=== PATIENT | male | born 1950 | race African-American/Black ===

== ENCOUNTER 2020-04-15 03:45 | Inpatient (IN) | payer MEDICARE ==
[~2020-04-15] VITALS: Ht 200.7 cm; Wt 68.0 kg
--- NOTE | 2020-04-15 03:45 | NUR ---
ED Nurse Note: Pt brought in by ambulance from [facility] d/t low o2 sat and elevated HR per SNF staff. Pt normally on 4 L NC at the SNF. HR 122 upon arrival. Pt COVID positve per staff. Respirations labored. A+Ox0, non verbal @ baseline. Pt hot to touch. All other vitals stable as documented.
[2020-04-15] MEDS ORDERED: Azithromycin 500 MG in NS 275 ML IVPB ONE (04:00)
[2020-04-15] MEDS ORDERED: Acetaminophen 650 MG SUPP RECTAL ONE (04:00)
[2020-04-15] MEDS ORDERED: cefTRIAXone 1 GM in NS 55 ML IV ONE (04:00)
[2020-04-15] MEDS ORDERED: dexAMETHasone 10mg/ml Inj IV ONE (04:00)
[2020-04-15] MEDS ORDERED: ATORVASTATIN CA10 MG ORAL (04:04)
[2020-04-15] MEDS ORDERED: HEPARIN SO5000 UNIT2 SUBQ (04:04)
[2020-04-15] MEDS ORDERED: FAMOTIDINE20 MG GT (04:04)
[2020-04-15] MEDS ORDERED: LABETALOL HCL200 MG GT (04:04)
[2020-04-15] MEDS ORDERED: MULTIVITAMINS1 EAC8 ORAL (04:04)
[2020-04-15] MEDS ORDERED: AMLODIPINE BESY10 MG GT (04:04)
[2020-04-15] MEDS ORDERED: ACETAMINOPHEN325 M1 GT (04:04)
[2020-04-15] MEDS ORDERED: MAGNESIUM OXID400 M1 GT (04:04)
[2020-04-15] MEDS ORDERED: REMERON30 MG GT (04:04)
[2020-04-15] MEDS ORDERED: ASPIRIN81 MG GT (04:04)
--- NOTE | 2020-04-15 04:04 | Emergency Room Report ---
History of Present Illness General Source: Medical Record, EMS Present Illness HPI Paramedics were summoned because the patient had a lower oxygen saturation. Apparently he usually saturates at 98% on 4 L. The patient has a history of COPD. When they arrived the nursing staff said that he was on 2 L and his oxygen saturation had dropped to 94%. When they increased his O2 sats to 4 L his oxygen saturation elzbieta to 98%. They were comfortable leaving the patient at the scene however the nursing facility insisted that the patient be transferred to the emergency department for further evaluation. There is a history of Covid positive status in the past. Uncertain as to when this test was performed. 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 He also has communication difficulty. He suffers from atrophy and muscle wasting. In addition he has major depressive disorder and COPD. The patient is unable to provide any further history. 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 COVID-19 Screening: Positive COVID-19 COVID-19 Testing Source: Manager Machine Patient History Limited by: medical condition Past Medical History: see triage record Social History Narrative residential facility full code Reviewed Nursing Documentation: PMH: Agreed; PSxH: Agreed Nursing Documentation-PMH Hx Cerebrovascular Accident: Yes - hemiplegia, hemiparesis Review of Systems All Other Systems: limited Physical Exam Vital Signs Date Time Temp Pulse Resp B/P (MAP) Pulse Ox O2 Delivery O2 Flow Rate FiO2 04/15/20 03:37 98.1 112 16 128/96 (107) 99 Nasal Cannula 4.0 Sp02 EP Interpretation: reviewed, abnormal - Based on FiO2 and interpreted by me General Appearance: alert, mild distress, thin, Chronically Ill Head: normocephalic, atraumatic Eyes: bilateral eye normal inspection, bilateral eye PERRL ENT: other - Dry mucous membranes Neck: full range of motion, supple Respiratory: no wheezing, respiratory distress - Mild, decreased breath sounds, rales, rhonchi Cardiovascular #1: no edema, tachycardia Cardiovascular #2: 2+ radial (R) Gastrointestinal: non tender, decreased bowel sounds, scaphoid Genitourinary: no CVA tenderness, penis normal Musculoskeletal: back normal, no calf tenderness, other - Atrophy Neurologic: DTRs symmetric, sensory intact, motor weakness - Left hemiparesis with some movement of his right arm with weakness, aphasia, Babinski - Left, right normal Psychiatric: depressed affect Skin: other - Cool extremities but warm abdomen Medical Decision Making Diagnostic Impression: Primary Impression: Right lower lobe pneumonia Qualified Codes: J18.9 - Pneumonia, unspecified organism Additional Impressions: COVID-19 virus detected Hypernatremia Left hemiparesis Aphasia Renal failure Qualified Codes: N19 - Unspecified kidney failure Protein calorie malnutrition Qualified Codes: E44.0 - Moderate protein-calorie malnutrition Elevated d-dimer ER Course Patient presents with hypoxia rhonchi presumed fever and history of Covid recently. Differential includes sepsis, pneumonia, Covid pneumonia, acute myocardial infarction, dehydration amongst others. Patient evaluated with EKG, chest x-ray and labs including COVID-19 testing. Patient treated with a fluid bolus, Tylenol, dexamethasone, azithromycin, Rocephin. Patient placed on a bus monitor. Complex patient with multiple comorbidities. EKG without injury. Chest x-ray right lower lobe infiltrate. Labs with leukocytosis, hypernatremia, renal failure. Urinalysis clear. Initial lactate normal. Patient improved on oxygen with treatment. Clearly patient is volume depleted. Even though covid +, doubt covid pneumonia based on x-ray and timing of prior + test. Patient admitted to telemetry under the care of Dr. Buitrago. Laboratory Tests Test 04/15/20 04:15 White Blood Count 11.8 K/UL (4.8-10.8) H Red Blood Count 4.96 M/UL (4.70-6.10) Hemoglobin 12.6 G/DL (14.2-18.0) L Hematocrit 40.1 % (42.0-52.0) L Mean Corpuscular Volume 81 FL (80-99) Mean Corpuscular Hemoglobin 25.5 PG (27.0-31.0) L Mean Corpuscular Hemoglobin Concent 31.5 G/DL (32.0-36.0) L Red Cell Distribution Width 15.1 % (11.6-14.8) H Platelet Count 277 K/UL (150-450) Mean Platelet Volume 7.7 FL (6.5-10.1) Neutrophils (%) (Auto) 81.4 % (45.0-75.0) H Lymphocytes (%) (Auto) 8.8 % (20.0-45.0) L Monocytes (%) (Auto) 9.2 % (1.0-10.0) Eosinophils (%) (Auto) 0.0 % (0.0-3.0) Basophils (%) (Auto) 0.5 % (0.0-2.0) Prothrombin Time 11.2 SEC (9.30-11.50) Prothrombin Time INR 1.0 (0.9-1.1) Activated Partial Thromboplast Time 30 SEC (23-33) D-Dimer 4.99 mg/L FEU (0.00-0.49) H Urine Color Yellow Urine Appearance Cloudy Urine pH 5 (4.5-8.0) Urine Specific Gerlaw 1.020 (1.005-1.035) Urine Protein 3+ (NEGATIVE) H Urine Glucose (UA) Negative (NEGATIVE) Urine Ketones Negative (NEGATIVE) Urine Blood 1+ (NEGATIVE) H Urine Nitrite Negative (NEGATIVE) Urine Bilirubin 1+ (NEGATIVE) H Urine Ictotest Negative (NEGATIVE) Urine Urobilinogen 1 MG/DL (0.0-1.0) H Urine Leukocyte Esterase Negative (NEGATIVE) Urine RBC 0-2 /HPF (0 - 0) H Urine WBC 0-2 /HPF (0 - 0) Urine Squamous Epithelial Cells None /LPF (NONE/OCC) Urine Amorphous Sediment Many /LPF (NONE) H Urine Bacteria Moderate /HPF (NONE) H Urine Coarse Granular Casts 5-10 /LPF (NONE) H Sodium Level 153 MMOL/L (136-145) H Potassium Level 3.5 MMOL/L (3.5-5.1) Chloride Level 115 MMOL/L (98-107) H Carbon Dioxide Level 23 MMOL/L (21-32) Anion Gap 15 mmol/L (5-15) Blood Urea Nitrogen 88 mg/dL (7-18) H Creatinine 3.6 MG/DL (0.55-1.30) H Estimated Glomerular Filtration Rate 16.9 mL/min (>60) Glucose Level 137 MG/DL (74-106) H Lactic Acid Level 1.30 mmol/L (0.4-2.0) Calcium Level 9.9 MG/DL (8.5-10.1) Magnesium Level 2.1 MG/DL (1.8-2.4) Ferritin 860 NG/ML (8-388) H Total Bilirubin 0.5 MG/DL (0.2-1.0) Aspartate Amino Transferase (AST) 30 U/L (15-37) Alanine Aminotransferase (ALT) 13 U/L (12-78) Alkaline Phosphatase 72 U/L (46-116) Lactate Dehydrogenase 247 U/L (81-234) H Total Creatine Kinase 132 U/L (26-308) Troponin I 0.030 ng/mL (0.000-0.056) C-Reactive Protein, Quantitative 23.9 mg/dL (0.00-0.90) H Pro-B-Type Natriuretic Peptide 579 pg/mL (0-125) H Total Protein 8.4 G/DL (6.4-8.2) H Albumin 3.1 G/DL (3.4-5.0) L Globulin 5.3 g/dL Albumin/Globulin Ratio 0.6 (1.0-2.7) L Lipase 123 U/L (73-393) Microbiology Date/Time Source Procedure Growth Status 04/15/20 03:57 Nasopharynx SARS-CoV-2 RdRp Gene Assay - Final Complete EKG Diagnostic Results Rate: tachycardiac Rhythm: NSR ST Segments: no acute changes - biatrial enlargement Rhythm Strip Diag. Results EP Interpretation: yes Rhythm: no PVC's, no ectopy, other - ST Chest X-Ray Diagnostic Results Chest X-Ray Diagnostic Results : Chest X-Ray Ordered: Yes # of Views/Limited/Complete: 1 View Indication: Shortness of Breath EP Interpretation: Yes Interpretation: no effusion, no pneumothorax, other - Right lower lobe infiltrate and COPD Impression: Other Electronically Signed by: Electronically signed by Johnny Ruvalcaba MD Last Vital Signs Date Time Temp Pulse Resp B/P (MAP) Pulse Ox O2 Delivery O2 Flow Rate FiO2 04/15/20 08:50 100.2 104 17 125/80 99 Nasal Cannula 4.0 Status: improved Disposition: ADMITTED INPATIENT Condition: Serious Johnny Ruvalcaba MD Apr 15, 2020 04:04
[2020-04-15 04:34] LABS: BILIRUBIN, URINE 1+ (NEGATIVE); GLUCOSE, URINE (UA) NEGATIVE (NEGATIVE); KETONES,URINE NEGATIVE (NEGATIVE); LEUKOCYTE ESTERASE ,URINE NEGATIVE (NEGATIVE); NITRITE,URINE NEGATIVE (NEGATIVE); PH,URINE 5 (4.5-8.0); PROTEIN,URINE 3+ (NEGATIVE); UROBILINOGEN,URINE 1 MG/DL (0.0-1.0)
[2020-04-15 04:45] VITALS: BP 114/81
[2020-04-15 04:46] LABS: BASOPHILS % (AUTO) 0.5 % (0.0-2.0); HEMATOCRIT 40.1 % (42.0-52.0); HEMOGLOBIN 12.6 G/DL (14.2-18.0); LYMPHOCYTES % (AUTO) 8.8 % (20.0-45.0); MEAN CORPUSCULAR VOLUME 81 FL (80-99); MONOCYTES % (AUTO) 9.2 % (1.0-10.0); NEUTROPHILS % (AUTO) 81.4 % (45.0-75.0); PLATELET COUNT 277 K/UL (150-450); RED BLOOD COUNT 4.96 M/UL (4.70-6.10); RED CELL DISTRIBUTION WIDTH 15.1 % (11.6-14.8); WHITE BLOOD COUNT 11.8 K/UL (4.8-10.8)
--- NOTE | 2020-04-15 04:46 | NUR ---
ED Nurse Note: rectal temp 102.4
[2020-04-15 05:01] LABS: ANION GAP 15 mmol/L (5-15); BLOOD UREA NITROGEN 88 mg/dL (7-18); CALCIUM 9.9 MG/DL (8.5-10.1); CARBON DIOXIDE 23 MMOL/L (21-32); CHLORIDE 115 MMOL/L (98-107); CREATININE 3.6 MG/DL (0.55-1.30); POTASSIUM 3.5 MMOL/L (3.5-5.1); SODIUM 153 MMOL/L (136-145)
[2020-04-15 05:03] LABS: COLOR,URINE YELLOW
[2020-04-15 05:04] LABS: APPEARANCE,URINE CLOUDY
[2020-04-15 05:21] LABS: ALANINE AMINOTRANSFERASE 13 U/L (12-78); ALBUMIN 3.1 G/DL (3.4-5.0); ALBUMIN/GLOBULIN RATIO 0.6 (1.0-2.7); ALKALINE PHOSPHATASE 72 U/L (46-116); ASPARTATE AMINO TRANSFERASE 30 U/L (15-37); BILIRUBIN,TOTAL 0.5 MG/DL (0.2-1.0); CREATINE KINASE 132 U/L (26-308); FERRITIN 860 NG/ML (8-388); LACTATE DEHYDROGENASE 247 U/L (81-234)
[2020-04-15 06:45] VITALS: BP 123/87
--- NOTE | 2020-04-15 07:30 | NUR ---
ED Nurse Note: Pt lying in bed, no acute distress. Will continue to monitor.
[2020-04-15 08:50] VITALS: BP 125/80
--- NOTE | 2020-04-15 09:24 | NUR ---
ED Nurse Note: Report given to Daniel GRUBBS.
--- NOTE | 2020-04-15 09:40 | NUR ---
ED Nurse Note: Pt transferred to tele floor with all belongings. Received by RN.
--- NOTE | 2020-04-15 09:40 | NUR ---
NURSE NOTES: Admitted patient from ED. Patientis covid-19 positive from SNF. pt is awake, eyes open, and non-verbal. A&O x0. Respirationis even and unlabored on O2 @4l/min via NC. No facial grimacing for pain noted. Patient has no belongingsat this time. skin is intact. pt is a fall risk, bed alarm on, bed locked for fall precaution. made pt comfortable in bed, meal ordered, placed call light within reach.
--- NOTE | 2020-04-15 10:00 | NUR ---
NURSE NOTES: Made Dr. Buitrago aware. received admission orders, noted and carried out.
[2020-04-15 12:00] VITALS: BP 126/93
--- NOTE | 2020-04-15 14:25 | Diagnostic Imaging Report ---
Indication: Shortness of breath Technique: One view of the chest Comparison: none Findings: Dense consolidation is seen in the right medial lung base. The remainder of the lungs and pleural spaces are clear, except for very questionable peripheral streaky opacity in the right mid-upper lung. The heart size is normal. The aorta is tortuous. Calcified granulomata are seen in the left midlung Impression: Right infrahilar dense consolidation, likely pneumonia. As it is fairly dense and focal, follow-up chest radiographs are recommended to make sure this resolves in order to exclude underlying mass lesion Questionable streaky peripheral consolidation in the right upper lobe Evidence of old granulomatous disease Findings discussed by phone with Dr. Buitrago at the time of interpretation
[2020-04-15 16:00] VITALS: BP 121/86
--- NOTE | 2020-04-15 16:01 | Consultation ---
Consult Note Consult Note DATE OF CONSULTATION: 04/15/2020 CONSULTING PHYSICIAN: David Lopez MD. ATTENDING PHYSICIAN: Dr. Buitrago REASON FOR CONSULTATION: Hypoxia, COVID-19 HISTORY OF PRESENT ILLNESS: This is a 69-year-old male with past medical history of CVA with left-sided hemiplegia, muscle wasting, major depressive disorder, and COPD, who was sent in from SNF for evaluation of acute hypoxia. Patient has communication difficulty and most of the information is obtained from the ER note and his EMR. Apparently he usually saturates at 98% on 4 L nasal cannula at the SNF. Paramedics were summoned to the SNF due to acute hypoxia. However it was noted that patient was saturating at 94% on 2 L nasal cannula. The nursing facility insisted that the patient be transferred to the ER for further evaluation. Patient was also reported to test positive for COVID-19 with unknown testing date. His rapid gene assay COVID-19 test came back positive in the ER. His initial chest x-ray is remarkable for lower lobe infiltrate. His initial laboratory studies are remarkable for leukocytosis, hyponatremia, and renal failure. Urinalysis is clear. Patient received fluid bolus, Tylenol, dexamethasone, azithromycin, and Rocephin in the ER and was admitted for further observation. PAST MEDICAL HISTORY: CVA with left-sided hemiplegia, muscle wasting, major depressive disorder, COPD MEDICATIONS: Acetaminophen, amlodipine, aspirin, atorvastatin, famotidine, heparin, labetalol, magnesium, mirtazapine, and multivitamin ALLERGIES: No known allergies FAMILY HISTORY: Unknown PERSONAL/SOCIAL HISTORY: Resident of correction facility REVIEW OF SYSTEMS: Unreliable PHYSICAL EXAMINATION: VITAL SIGNS: Blood pressure 126/93, heart rate 105, respiratory rate 22, weight 68 kg, height 200 cm General: Patient asleep in bed, NAD, on 3 L NC with normal work of breathing HEENT: Head exam reveals that the head is normocephalic, atraumatic without deformity or unusual swelling. Pupils are PERRLA. CHEST AND LUNGS: Mildly decreased breath sounds, rales, rhonchi CARDIOVASCULAR: Reveals normal S1, S2 without murmurs, rubs, or clicks. Tachycardia ABDOMEN: Soft with no tenderness or organomegaly. Scaphoid contour RECTAL: Deferred. MUSCULOSKELETAL: There is no tenderness to palpation NEUROLOGICAL: Left hemiparesis with some movement of his right arm with weakness, aphasia, Babinski normal LABORATORY DATA: Laboratory testing shows WBC 11.8, hemoglobin 12.6, hct 40.1 Chemistries show sodium 153, chloride 115, BUN 88, creatinine 3.6, glucose 137, ferritin 860, LDH 247, CRP 23.9, BNP 579, albumin 3.0 Urinalysis shows 3+ protein, 1+ blood, 1+ bilirubin, negative leuk esterase D-dimer 4.99 Assessment/Plan 1. COVID-19 pneumonia -On dexamethasone -On azithromycin, and ceftriaxone per primary MD 2. COPD, oxygen dependent 3. Malnourished -Per primary MD 4. Leukocytosis, likely secondary to #1 5. Renal failure - Recommend IVF 6. Hyperglycemia, - monitor BG - of note, he is on Decadron 7. Increased inflammatory markers - DVT prophylaxis -Agree with heparin 8. Hypoxia; improved - currently saturating at 95% on 4 L nasal cannula -Continue providing supplemental oxygen The care for this patient was discussed with my supervising physician. Time spent for this case was approximately 31 minutes. Bennie Goodrich Apr 15, 2020 16:01
--- NOTE | 2020-04-15 17:17 | NUR ---
NURSE NOTES:WOUND CARE NOTES:P presented on admission with Non-Blanchable erythema sacrum with scattered areas of hyperpigmentation from previous wounds noted to cleft ,R and L Buttocks. L Heel is boggy but easily blanchable. R Heel is boggy with non-blanchable erythema. No other skin concerns noted. Tx.Plan: Apply Moisture Barrier Paste to sacrum. Cover with Optifoam drsg. Change every 3 days and prn. Apply Cavilon Skin Barrier to both heels. Cover each heel with Optifoam drsg. Change every 7 days and prn. Cover Bony Prominences as needed with Optifoam drsg. Reposition at least every 2hours or as tolerated. Off-load heels with pillow.
--- NOTE | 2020-04-15 18:00 | NUR ---
NURSE NOTES: DR HAN MADE ROUNDS, GAVE VERBAL ORDERS TO START PT ON NS 100CC/HR AND GLUCERNA SHAKE FOR MEAL SUPPLEMENT. ORDER NOTED AND CARRIED OUT.
--- NOTE | 2020-04-15 19:30 | NUR ---
NURSE NOTES: Pt. received from ROMIE Sanchez. Pt nonverbal, no indications of respiratory distress on 2L NC, no indications of pain. IV noted left wrist 20g intact and patent, right forearm 20g intact and patent. Awad intact, draining urine well. Bed low and locked, side rails x3 up, bed alarm active, and call light in reach.
--- NOTE | 2020-04-15 19:34 | NUR ---
HAND-OFF: Report given to marcie.
--- NOTE | 2020-04-15 19:44 | History and Physical Report ---
DATE OF ADMISSION: 04/15/2020 HISTORY OF PRESENT ILLNESS: The patient is a 69-year-old male, came to the emergency room for having altered mental status, dehydration, was found to have COVID-19 and also was found to have acute renal failure, protein malnutrition, history of left hemiparesis, and COVID. The patient also has right lower lobe pneumonia. The patient looked very weak, tired, poor p.o. intake, not eating for the last few days. MEDICATIONS: He is taking Pepcid, Remeron, multivitamin at home, Lipitor, amlodipine, labetalol, Remeron, aspirin. PHYSICAL EXAMINATION: GENERAL: This is elderly cachectic male, who currently opens his eyes, generalized weakness, poor p.o. intake. VITAL SIGNS: Blood pressure 121/86, pulse 96, saturation 98%, and temperature 97.9. HEENT: Eyes are open. NECK: Supple. CHEST: Bilateral decreased breath sounds. CARDIOVASCULAR: Regular rhythm. Tachycardia. ABDOMEN: Soft. Positive bowel sounds. Nontender. EXTREMITIES: No edema. GENITOURINARY: Deferred. LABORATORY AND DIAGNOSTIC DATA: White count is 12,000, hemoglobin 13. Chemistry panel, sodium 153, potassium 3.5, BUN 88, creatinine 3.6, glucose 137. Urine, 1+ blood, urobilinogen, moderate bacteria. Chest x-ray showing right lower lobe pneumonia. ASSESSMENT: 1. COVID-19 pneumonia. 2. Dehydration. 3. Acute renal failure. 4. Severe malnutrition. 5. Metabolic encephalopathy. We will add IV fluids. Continue Pepcid, aspirin, Norvasc. Continue Decadron, Zithromax, ceftriaxone. Check labs and follow. Consider Pulmonary consult. Luis Buitrago M.D. DR: BALAJI JOB#: [id number] CC:
[2020-04-15 20:00] VITALS: BP 120/89
[2020-04-15] MEDS: Heparin 5000 units/ml inj SUBQ SCH (20:55)
--- NOTE | 2020-04-15 21:09 | NUR ---
NURSE NOTES: Pt. high risk for aspiration, unable to tolerate PO intake. Pt. opening and closing mouth without attempt to swallow small portion of applesauce given. 2100 PO meds held, will notify Dr. Buitrago.
--- NOTE | 2020-04-15 21:51 | NUR ---
NURSE NOTES: Dr. Buitrago aware, no new orders.
[2020-04-16] VITALS: BP 134/98
[2020-04-16 04:00] VITALS: BP 135/92
--- NOTE | 2020-04-16 05:59 | NUR ---
NURSE NOTES: Pt. unable to consume 0600 medications. When attempting to assess pt. swallow ability, pt. attempts to bite straw and plastic spoon with no attempts to consume. Pt. high aspiration risk. AM meds held. Dr. Buitrago aware of similar event for 2100 meds.
--- NOTE | 2020-04-16 07:05 | NUR ---
NURSE HAND-OFF REPORT: Important Events on Shift:[pt. with poor PO intake, unable to administer PO meds as pt was uncooperative and high risk for aspiration. Dr. Buitrago notified and no new orders received] Patient Status: asleep, stable Diet: regular Pending Orders: na Pending Results/Labs:na Pending MD notification: MD notified of poor PO intake, endorsed to day shift as well Latest Vital Signs: Temperature 96.8 , Pulse , B/P / , Respiratory Rate 16 , O2 SAT 94 , Room Air, O2 Flow Rate 2.0 . Vital Sign Comment: stable EKG Rhythm: Sinus Rhythm Rhythm change?: N MD Notified?: - MD Response: Latest [place] Fall Score: 70 Fall Risk: High Risk Safety Measures: Call light Within Reach, Bed Alarm Zone 1, Side Rails Side Rails x3, Bed position Low and Locked. Fall Precautions: Yellow Socks Yellow Gown Patient Fall Education Report given to ROMIE Sanchez.
--- NOTE | 2020-04-16 07:32 | NUR ---
NURSE NOTES: pt is asleep in bed. respiration is even and unlabored with o2 @2l/min via NC. hob in semi-linton. no grimacing for pain noted. turned and repositioned in bed at this time. placed call light within reach.
[2020-04-16 08:00] VITALS: BP 132/93
[2020-04-16] MEDS: Aspirin Baby 81mg ORAL SCH (09:00)
[2020-04-16] MEDS: Magnesium Oxide 400mg tab ORAL SCH (09:00)
[2020-04-16] MEDS: Multivitamin w/Minerals tab ORAL SCH (09:00)
[2020-04-16] MEDS: Heparin 5000 units/ml inj SUBQ SCH ×2 (09:28→21:38)
[2020-04-16] MEDS: cefTRIAXone 1 GM in D5W 55 ML IVPB SCH (09:29)
[2020-04-16] MEDS: Azithromycin 500 MG in D5W 275 ML IV SCH (10:23)
--- NOTE | 2020-04-16 10:35 | Pulmonology Progress Note ---
Subjective ROS Limited/Unobtainable: No Interval Events: none major reported per nursing Constitutional: Reports: no symptoms HEENT: Repors: no symptoms Respiratory: Reports: no symptoms Cardiovascular: Reports: no symptoms Gastrointestinal/Abdominal: Reports: no symptoms Allergies: Coded Allergies: No Known Allergies (Unverified , 04/15/20) Objective Last 24 Hour Vital Signs Date Time Temp Pulse Resp B/P (MAP) Pulse Ox O2 Delivery O2 Flow Rate FiO2 04/16/20 09:00 87 132/93 04/16/20 09:00 Nasal Cannula 2.0 04/16/20 08:00 99.7 87 18 132/93 (106) 96 04/16/20 04:00 83 04/16/20 04:00 96.8 83 16 135/92 (106) 94 04/16/20 00:00 96.8 87 16 134/98 (110) 98 04/16/20 00:00 87 04/15/20 21:09 89 120/89 04/15/20 21:00 Nasal Cannula 2.0 04/15/20 20:00 89 04/15/20 20:00 97.0 89 16 120/89 (99) 97 04/15/20 16:00 98 04/15/20 16:00 97.9 96 20 121/86 (98) 98 04/15/20 15:37 105 126/93 04/15/20 12:00 97.5 100 22 126/93 (104) 95 04/15/20 12:00 105 Intake and Output 04/15/20 04/16/20 19:00 07:00 Intake Total 1100 ml Output Total 300 ml 350 ml Balance -300 ml 750 ml Intake IV Total 1100 ml Output Urine Total 300 ml 350 ml HEENT: atraumatic Respiratory: decreased breath sounds, crackles/rales Cardiovascular: normal rate, regular rhythm Abdomen: soft, non tender Microbiology Date/Time Source Procedure Growth Status 04/15/20 04:15 Blood Blood Culture - Preliminary NO GROWTH AFTER 24 HOURS Resulted 04/15/20 04:10 Rectum Received 04/15/20 04:00 Blood Blood Culture - Preliminary NO GROWTH AFTER 24 HOURS Resulted 04/15/20 03:57 Nasopharynx SARS-CoV-2 RdRp Gene Assay - Final Complete Current Medications Medications (Trade) Dose Ordered Sig/Chano Route PRN Reason Start Time Stop Time Status Last Admin Dose Admin Acetaminophen (Tylenol) 650 mg Q4H PRN ORAL Temp >100.5 04/15/20 13:15 05/15/20 13:14 Amlodipine Besylate (Norvasc) 10 mg DAILY ORAL 04/16/20 09:00 05/16/20 08:59 Aspirin (ASA) 81 mg DAILY ORAL 04/16/20 09:00 05/31/20 08:59 Atorvastatin Calcium (Lipitor) 10 mg BEDTIME ORAL 04/15/20 21:00 07/14/20 20:59 Azithromycin 500 mg/Dextrose 275 ml @ 275 mls/hr Q24HRS IV 04/16/20 09:00 04/22/20 09:59 04/16/20 10:23 Ceftriaxone Sodium 1 gm/ Dextrose 55 ml @ 110 mls/hr Q24H IVPB 04/16/20 09:00 04/23/20 08:59 04/16/20 09:29 Dexamethasone (Decadron) 6 mg DAILY ORAL 04/16/20 09:00 04/24/20 12:00 Famotidine (Pepcid) 20 mg DAILY ORAL 04/16/20 09:00 07/15/20 08:59 Heparin Sodium (Porcine) (Heparin 5000 units/ml) 5,000 units EVERY 12 HOURS SUBQ 04/15/20 21:00 05/30/20 20:59 04/16/20 09:28 Labetalol HCl (Normodyne) 200 mg Q8HR ORAL 04/15/20 14:00 05/15/20 13:59 04/15/20 15:37 Magnesium Oxide (Mag-Ox 400mg) 400 mg DAILY ORAL 04/16/20 09:00 05/16/20 08:59 Mirtazapine (Remeron) 30 mg BEDTIME ORAL 04/15/20 21:00 07/14/20 20:59 Multivitamins Therapeutic (Therapeutic Multivitamin) 1 ea DAILY ORAL 04/16/20 09:00 05/16/20 08:59 Sodium Chloride 1,000 ml @ 100 mls/hr Q10H IV 04/15/20 18:30 05/15/20 18:29 04/16/20 03:35 Assessment/Plan Assessment/Plan 1. COVID-19 pneumonia -On dexamethasone -On azithromycin, and ceftriaxone per primary MD 2. COPD, oxygen dependent 3. Malnourished -Per primary MD 4. Leukocytosis, likely secondary to #1 5. Renal failure - Recommend IVF 6. Hyperglycemia, - monitor BG - of note, he is on Decadron 7. Increased inflammatory markers - DVT prophylaxis -Agree with heparin 8. Hypoxia; improved - currently saturating at 96% on 2 L nasal cannula - Continue providing supplemental oxygen The care for this patient was discussed with my supervising physician. Time spent for this case was approximately 31 minutes. Bennie Goodrich Apr 16, 2020 10:35
[2020-04-16 12:00] VITALS: BP 128/90
--- NOTE | 2020-04-16 13:21 | NUR ---
RD ASSESSMENT & RECOMMENDATIONS SEE CARE ACTIVITY FOR COMPLETE ASSESSMENT DAILY ESTIMATED NEEDS: Needs based on Pulmonary, wound, 64kg 25-30 kcals/kg 0792-1407 total kcals 1.25-1.5 g protein/kg 80-96 g total protein 25-30 mL/kg 7194-0831 total fluid mLs NUTRITION DIAGNOSIS: Swallowing difficulty R/T dysphagia, decreased cognitive fxn as evidenced by pt unable to swallow at this time per RN, oral meds and diet held. CURRENT DIET:REGULAR, soft easy chew + Glucerna TID PO DIET RECOMMENDATIONS: IF SAFE FOR ORAL DIET -> liberalized regular/ texture per FORENSIC TECHNICIAN +Glucerna TID ENTERAL NUTRITION RECOMMENDATIONS: REC NONORAL DIET IF NOT SAFE FOR PO-> Glucerna 1.2 @60ml/hr x 24 hrs to provide 1440ml, 1728kcal, 86g prot, 1159ml free water * POLST indicates okay for retirement artificial nutrition including TF * Rec nonoral feeds if not safe for oral diet * W/ GI access, initiate Glucerna 1.2 @ 10ml/hr x 6hrs * Advance 10ml q 4-6 hrs as tolerated to goal * HOB over 30 degrees/ water flush per MD ADDITIONAL RECOMMENDATIONS: * Per SNF: HT=5'11", CE=340 lbs ("March" ) * FORENSIC TECHNICIAN evaluation for safety of oral diet * Nonoral feeds if unable to tolerate PO -> pt is full code * Monitor for hypoglycemia w/ poor PO -> Rec added D5 IVF * Wound Care: f/up w/ WC eval MVI + Vit C 250mg QD when able to tolerate oral med
--- NOTE | 2020-04-16 14:06 | NUR ---
CASE MANAGEMENT:REVIEW 69 YR OLD MALE BIBA FROM [facility] CC: SOB. SATS 89% ON 2L/NC HR 120 PMH: COPD. CVA SI: COVID PNA. HYPERNATREMIA. ACUTE RENAL FAILURE 102.4 112 16 128/96 99% ON 4L/NC WBC+11.8 NA+153 BUN+88 CR+3.6 IS: IV AZITHROMYCIN IV ROCEPHIN IV DECADRON 1L NS BOLUS TYLENOL WI CHEST XRAY BLOOD CX : TO TELEMETRY UNIT DCP: RETURN TO [facility]
[2020-04-16 16:00] VITALS: BP 131/71
[2020-04-16] MEDS ORDERED: LISINOPRIL20 MG GT (17:31)
--- NOTE | 2020-04-16 17:43 | General Progress Note ---
Subjective Date patient seen: Apr 16, 2020 Constitutional: Reports: malaise, weakness HEENT: Reports: no symptoms Cardiovascular: Reports: no symptoms Respiratory: Reports: no symptoms Gastrointestinal/Abdominal: Reports: nausea, poor appetite, poor fluid intake Neurologic/Psychiatric: Reports: weakness Allergies: Coded Allergies: No Known Allergies (Unverified , 04/15/20) Objective Last 24 Hour Vital Signs Date Time Temp Pulse Resp B/P (MAP) Pulse Ox O2 Delivery O2 Flow Rate FiO2 04/16/20 16:00 85 04/16/20 16:00 98.2 87 18 131/71 (91) 100 04/16/20 14:00 79 128/90 04/16/20 12:00 79 04/16/20 12:00 98.9 86 16 128/90 (103) 98 04/16/20 09:00 87 132/93 04/16/20 09:00 Nasal Cannula 2.0 04/16/20 08:00 82 04/16/20 08:00 99.7 87 18 132/93 (106) 96 04/16/20 04:00 83 04/16/20 04:00 96.8 83 16 135/92 (106) 94 04/16/20 00:00 96.8 87 16 134/98 (110) 98 04/16/20 00:00 87 04/15/20 21:09 89 120/89 04/15/20 21:00 Nasal Cannula 2.0 04/15/20 20:00 89 04/15/20 20:00 97.0 89 16 120/89 (99) 97 Intake and Output 04/15/20 04/16/20 19:00 07:00 Intake Total 1100 ml Output Total 300 ml 350 ml Balance -300 ml 750 ml Intake IV Total 1100 ml Output Urine Total 300 ml 350 ml Height (Feet): 6 Height (Inches): 7.00 Weight (Pounds): 150 General Appearance: alert EENT: PERRL/EOMI Neck: supple Cardiovascular: regular rhythm Respiratory/Chest: crackles/rales Abdomen: non tender, soft Extremities: non-tender Assessment/Plan Assessment/Plan: sepsis covid pna uti ac renal failure failure to thrive protein malnutrition cont ivf add vancomycin iv id consult boost Dedrick Wong MD Apr 16, 2020 17:43
--- NOTE | 2020-04-16 17:45 | NUR ---
NURSE NOTES: Dr. Buitrago making rounds, notifies MD about positive gram positive cocci per microbiology report. Dr. Soto says to call Dr. Cassidy (ID) for consult. Order carried out by ROMIE.
--- NOTE | 2020-04-16 18:12 | NUR ---
NURSE NOTES: Paged Dr. Cassidy (ID) for consult . Left message to voicemail.
--- NOTE | 2020-04-16 18:20 | NUR ---
NURSE NOTES: Dr. Cassidy returns call and ordered Vancomycin per pharmacy to dose. Order noted and communicated to pharmacy.
--- NOTE | 2020-04-16 18:27 | NUR ---
NURSE HAND-OFF REPORT: Important Events on Shift:n/a Patient Status: asleep and arousable Diet: regular with poor po intake Pending Orders: n/a Pending Results/Labs:n/a Pending MD notification:n/a Latest Vital Signs: Temperature 98.2 , Pulse 87 , B/P 131 /71 , Respiratory Rate 18 , O2 SAT 100 , Room Air, O2 Flow Rate 2.0 . Vital Sign Comment: stable EKG Rhythm: Sinus Rhythm Rhythm change?: N MD Notified?: - MD Response: Latest Segovia Fall Score: 70 Fall Risk: High Risk Safety Measures: Call light Within Reach, Bed Alarm Zone 1, Side Rails Side Rails x3, Bed position Low and Locked. Fall Precautions: Yellow Socks Yellow Gown Patient Fall Education Report given to . Addendum: 04/16/20 at 1911 by Daniel Mccullough RN HAND-OFF: Report given to
--- NOTE | 2020-04-16 19:08 | NUR ---
NURSE NOTES: Pt. received from ROMIE Sanchez. Pt AAOx0 at baseline, no indications of respiratory distress on 2L NC, no SOB noted, no indications of pain at this time. IV noted left wrist saline locked. Right forearm 20g intact and patent with NS at 100cc running. Awad intact, draining urine well. Bed low and locked, side rails x3 up, bed alarm active, and call light in reach.
[2020-04-16 20:00] VITALS: BP 138/88
[2020-04-16] MEDS ORDERED: Vancomycin 1.25gm Premix q24h IVPB SCH (21:00)
--- NOTE | 2020-04-16 21:45 | NUR ---
NURSE NOTES: Attempted to assess pt.s swallow ability, when inserting spoon with small amount of applesauce pt continuously chews with no attempt to swallow. Pt. high risk for aspiration, 2100 PO medications held, Dr. Buitrago previously aware. Also attempted to offer pt. PO fluids, pt. continues to bite straw without attempt to swallow fluids.
[2020-04-17] VITALS: BP 140/86
[2020-04-17 04:00] VITALS: BP 149/88
--- NOTE | 2020-04-17 06:36 | NUR ---
NURSE HAND-OFF REPORT: Important Events on Shift:[pt. refusing to eat, attempted to assess PO intake but pt. not attempting to chew or swallow, very high fall risk; Dr. Buitrago previously notifie. PO meds held] Patient Status: asleep, stable Diet: regular soft easy chew Pending Orders: na Pending Results/Labs:na Pending MD notification:request change in fluids, alternate route for medications Latest Vital Signs: Temperature 98.9 , Pulse 97 , B/P 149 /88 , Respiratory Rate 20 , O2 SAT 94 , Room Air, O2 Flow Rate 2.0 . Vital Sign Comment: stable EKG Rhythm: Sinus Rhythm Rhythm change?: N MD Notified?: - MD Response: Latest Seg[place]ia Fall Score: 70 Fall Risk: High Risk Safety Measures: Call light Within Reach, Bed Alarm Zone 1, Side Rails Side Rails x3, Bed position Low and Locked. Fall Precautions: Yellow Socks Yellow Gown Patient Fall Education Report given to .
--- NOTE | 2020-04-17 07:15 | NUR ---
HAND-OFF: Report given to ROMIE Kelley.
--- NOTE | 2020-04-17 07:21 | NUR ---
NURSE NOTES: Report received from Madan GRUBBS. Patient seen on rounds, asleep but rousable to tactile stimulation, on O2 at 2lpm via NC with no signs of acute distress. PIV on left wrist G.20 and right forearm G.20 infusing NS @ 100ml/hr. Awad secured and draining. Bed low and locked, siderails up x2, zone alarms on 1, will continue to monitor.
[2020-04-17 08:00] VITALS: BP 155/103
[2020-04-17] MEDS: Magnesium Oxide 400mg tab ORAL SCH (09:40)
[2020-04-17] MEDS: Aspirin Baby 81mg ORAL SCH (09:40)
[2020-04-17] MEDS: Multivitamin w/Minerals tab ORAL SCH (09:40)
[2020-04-17] MEDS: Azithromycin 500 MG in D5W 275 ML IV SCH (09:41)
[2020-04-17] MEDS: Heparin 5000 units/ml inj SUBQ SCH ×2 (09:43→20:34)
--- NOTE | 2020-04-17 10:03 | Pulmonology Progress Note ---
Subjective ROS Limited/Unobtainable: No Interval Events: none major reported per nursing Constitutional: Reports: no symptoms HEENT: Repors: no symptoms Respiratory: Reports: no symptoms Cardiovascular: Reports: no symptoms Gastrointestinal/Abdominal: Reports: no symptoms Allergies: Coded Allergies: No Known Allergies (Unverified , 04/15/20) Objective Last 24 Hour Vital Signs Date Time Temp Pulse Resp B/P (MAP) Pulse Ox O2 Delivery O2 Flow Rate FiO2 04/17/20 09:41 101 155/103 04/17/20 04:00 98.9 94 20 149/88 (108) 94 04/17/20 04:00 97 04/17/20 00:00 90 04/17/20 00:00 98.8 90 20 140/86 (104) 94 04/16/20 21:00 Nasal Cannula 2.0 04/16/20 20:00 89 04/16/20 20:00 98.5 89 20 138/88 (105) 94 04/16/20 16:00 85 04/16/20 16:00 98.2 87 18 131/71 (91) 100 04/16/20 14:00 79 128/90 04/16/20 12:00 79 04/16/20 12:00 98.9 86 16 128/90 (103) 98 Intake and Output 04/16/20 04/17/20 19:00 07:00 Intake Total 1300.000 ml Output Total 450 ml 1000 ml Balance -450 ml 300.000 ml Intake IV Total 1300.000 ml Output Urine Total 450 ml 1000 ml # Voids 1 HEENT: atraumatic Respiratory: decreased breath sounds, crackles/rales Cardiovascular: normal rate, regular rhythm Abdomen: soft, non tender Microbiology Date/Time Source Procedure Growth Status 04/15/20 04:15 Urine,Clean Catch Urine Culture - Final Gram Negative Mario Complete 04/15/20 04:15 Blood Blood Culture - Preliminary Resulted 04/15/20 04:10 Rectum Received 04/15/20 04:10 Nasal Nares MRSA Culture - Final NO METHICILLIN RESISTANT STAPH AUREUS... Complete 04/15/20 04:00 Blood Blood Culture - Preliminary Resulted 04/15/20 03:57 Nasopharynx SARS-CoV-2 RdRp Gene Assay - Final Complete Current Medications Medications (Trade) Dose Ordered Sig/Chano Route PRN Reason Start Time Stop Time Status Last Admin Dose Admin Acetaminophen (Tylenol) 650 mg Q4H PRN ORAL Temp >100.5 04/15/20 13:15 05/15/20 13:14 04/17/20 09:49 Amlodipine Besylate (Norvasc) 10 mg DAILY ORAL 04/16/20 09:00 05/16/20 08:59 04/17/20 09:41 Aspirin (ASA) 81 mg DAILY ORAL 04/16/20 09:00 05/31/20 08:59 04/17/20 09:40 Atorvastatin Calcium (Lipitor) 10 mg BEDTIME ORAL 04/15/20 21:00 07/14/20 20:59 Azithromycin 500 mg/Dextrose 275 ml @ 275 mls/hr Q24HRS IV 04/16/20 09:00 04/22/20 09:59 04/17/20 09:41 Ceftriaxone Sodium 1 gm/ Dextrose 55 ml @ 110 mls/hr Q24H IVPB 04/16/20 09:00 04/23/20 08:59 04/16/20 09:29 Dexamethasone (Decadron) 6 mg DAILY ORAL 04/16/20 09:00 04/24/20 12:00 04/17/20 09:39 Famotidine (Pepcid) 20 mg DAILY ORAL 04/16/20 09:00 07/15/20 08:59 04/17/20 09:40 Heparin Sodium (Porcine) (Heparin 5000 units/ml) 5,000 units EVERY 12 HOURS SUBQ 04/15/20 21:00 05/30/20 20:59 04/17/20 09:43 Labetalol HCl (Normodyne) 200 mg Q8HR ORAL 04/15/20 14:00 05/15/20 13:59 04/15/20 15:37 Magnesium Oxide (Mag-Ox 400mg) 400 mg DAILY ORAL 04/16/20 09:00 05/16/20 08:59 04/17/20 09:40 Mirtazapine (Remeron) 30 mg BEDTIME ORAL 04/15/20 21:00 07/14/20 20:59 Multivitamins Therapeutic (Therapeutic Multivitamin) 1 ea DAILY ORAL 04/16/20 09:00 05/16/20 08:59 04/17/20 09:40 Sodium Chloride 1,000 ml @ 100 mls/hr Q10H IV 04/15/20 18:30 05/15/20 18:29 04/17/20 01:00 Vancomycin HCl (Vanco pharmacy to dose) 1 ea DAILY PRN MISC . 04/17/20 09:00 05/17/20 08:59 Assessment/Plan Assessment/Plan 1. COVID-19 pneumonia -On dexamethasone -On azithromycin, and ceftriaxone per primary MD 2. COPD, oxygen dependent 3. Malnourished -Per primary MD 4. Leukocytosis, likely secondary to #1 5. Renal failure - Recommend IVF 6. Hyperglycemia, - monitor BG - of note, he is on Decadron 7. Increased inflammatory markers - DVT prophylaxis -Agree with heparin 8. Hypoxia; improved - currently saturating at 96% on 2 L nasal cannula - Continue providing supplemental oxygen - Pt is reported to be chronically oxygen dependent due to history of COPD The care for this patient was discussed with my supervising physician. Time spent for this case was approximately 31 minutes. Bennie Goodrich Apr 17, 2020 10:03
--- NOTE | 2020-04-17 10:38 | NUR ---
CASE MANAGEMENT:REVIEW 04/17/20 SI: KAYLEE HANNAH. COPD. RENAL FAILURE 98.9 101 20 155/103 94% ON 2L/NC NO LABS IS:DECADRON PO QD IV AZITHROMYCIN Q24 IV ROCEPHIN Q24 IVF@100/HR MVI PO QD MAG OXIDE PO QD PEPCID PO QD ASA PO QD NORVASC PO QD HEPARIN SQ Q12 LABETALOL PO Q8HRS : TELEMETRY STATUS DCP: FROM [facility] Addendum: 04/17/20 at 1045 by CAMELIA SMITHN DATA ANALYSIS INTERN PLAN: FOLLOW UP ON PENDING BLOOD CX ~ PRELIM GROWING GPC IN [facility]
[2020-04-17] MEDS: cefTRIAXone 1 GM in D5W 55 ML IVPB SCH (11:02)
[2020-04-17 12:00] VITALS: BP 146/96
--- NOTE | 2020-04-17 13:20 | Diagnostic Imaging Report ---
Indication: Post nasogastric tube Technique: Supine view of the upper abdomen Comparison: none Findings: There is a nasogastric tube in place, there is a nasogastric tube in place, tip coiled in the gastric fundus. Unremarkable bowel gas pattern Impression: Satisfactory nasogastric tube placement
--- NOTE | 2020-04-17 13:29 | Consultation ---
DATE OF CONSULTATION: 04/17/2020 INFECTIOUS DISEASE CONSULTATION CONSULTING PHYSICIAN: Raudel Cassidy MD. REFERRING PHYSICIAN: Dedrick Buitrago MD. REASON FOR CONSULTATION: Bacteremia. HISTORY OF PRESENTING ILLNESS: This is a 69-year-old gentleman with history of left-sided hemiparesis, who comes in with altered mental status and is found to have COVID-19 pneumonia and bacteremia, and Infectious Diseases consultation has been obtained for antibiotics. PAST MEDICAL HISTORY: History of left-sided hemiparesis. SOCIAL HISTORY: Unknown. FAMILY HISTORY: Unknown. REVIEW OF SYSTEMS: Unable to obtain currently. MEDICATIONS: As an inpatient, the patient is on IV vancomycin, multivitamin, magnesium oxide, famotidine, aspirin, amlodipine, dexamethasone, azithromycin, ceftriaxone, Remeron, subcutaneous heparin, atorvastatin, labetalol, Tylenol. ALLERGIES: No known drug allergies. PHYSICAL EXAMINATION: VITAL SIGNS: Temperature 98.9, T-max of 99.7, pulse of 101, respiratory rate 20, blood pressure 155/103. O2 saturation of 94% on 2 liters of oxygen. Examination deferred due to COVID-19. LABORATORY AND DIAGNOSTIC DATA: White count 11.8, hemoglobin 12.6, hematocrit 40.1, MCV 81, platelet count of 277,000. Sodium 153, potassium 3.5, chloride 115, bicarb 23, BUN 88, creatinine 3.6. Glucose 137. Calcium 9.9. Ferritin 860. Total bilirubin 0.5, AST 30, ALT 13, alkaline phosphatase 72. LDH 247. CK 132. Troponin 0.03. C-reactive protein 23.9. Beta-natriuretic peptide 579. Total protein 8.4, albumin 3.1. Lipase 123. UA showing 0 to 2 white cells. Urine culture is showing gram-negative rods. Blood cultures showing gram-positive cocci in clusters. COVID-19 test is positive. Rectal swab was negative for VRE. Nasal swab was negative for MRSA. Chest x-ray is showing right infrahilar dense consolidation, likely pneumonia, right upper lobe peripheral consolidation, old granulomatous disease noted. ASSESSMENT: This is a 69-year-old gentleman with history of left-sided hemiparesis and COPD, who comes in with, 1. COVID-19 pneumonia. He is on 2 liters of oxygen with O2 saturation of 94%. 2. Gram-negative urinary tract infection. 3. Gram-positive sepsis. 4. COPD. PLAN: 1. We will start the patient on ivermectin one dose. 2. Continue dexamethasone day #3. 3. Continue IV vancomycin and ceftriaxone. 4. Discontinue azithromycin. 5. Continue isolation. 6. We will follow up cultures. I would like to thank Dr. Buitrago for this consultation. Raudel Cassidy M.D. DR: MAXWELL JOB#: [id number] CC:
--- NOTE | 2020-04-17 14:18 | NUR ---
RADIOLOGY DEPT., ABDOMEN FOR N/GT PLCMT COMPLETED.-P.DYE
--- NOTE | 2020-04-17 14:25 | General Progress Note ---
Subjective Constitutional: Reports: malaise Allergies: Coded Allergies: No Known Allergies (Unverified , 04/15/20) Subjective non verabal Objective Last 24 Hour Vital Signs Date Time Temp Pulse Resp B/P (MAP) Pulse Ox O2 Delivery O2 Flow Rate FiO2 04/17/20 13:41 95 146/96 04/17/20 12:00 100.7 97 22 146/96 (113) 95 04/17/20 12:00 95 04/17/20 10:19 100.9 04/17/20 09:41 101 155/103 04/17/20 09:00 Nasal Cannula 2.0 04/17/20 08:00 101.9 101 22 155/103 (120) 95 04/17/20 08:00 101 04/17/20 04:00 98.9 94 20 149/88 (108) 94 04/17/20 04:00 97 04/17/20 00:00 90 04/17/20 00:00 98.8 90 20 140/86 (104) 94 04/16/20 21:00 Nasal Cannula 2.0 04/16/20 20:00 89 04/16/20 20:00 98.5 89 20 138/88 (105) 94 04/16/20 16:00 85 04/16/20 16:00 98.2 87 18 131/71 (91) 100 Intake and Output 04/16/20 04/17/20 19:00 07:00 Intake Total 1300.000 ml Output Total 450 ml 1000 ml Balance -450 ml 300.000 ml Intake IV Total 1300.000 ml Output Urine Total 450 ml 1000 ml # Voids 1 Laboratory Tests 04/17/20 12:14: Random Vancomycin Level 13.6 Height (Feet): 6 Height (Inches): 7.00 Weight (Pounds): 150 General Appearance: cachetic Neck: supple Cardiovascular: regular rhythm Respiratory/Chest: crackles/rales Abdomen: non tender, soft Extremities: non-tender Assessment/Plan Assessment/Plan: sepsis covid pna uti ac renal failure failure to thrive protein malnutrition ngt placement and feeding cont ivf add vancomycin iv id consult transfer to Dedrick Rashid MD Apr 17, 2020 14:25
[2020-04-17] MEDS ORDERED: Vancomycin 1gm/D5W 275ml IVPB ONE ×2 (15:00)
[2020-04-17 16:00] VITALS: BP 137/84
--- NOTE | 2020-04-17 16:37 | NUR ---
TRANSFER TO FLOOR: Patient transferred to [facility], per Dr. Begum. Report given to David GRUBBS. Family and or S/O informed of transfer.
--- NOTE | 2020-04-17 16:40 | NUR ---
NURSE NOTES: Patient was transferred from tele placed room 402-[address]asad khan Dx of [facility]. Covid positive. no respiratory distress noted on 2L via NC, No facial grimacing. awake. non verbal. NG tube on left nare 68cm. intact. no residual. flushed with water. running Jevity 1.2 @ 10/hr. increased @20/hr. goal is @30/hr. elevated HOB at all times. skin assessment done. no pressure ulcers noted. sacral pigmentation. burton and fragile. applied optifoam on sacral and both heels for protection. turn and reposition. f/c for I&O in place. draining well. yellow. no hematuria noted. IV on left wrist intact. flushed. right IV infiltrated. removed IV on right fore arm. no belongings. bed in the lowest position and locked. call light within reach. alarm on. contact and droplet isolation for positive Covid. PPE at all times. Addendum: 04/17/20 at 1728 by MEIR LEMONS RN VS 102/56/67, 98% on 2L via NC, T 98.2
--- NOTE | 2020-04-17 16:45 | NUR ---
NURSE NOTES: patient has restraints on both wrist to prevent pulling ng tube out. skin intact. no swelling noted. pulse present.
--- NOTE | 2020-04-17 19:10 | NUR ---
NURSE NOTES: Received report from ROMIE Hernandez. Pt is in bed with a L nare NG tube running jevity 1.2 at 20ml/hr with a goal of 30ml/hr. Call light within reach, bed locked and in lowest position, DOE soft wrist restraints with proper circulation and no swelling. 1/2 NS running at 100 ml/hr. Will continue to monitor.
--- NOTE | 2020-04-17 19:10 | NUR ---
NURSE HAND-OFF: Important Events on Shift:transferred from [facility]. NG tube feeding. IV ATB. F/c care Patient Status: stable. non verbal. Diet: Jevity1.2@20/hr with no residual. goal is @30/hr. Pending Orders: n/a Pending Results/Labs:n/a Pending MD notification:n/a Latest Vital Signs: Temperature 99.7 , Pulse 100 , B/P 137 /84 , Respiratory Rate 20 , O2 SAT 95 , Room Air, O2 Flow Rate 2.0 . Vital Sign Comment: stable Latest Seg[place] Fall Score: 70 Fall Risk: High Risk Safety Measures: Call light Within Reach, Bed Alarm Zone 1, Side Rails Side Rails x3, Bed position Low and Locked. Fall Precautions: Yellow Socks Yellow Gown Patient Fall Education Report given to ROMIE Turner.
[2020-04-17 20:00] VITALS: BP 123/78
[2020-04-18] VITALS: BP 109/75
[2020-04-18 04:00] VITALS: BP 126/70
[2020-04-18 06:17] LABS: HEMOGLOBIN 9.4 G/DL (14.2-18.0); MEAN CORPUSCULAR VOLUME 83 FL (80-99); PLATELET COUNT 251 K/UL (150-450); RED BLOOD COUNT 3.63 M/UL (4.70-6.10); RED CELL DISTRIBUTION WIDTH 15.5 % (11.6-14.8); WHITE BLOOD COUNT 9.3 K/UL (4.8-10.8)
[2020-04-18 06:34] LABS: CALCIUM 8.9 MG/DL (8.5-10.1); CREATININE 1.5 MG/DL (0.55-1.30); POTASSIUM 3.2 MMOL/L (3.5-5.1)
--- NOTE | 2020-04-18 07:20 | NUR ---
NURSE HAND-OFF: Important Events on Shift: tube feeding increase from 20 to 25ml/hr Patient Status: sleeping Diet: Jevity 1.2 Pending Orders: Pending Results/Labs: Pending MD notification: Latest Vital Signs: Temperature 99.0 , Pulse 78 , B/P 126 /70 , Respiratory Rate 20 , O2 SAT 94 , Room Air, O2 Flow Rate 2.0 . Vital Sign Comment: VSS Latest Seg[place] Fall Score: 70 Fall Risk: High Risk Safety Measures: Call light Within Reach, Bed Alarm Zone 1, Side Rails Side Rails x3, Bed position Low and Locked. Fall Precautions: Yellow Socks Yellow Gown Patient Fall Education Report given to ROMIE Armendariz.
[2020-04-18 08:00] VITALS: BP 134/87
[2020-04-18] MEDS: cefTRIAXone 1 GM in D5W 55 ML IVPB SCH (09:07)
[2020-04-18] MEDS: Magnesium Oxide 400mg tab ORAL SCH (09:08)
[2020-04-18] MEDS: Multivitamin w/Minerals tab ORAL SCH (09:08)
[2020-04-18] MEDS: Aspirin Baby 81mg ORAL SCH (09:08)
[2020-04-18] MEDS: Heparin 5000 units/ml inj SUBQ SCH ×2 (09:09→21:08)
[2020-04-18 12:00] VITALS: BP 134/89
--- NOTE | 2020-04-18 12:10 | Nephrology Progress Note ---
Assessment/Plan Plan [id number] full note dictated Objective Objective Last 24 Hour Vital Signs Date Time Temp Pulse Resp B/P (MAP) Pulse Ox O2 Delivery O2 Flow Rate FiO2 04/18/20 09:08 81 134/87 04/18/20 09:00 Nasal Cannula 2.0 04/18/20 08:00 98.2 81 20 134/87 (103) 97 04/18/20 05:36 78 126/70 04/18/20 04:00 99.0 78 20 126/70 (88) 94 04/18/20 00:00 99.0 76 20 109/75 (86) 94 04/17/20 21:20 78 123/78 04/17/20 21:00 Nasal Cannula 2.0 04/17/20 20:00 98.9 78 18 123/78 (93) 95 04/17/20 16:00 99.7 100 20 137/84 (101) 95 04/17/20 13:41 95 146/96 Intake and Output 04/17/20 04/18/20 19:00 07:00 Intake Total 230 ml Output Total 550 ml 600 ml Balance -320 ml -600 ml Intake Free Water 200 ml Tube Feeding 30 ml Output Urine Total 550 ml 600 ml # Voids 1 # Bowel Movements 1 Laboratory Tests 04/17/20 12:14: Random Vancomycin Level 13.6 04/18/20 05:40: White Blood Count 9.3, Red Blood Count 3.63L, Hemoglobin 9.4L, Hematocrit 30.0L, Mean Corpuscular Volume 83, Mean Corpuscular Hemoglobin 25.8L, Mean Corpuscular Hemoglobin Concent 31.2L, Red Cell Distribution Width 15.5H, Platelet Count 251, Mean Platelet Volume 7.6, Neutrophils (%) (Auto) , Lymphocytes (%) (Auto) , Monocytes (%) (Auto) , Eosinophils (%) (Auto) , Basophils (%) (Auto) , Differential Total Cells Counted 100, Neutrophils % (Manual) 82H, Lymphocytes % (Manual) 10L, Monocytes % (Manual) 8, Eosinophils % (Manual) 0, Basophils % (Manual) 0, Band Neutrophils 0, Platelet Estimate Adequate, Platelet Morphology Normal, Hypochromasia 1+, Anisocytosis 1+, Sodium Level 159H, Potassium Level 3.2L, Chloride Level 125H, Carbon Dioxide Level 24, Anion Gap 10, Blood Urea Nitrogen 56H, Creatinine 1.5H, Estimat Glomerular Filtration Rate 46.4, Glucose Level 179H, Calcium Level 8.9 Height (Feet): 6 Height (Inches): 7.00 Weight (Pounds): 150 Marissa Hurley MD Apr 18, 2020 12:10
--- NOTE | 2020-04-18 12:41 | Pulmonology Progress Note ---
Subjective ROS Limited/Unobtainable: No Interval Events: none major reported per nursing Constitutional: Reports: no symptoms HEENT: Repors: no symptoms Respiratory: Reports: no symptoms Cardiovascular: Reports: no symptoms Gastrointestinal/Abdominal: Reports: no symptoms Allergies: Coded Allergies: No Known Allergies (Unverified , 04/15/20) Objective Last 24 Hour Vital Signs Date Time Temp Pulse Resp B/P (MAP) Pulse Ox O2 Delivery O2 Flow Rate FiO2 04/18/20 12:00 98.0 91 20 134/89 (104) 95 04/18/20 09:08 81 134/87 04/18/20 09:00 Nasal Cannula 2.0 04/18/20 08:00 98.2 81 20 134/87 (103) 97 04/18/20 05:36 78 126/70 04/18/20 04:00 99.0 78 20 126/70 (88) 94 04/18/20 00:00 99.0 76 20 109/75 (86) 94 04/17/20 21:20 78 123/78 04/17/20 21:00 Nasal Cannula 2.0 04/17/20 20:00 98.9 78 18 123/78 (93) 95 04/17/20 16:00 99.7 100 20 137/84 (101) 95 04/17/20 13:41 95 146/96 Intake and Output 04/17/20 04/18/20 19:00 07:00 Intake Total 230 ml Output Total 550 ml 600 ml Balance -320 ml -600 ml Intake Free Water 200 ml Tube Feeding 30 ml Output Urine Total 550 ml 600 ml # Voids 1 # Bowel Movements 1 HEENT: atraumatic Respiratory: decreased breath sounds, crackles/rales Cardiovascular: normal rate, regular rhythm Abdomen: soft, non tender Laboratory Tests 04/18/20 05:40: White Blood Count 9.3, Red Blood Count 3.63L, Hemoglobin 9.4L, Hematocrit 30.0L, Mean Corpuscular Volume 83, Mean Corpuscular Hemoglobin 25.8L, Mean Corpuscular Hemoglobin Concent 31.2L, Red Cell Distribution Width 15.5H, Platelet Count 251, Mean Platelet Volume 7.6, Neutrophils (%) (Auto) , Lymphocytes (%) (Auto) , Monocytes (%) (Auto) , Eosinophils (%) (Auto) , Basophils (%) (Auto) , Differential Total Cells Counted 100, Neutrophils % (Manual) 82H, Lymphocytes % (Manual) 10L, Monocytes % (Manual) 8, Eosinophils % (Manual) 0, Basophils % (Manual) 0, Band Neutrophils 0, Platelet Estimate Adequate, Platelet Morphology Normal, Hypochromasia 1+, Anisocytosis 1+, Sodium Level 159H, Potassium Level 3.2L, Chloride Level 125H, Carbon Dioxide Level 24, Anion Gap 10, Blood Urea Nitrogen 56H, Creatinine 1.5H, Estimat Glomerular Filtration Rate 46.4, Glucose Level 179H, Calcium Level 8.9 Current Medications Medications (Trade) Dose Ordered Sig/Chano Route PRN Reason Start Time Stop Time Status Last Admin Dose Admin Acetaminophen (Tylenol) 650 mg Q4H PRN ORAL Temp >100.5 04/15/20 13:15 05/15/20 13:14 04/17/20 09:49 Amlodipine Besylate (Norvasc) 10 mg DAILY ORAL 04/16/20 09:00 05/16/20 08:59 04/18/20 09:08 Aspirin (ASA) 81 mg DAILY ORAL 04/16/20 09:00 05/31/20 08:59 04/18/20 09:08 Atorvastatin Calcium (Lipitor) 10 mg BEDTIME ORAL 04/15/20 21:00 07/14/20 20:59 04/17/20 20:35 Ceftriaxone Sodium 1 gm/ Dextrose 55 ml @ 110 mls/hr Q24H IVPB 04/16/20 09:00 04/23/20 08:59 04/18/20 09:07 Dexamethasone (Decadron) 6 mg DAILY ORAL 04/16/20 09:00 04/24/20 12:00 04/18/20 09:09 Dextrose 1,000 ml @ 75 mls/hr [id number] IV 04/18/20 12:15 05/18/20 12:14 Famotidine (Pepcid) 20 mg DAILY ORAL 04/16/20 09:00 07/15/20 08:59 04/18/20 09:08 Heparin Sodium (Porcine) (Heparin 5000 units/ml) 5,000 units EVERY 12 HOURS SUBQ 04/15/20 21:00 05/30/20 20:59 04/18/20 09:09 Labetalol HCl (Normodyne) 200 mg Q8HR ORAL 04/15/20 14:00 05/15/20 13:59 04/18/20 05:36 Magnesium Oxide (Mag-Ox 400mg) 400 mg DAILY ORAL 04/16/20 09:00 05/16/20 08:59 04/18/20 09:08 Mirtazapine (Remeron) 30 mg BEDTIME ORAL 04/15/20 21:00 07/14/20 20:59 04/17/20 20:35 Multivitamins Therapeutic (Therapeutic Multivitamin) 1 ea DAILY ORAL 04/16/20 09:00 05/16/20 08:59 04/18/20 09:08 Vancomycin HCl (Vanco pharmacy to dose) 1 ea DAILY PRN MISC . 04/17/20 09:00 05/17/20 08:59 Assessment/Plan Assessment/Plan 1. COVID-19 pneumonia -On dexamethasone - now off azithromycin, - on IV vanco and ceftriaxone per ID 2. COPD, oxygen dependent 3. Malnourished -Per primary MD 4. Leukocytosis, likely secondary to #1 5. Renal failure - Recommend IVF 6. Hyperglycemia, - monitor BG - of note, he is on Decadron 7. Increased inflammatory markers - DVT prophylaxis -Agree with heparin 8. Hypoxia; improved - currently saturating at 97% on 2 L nasal cannula - Continue providing supplemental oxygen - Pt is reported to be chronically oxygen dependent due to history of COPD 9. Gram neg dot UTI - on IV vanco and ceftriaxone The care for this patient was discussed with my supervising physician. Time spent for this case was approximately 31 minutes. Bennie Goodrich Apr 18, 2020 12:41
--- NOTE | 2020-04-18 13:45 | Consultation ---
DATE OF CONSULTATION: 04/18/2020 NEPHROLOGY CONSULTATION CONSULTING PHYSICIAN: Marissa Hurley MD. REFERRING PHYSICIAN: Luis Buitrago MD. REASON FOR CONSULTATION: Acute renal failure and hypernatremia. HISTORY OF PRESENT ILLNESS: The patient is a 69-year-old male with past medical history significant for history of CVA with left-sided hemiplegia, history of muscle wasting, depression, was transferred from [facility] to [facility] for evaluation of the hypoxemia and decreased O2 saturation and shortness of breath. Apparently, the patient found to have an O2 saturation of 98% on nasal cannula . He was brought into the ER, found to have COVID positive and being hypoxic upon admission, the chemistry and the laboratory results reviewed sodium of 153, BUN was 88 and creatinine was 3.6. The patient was started on half normal saline. Sodium continued to rise. BUN and creatinine improved. I was called for management of renal disease and electrolyte imbalance. PAST MEDICAL HISTORY: Including history of muscle wasting, history of CVA with left-sided weakness, history of major depression, history of COPD. MEDICATIONS: Including, 1. Tylenol. 2. Amlodipine. 3. Aspirin. 4. Atorvastatin. 5. Famotidine. 6. Heparin. 7. Magnesium. 8. Mirtazapine. 9. MVI. ALLERGIES: No known drug allergies. FAMILY HISTORY: Noncontributory. SOCIAL HISTORY: [facility] lives at [facility]. There is no current history of tobacco, alcohol or drug use. REVIEW OF SYSTEMS: Unable to obtain due to the patient's condition and mental status. PHYSICAL EXAMINATION: VITAL SIGNS: The patient has temperature of 98, blood pressure 134/87, pulse rate of 81. HEAD AND NECK: No JVP. No LAD. No thyromegaly. Extraocular movement intact. Pupils are reactive to light and accommodation. LUNGS: Clear to auscultation. CARDIAC: Regular rate and rhythm. S1-S2. No murmur. No rub. ABDOMEN: Soft, nontender, and nondistended. EXTREMITIES: No edema. No clubbing. No cyanosis. LABORATORY VALUES: The patient had sodium of 153, potassium of 3.5, chloride 115, bicarb 23, BUN of 88, creatinine of 3.6. Lactate of 247. C-reactive is 23. BNP of 597. Total protein of 8.1. Albumin of 3.1. CBC revealed WBC count of 11.8, hemoglobin of 12.6, hematocrit of 40, platelet count of 277. UA revealed specific gravity of 1.020, protein 2+, blood 1+, bilirubin 1+, bacteria many. Urine wbc 0 to 2, rbc 0 to 2. ASSESSMENT: For this patient, 1. Hypernatremia. 2. Hypokalemia. 3. Acute renal failure. 4. COVID-19 infection. 5. History of CVA. 6. History of hypertension. PLAN: Plan for the patient to change IV fluid to D5W at 70 mL/hour. Check the prealbumin level for evaluation of nutritional status. Replace the potassium. Check the magnesium level. Check the postvoiding residual volume. Again, I would like to thank, Dr. Buitrago for allowing me to participate in the care of this patient. Marissa Hurley M.D. DR: MEGAN JOB#: [id number] CC:
--- NOTE | 2020-04-18 14:00 | NUR ---
NURSE NOTES: only 10cc residual noted on NG feeding.increased to 30cc/hr. also pt is on RA
--- NOTE | 2020-04-18 15:09 | Infectious Diseases Prog Note ---
Assessment/Plan Assessment/Plan A: 1. COVID-19 pneumonia 2. Acute renal failure 3. Bacteremia with CoAGNS likely contamination 4. COPD. PLAN: 1. Go ivermectin one dose. 2. Continue dexamethasone day #4 3. Discontinue IV vancomycin 4. Continue ceftriaxone. Subjective ROS Limited/Unobtainable: Yes Neurologic: Reports: confusion, other - on restraint Allergies: Coded Allergies: No Known Allergies (Unverified , 04/15/20) Objective Last 24 Hour Vital Signs Date Time Temp Pulse Resp B/P (MAP) Pulse Ox O2 Delivery O2 Flow Rate FiO2 04/18/20 13:29 81 134/87 04/18/20 12:00 98.0 91 20 134/89 (104) 95 04/18/20 09:08 81 134/87 04/18/20 09:00 Nasal Cannula 2.0 04/18/20 08:00 98.2 81 20 134/87 (103) 97 04/18/20 05:36 78 126/70 04/18/20 04:00 99.0 78 20 126/70 (88) 94 04/18/20 00:00 99.0 76 20 109/75 (86) 94 04/17/20 21:20 78 123/78 04/17/20 21:00 Nasal Cannula 2.0 04/17/20 20:00 98.9 78 18 123/78 (93) 95 04/17/20 16:00 99.7 100 20 137/84 (101) 95 Height (Feet): 6 Height (Inches): 7.00 Weight (Pounds): 150 General Appearance: cachetic HEENT: atraumatic Respiratory/Chest: other - O2 by nasal cannula 2 L/min Abdomen: soft, non tender, other - NG tube Extremities: no edema Neurologic/Psychiatric: unresponsiveness Laboratory Tests Test 04/18/20 05:40 White Blood Count 9.3 K/UL (4.8-10.8) Red Blood Count 3.63 M/UL (4.70-6.10) L Hemoglobin 9.4 G/DL (14.2-18.0) L Hematocrit 30.0 % (42.0-52.0) L Mean Corpuscular Volume 83 FL (80-99) Mean Corpuscular Hemoglobin 25.8 PG (27.0-31.0) L Mean Corpuscular Hemoglobin Concent 31.2 G/DL (32.0-36.0) L Red Cell Distribution Width 15.5 % (11.6-14.8) H Platelet Count 251 K/UL (150-450) Mean Platelet Volume 7.6 FL (6.5-10.1) Neutrophils (%) (Auto) % (45.0-75.0) Lymphocytes (%) (Auto) % (20.0-45.0) Monocytes (%) (Auto) % (1.0-10.0) Eosinophils (%) (Auto) % (0.0-3.0) Basophils (%) (Auto) % (0.0-2.0) Differential Total Cells Counted 100 Neutrophils % (Manual) 82 % (45-75) H Lymphocytes % (Manual) 10 % (20-45) L Monocytes % (Manual) 8 % (1-10) Eosinophils % (Manual) 0 % (0-3) Basophils % (Manual) 0 % (0-2) Band Neutrophils 0 % (0-8) Platelet Estimate Adequate Platelet Morphology Normal Hypochromasia 1+ Anisocytosis 1+ Sodium Level 159 MMOL/L (136-145) H Potassium Level 3.2 MMOL/L (3.5-5.1) L Chloride Level 125 MMOL/L (98-107) H Carbon Dioxide Level 24 MMOL/L (21-32) Anion Gap 10 mmol/L (5-15) Blood Urea Nitrogen 56 mg/dL (7-18) H Creatinine 1.5 MG/DL (0.55-1.30) H Estimat Glomerular Filtration Rate 46.4 mL/min (>60) Glucose Level 179 MG/DL (74-106) H Calcium Level 8.9 MG/DL (8.5-10.1) Current Medications Medications (Trade) Dose Ordered Sig/Chano Route PRN Reason Start Time Stop Time Status Last Admin Dose Admin Acetaminophen (Tylenol) 650 mg Q4H PRN ORAL Temp >100.5 04/15/20 13:15 05/15/20 13:14 04/17/20 09:49 Amlodipine Besylate (Norvasc) 10 mg DAILY ORAL 04/16/20 09:00 05/16/20 08:59 04/18/20 09:08 Aspirin (ASA) 81 mg DAILY ORAL 04/16/20 09:00 05/31/20 08:59 04/18/20 09:08 Atorvastatin Calcium (Lipitor) 10 mg BEDTIME ORAL 04/15/20 21:00 07/14/20 20:59 04/17/20 20:35 Ceftriaxone Sodium 1 gm/ Dextrose 55 ml @ 110 mls/hr Q24H IVPB 04/16/20 09:00 04/23/20 08:59 04/18/20 09:07 Dexamethasone (Decadron) 6 mg DAILY ORAL 04/16/20 09:00 04/24/20 12:00 04/18/20 09:09 Dextrose 1,000 ml @ 75 mls/hr [id number] IV 04/18/20 12:15 05/18/20 12:14 04/18/20 13:28 Famotidine (Pepcid) 20 mg DAILY ORAL 04/16/20 09:00 07/15/20 08:59 04/18/20 09:08 Heparin Sodium (Porcine) (Heparin 5000 units/ml) 5,000 units EVERY 12 HOURS SUBQ 04/15/20 21:00 05/30/20 20:59 04/18/20 09:09 Labetalol HCl (Normodyne) 200 mg Q8HR ORAL 04/15/20 14:00 05/15/20 13:59 04/18/20 13:29 Magnesium Oxide (Mag-Ox 400mg) 400 mg DAILY ORAL 04/16/20 09:00 05/16/20 08:59 04/18/20 09:08 Mirtazapine (Remeron) 30 mg BEDTIME ORAL 04/15/20 21:00 07/14/20 20:59 04/17/20 20:35 Multivitamins Therapeutic (Therapeutic Multivitamin) 1 ea DAILY ORAL 04/16/20 09:00 05/16/20 08:59 04/18/20 09:08 Vancomycin HCl (Vanco pharmacy to dose) 1 ea DAILY PRN MISC . 04/17/20 09:00 05/17/20 08:59 Hiro Love MD Apr 18, 2020 15:09
--- NOTE | 2020-04-18 15:17 | NUR ---
NURSE NOTES: Received pt from ROMIE Turner, pt was resting no acute distress. check Residual 10cc noted .
--- NOTE | 2020-04-18 15:40 | General Progress Note ---
Subjective Allergies: Coded Allergies: No Known Allergies (Unverified , 04/15/20) Subjective non verabal tolerating ngt feeding opens his eyes on touch stimuli Objective Last 24 Hour Vital Signs Date Time Temp Pulse Resp B/P (MAP) Pulse Ox O2 Delivery O2 Flow Rate FiO2 04/18/20 13:29 81 134/87 04/18/20 12:00 98.0 91 20 134/89 (104) 95 04/18/20 09:08 81 134/87 04/18/20 09:00 Nasal Cannula 2.0 04/18/20 08:00 98.2 81 20 134/87 (103) 97 04/18/20 05:36 78 126/70 04/18/20 04:00 99.0 78 20 126/70 (88) 94 04/18/20 00:00 99.0 76 20 109/75 (86) 94 04/17/20 21:20 78 123/78 04/17/20 21:00 Nasal Cannula 2.0 04/17/20 20:00 98.9 78 18 123/78 (93) 95 04/17/20 16:00 99.7 100 20 137/84 (101) 95 Intake and Output 04/17/20 04/18/20 19:00 07:00 Intake Total 230 ml Output Total 550 ml 600 ml Balance -320 ml -600 ml Intake Free Water 200 ml Tube Feeding 30 ml Output Urine Total 550 ml 600 ml # Voids 1 # Bowel Movements 1 Laboratory Tests 04/18/20 05:40: White Blood Count 9.3, Red Blood Count 3.63L, Hemoglobin 9.4L, Hematocrit 30.0L, Mean Corpuscular Volume 83, Mean Corpuscular Hemoglobin 25.8L, Mean Corpuscular Hemoglobin Concent 31.2L, Red Cell Distribution Width 15.5H, Platelet Count 251, Mean Platelet Volume 7.6, Neutrophils (%) (Auto) , Lymphocytes (%) (Auto) , Monocytes (%) (Auto) , Eosinophils (%) (Auto) , Basophils (%) (Auto) , Differential Total Cells Counted 100, Neutrophils % (Manual) 82H, Lymphocytes % (Manual) 10L, Monocytes % (Manual) 8, Eosinophils % (Manual) 0, Basophils % (Manual) 0, Band Neutrophils 0, Platelet Estimate Adequate, Platelet Morphology Normal, Hypochromasia 1+, Anisocytosis 1+, Sodium Level 159H, Potassium Level 3.2L, Chloride Level 125H, Carbon Dioxide Level 24, Anion Gap 10, Blood Urea Nitrogen 56H, Creatinine 1.5H, Estimat Glomerular Filtration Rate 46.4, Glucose Level 179H, Calcium Level 8.9 Height (Feet): 6 Height (Inches): 7.00 Weight (Pounds): 150 General Appearance: combative Neck: supple Cardiovascular: regular rhythm Respiratory/Chest: crackles/rales Abdomen: non tender, soft Extremities: non-tender Assessment/Plan Assessment/Plan: sepsis covid pna uti ac renal failure failure to thrive protein malnutrition arf hypernatremia increased ng feeding and water flush rpt labs nephro consult cont ivf add vancomycin iv id consult med surg st eval on monday Dedrick Buitrago MD Apr 18, 2020 15:40
[2020-04-18 16:00] VITALS: BP 106/73
[2020-04-18] MEDS ORDERED: Varibar Honey 250ml MC PRN (16:30)
[2020-04-18] MEDS ORDERED: Varibar Thin Liquid powder 148gm MC PRN (16:30)
[2020-04-18] MEDS ORDERED: Varibar Pudding 230ml MC PRN (16:30)
[2020-04-18] MEDS ORDERED: Varibar Nectar 240ml MC PRN (16:30)
--- NOTE | 2020-04-18 19:30 | NUR ---
NURSE NOTES: Received patient on bed, asleep. on room air, sating 95%. noted with tube feeding as ordered via NGT. 10 cc residual noted. with bilateral soft wrist restraints. no injury noted. iv access on left wrist running ivf as ordered. kept head of bed, elevated. bed locked and in lowest position. bed alarm [employer] ax consultant light and light button within easy reach. will continue plan of care.
--- NOTE | 2020-04-18 19:34 | NUR ---
HAND-OFF: Report given to ROMIE Diez. pt is stable condition. Addendum: 04/18/20 at 1935 by JERICHO FERNANDEZ RN RN HAND-OFF: Report given to ROMIE Billy. pt is stable condition 95% o2 on RA.
[2020-04-18 20:00] VITALS: BP 116/86
[2020-04-19] VITALS: BP 140/90
[2020-04-19 04:00] VITALS: BP 143/92
--- NOTE | 2020-04-19 06:26 | NUR ---
NURSE NOTES: oral care provided, kept clean and dry
--- NOTE | 2020-04-19 06:26 | NUR ---
NURSE HAND-OFF: Important Events on Shift: oral care provided, hubbard care, Patient Status: stable Diet: tube feeding Pending Orders: st ev on monday Pending Results/Labs: Pending MD notification: Latest Vital Signs: Temperature 98.4 , Pulse 80 , B/P 131 /86 , Respiratory Rate 20 , O2 SAT 96 , Room Air, O2 Flow Rate 2.0 . Vital Sign Comment: Latest Seg[place]ia Fall Score: 70 Fall Risk: High Risk Safety Measures: Call light Within Reach, Bed Alarm Zone 1, Side Rails Side Rails x3, Bed position Low and Locked. Fall Precautions: Yellow Socks Yellow Gown Patient Fall Education Addendum: 04/19/20 at 0725 by Sadie Baer RN HAND-OFF: Report given to marlena yoo.
--- NOTE | 2020-04-19 07:30 | NUR ---
NURSE NOTES: Patient is in bed stable. Breathing is even and unlabored, on 2L oxygen via nc. Periods of coughing noted, patient does not tolerate suctioning of mouth. Patient is high fowlers, ngt feeding running as ordered. Restraints noted on mahad wrists. Patient is in bed in locked and lowest position with call light within reach. All safety measures provided. Will continue plan of care.
[2020-04-19 08:00] VITALS: BP 144/93
[2020-04-19] MEDS: Heparin 5000 units/ml inj SUBQ SCH ×2 (08:01→21:16)
[2020-04-19] MEDS: cefTRIAXone 1 GM in D5W 55 ML IVPB SCH (08:08)
[2020-04-19] MEDS: Multivitamin w/Minerals tab ORAL SCH (08:09)
[2020-04-19] MEDS: Magnesium Oxide 400mg tab ORAL SCH (08:09)
[2020-04-19] MEDS: Aspirin Baby 81mg ORAL SCH (08:09)
--- NOTE | 2020-04-19 09:34 | Pulmonology Progress Note ---
Subjective ROS Limited/Unobtainable: Yes Interval Events: none major reported per nursing Constitutional: Reports: no symptoms HEENT: Repors: no symptoms Respiratory: Reports: no symptoms Cardiovascular: Reports: no symptoms Gastrointestinal/Abdominal: Reports: no symptoms Allergies: Coded Allergies: No Known Allergies (Unverified , 04/15/20) Objective Last 24 Hour Vital Signs Date Time Temp Pulse Resp B/P (MAP) Pulse Ox O2 Delivery O2 Flow Rate FiO2 04/19/20 08:45 70 144/93 04/19/20 05:23 80 131/86 04/19/20 04:00 98.4 81 20 143/92 (109) 96 04/19/20 00:00 98.2 85 20 140/90 (107) 95 04/18/20 21:07 83 136/86 04/18/20 21:00 Nasal Cannula 2.0 04/18/20 20:00 98.4 83 20 116/86 (96) 97 04/18/20 16:00 97.0 84 20 106/73 (84) 96 04/18/20 13:29 81 134/87 04/18/20 12:00 98.0 91 20 134/89 (104) 95 Intake and Output 04/18/20 04/19/20 19:00 07:00 Intake Total 525 ml Output Total 600 ml 600 ml Balance -75 ml -600 ml Intake Free Water 500 ml Tube Feeding 25 ml Output Urine Total 600 ml 600 ml # Voids 1 1 HEENT: atraumatic Respiratory: decreased breath sounds, crackles/rales Cardiovascular: normal rate, regular rhythm Abdomen: soft, non tender Laboratory Tests 04/18/20 19:00: Urine Eosinophils None seen, Urine Random Creatinine [Pending], Urine Random Microalbumin [Pending], Urine Random Total Protein 90H, Urine Random Sodium 30, Urine Creatinine < 5.0L, Urine Microalbumin/Creatinine Ratio [Pending] 04/19/20 05:40: Random Vancomycin Level 9.7 Current Medications Medications (Trade) Dose Ordered Sig/Chano Route PRN Reason Start Time Stop Time Status Last Admin Dose Admin Acetaminophen (Tylenol) 650 mg Q4H PRN ORAL Temp >100.5 04/15/20 13:15 05/15/20 13:14 04/17/20 09:49 Amlodipine Besylate (Norvasc) 10 mg DAILY ORAL 04/16/20 09:00 05/16/20 08:59 04/19/20 08:45 Aspirin (ASA) 81 mg DAILY ORAL 04/16/20 09:00 05/31/20 08:59 04/19/20 08:09 Atorvastatin Calcium (Lipitor) 10 mg BEDTIME ORAL 04/15/20 21:00 07/14/20 20:59 04/18/20 21:07 Barium Sulfate (Varibar Honey) 250 ml NOW PRN MC RAD 04/18/20 16:30 04/21/20 16:18 Barium Sulfate (Varibar Zwolle) 240 ml NOW PRN MC RAD 04/18/20 16:30 04/21/20 16:18 Barium Sulfate (Varibar Pudding) 230 ml NOW PRN MC RAD 04/18/20 16:30 04/21/20 16:18 Barium Sulfate (Varibar Thin Liquid powder) 148 gm NOW PRN MC RAD 04/18/20 16:30 04/21/20 16:18 Ceftriaxone Sodium 1 gm/ Dextrose 55 ml @ 110 mls/hr Q24H IVPB 04/16/20 09:00 04/23/20 08:59 04/19/20 08:08 Dexamethasone (Decadron) 6 mg DAILY ORAL 04/16/20 09:00 04/24/20 12:00 04/19/20 08:09 Dextrose 1,000 ml @ 75 mls/hr [id number] IV 04/18/20 12:15 05/18/20 12:14 04/19/20 01:09 Famotidine (Pepcid) 20 mg DAILY ORAL 04/16/20 09:00 07/15/20 08:59 04/19/20 08:09 Heparin Sodium (Porcine) (Heparin 5000 units/ml) 5,000 units EVERY 12 HOURS SUBQ 04/15/20 21:00 05/30/20 20:59 04/19/20 08:01 Labetalol HCl (Normodyne) 200 mg Q8HR ORAL 04/15/20 14:00 05/15/20 13:59 04/19/20 05:23 Magnesium Oxide (Mag-Ox 400mg) 400 mg DAILY ORAL 04/16/20 09:00 05/16/20 08:59 04/19/20 08:09 Mirtazapine (Remeron) 30 mg BEDTIME ORAL 04/15/20 21:00 07/14/20 20:59 04/18/20 21:07 Multivitamins Therapeutic (Therapeutic Multivitamin) 1 ea DAILY ORAL 04/16/20 09:00 05/16/20 08:59 04/19/20 08:09 Assessment/Plan Assessment/Plan 1. COVID-19 pneumonia -On dexamethasone - now off azithromycin, and IV Vanco - still on ceftriaxone per ID 2. COPD, oxygen dependent 3. Malnourished -Per primary MD 4. Leukocytosis, likely secondary to #1 5. Renal failure - Recommend IVF 6. Hyperglycemia, - monitor BG - of note, he is on Decadron 7. Increased inflammatory markers - DVT prophylaxis -Agree with heparin 8. Hypoxia; improved - currently saturating at 97% on 2 L nasal cannula - Continue providing supplemental oxygen - Pt is reported to be chronically oxygen dependent due to history of COPD 9. Gram neg dot UTI - s/p IV Vanco - on ceftriaxone ST eval scheduled for Monday dc pending placement The care for this patient was discussed with my supervising physician. Time spent for this case was approximately 31 minutes. Bennie Goodrich Apr 19, 2020 09:34
--- NOTE | 2020-04-19 10:11 | General Progress Note ---
Subjective Allergies: Coded Allergies: No Known Allergies (Unverified , 04/15/20) All Systems: reviewed and negative except above Subjective 04/19 nc, restraints, non verabal, tolerating ngt feeding, opens his eyes on touch stimuli Objective Last 24 Hour Vital Signs Date Time Temp Pulse Resp B/P (MAP) Pulse Ox O2 Delivery O2 Flow Rate FiO2 04/19/20 09:00 Nasal Cannula 2.0 04/19/20 08:45 70 144/93 04/19/20 08:00 97.8 70 20 144/93 (110) 97 04/19/20 05:23 80 131/86 04/19/20 04:00 98.4 81 20 143/92 (109) 96 04/19/20 00:00 98.2 85 20 140/90 (107) 95 04/18/20 21:07 83 136/86 04/18/20 21:00 Nasal Cannula 2.0 04/18/20 20:00 98.4 83 20 116/86 (96) 97 04/18/20 16:00 97.0 84 20 106/73 (84) 96 04/18/20 13:29 81 134/87 04/18/20 12:00 98.0 91 20 134/89 (104) 95 Intake and Output 04/18/20 04/19/20 19:00 07:00 Intake Total 525 ml Output Total 600 ml 600 ml Balance -75 ml -600 ml Intake Free Water 500 ml Tube Feeding 25 ml Output Urine Total 600 ml 600 ml # Voids 1 1 Laboratory Tests 04/18/20 19:00: Urine Eosinophils None seen, Urine Random Creatinine [Pending], Urine Random Microalbumin [Pending], Urine Random Total Protein 90H, Urine Random Sodium 30, Urine Creatinine < 5.0L, Urine Microalbumin/Creatinine Ratio [Pending] 04/19/20 05:40: Random Vancomycin Level 9.7 Height (Feet): 6 Height (Inches): 7.00 Weight (Pounds): 150 Objective General Appearance: combative Neck: supple Cardiovascular: regular rhythm Respiratory/Chest: crackles/rales Abdomen: non tender, soft Extremities: non-tender Assessment/Plan Assessment/Plan: Im note Covering Dr. Buitrago Assessment/Plan: leukocytosis with sepsis covid pna uti ac renal failure failure to thrive protein malnutrition arf hypernatremia increased ng feeding and water flush rpt labs nephro consult cont ivf add vancomycin iv id consult med surg st eval on monday Josiah Salgado MD Apr 19, 2020 10:11
[2020-04-19 12:00] VITALS: BP 126/86
[2020-04-19 15:57] VITALS: BP 127/84
--- NOTE | 2020-04-19 19:13 | NUR ---
NURSE HAND-OFF: Important Events on Shift: iv hydration, ngt feeding Patient Status: stable Diet: jevity 1.2@30cc/hr Pending Orders: n/a Pending Results/Labs:n/a Pending MD notification:n/a Latest Vital Signs: Temperature 98.3 , Pulse 86 , B/P 127 /84 , Respiratory Rate 18 , O2 SAT 97 , Room Air, O2 Flow Rate 2.0 . Vital Sign Comment: n/a Latest Seg[place]ia Fall Score: 70 Fall Risk: High Risk Safety Measures: Call light Within Reach, Bed Alarm Zone 1, Side Rails Side Rails x3, Bed position Low and Locked. Fall Precautions: Yellow Socks Yellow Gown Patient Fall Education Report given to Mariajose GRUBBS..
--- NOTE | 2020-04-19 19:40 | NUR ---
NURSE NOTES: Received patient on bed, asleep.on jigh fowlers position on nasal cannula, sating 97-99%. noted with tube feeding as ordered via NGT. 5 cc residual noted. with bilateral soft wrist restraints. no injury noted. iv access on left wrist running ivf as ordered. with hubbard catheter draining well. kept head of bed, elevated. bed locked and in lowest position. bed alarm sales representative consultant light and light button within easy reach. will continue plan of care.
[2020-04-19 20:00] VITALS: BP 158/99
[2020-04-20] VITALS: BP 141/93
[2020-04-20 04:00] VITALS: BP 150/94
--- NOTE | 2020-04-20 06:12 | NUR ---
NURSE HAND-OFF: Important Events on Shift: monitored for aspiration precautions.[facility] Patient Status: stable Diet: tube feeding Pending Orders: Pending Results/Labs: Pending MD notification: Latest Vital Signs: Temperature 98.2 , Pulse 78 , B/P 150 /94 , Respiratory Rate 20 , O2 SAT 98 , Room Air, O2 Flow Rate 2.0 . Vital Sign Comment: Latest [place] Fall Score: 70 Fall Risk: High Risk Safety Measures: Call light Within Reach, Bed Alarm Zone 1, Side Rails Side Rails x3, Bed position Low and Locked. Fall Precautions: Yellow Socks Yellow Gown Patient Fall Education Addendum: 04/20/20 at 0728 by Sadie Baer RN HAND-OFF: Report given to marlena inman.
[2020-04-20 06:17] LABS: BASOPHILS % (AUTO) 1.2 % (0.0-2.0); HEMATOCRIT 34.3 % (42.0-52.0); HEMOGLOBIN 10.7 G/DL (14.2-18.0); LYMPHOCYTES % (AUTO) 15.5 % (20.0-45.0); MEAN CORPUSCULAR VOLUME 83 FL (80-99); MONOCYTES % (AUTO) 12.3 % (1.0-10.0); PLATELET COUNT 316 K/UL (150-450); RED BLOOD COUNT 4.13 M/UL (4.70-6.10); RED CELL DISTRIBUTION WIDTH 15.5 % (11.6-14.8); WHITE BLOOD COUNT 10.5 K/UL (4.8-10.8)
--- NOTE | 2020-04-20 07:03 | Hematology/Onc Progress Note ---
Assessment/Plan Assessment/Plan Assessment/Plan: elevated ddimer leukocytosis with sepsis covid pna uti ac renal failure failure to thrive protein malnutrition arf hypernatremia increased ng feeding and water flush rpt labs nephro consult cont ivf abx vancomycin iv id consult med surg st eval on monday duplex legs Subjective Constitutional: Denies: no symptoms, chills, fever, malaise, weakness, other HEENT: Denies: no symptoms, eye pain, blurred vision, tearing, double vision, ear pain, ear discharge, nose pain, nose congestion, throat pain, throat swelling, mouth pain, mouth swelling, other Cardiovascular: Denies: no symptoms, chest pain, edema, irregular heart rate, lightheadedness, palpitations, syncope, other Gastrointestinal/Abdominal: Denies: no symptoms, abdomen distended, abdominal pain, black stools, tarry stools, blood in stool, constipated, diarrhea, difficulty swallowing, nausea, poor appetite, poor fluid intake, rectal bleeding, vomiting, other Genitourinary: Denies: no symptoms, burning, discharge, frequency, flank pain, hematuria, incontinence, pain, urgency, other Neurologic/Psychiatric: Denies: no symptoms, anxiety, depressed, emotional problems, headache, numbness, paresthesia, pre-existing deficit, seizure, tingling, tremors, weakness, other Endocrine: Denies: no symptoms, excessive sweating, flushing, intolerance to cold, intolerance to heat, increased hunger, increased thirst, increased urine, unexplained weight gain, unexplained weight loss, other Hematologic/Lymphatic: Denies: no symptoms, anemia, easy bleeding, easy b ruising, adenopathy, other Allergies: Coded Allergies: No Known Allergies (Unverified , 04/15/20) Subjective 04/19 nc, restraints, non verabal, tolerating ngt feeding, opens his eyes on touch stimuli 04/20 meds noted, with ngt, gt rn, labs noted, elev ddimer Objective Objective Current Medications Medications (Trade) Dose Ordered Sig/Chano Route PRN Reason Start Time Stop Time Status Last Admin Dose Admin Acetaminophen (Tylenol) 650 mg Q4H PRN ORAL Temp >100.5 04/15/20 13:15 05/15/20 13:14 04/17/20 09:49 Amlodipine Besylate (Norvasc) 10 mg DAILY ORAL 04/16/20 09:00 2/13/21 08:59 04/19/20 08:45 Aspirin (ASA) 81 mg DAILY ORAL 04/16/20 09:00 05/31/20 08:59 04/19/20 08:09 Atorvastatin Calcium (Lipitor) 10 mg BEDTIME ORAL 04/15/20 21:00 07/14/20 20:59 04/19/20 21:15 Barium Sulfate (Varibar Honey) 250 ml NOW PRN MC RAD 04/18/20 16:30 04/21/20 16:18 Barium Sulfate (Varibar [place]) 240 ml NOW PRN MC RAD 04/18/20 16:30 04/21/20 16:18 Barium Sulfate (Varibar Pudding) 230 ml NOW PRN MC RAD 04/18/20 16:30 04/21/20 16:18 Barium Sulfate (Varibar Thin Liquid powder) 148 gm NOW PRN MC RAD 04/18/20 16:30 04/21/20 16:18 Ceftriaxone Sodium 1 gm/ Dextrose 55 ml @ 110 mls/hr Q24H IVPB 04/16/20 09:00 04/23/20 08:59 04/19/20 08:08 Dexamethasone (Decadron) 6 mg DAILY ORAL 04/16/20 09:00 04/24/20 12:00 04/19/20 08:09 Dextrose 1,000 ml @ 75 mls/hr [id number] IV 04/18/20 12:15 05/18/20 12:14 04/20/20 05:17 Famotidine (Pepcid) 20 mg DAILY ORAL 04/16/20 09:00 07/15/20 08:59 04/19/20 08:09 Heparin Sodium (Porcine) (Heparin 5000 units/ml) 5,000 units EVERY 12 HOURS SUBQ 04/15/20 21:00 05/30/20 20:59 04/19/20 21:16 Labetalol HCl (Normodyne) 200 mg Q8HR ORAL 04/15/20 14:00 05/15/20 13:59 04/20/20 05:17 Magnesium Oxide (Mag-Ox 400mg) 400 mg DAILY ORAL 04/16/20 09:00 05/16/20 08:59 04/19/20 08:09 Mirtazapine (Remeron) 30 mg BEDTIME ORAL 04/15/20 21:00 07/14/20 20:59 04/19/20 21:16 Multivitamins Therapeutic (Therapeutic Multivitamin) 1 ea DAILY ORAL 04/16/20 09:00 05/16/20 08:59 04/19/20 08:09 Last 24 Hour Vital Signs Date Time Temp Pulse Resp B/P (MAP) Pulse Ox O2 Delivery O2 Flow Rate FiO2 04/20/20 05:17 78 150/94 04/20/20 04:00 98.2 78 20 150/94 (112) 98 04/20/20 00:00 98.4 82 20 141/93 (109) 98 04/19/20 21:15 84 158/99 04/19/20 21:00 Nasal Cannula 2.0 04/19/20 20:00 97.7 84 20 158/99 (118) 99 04/19/20 15:57 98.3 86 18 127/84 (98) 97 04/19/20 14:19 89 124/84 04/19/20 12:00 98.0 81 19 126/86 (99) 96 04/19/20 09:00 Nasal Cannula 2.0 04/19/20 08:45 70 144/93 04/19/20 08:00 97.8 70 20 144/93 (110) 97 04/19/20 05:23 80 131/86 04/19/20 04:00 98.4 81 20 143/92 (109) 96 04/19/20 00:00 98.2 85 20 140/90 (107) 95 04/18/20 21:07 83 136/86 04/18/20 21:00 Nasal Cannula 2.0 04/18/20 20:00 98.4 83 20 116/86 (96) 97 04/18/20 16:00 97.0 84 20 106/73 (84) 96 04/18/20 13:29 81 134/87 04/18/20 12:00 98.0 91 20 134/89 (104) 95 04/18/20 09:08 81 134/87 04/18/20 09:00 Nasal Cannula 2.0 04/18/20 08:00 98.2 81 20 134/87 (103) 97 Intake and Output 04/19/20 04/20/20 19:00 07:00 Intake Total 530 ml Output Total 1200 ml 500 ml Balance -670 ml -500 ml Intake Free Water 500 ml Tube Feeding 30 ml Output Urine Total 1200 ml 500 ml # Voids 1 Labs Test 04/17/20 12:14 04/18/20 05:40 04/18/20 19:00 04/19/20 05:40 Random Vancomycin Level 13.6 ug/mL 9.7 ug/mL White Blood Count 9.3 K/UL (4.8-10.8) Red Blood Count 3.63 M/UL (4.70-6.10) Hemoglobin 9.4 G/DL (14.2-18.0) Hematocrit 30.0 % (42.0-52.0) Mean Corpuscular Volume 83 FL (80-99) Mean Corpuscular Hemoglobin 25.8 PG (27.0-31.0) Mean Corpuscular Hemoglobin Concent 31.2 G/DL (32.0-36.0) Red Cell Distribution Width 15.5 % (11.6-14.8) Platelet Count 251 K/UL (150-450) Mean Platelet Volume 7.6 FL (6.5-10.1) Neutrophils (%) (Auto) % (45.0-75.0) Lymphocytes (%) (Auto) % (20.0-45.0) Monocytes (%) (Auto) % (1.0-10.0) Eosinophils (%) (Auto) % (0.0-3.0) Basophils (%) (Auto) % (0.0-2.0) Differential Total Cells Counted 100 Neutrophils % (Manual) 82 % (45-75) Lymphocytes % (Manual) 10 % (20-45) Monocytes % (Manual) 8 % (1-10) Eosinophils % (Manual) 0 % (0-3) Basophils % (Manual) 0 % (0-2) Band Neutrophils 0 % (0-8) Platelet Estimate Adequate Platelet Morphology Normal Hypochromasia 1+ Anisocytosis 1+ Sodium Level 159 MMOL/L (136-145) Potassium Level 3.2 MMOL/L (3.5-5.1) Chloride Level 125 MMOL/L (98-107) Carbon Dioxide Level 24 MMOL/L (21-32) Anion Gap 10 mmol/L (5-15) Blood Urea Nitrogen 56 mg/dL (7-18) Creatinine 1.5 MG/DL (0.55-1.30) Estimat Glomerular Filtration Rate 46.4 mL/min (>60) Glucose Level 179 MG/DL (74-106) Calcium Level 8.9 MG/DL (8.5-10.1) Urine Eosinophils None seen (NONE SEEN) Urine Random Total Protein 90 MG/DL (< 11.9) Urine Random Sodium 30 mmol/L (20-110) Urine Creatinine < 5.0 MG/DL (30.0-125.0) Test 04/20/20 05:20 White Blood Count 10.5 K/UL (4.8-10.8) Red Blood Count 4.13 M/UL (4.70-6.10) Hemoglobin 10.7 G/DL (14.2-18.0) Hematocrit 34.3 % (42.0-52.0) Mean Corpuscular Volume 83 FL (80-99) Mean Corpuscular Hemoglobin 25.8 PG (27.0-31.0) Mean Corpuscular Hemoglobin Concent 31.1 G/DL (32.0-36.0) Red Cell Distribution Width 15.5 % (11.6-14.8) Platelet Count 316 K/UL (150-450) Mean Platelet Volume 7.1 FL (6.5-10.1) Neutrophils (%) (Auto) 71.0 % (45.0-75.0) Lymphocytes (%) (Auto) 15.5 % (20.0-45.0) Monocytes (%) (Auto) 12.3 % (1.0-10.0) Eosinophils (%) (Auto) 0.0 % (0.0-3.0) Basophils (%) (Auto) 1.2 % (0.0-2.0) Height (Feet): 6 Height (Inches): 7.00 Weight (Pounds): 150 Objective General Appearance: combative Neck: supple, ++ngt Cardiovascular: regular rhythm Respiratory/Chest: crackles/rales Abdomen: non tender, soft Extremities: non-tender Josiah Salgado MD Apr 20, 2020 07:03
--- NOTE | 2020-04-20 07:30 | NUR ---
NURSE NOTES: Received report from Mariajose GRUBBS, patient a/a/o none verbal not able to fallow commands. patient is laying in bed with no signs of distress or other issues at this time. NGT in place running Jevity @30ml (at goal). IV on the left wrist gauge#20 running D5W@75ml/hr. Awad cath in place on 04/19 FR#16 for retention purposes. yellow urine coming out, total evening or night nurse supervisor out put: 600ml. Optifoam in place in the sacral area for prophylactic measures. call light within reach, bed in lowest position, side rales up x2. I will f/u as needed. plan: 1. Venous Duplex in BLE lower extremities. 2. ST eval
[2020-04-20 08:00] VITALS: BP 107/76
--- NOTE | 2020-04-20 08:30 | Pulmonology Progress Note ---
Subjective ROS Limited/Unobtainable: Yes Interval Events: none major reported per nursing Constitutional: Reports: no symptoms HEENT: Repors: no symptoms Respiratory: Reports: no symptoms Cardiovascular: Reports: no symptoms Gastrointestinal/Abdominal: Reports: no symptoms Allergies: Coded Allergies: No Known Allergies (Unverified , 04/15/20) All Systems: reviewed and negative except above Objective Last 24 Hour Vital Signs Date Time Temp Pulse Resp B/P (MAP) Pulse Ox O2 Delivery O2 Flow Rate FiO2 04/20/20 05:17 78 150/94 04/20/20 04:00 98.2 78 20 150/94 (112) 98 04/20/20 00:00 98.4 82 20 141/93 (109) 98 04/19/20 21:15 84 158/99 04/19/20 21:00 Nasal Cannula 2.0 04/19/20 20:00 97.7 84 20 158/99 (118) 99 04/19/20 15:57 98.3 86 18 127/84 (98) 97 04/19/20 14:19 89 124/84 04/19/20 12:00 98.0 81 19 126/86 (99) 96 04/19/20 09:00 Nasal Cannula 2.0 04/19/20 08:45 70 144/93 Intake and Output 04/19/20 04/20/20 19:00 07:00 Intake Total 530 ml 180 ml Output Total 1200 ml 500 ml Balance -670 ml -320 ml Intake Free Water 500 ml 150 ml Tube Feeding 30 ml 30 ml Output Urine Total 1200 ml 500 ml # Voids 1 HEENT: atraumatic Respiratory: decreased breath sounds, crackles/rales Cardiovascular: normal rate, regular rhythm Abdomen: soft, non tender Laboratory Tests 04/20/20 05:20: White Blood Count 10.5, Red Blood Count 4.13L, Hemoglobin 10.7L, Hematocrit 34.3L, Mean Corpuscular Volume 83, Mean Corpuscular Hemoglobin 25.8L, Mean Corpuscular Hemoglobin Concent 31.1L, Red Cell Distribution Width 15.5H, Platelet Count 316, Mean Platelet Volume 7.1, Neutrophils (%) (Auto) 71.0, Lymphocytes (%) (Auto) 15.5L, Monocytes (%) (Auto) 12.3H, Eosinophils (%) (Auto) 0.0, Basophils (%) (Auto) 1.2 Current Medications Medications (Trade) Dose Ordered Sig/Chano Route PRN Reason Start Time Stop Time Status Last Admin Dose Admin Acetaminophen (Tylenol) 650 mg Q4H PRN ORAL Temp >100.5 04/15/20 13:15 05/15/20 13:14 04/17/20 09:49 Amlodipine Besylate (Norvasc) 10 mg DAILY ORAL 04/16/20 09:00 05/16/20 08:59 04/19/20 08:45 Aspirin (ASA) 81 mg DAILY ORAL 04/16/20 09:00 05/31/20 08:59 04/19/20 08:09 Atorvastatin Calcium (Lipitor) 10 mg BEDTIME ORAL 04/15/20 21:00 07/14/20 20:59 04/19/20 21:15 Barium Sulfate (Varibar [place]) 250 ml NOW PRN MC RAD 04/18/20 16:30 04/21/20 16:18 Barium Sulfate (Varibar [place]) 240 ml NOW PRN MC RAD 04/18/20 16:30 04/21/20 16:18 Barium Sulfate (Varibar Pud[place]) 230 ml NOW PRN MC RAD 04/18/20 16:30 04/21/20 16:18 Barium Sulfate (Varibar Thin Liquid powder) 148 gm NOW PRN MC RAD 04/18/20 16:30 04/21/20 16:18 Ceftriaxone Sodium 1 gm/ Dextrose 55 ml @ 110 mls/hr Q24H IVPB 04/16/20 09:00 04/23/20 08:59 04/19/20 08:08 Dexamethasone (Decadron) 6 mg DAILY ORAL 04/16/20 09:00 04/24/20 12:00 04/19/20 08:09 Dextrose 1,000 ml @ 75 mls/hr [id number] IV 04/18/20 12:15 05/18/20 12:14 04/20/20 05:17 Famotidine (Pepcid) 20 mg DAILY ORAL 04/16/20 09:00 07/15/20 08:59 04/19/20 08:09 Heparin Sodium (Porcine) (Heparin 5000 units/ml) 5,000 units EVERY 12 HOURS SUBQ 04/15/20 21:00 05/30/20 20:59 04/19/20 21:16 Labetalol HCl (Normodyne) 200 mg Q8HR ORAL 04/15/20 14:00 05/15/20 13:59 04/20/20 05:17 Magnesium Oxide (Mag-Ox 400mg) 400 mg DAILY ORAL 04/16/20 09:00 05/16/20 08:59 04/19/20 08:09 Mirtazapine (Remeron) 30 mg BEDTIME ORAL 04/15/20 21:00 07/14/20 20:59 04/19/20 21:16 Multivitamins Therapeutic (Therapeutic Multivitamin) 1 ea DAILY ORAL 04/16/20 09:00 05/16/20 08:59 04/19/20 08:09 Assessment/Plan Assessment/Plan 1. COVID-19 pneumonia -On dexamethasone - now off azithromycin, and IV Vanco - still on ceftriaxone per ID 2. COPD, oxygen dependent 3. Malnourished -Per primary MD 4. Leukocytosis, likely secondary to #1 5. Renal failure - Recommend IVF 6. Hyperglycemia, - monitor BG - of note, he is on Decadron 7. Increased inflammatory markers - DVT prophylaxis -Agree with heparin 8. Hypoxia; improved - currently saturating at 97% on 2 L nasal cannula - Continue providing supplemental oxygen - Pt is reported to be chronically oxygen dependent due to history of COPD 9. Gram neg dot UTI - s/p IV Vanco - on ceftriaxone ST eval and venous duplex US of LE scheduled for today dc pending placement The care for this patient was discussed with my supervising physician. Time spent for this case was approximately 31 minutes. Bennie Goodrich Apr 20, 2020 08:30
[2020-04-20] MEDS: Magnesium Oxide 400mg tab ORAL SCH (09:01)
[2020-04-20] MEDS: Aspirin Baby 81mg ORAL SCH (09:01)
[2020-04-20] MEDS: Multivitamin w/Minerals tab ORAL SCH (09:02)
[2020-04-20] MEDS: Heparin 5000 units/ml inj SUBQ SCH (09:03)
[2020-04-20] MEDS: cefTRIAXone 1 GM in D5W 55 ML IVPB SCH (09:03)
--- NOTE | 2020-04-20 11:20 | Infectious Diseases Prog Note ---
Assessment/Plan Assessment/Plan antibiotics : ceftriaxone A 1. covid 19 pneumonia on 2 liters O2 with 100 % saturation s/p ivermectin 2. gram negative UTI s/p rx 3. + blood cultures with coag neg staph likely contaminated 4. COPD 5. renal failure improving P 1. continue dexamethasone day 6 2. d/c ceftriaxone 3. continue isolation Subjective ROS Limited/Unobtainable: Yes Allergies: Coded Allergies: No Known Allergies (Unverified , 04/15/20) Objective Last 24 Hour Vital Signs Date Time Temp Pulse Resp B/P (MAP) Pulse Ox O2 Delivery O2 Flow Rate FiO2 04/20/20 09:02 73 107/76 04/20/20 09:00 Nasal Cannula 2.0 04/20/20 08:00 97.7 73 20 107/76 (86) 100 04/20/20 05:17 78 150/94 04/20/20 04:00 98.2 78 20 150/94 (112) 98 04/20/20 00:00 98.4 82 20 141/93 (109) 98 04/19/20 21:15 84 158/99 04/19/20 21:00 Nasal Cannula 2.0 04/19/20 20:00 97.7 84 20 158/99 (118) 99 04/19/20 15:57 98.3 86 18 127/84 (98) 97 04/19/20 14:19 89 124/84 04/19/20 12:00 98.0 81 19 126/86 (99) 96 Height (Feet): 6 Height (Inches): 7.00 Weight (Pounds): 150 Laboratory Tests Test 04/20/20 05:20 White Blood Count 10.5 K/UL (4.8-10.8) Red Blood Count 4.13 M/UL (4.70-6.10) L Hemoglobin 10.7 G/DL (14.2-18.0) L Hematocrit 34.3 % (42.0-52.0) L Mean Corpuscular Volume 83 FL (80-99) Mean Corpuscular Hemoglobin 25.8 PG (27.0-31.0) L Mean Corpuscular Hemoglobin Concent 31.1 G/DL (32.0-36.0) L Red Cell Distribution Width 15.5 % (11.6-14.8) H Platelet Count 316 K/UL (150-450) Mean Platelet Volume 7.1 FL (6.5-10.1) Neutrophils (%) (Auto) 71.0 % (45.0-75.0) Lymphocytes (%) (Auto) 15.5 % (20.0-45.0) L Monocytes (%) (Auto) 12.3 % (1.0-10.0) H Eosinophils (%) (Auto) 0.0 % (0.0-3.0) Basophils (%) (Auto) 1.2 % (0.0-2.0) Current Medications Medications (Trade) Dose Ordered Sig/Chano Route PRN Reason Start Time Stop Time Status Last Admin Dose Admin Acetaminophen (Tylenol) 650 mg Q4H PRN ORAL Temp >100.5 04/15/20 13:15 05/15/20 13:14 04/17/20 09:49 Amlodipine Besylate (Norvasc) 10 mg DAILY ORAL 04/16/20 09:00 05/16/20 08:59 04/20/20 09:02 Apixaban (Eliquis) 10 mg BID ORAL 04/20/20 18:00 07/19/20 17:59 UNV Aspirin (ASA) 81 mg DAILY ORAL 04/16/20 09:00 05/31/20 08:59 04/20/20 09:01 Atorvastatin Calcium (Lipitor) 10 mg BEDTIME ORAL 04/15/20 21:00 07/14/20 20:59 04/19/20 21:15 Barium Sulfate (Varibar Honey) 250 ml NOW PRN MC RAD 04/18/20 16:30 04/21/20 16:18 Barium Sulfate (Varibar [place]) 240 ml NOW PRN MC RAD 04/18/20 16:30 04/21/20 16:18 Barium Sulfate (Varibar [place]ud[place]) 230 ml NOW PRN MC RAD 04/18/20 16:30 04/21/20 16:18 Barium Sulfate (Varibar Thin Liquid powder) 148 gm NOW PRN MC RAD 04/18/20 16:30 04/21/20 16:18 Ceftriaxone Sodium 1 gm/ Dextrose 55 ml @ 110 mls/hr Q24H IVPB 04/16/20 09:00 04/23/20 08:59 04/20/20 09:03 Dexamethasone (Decadron) 6 mg DAILY ORAL 04/16/20 09:00 04/24/20 12:00 04/20/20 09:02 Dextrose 1,000 ml @ 75 mls/hr [id number] IV 04/18/20 12:15 05/18/20 12:14 04/20/20 05:17 Famotidine (Pepcid) 20 mg DAILY ORAL 04/16/20 09:00 07/15/20 08:59 04/20/20 09:01 Heparin Sodium (Porcine) (Heparin 5000 units/ml) 5,000 units EVERY 12 HOURS SUBQ 04/15/20 21:00 05/30/20 20:59 04/20/20 09:03 Labetalol HCl (Normodyne) 200 mg Q8HR ORAL 04/15/20 14:00 05/15/20 13:59 04/20/20 05:17 Magnesium Oxide (Mag-Ox 400mg) 400 mg DAILY ORAL 04/16/20 09:00 05/16/20 08:59 04/20/20 09:01 Mirtazapine (Remeron) 30 mg BEDTIME ORAL 04/15/20 21:00 07/14/20 20:59 04/19/20 21:16 Multivitamins Therapeutic (Therapeutic Multivitamin) 1 ea DAILY ORAL 04/16/20 09:00 05/16/20 08:59 04/20/20 09:02 Raudel Cassidy MD Apr 20, 2020 11:20
[2020-04-20] MEDS: Eliquis 5mg tablet ORAL SCH ×2 (11:50→19:58)
[2020-04-20 12:00] VITALS: BP 117/81
--- NOTE | 2020-04-20 13:06 | NUR ---
CASE MANAGEMENT:REVIEW SI;COVID PNA. COPD. RENAL FAILURE. 98.4 82 20 150/94 98% 2L NC H/H- 10.7/34.3 NA+ 159 K- 3.2 CL+ 125 BUN+ 56 CR+ 1.5 GLU+ 179 IS;ELIQUIS PO BID D5 IV @ 75 ML/HR MAG-OX NG QD PEPCID NG QD DECADRON NG QD ROCEPHIN IV Q24 HEPARIN SQ Q12 NG TUBE FEEDINGS MED SURG STATUS DCP;FROM [facility]
--- NOTE | 2020-04-20 13:56 | Diagnostic Imaging Report ---
Indication: Reason For Exam: ABD PAIN Technique: Grayscale and duplex images of the bilateral lower extremity veins Comparison: Findings: On the right, thrombus is seen within the common femoral, femoral, and popliteal veins. This is incompletely occlusive. On the left, grayscale and duplex images demonstrate no evidence of intraluminal thrombus. Normal phasic Doppler waveforms, demonstrating normal augmentation response and no evidence of valvular insufficiency. Greater saphenous vein(s) and tibial veins are patent. Normal compressibility. Impression: Positive for right lower extremity deep venous thrombosis. Patient's nurse aware bilaterally
--- NOTE | 2020-04-20 15:44 | General Progress Note ---
Subjective Allergies: Coded Allergies: No Known Allergies (Unverified , 04/15/20) Subjective non verabal tolerating ngt feeding opens his eyes on touch stimuli dvt in arm Objective Last 24 Hour Vital Signs Date Time Temp Pulse Resp B/P (MAP) Pulse Ox O2 Delivery O2 Flow Rate FiO2 04/20/20 13:00 80 117/81 04/20/20 12:00 97.1 80 18 117/81 (93) 100 04/20/20 09:02 73 107/76 04/20/20 09:00 Nasal Cannula 2.0 04/20/20 08:00 97.7 73 20 107/76 (86) 100 04/20/20 05:17 78 150/94 04/20/20 04:00 98.2 78 20 150/94 (112) 98 04/20/20 00:00 98.4 82 20 141/93 (109) 98 04/19/20 21:15 84 158/99 04/19/20 21:00 Nasal Cannula 2.0 04/19/20 20:00 97.7 84 20 158/99 (118) 99 04/19/20 15:57 98.3 86 18 127/84 (98) 97 Intake and Output 04/19/20 04/20/20 19:00 07:00 Intake Total 530 ml 180 ml Output Total 1200 ml 500 ml Balance -670 ml -320 ml Intake Free Water 500 ml 150 ml Tube Feeding 30 ml 30 ml Output Urine Total 1200 ml 500 ml # Voids 1 Laboratory Tests 04/20/20 05:20: White Blood Count 10.5, Red Blood Count 4.13L, Hemoglobin 10.7L, Hematocrit 34.3L, Mean Corpuscular Volume 83, Mean Corpuscular Hemoglobin 25.8L, Mean Corpuscular Hemoglobin Concent 31.1L, Red Cell Distribution Width 15.5H, Platelet Count 316, Mean Platelet Volume 7.1, Neutrophils (%) (Auto) 71.0, Lymphocytes (%) (Auto) 15.5L, Monocytes (%) (Auto) 12.3H, Eosinophils (%) (Auto) 0.0, Basophils (%) (Auto) 1.2 Height (Feet): 6 Height (Inches): 7.00 Weight (Pounds): 150 General Appearance: lethargic Neck: supple Cardiovascular: regular rhythm Respiratory/Chest: crackles/rales Abdomen: non tender, soft Extremities: non-tender Assessment/Plan Assessment/Plan: sepsis covid pna uti ac renal failure failure to thrive protein malnutrition arf hypernatremia increased ng feeding and water flush rpt labs nephro consult cont ivf add vancomycin iv id consult med surg st eval on monday abg dw charge nurse and nephrology Dedrick Buitrago MD Apr 20, 2020 15:44
[2020-04-20 16:00] VITALS: BP 110/79
--- NOTE | 2020-04-20 18:30 | NUR ---
Speech Pathology Note (Bedside Dysphagia Evaluation) Brief note: Mr. De La Rosa is a 69 year old male who was hospitalized at [facility] [place] in [place] in 2019 for Code stroke. 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 He was subsequently transferred to LTAC for rehab then [facility] admitted on12/03/2019. Due to this cerebral accident, pt developed, dysarthria, oropharyngeal dysphagia, nursing care dependent and never went back to home. His correction diet was mechanical soft and thin liquid started 02/22/2020 at [facility]. On 04/15/2020, He was BIBA for hypoxemia and deconditioned with poor po intake concerning for dehydration, and malnourishment on top of COVID 19 positive state. He was found to have right lower infiltrate on CXR, leukocytosis 11.8k, YFN c.w 88/3.6 of BUN and creatine, hypernatreamia 153, hypokalemia 3.5 concerning for oropharyngeal dysphagia exacerbation from previous CVA. Dysphagia evaluation was ordered for impression and recommendation. Findings: Mr. De La Rosa is awake. He does not consistently follow commands. He squeezed my hands bilaterally, but unsure this was spontaneous or followed my direction. He was able to wiggle his feet bilaterally. He was non-verbal. His oral cavity is filled with secretion and dried concretion from aspiration pneumonitis based on color and thickness of secretion. The dental is intact. Mucosa is dried. He was moving his tongue to fighting against oral care and oral suction. His biting reflex is very strong. I was not able to give PO trial due to non-compliance with high aspiration risk. Interpretation: 1. Oropharyngeal Dysphagia resulted in dehydration, malnourish, aspiration pneumonia from CVA insetting of COVID 19 positive 2. Remains aspiration risk Plan: 1. Possible GI consultation for PEG placement for now 2. Speech follow up Val Khan
--- NOTE | 2020-04-20 19:17 | Nephrology Progress Note ---
Assessment/Plan Assessment 1. Hypernatremia. 2. Hypokalemia. 3. Acute renal failure. 4. COVID-19 infection. 5. History of CVA. 6. History of hypertension. Plan plan change ivf to D5W replace k monitoring renal function avoid NSAID Subjective ROS Limited/Unobtainable: Yes Objective Objective Last 24 Hour Vital Signs Date Time Temp Pulse Resp B/P (MAP) Pulse Ox O2 Delivery O2 Flow Rate FiO2 04/20/20 16:00 97.2 76 19 110/79 (89) 98 04/20/20 13:00 80 117/81 04/20/20 12:00 97.1 80 18 117/81 (93) 100 04/20/20 09:02 73 107/76 04/20/20 09:00 Nasal Cannula 2.0 04/20/20 08:00 97.7 73 20 107/76 (86) 100 04/20/20 05:17 78 150/94 04/20/20 04:00 98.2 78 20 150/94 (112) 98 04/20/20 00:00 98.4 82 20 141/93 (109) 98 04/19/20 21:15 84 158/99 04/19/20 21:00 Nasal Cannula 2.0 04/19/20 20:00 97.7 84 20 158/99 (118) 99 Intake and Output 04/19/20 04/20/20 18:59 06:59 Intake Total 530 ml 180 ml Output Total 1200 ml 500 ml Balance -670 ml -320 ml Intake Free Water 500 ml 150 ml Tube Feeding 30 ml 30 ml Output Urine Total 1200 ml 500 ml # Voids 1 Laboratory Tests 04/20/20 05:20: White Blood Count 10.5, Red Blood Count 4.13L, Hemoglobin 10.7L, Hematocrit 34.3L, Mean Corpuscular Volume 83, Mean Corpuscular Hemoglobin 25.8L, Mean Corpuscular Hemoglobin Concent 31.1L, Red Cell Distribution Width 15.5H, Platelet Count 316, Mean Platelet Volume 7.1, Neutrophils (%) (Auto) 71.0, Lymphocytes (%) (Auto) 15.5L, Monocytes (%) (Auto) 12.3H, Eosinophils (%) (Auto) 0.0, Basophils (%) (Auto) 1.2 04/20/20 07:44: Arterial Blood pH 7.483H, Arterial Blood Partial Pressure CO2 36.7, Arterial Blood Partial Pressure O2 101.5H, Arterial Blood HCO3 26.9H, Arterial Blood Oxygen Saturation 97.7, Arterial Blood Base Excess 3.4H, Vikash Test Positive Height (Feet): 6 Height (Inches): 7.00 Weight (Pounds): 150 Objective HEAD AND NECK: No JVP. No LAD. No thyromegaly. Extraocular movement intact. Pupils are reactive to light and accommodation. LUNGS: Clear to auscultation. CARDIAC: Regular rate and rhythm. S1-S2. No murmur. No rub. ABDOMEN: Soft, nontender, and nondistended. EXTREMITIES: No edema. No clubbing. No cyanosis. Marissa Hurley MD Apr 20, 2020 19:17
--- NOTE | 2020-04-20 19:30 | NUR ---
NURSE HAND-OFF: Important Events on Shift: DVT in the right leg Patient Status: code/ stable Diet: NPO - NGT with Jevity at 30ml/hr Pending Orders: Pending Results/Labs:am labs Pending MD notification:[] Latest Vital Signs: Temperature 97.2 , Pulse 76 , B/P 110 /79 , Respiratory Rate 19 , O2 SAT 98 , Room Air, O2 Flow Rate 2.0 . Vital Sign Comment: stable Latest [place] Fall Score: 70 Fall Risk: High Risk Safety Measures: Call light Within Reach, Bed Alarm Zone 1, Side Rails Side Rails x3, Bed position Low and Locked. Fall Precautions: bed bound Yellow Socks Yellow Gown Patient Fall Education Report given to Harleen GRUBBS, patient in stable condition. - Venous duplex done today: positive DVT in the right leg, left leg negative for DVT (MD is aware)
--- NOTE | 2020-04-20 19:36 | NUR ---
NURSE NOTES: Received report from Efren. AAO x 0, non verbal, on NC2l. NGT on L nares in place and HOB elevated. Awad intact and draining urine well. IVF running. Sanjay. soft wrists restraints in place and skin intact. Bed locked, lowest position, alarm on, side rails up, call light within reach. Will continue to monitor.
[2020-04-20 20:00] VITALS: BP_SYST 113; BP_SYST 133; BP_DIAS 73; BP_DIAS 78
[2020-04-21] VITALS: BP 116/76
[2020-04-21 04:00] VITALS: BP 130/83
--- NOTE | 2020-04-21 06:57 | NUR ---
NURSE HAND-OFF: Important Events on Shift:restraints, tube feeding Patient Status: stable Diet: jevity 1.2 Pending Orders: Pending Results/Labs:am labs Pending MD notification: Latest Vital Signs: Temperature 97.7 , Pulse 76 , B/P 130 /83 , Respiratory Rate 20 , O2 SAT 93 , Room Air, O2 Flow Rate 2.0 . Vital Sign Comment: [] Latest [place] Fall Score: 70 Fall Risk: High Risk Safety Measures: Call light Within Reach, Bed Alarm Zone 1, Side Rails Side Rails x3, Bed position Low and Locked. Fall Precautions: Yellow Socks Yellow Gown Patient Fall Education Addendum: 04/21/20 at 0722 by YASSINE DELEON RN RN HAND-OFF: Report given to Radhika.
[2020-04-21 07:13] LABS: BASOPHILS % (AUTO) 0.8 % (0.0-2.0); EOSINOPHILS % (AUTO) 0.5 % (0.0-3.0); HEMATOCRIT 31.9 % (42.0-52.0); LYMPHOCYTES % (AUTO) 13.7 % (20.0-45.0); MEAN CORPUSCULAR VOLUME 84 FL (80-99); MONOCYTES % (AUTO) 7.8 % (1.0-10.0); NEUTROPHILS % (AUTO) 77.3 % (45.0-75.0); PLATELET COUNT 255 K/UL (150-450); RED BLOOD COUNT 3.82 M/UL (4.70-6.10); RED CELL DISTRIBUTION WIDTH 15.4 % (11.6-14.8); WHITE BLOOD COUNT 8.6 K/UL (4.8-10.8)
--- NOTE | 2020-04-21 07:13 | NUR ---
NURSE NOTES: Report received from ROMIE Marquez. Pt received in bed, awake and responsive to verbal and tactile stimuli, alert and oriented x 0, no SOB, bed in low position with breaks engaged and alarm on, no s/sx of any discomfort at this time, NGT in place at 68 cm tolerating well, on NC at 1 lpm, FC catheter in place, will continue to monitor for changes and proceed with plan of care, call light within reach.
[2020-04-21 08:00] VITALS: BP 120/81
[2020-04-21] MEDS: Magnesium Oxide 400mg tab ORAL SCH (08:32)
[2020-04-21] MEDS: Aspirin Baby 81mg ORAL SCH (08:32)
[2020-04-21] MEDS: Multivitamin w/Minerals tab ORAL SCH (08:32)
[2020-04-21] MEDS: Eliquis 5mg tablet ORAL SCH ×2 (08:34→17:11)
--- NOTE | 2020-04-21 09:58 | Hematology/Onc Progress Note ---
Assessment/Plan Assessment/Plan Assessment/Plan: Dvt of the lower extremity--> Positive for right lower extremity deep venous thrombosis. Patient's nurse aware bilaterally leukocytosis with sepsis covid pna uti ac renal failure failure to thrive protein malnutrition arf hypernatremia increased ng feeding and water flush rpt labs nephro consult cont ivf abx vancomycin iv id consult med surg st eval on monday duplex legs shows dvt APIXABAN started Subjective Constitutional: Denies: no symptoms, chills, fever, malaise, weakness, other HEENT: Denies: no symptoms, eye pain, blurred vision, tearing, double vision, ear pain, ear discharge, nose pain, nose congestion, throat pain, throat swelling, mouth pain, mouth swelling, other Cardiovascular: Denies: no symptoms, chest pain, edema, irregular heart rate, lightheadedness, palpitations, syncope, other Gastrointestinal/Abdominal: Denies: no symptoms, abdomen distended, abdominal pain, black stools, tarry stools, blood in stool, constipated, diarrhea, difficulty swallowing, nausea, poor appetite, poor fluid intake, rectal bleeding, vomiting, other Genitourinary: Denies: no symptoms, burning, discharge, frequency, flank pain, hematuria, incontinence, pain, urgency, other Neurologic/Psychiatric: Denies: no symptoms, anxiety, depressed, emotional problems, headache, numbness, paresthesia, pre-existing deficit, seizure, tingling, tremors, weakness, other Endocrine: Denies: no symptoms, excessive sweating, flushing, intolerance to cold, intolerance to heat, increased hunger, increased thirst, increased urine, unexplained weight gain, unexplained weight loss, other Allergies: Coded Allergies: No Known Allergies (Unverified , 04/15/20) Subjective 04/19 nc, restraints, non verabal, tolerating ngt feeding, opens his eyes on touch stimuli 04/20 meds noted, with ngt, gt rn, labs noted, elev ddimer 04/21 awake, alert, ngt in place, labs noted, with restraints this am, on blood thinner for dvt Objective Objective Current Medications Medications (Trade) Dose Ordered Sig/Chano Route PRN Reason Start Time Stop Time Status Last Admin Dose Admin Acetaminophen (Tylenol) 650 mg Q4H PRN ORAL Temp >100.5 04/15/20 13:15 05/15/20 13:14 04/17/20 09:49 Amlodipine Besylate (Norvasc) 10 mg DAILY ORAL 04/16/20 09:00 05/16/20 08:59 04/21/20 08:33 Apixaban (Eliquis) 5 mg BID ORAL 04/28/20 09:00 07/27/20 08:59 Apixaban (Eliquis) 10 mg BID ORAL 04/20/20 12:00 04/26/20 18:01 04/21/20 08:34 Aspirin (ASA) 81 mg DAILY ORAL 04/16/20 09:00 05/31/20 08:59 04/21/20 08:32 Atorvastatin Calcium (Lipitor) 10 mg BEDTIME ORAL 04/15/20 21:00 07/14/20 20:59 04/20/20 21:24 Barium Sulfate (Varibar Honey) 250 ml NOW PRN MC RAD 04/18/20 16:30 04/21/20 16:18 Barium Sulfate (Varibar [place]) 240 ml NOW PRN MC RAD 04/18/20 16:30 04/21/20 16:18 Barium Sulfate (Varibar Pudding) 230 ml NOW PRN MC RAD 04/18/20 16:30 04/21/20 16:18 Barium Sulfate (Varibar Thin Liquid powder) 148 gm NOW PRN MC RAD 04/18/20 16:30 04/21/20 16:18 Dexamethasone (Decadron) 6 mg DAILY ORAL 04/16/20 09:00 04/24/20 12:00 04/21/20 08:32 Dextrose 1,000 ml @ 100 mls/hr Q10H IV 04/18/20 12:15 05/18/20 12:14 04/21/20 03:39 Famotidine (Pepcid) 20 mg DAILY ORAL 04/16/20 09:00 07/15/20 08:59 04/21/20 08:32 Labetalol HCl (Normodyne) 200 mg Q8HR ORAL 04/15/20 14:00 05/15/20 13:59 04/21/20 05:33 Magnesium Oxide (Mag-Ox 400mg) 400 mg DAILY ORAL 04/16/20 09:00 05/16/20 08:59 04/21/20 08:32 Mirtazapine (Remeron) 30 mg BEDTIME ORAL 04/15/20 21:00 07/14/20 20:59 04/20/20 21:23 Multivitamins Therapeutic (Therapeutic Multivitamin) 1 ea DAILY ORAL 04/16/20 09:00 05/16/20 08:59 04/21/20 08:32 Last 24 Hour Vital Signs Date Time Temp Pulse Resp B/P (MAP) Pulse Ox O2 Delivery O2 Flow Rate FiO2 04/21/20 09:00 Nasal Cannula 2.0 04/21/20 08:33 76 133/83 04/21/20 08:00 97.7 77 20 120/81 (94) 93 04/21/20 05:33 76 130/83 04/21/20 04:00 97.7 76 20 130/83 (99) 93 04/21/20 00:00 97.5 77 20 116/76 (89) 98 04/20/20 21:21 76 113/78 04/20/20 21:00 Nasal Cannula 2.0 04/20/20 20:00 97.0 76 19 113/78 (90) 94 04/20/20 16:00 97.2 76 19 110/79 (89) 98 04/20/20 13:00 80 117/81 04/20/20 12:00 97.1 80 18 117/81 (93) 100 04/20/20 09:02 73 107/76 04/20/20 09:00 Nasal Cannula 2.0 04/20/20 08:00 97.7 73 20 107/76 (86) 100 04/20/20 05:17 78 150/94 04/20/20 04:00 98.2 78 20 150/94 (112) 98 04/20/20 00:00 98.4 82 20 141/93 (109) 98 04/19/20 21:15 84 158/99 04/19/20 21:00 Nasal Cannula 2.0 04/19/20 20:00 97.7 84 20 158/99 (118) 99 04/19/20 15:57 98.3 86 18 127/84 (98) 97 04/19/20 14:19 89 124/84 04/19/20 12:00 98.0 81 19 126/86 (99) 96 Intake and Output 04/20/20 04/21/20 19:00 07:00 Intake Total 30 ml 830 ml Output Total 400 ml 350 ml Balance -370 ml 480 ml Intake Free Water 500 ml Tube Feeding 30 ml 330 ml Output Urine Total 400 ml 350 ml # Bowel Movements 1 Labs Test 04/18/20 19:00 04/19/20 05:40 04/20/20 05:20 04/20/20 07:44 Urine Eosinophils None seen (NONE SEEN) Urine Random Total Protein 90 MG/DL (< 11.9) Urine Random Sodium 30 mmol/L (20-110) Urine Creatinine < 5.0 MG/DL (30.0-125.0) Random Vancomycin Level 9.7 ug/mL White Blood Count 10.5 K/UL (4.8-10.8) Red Blood Count 4.13 M/UL (4.70-6.10) Hemoglobin 10.7 G/DL (14.2-18.0) Hematocrit 34.3 % (42.0-52.0) Mean Corpuscular Volume 83 FL (80-99) Mean Corpuscular Hemoglobin 25.8 PG (27.0-31.0) Mean Corpuscular Hemoglobin Concent 31.1 G/DL (32.0-36.0) Red Cell Distribution Width 15.5 % (11.6-14.8) Platelet Count 316 K/UL (150-450) Mean Platelet Volume 7.1 FL (6.5-10.1) Neutrophils (%) (Auto) 71.0 % (45.0-75.0) Lymphocytes (%) (Auto) 15.5 % (20.0-45.0) Monocytes (%) (Auto) 12.3 % (1.0-10.0) Eosinophils (%) (Auto) 0.0 % (0.0-3.0) Basophils (%) (Auto) 1.2 % (0.0-2.0) Arterial Blood pH 7.483 (7.350-7.450) Arterial Blood Partial Pressure CO2 36.7 mmHg (35.0-45.0) Arterial Blood Partial Pressure O2 101.5 mmHg (75.0-100.0) Arterial Blood HCO3 26.9 mmol/L (22.0-26.0) Arterial Blood Oxygen Saturation 97.7 % (95-100) Arterial Blood Base Excess 3.4 (-2-2) Vikash Test Positive Test 04/21/20 06:05 White Blood Count 8.6 K/UL (4.8-10.8) Red Blood Count 3.82 M/UL (4.70-6.10) Hemoglobin 10.0 G/DL (14.2-18.0) Hematocrit 31.9 % (42.0-52.0) Mean Corpuscular Volume 84 FL (80-99) Mean Corpuscular Hemoglobin 26.2 PG (27.0-31.0) Mean Corpuscular Hemoglobin Concent 31.3 G/DL (32.0-36.0) Red Cell Distribution Width 15.4 % (11.6-14.8) Platelet Count 255 K/UL (150-450) Mean Platelet Volume 7.8 FL (6.5-10.1) Neutrophils (%) (Auto) 77.3 % (45.0-75.0) Lymphocytes (%) (Auto) 13.7 % (20.0-45.0) Monocytes (%) (Auto) 7.8 % (1.0-10.0) Eosinophils (%) (Auto) 0.5 % (0.0-3.0) Basophils (%) (Auto) 0.8 % (0.0-2.0) Height (Feet): 6 Height (Inches): 7.00 Weight (Pounds): 150 Objective General Appearance: combative Neck: supple, ++ngt Cardiovascular: regular rhythm Respiratory/Chest: crackles/rales Abdomen: non tender, soft Extremities: non-tender Josiah Salgado MD Apr 21, 2020 09:58
[2020-04-21 12:00] VITALS: BP 142/72
--- NOTE | 2020-04-21 12:43 | Pulmonology Progress Note ---
Subjective ROS Limited/Unobtainable: Yes Interval Events: none major reported per nursing Constitutional: Reports: no symptoms HEENT: Repors: no symptoms Respiratory: Reports: no symptoms Cardiovascular: Reports: no symptoms Gastrointestinal/Abdominal: Reports: no symptoms Allergies: Coded Allergies: No Known Allergies (Unverified , 04/15/20) All Systems: reviewed and negative except above Objective Last 24 Hour Vital Signs Date Time Temp Pulse Resp B/P (MAP) Pulse Ox O2 Delivery O2 Flow Rate FiO2 04/21/20 12:00 97.7 86 20 142/72 (95) 97 04/21/20 09:00 Nasal Cannula 2.0 04/21/20 08:33 76 133/83 04/21/20 08:00 97.7 77 20 120/81 (94) 93 04/21/20 05:33 76 130/83 04/21/20 04:00 97.7 76 20 130/83 (99) 93 04/21/20 00:00 97.5 77 20 116/76 (89) 98 04/20/20 21:21 76 113/78 04/20/20 21:00 Nasal Cannula 2.0 04/20/20 20:00 97.0 76 19 113/78 (90) 94 04/20/20 16:00 97.2 76 19 110/79 (89) 98 04/20/20 13:00 80 117/81 Intake and Output 04/20/20 04/21/20 19:00 07:00 Intake Total 30 ml 830 ml Output Total 400 ml 350 ml Balance -370 ml 480 ml Intake Free Water 500 ml Tube Feeding 30 ml 330 ml Output Urine Total 400 ml 350 ml # Bowel Movements 1 HEENT: atraumatic Respiratory: decreased breath sounds, crackles/rales Cardiovascular: normal rate, regular rhythm Abdomen: soft, non tender Laboratory Tests 04/21/20 06:05: White Blood Count 8.6, Red Blood Count 3.82L, Hemoglobin 10.0L, Hematocrit 31.9L , Mean Corpuscular Volume 84, Mean Corpuscular Hemoglobin 26.2L, Mean Corpuscular Hemoglobin Concent 31.3L, Red Cell Distribution Width 15.4H, Platelet Count 255, Mean Platelet Volume 7.8, Neutrophils (%) (Auto) 77.3H, Lymphocytes (%) (Auto) 13.7L, Monocytes (%) (Auto) 7.8, Eosinophils (%) (Auto) 0.5, Basophils (%) (Auto) 0.8 Current Medications Medications (Trade) Dose Ordered Sig/Chano Route PRN Reason Start Time Stop Time Status Last Admin Dose Admin Acetaminophen (Tylenol) 650 mg Q4H PRN ORAL Temp >100.5 04/15/20 13:15 05/15/20 13:14 04/17/20 09:49 Amlodipine Besylate (Norvasc) 10 mg DAILY ORAL 04/16/20 09:00 05/16/20 08:59 04/21/20 08:33 Apixaban (Eliquis) 5 mg BID ORAL 04/27/20 09:00 07/26/20 08:59 Apixaban (Eliquis) 10 mg BID ORAL 04/20/20 12:00 04/26/20 18:01 04/21/20 08:34 Aspirin (ASA) 81 mg DAILY ORAL 04/16/20 09:00 05/31/20 08:59 04/21/20 08:32 Atorvastatin Calcium (Lipitor) 10 mg BEDTIME ORAL 04/15/20 21:00 07/14/20 20:59 04/20/20 21:24 Barium Sulfate (Varibar [place]) 250 ml NOW PRN MC RAD 04/18/20 16:30 04/21/20 16:18 Barium Sulfate (Varibar [place]) 240 ml NOW PRN MC RAD 04/18/20 16:30 04/21/20 16:18 Barium Sulfate (Varibar Pudding) 230 ml NOW PRN MC RAD 04/18/20 16:30 04/21/20 16:18 Barium Sulfate (Varibar Thin Liquid powder) 148 gm NOW PRN MC RAD 04/18/20 16:30 04/21/20 16:18 Dexamethasone (Decadron) 6 mg DAILY ORAL 04/16/20 09:00 04/24/20 12:00 04/21/20 08:32 Dextrose 1,000 ml @ 100 mls/hr Q10H IV 04/18/20 12:15 05/18/20 12:14 04/21/20 11:41 Famotidine (Pepcid) 20 mg DAILY ORAL 04/16/20 09:00 07/15/20 08:59 04/21/20 08:32 Labetalol HCl (Normodyne) 200 mg Q8HR ORAL 04/15/20 14:00 05/15/20 13:59 04/21/20 05:33 Magnesium Oxide (Mag-Ox 400mg) 400 mg DAILY ORAL 04/16/20 09:00 05/16/20 08:59 04/21/20 08:32 Mirtazapine (Remeron) 30 mg BEDTIME ORAL 04/15/20 21:00 07/14/20 20:59 04/20/20 21:23 Multivitamins Therapeutic (Therapeutic Multivitamin) 1 ea DAILY ORAL 04/16/20 09:00 05/16/20 08:59 04/21/20 08:32 Assessment/Plan Assessment/Plan 1. COVID-19 pneumonia -On dexamethasone - now off azithromycin, ceftriaxone and IV Vanco 2. COPD, oxygen dependent 3. Malnourished -Per primary MD 4. Leukocytosis, likely secondary to #1 5. Renal failure - Recommend IVF 6. Hyperglycemia, - monitor BG - of note, he is on Decadron 7. Increased inflammatory markers - DVT prophylaxis -Agree with heparin 8. Hypoxia; improved - currently saturating at 97% on 2 L nasal cannula - Continue providing supplemental oxygen - Pt is reported to be chronically oxygen dependent due to history of COPD 9. Gram neg dot UTI - s/p IV Vanco - on ceftriaxone failed ST eval; PEG being considered R LE DVT - Now on Eliquis dc pending placement The care for this patient was discussed with my supervising physician. Time spent for this case was approximately 31 minutes. Bennie Goodrich Apr 21, 2020 12:43
--- NOTE | 2020-04-21 13:43 | NUR ---
RD ASSESSMENT & RECOMMENDATIONS SEE CARE ACTIVITY FOR COMPLETE ASSESSMENT DAILY ESTIMATED NEEDS: Needs based on Pulmonary, wound, 64kg 25-30 kcals/kg 4233-2967 total kcals 1.25-1.5 g protein/kg 80-96 g total protein 25-30 mL/kg 5767-3294 total fluid mLs NUTRITION DIAGNOSIS: Swallowing difficulty R/T dysphagia, decreased cognitive fxn as evidenced by s/p NGT insertion, on NGT feeds. CURRENT TF:Glucerna 1.2 @ 30ml/hr x 24 hrs PO DIET RECOMMENDATIONS: IF SAFE FOR ORAL DIET -> liberalized regular/ texture per [employer] +Glucerna TID ENTERAL NUTRITION RECOMMENDATIONS: Glucerna 1.2 @60ml/hr x 24 hrs to provide 1440ml, 1728kcal, 86g prot, 1159ml free water * Rec TF change to carb controlled TF: elev BGs, h/o DM * W/ GI access, initiate Glucerna 1.2 @ 20ml/hr x 6hrs * Advance 10ml q 4-6 hrs as tolerated to goal * HOB over 30 degrees/ water flush per MD ADDITIONAL RECOMMENDATIONS: * Per SNF: HT=5'11", CF=201 lbs ("March wt" ) * NISS w/ TF: h/o DM, elev BGs, on Decadron -> Rec DC D5 IVF and increase H2O flushes instead for BG control * Wound Care: MVI + Vit C 250mg QD * Monitor lytes, replete as needed . .
--- NOTE | 2020-04-21 13:58 | Infectious Diseases Prog Note ---
Assessment/Plan Assessment/Plan A: 1. COVID-19 pneumonia 2. Acute renal failure 3. Bacteremia with CoAGNS likely contamination 4. COPD. 5, R leg DVT PLAN: 1. Go ivermectin one dose. 2. Continue dexamethasone Subjective ROS Limited/Unobtainable: Yes Neurologic: Reports: confusion, other - on restraint Allergies: Coded Allergies: No Known Allergies (Unverified , 04/15/20) Objective Last 24 Hour Vital Signs Date Time Temp Pulse Resp B/P (MAP) Pulse Ox O2 Delivery O2 Flow Rate FiO2 04/21/20 13:17 86 142/72 04/21/20 12:00 97.7 86 20 142/72 (95) 97 04/21/20 09:00 Nasal Cannula 2.0 04/21/20 08:33 76 133/83 04/21/20 08:00 97.7 77 20 120/81 (94) 93 04/21/20 05:33 76 130/83 04/21/20 04:00 97.7 76 20 130/83 (99) 93 04/21/20 00:00 97.5 77 20 116/76 (89) 98 04/20/20 21:21 76 113/78 04/20/20 21:00 Nasal Cannula 2.0 04/20/20 20:00 97.0 76 19 113/78 (90) 94 04/20/20 16:00 97.2 76 19 110/79 (89) 98 Height (Feet): 6 Height (Inches): 7.00 Weight (Pounds): 150 HEENT: mucous membranes moist Respiratory/Chest: no respiratory distress, other - oxygen by nasal cannula Cardiovascular: normal rate Abdomen: soft, non tender, other - NG tube feeding Neurologic/Psychiatric: disoriented Laboratory Tests Test 04/21/20 06:05 White Blood Count 8.6 K/UL (4.8-10.8) Red Blood Count 3.82 M/UL (4.70-6.10) L Hemoglobin 10.0 G/DL (14.2-18.0) L Hematocrit 31.9 % (42.0-52.0) L Mean Corpuscular Volume 84 FL (80-99) Mean Corpuscular Hemoglobin 26.2 PG (27.0-31.0) L Mean Corpuscular Hemoglobin Concent 31.3 G/DL (32.0-36.0) L Red Cell Distribution Width 15.4 % (11.6-14.8) H Platelet Count 255 K/UL (150-450) Mean Platelet Volume 7.8 FL (6.5-10.1) Neutrophils (%) (Auto) 77.3 % (45.0-75.0) H Lymphocytes (%) (Auto) 13.7 % (20.0-45.0) L Monocytes (%) (Auto) 7.8 % (1.0-10.0) Eosinophils (%) (Auto) 0.5 % (0.0-3.0) Basophils (%) (Auto) 0.8 % (0.0-2.0) Current Medications Medications (Trade) Dose Ordered Sig/[place] Route PRN Reason Start Time Stop Time Status Last Admin Dose Admin Acetaminophen (Tylenol) 650 mg Q4H PRN ORAL Temp >100.5 04/15/20 13:15 05/15/20 13:14 04/17/20 09:49 Amlodipine Besylate (Norvasc) 10 mg DAILY ORAL 04/16/20 09:00 05/16/20 08:59 04/21/20 08:33 Apixaban (Eliquis) 5 mg BID ORAL 04/27/20 09:00 07/26/20 08:59 Apixaban (Eliquis) 10 mg BID ORAL 04/20/20 12:00 04/26/20 18:01 04/21/20 08:34 Aspirin (ASA) 81 mg DAILY ORAL 04/16/20 09:00 05/31/20 08:59 04/21/20 08:32 Atorvastatin Calcium (Lipitor) 10 mg BEDTIME ORAL 04/15/20 21:00 07/14/20 20:59 04/20/20 21:24 Barium Sulfate (Varibar [place]) 250 ml NOW PRN MC RAD 04/18/20 16:30 04/21/20 16:18 Barium Sulfate (Varibar [place]) 240 ml NOW PRN MC RAD 04/18/20 16:30 04/21/20 16:18 Barium Sulfate (Varibar Pudding) 230 ml NOW PRN MC RAD 04/18/20 16:30 04/21/20 16:18 Barium Sulfate (Varibar Thin Liquid powder) 148 gm NOW PRN MC RAD 04/18/20 16:30 04/21/20 16:18 Dexamethasone (Decadron) 6 mg DAILY ORAL 04/16/20 09:00 04/24/20 12:00 04/21/20 08:32 Dextrose 1,000 ml @ 100 mls/hr Q10H IV 04/18/20 12:15 05/18/20 12:14 04/21/20 11:41 Famotidine (Pepcid) 20 mg DAILY ORAL 04/16/20 09:00 07/15/20 08:59 04/21/20 08:32 Labetalol HCl (Normodyne) 200 mg Q8HR ORAL 04/15/20 14:00 05/15/20 13:59 04/21/20 13:17 Magnesium Oxide (Mag-Ox 400mg) 400 mg DAILY ORAL 04/16/20 09:00 05/16/20 08:59 04/21/20 08:32 Mirtazapine (Remeron) 30 mg BEDTIME ORAL 04/15/20 21:00 07/14/20 20:59 04/20/20 21:23 Multivitamins Therapeutic (Therapeutic Multivitamin) 1 ea DAILY ORAL 04/16/20 09:00 05/16/20 08:59 04/21/20 08:32 Hiro Love MD Apr 21, 2020 13:58
[2020-04-21 16:00] VITALS: BP 117/77
--- NOTE | 2020-04-21 16:21 | General Progress Note ---
Subjective Allergies: Coded Allergies: No Known Allergies (Unverified , 04/15/20) Subjective non verabal tolerating ngt feeding opens his eyes on touch stimuli, agitated frequentely dvt in arm Objective Last 24 Hour Vital Signs Date Time Temp Pulse Resp B/P (MAP) Pulse Ox O2 Delivery O2 Flow Rate FiO2 04/21/20 13:17 86 142/72 04/21/20 12:00 97.7 86 20 142/72 (95) 97 04/21/20 09:00 Nasal Cannula 2.0 04/21/20 08:33 76 133/83 04/21/20 08:00 97.7 77 20 120/81 (94) 93 04/21/20 05:33 76 130/83 04/21/20 04:00 97.7 76 20 130/83 (99) 93 04/21/20 00:00 97.5 77 20 116/76 (89) 98 04/20/20 21:21 76 113/78 04/20/20 21:00 Nasal Cannula 2.0 04/20/20 20:00 97.0 76 19 113/78 (90) 94 Intake and Output 04/20/20 04/21/20 19:00 07:00 Intake Total 30 ml 830 ml Output Total 400 ml 350 ml Balance -370 ml 480 ml Intake Free Water 500 ml Tube Feeding 30 ml 330 ml Output Urine Total 400 ml 350 ml # Bowel Movements 1 Laboratory Tests 04/21/20 06:05: White Blood Count 8.6, Red Blood Count 3.82L, Hemoglobin 10.0L, Hematocrit 31.9L , Mean Corpuscular Volume 84, Mean Corpuscular Hemoglobin 26.2L, Mean Corpuscular Hemoglobin Concent 31.3L, Red Cell Distribution Width 15.4H, Platelet Count 255, Mean Platelet Volume 7.8, Neutrophils (%) (Auto) 77.3H, L ymphocytes (%) (Auto) 13.7L, Monocytes (%) (Auto) 7.8, Eosinophils (%) (Auto) 0.5, Basophils (%) (Auto) 0.8 Height (Feet): 6 Height (Inches): 7.00 Weight (Pounds): 150 General Appearance: confused Neck: supple Cardiovascular: regular rhythm Respiratory/Chest: normal breath sounds Abdomen: non tender, soft Extremities: non-tender Assessment/Plan Assessment/Plan: sepsis covid pna uti ac renal failure failure to thrive protein malnutrition arf hypernatremia increased ng feeding and water flush rpt labs nephro consult cont ivf add vancomycin iv id consult med surg st eval on monday poppy del real charge nurse and nephrology Dedrick Buitrago MD Apr 21, 2020 16:21
--- NOTE | 2020-04-21 19:00 | NUR ---
HAND-OFF: Report given to ROMIE Marquez.
--- NOTE | 2020-04-21 19:10 | NUR ---
NURSE NOTES: Received report from Radhika. AAO x 0, on NC2l. NGT on L nares in place 68cm and HOB elevated. Tolerating tube feeding without residual. Awad intact and draining urine well. IVF running. Sanjay. soft wrists restraints in place and skin intact. Bed locked, lowest position, alarm on, side rails up, call light within reach. Will continue to monitor.
[2020-04-21 20:00] VITALS: BP 128/89
--- NOTE | 2020-04-21 22:33 | Nephrology Progress Note ---
Assessment/Plan Assessment 1. Hypernatremia. 2. Hypokalemia. 3. Acute renal failure. 4. COVID-19 infection. 5. History of CVA. 6. History of hypertension. Plan plan check bmp replace k monitoring renal function avoid NSAID Subjective ROS Limited/Unobtainable: Yes Objective Objective Last 24 Hour Vital Signs Date Time Temp Pulse Resp B/P (MAP) Pulse Ox O2 Delivery O2 Flow Rate FiO2 04/21/20 21:05 75 128/89 04/21/20 21:00 Nasal Cannula 2.0 04/21/20 20:00 98.9 75 20 128/89 (102) 94 04/21/20 16:00 98.1 81 20 117/77 (90) 97 04/21/20 13:17 86 142/72 04/21/20 12:00 97.7 86 20 142/72 (95) 97 04/21/20 09:00 Nasal Cannula 2.0 04/21/20 08:33 76 133/83 04/21/20 08:00 97.7 77 20 120/81 (94) 93 04/21/20 05:33 76 130/83 04/21/20 04:00 97.7 76 20 130/83 (99) 93 04/21/20 00:00 97.5 77 20 116/76 (89) 98 Intake and Output 04/20/20 04/21/20 19:00 07:00 Intake Total 30 ml 860 ml Output Total 400 ml 350 ml Balance -370 ml 510 ml Intake Free Water 500 ml Tube Feeding 30 ml 360 ml Output Urine Total 400 ml 350 ml # Bowel Movements 1 Laboratory Tests 04/21/20 06:05: White Blood Count 8.6, Red Blood Count 3.82L, Hemoglobin 10.0L, Hematocrit 31.9L , Mean Corpuscular Volume 84, Mean Corpuscular Hemoglobin 26.2L, Mean Corpuscular Hemoglobin Concent 31.3L, Red Cell Distribution Width 15.4H, Platelet Count 255, Mean Platelet Volume 7.8, Neutrophils (%) (Auto) 77.3H, Lymphocytes (%) (Auto) 13.7L, Monocytes (%) (Auto) 7.8, Eosinophils (%) (Auto) 0.5, Basophils (%) (Auto) 0.8 Height (Feet): 6 Height (Inches): 7.00 Weight (Pounds): 150 Objective HEAD AND NECK: No JVP. No LAD. No thyromegaly. Extraocular movement intact. Pupils are reactive to light and accommodation. LUNGS: Clear to auscultation. CARDIAC: Regular rate and rhythm. S1-S2. No murmur. No rub. ABDOMEN: Soft, nontender, and nondistended. EXTREMITIES: No edema. No clubbing. No cyanosis. Marissa Hurley MD Apr 21, 2020 22:33
[2020-04-22] VITALS: BP 150/93
[2020-04-22 04:00] VITALS: BP 143/82
--- NOTE | 2020-04-22 05:05 | NUR ---
NURSE NOTES: Labetalol can't be administer due to not loaded on P Addendum: 04/22/20 at 0506 by YASSINE DELEON RN RN NURSE NOTES: Labetalol can't be administer due to not loaded on Pyxis.
--- NOTE | 2020-04-22 07:25 | NUR ---
HAND-OFF: Report given to
--- NOTE | 2020-04-22 07:30 | NUR ---
NURSE NOTES: Received report from ROMIE Marquez. Rounding done. Pt is asleep. No SOB noted. Pt has NGT on left nares, Jevity 1/2 is running @50ml/hr. Bilateral restraints on. Bed in lowest position, call light within reach. Will continue to monitor.
[2020-04-22 07:31] LABS: BASOPHILS % (AUTO) 0.4 % (0.0-2.0); EOSINOPHILS % (AUTO) 0.3 % (0.0-3.0); HEMATOCRIT 30.2 % (42.0-52.0); HEMOGLOBIN 9.6 G/DL (14.2-18.0); LYMPHOCYTES % (AUTO) 13.5 % (20.0-45.0); MEAN CORPUSCULAR VOLUME 82 FL (80-99); MONOCYTES % (AUTO) 6.6 % (1.0-10.0); NEUTROPHILS % (AUTO) 79.2 % (45.0-75.0); PLATELET COUNT 312 K/UL (150-450); RED BLOOD COUNT 3.69 M/UL (4.70-6.10); RED CELL DISTRIBUTION WIDTH 15.1 % (11.6-14.8); WHITE BLOOD COUNT 10.5 K/UL (4.8-10.8)
--- NOTE | 2020-04-22 07:37 | Hematology/Onc Progress Note ---
Assessment/Plan Assessment/Plan Assessment/Plan: Dvt of the lower extremity--> Positive for right lower extremity deep venous thrombosis. Patient's nurse aware bilaterally leukocytosis with sepsis covid pna uti ac renal failure failure to thrive protein malnutrition arf hypernatremia increased ng feeding and water flush rpt labs nephro consult cont ivf abx vancomycin iv id consult med surg st eval on monday duplex legs shows dvt APIXABAN started Subjective HEENT: Denies: no symptoms, eye pain, blurred vision, tearing, double vision, ear pain, ear discharge, nose pain, nose congestion, throat pain, throat swelling, mouth pain, mouth swelling, other Cardiovascular: Denies: no symptoms, chest pain, edema, irregular heart rate, lightheadedness, palpitations, syncope, other Respiratory: Denies: no symptoms, cough, shortness of breath, SOB with excertion, SOB at rest, sputum, wheezing, other Genitourinary: Denies: no symptoms, burning, discharge, frequency, flank pain, hematuria, incontinence, pain, urgency, other Hematologic/Lymphatic: Denies: no symptoms, anemia, easy bleeding, easy bru ising, adenopathy, other Allergies: Coded Allergies: No Known Allergies (Unverified , 04/15/20) Subjective 04/19 nc, restraints, non verabal, tolerating ngt feeding, opens his eyes on touch stimuli 04/20 meds noted, with ngt, dw rn, labs noted, elev ddimer 04/21 awake, alert, ngt in place, labs noted, with restraints this am, on blood thinner for dvt 04/22 labs noted, nv, ngt, on eliquis Objective Objective Current Medications Medications (Trade) Dose Ordered Sig/Chano Route PRN Reason Start Time Stop Time Status Last Admin Dose Admin Acetaminophen (Tylenol) 650 mg Q4H PRN ORAL Temp >100.5 04/15/20 13:15 05/15/20 13:14 04/17/20 09:49 Amlodipine Besylate (Norvasc) 10 mg DAILY ORAL 04/16/20 09:00 05/16/20 08:59 04/21/20 08:33 Apixaban (Eliquis) 5 mg BID ORAL 04/27/20 09:00 07/26/20 08:59 Apixaban (Eliquis) 10 mg BID ORAL 04/20/20 12:00 04/26/20 18:01 04/21/20 17:11 Aspirin (ASA) 81 mg DAILY ORAL 04/16/20 09:00 05/31/20 08:59 04/21/20 08:32 Atorvastatin Calcium (Lipitor) 10 mg BEDTIME ORAL 04/15/20 21:00 07/14/20 20:59 04/21/20 21:05 Dexamethasone (Decadron) 6 mg DAILY ORAL 04/16/20 09:00 04/24/20 12:00 04/21/20 08:32 Dextrose 1,000 ml @ 50 mls/hr Q20H IV 04/18/20 12:15 05/18/20 12:14 04/22/20 04:59 Famotidine (Pepcid) 20 mg DAILY ORAL 04/16/20 09:00 07/15/20 08:59 04/21/20 08:32 Labetalol HCl (Normodyne) 200 mg Q8HR ORAL 04/15/20 14:00 05/15/20 13:59 04/21/20 21:05 Magnesium Oxide (Mag-Ox 400mg) 400 mg DAILY ORAL 04/16/20 09:00 05/16/20 08:59 04/21/20 08:32 Mirtazapine (Remeron) 30 mg BEDTIME ORAL 04/15/20 21:00 07/14/20 20:59 04/21/20 21:05 Multivitamins Therapeutic (Therapeutic Multivitamin) 1 ea DAILY ORAL 04/16/20 09:00 05/16/20 08:59 04/21/20 08:32 Last 24 Hour Vital Signs Date Time Temp Pulse Resp B/P (MAP) Pulse Ox O2 Delivery O2 Flow Rate FiO2 04/22/20 05:02 69 143/82 04/22/20 04:00 98.5 69 20 143/82 (102) 94 04/22/20 00:00 99.0 82 20 150/93 (112) 94 04/21/20 21:05 75 128/89 04/21/20 21:00 Nasal Cannula 2.0 04/21/20 20:00 98.9 75 20 128/89 (102) 94 04/21/20 16:00 98.1 81 20 117/77 (90) 97 04/21/20 13:17 86 142/72 04/21/20 12:00 97.7 86 20 142/72 (95) 97 04/21/20 09:00 Nasal Cannula 2.0 04/21/20 08:33 76 133/83 04/21/20 08:00 97.7 77 20 120/81 (94) 93 04/21/20 05:33 76 130/83 04/21/20 04:00 97.7 76 20 130/83 (99) 93 04/21/20 00:00 97.5 77 20 116/76 (89) 98 04/20/20 21:21 76 113/78 04/20/20 21:00 Nasal Cannula 2.0 04/20/20 20:00 97.0 76 19 113/78 (90) 94 04/20/20 16:00 97.2 76 19 110/79 (89) 98 04/20/20 13:00 80 117/81 04/20/20 12:00 97.1 80 18 117/81 (93) 100 04/20/20 09:02 73 107/76 04/20/20 09:00 Nasal Cannula 2.0 04/20/20 08:00 97.7 73 20 107/76 (86) 100 Intake and Output 04/21/20 04/22/20 19:00 07:00 Intake Total 880 ml 950 ml Output Total 650 ml 800 ml Balance 230 ml 150 ml Intake Free Water 500 ml 400 ml Tube Feeding 380 ml 550 ml Output Urine Total 650 ml 800 ml # Voids 1 # Bowel Movements 1 1 Labs Test 04/20/20 05:20 04/20/20 07:44 04/21/20 06:05 04/22/20 06:38 White Blood Count 10.5 K/UL (4.8-10.8) 8.6 K/UL (4.8-10.8) Red Blood Count 4.13 M/UL (4.70-6.10) 3.82 M/UL (4.70-6.10) Hemoglobin 10.7 G/DL (14.2-18.0) 10.0 G/DL (14.2-18.0) Hematocrit 34.3 % (42.0-52.0) 31.9 % (42.0-52.0) Mean Corpuscular Volume 83 FL (80-99) 84 FL (80-99) Mean Corpuscular Hemoglobin 25.8 PG (27.0-31.0) 26.2 PG (27.0-31.0) Mean Corpuscular Hemoglobin Concent 31.1 G/DL (32.0-36.0) 31.3 G/DL (32.0-36.0) Red Cell Distribution Width 15.5 % (11.6-14.8) 15.4 % (11.6-14.8) Platelet Count 316 K/UL (150-450) 255 K/UL (150-450) Mean Platelet Volume 7.1 FL (6.5-10.1) 7.8 FL (6.5-10.1) Neutrophils (%) (Auto) 71.0 % (45.0-75.0) 77.3 % (45.0-75.0) Lymphocytes (%) (Auto) 15.5 % (20.0-45.0) 13.7 % (20.0-45.0) Monocytes (%) (Auto) 12.3 % (1.0-10.0) 7.8 % (1.0-10.0) Eosinophils (%) (Auto) 0.0 % (0.0-3.0) 0.5 % (0.0-3.0) Basophils (%) (Auto) 1.2 % (0.0-2.0) 0.8 % (0.0-2.0) Arterial Blood pH 7.483 (7.350-7.450) Arterial Blood Partial Pressure CO2 36.7 mmHg (35.0-45.0) Arterial Blood Partial Pressure O2 101.5 mmHg (75.0-100.0) Arterial Blood HCO3 26.9 mmol/L (22.0-26.0) Arterial Blood Oxygen Saturation 97.7 % (95-100) Arterial Blood Base Excess 3.4 (-2-2) Vikash Test Positive Height (Feet): 6 Height (Inches): 7.00 Weight (Pounds): 150 Objective General Appearance: combative Neck: supple, ++ngt Cardiovascular: regular rhythm Respiratory/Chest: crackles/rales Abdomen: non tender, soft Extremities: non-tender Josiah Salgado MD Apr 22, 2020 07:37
[2020-04-22 07:53] LABS: ANION GAP 6 mmol/L (5-15); BLOOD UREA NITROGEN 30 mg/dL (7-18); CALCIUM 9.1 MG/DL (8.5-10.1); CARBON DIOXIDE 27 MMOL/L (21-32); CHLORIDE 110 MMOL/L (98-107); CREATININE 0.9 MG/DL (0.55-1.30); POTASSIUM 4.4 MMOL/L (3.5-5.1); SODIUM 143 MMOL/L (136-145)
[2020-04-22 08:00] VITALS: BP 143/93
--- NOTE | 2020-04-22 08:26 | NUR ---
Speech Note (Follow up from 04/20/2020) S: Pt is awake, opening his eyes, oriented x 0, non-verbal, or not following commands. Moving bilateral upper and lower extremity moves spontaneously. O: 1. Swallow safety: pt presents with rattling sounds at the level of his neck without cervical auscultation suggestive for thick secretion in aerodigestive tract. The reduced spontaneous pharyngeal swallow triggering to manage his own secretion. 2. Cognitive: Pt is disoriented, agitated with poor safety awareness. 3. Oral cavity: Comparison to , oral cavity is more healthy appearance characterized by absence of secretion, or concretion. PO trial was not give today due to high probability of aspiration. A: 1. Oropharyngeal dysphagia resulted in aspiration pneumonia -Currently recovering from aspiration pneumonia P: 1. Continue with plans of care form 04/20/2020 Val Khan
[2020-04-22] MEDS: Eliquis 5mg tablet ORAL SCH ×2 (08:56→17:32)
[2020-04-22] MEDS: Magnesium Oxide 400mg tab ORAL SCH (08:56)
[2020-04-22] MEDS: Multivitamin w/Minerals tab ORAL SCH (08:56)
[2020-04-22] MEDS: Aspirin Baby 81mg ORAL SCH (08:56)
--- NOTE | 2020-04-22 10:18 | NUR ---
MARKET REPORTER NOTE LAUREL received a call from pt's sister Maggie [phone] that she is the POA. LAUREL requested Maggie to fax the POA document to [phone]. LAUREL will request the update on facesheet once the document is received and reviewed.
--- NOTE | 2020-04-22 11:22 | Infectious Diseases Prog Note ---
Assessment/Plan Assessment/Plan antibiotics : none A 1. covid 19 pneumonia on 2 liters O2 with 94 % saturation s/p ivermectin 2. gram negative UTI s/p rx 3. + blood cultures with coag neg staph likely contaminated 4. COPD 5. renal failure improving P 1. continue dexamethasone day 8 2. continue isolation Subjective ROS Limited/Unobtainable: Yes Allergies: Coded Allergies: No Known Allergies (Unverified , 04/15/20) Objective Last 24 Hour Vital Signs Date Time Temp Pulse Resp B/P (MAP) Pulse Ox O2 Delivery O2 Flow Rate FiO2 04/22/20 08:56 74 143/93 04/22/20 08:00 98.2 74 19 143/93 (110) 94 04/22/20 05:02 69 143/82 04/22/20 04:00 98.5 69 20 143/82 (102) 94 04/22/20 00:00 99.0 82 20 150/93 (112) 94 04/21/20 21:05 75 128/89 04/21/20 21:00 Nasal Cannula 2.0 04/21/20 20:00 98.9 75 20 128/89 (102) 94 04/21/20 16:00 98.1 81 20 117/77 (90) 97 04/21/20 13:17 86 142/72 04/21/20 12:00 97.7 86 20 142/72 (95) 97 Height (Feet): 6 Height (Inches): 7.00 Weight (Pounds): 150 Laboratory Tests Test 04/22/20 06:38 White Blood Count 10.5 K/UL (4.8-10.8) Red Blood Count 3.69 M/UL (4.70-6.10) L Hemoglobin 9.6 G/DL (14.2-18.0) L Hematocrit 30.2 % (42.0-52.0) L Mean Corpuscular Volume 82 FL (80-99) Mean Corpuscular Hemoglobin 26.1 PG (27.0-31.0) L Mean Corpuscular Hemoglobin Concent 31.9 G/DL (32.0-36.0) L Red Cell Distribution Width 15.1 % (11.6-14.8) H Platelet Count 312 K/UL (150-450) Mean Platelet Volume 8.2 FL (6.5-10.1) Neutrophils (%) (Auto) 79.2 % (45.0-75.0) H Lymphocytes (%) (Auto) 13.5 % (20.0-45.0) L Monocytes (%) (Auto) 6.6 % (1.0-10.0) Eosinophils (%) (Auto) 0.3 % (0.0-3.0) Basophils (%) (Auto) 0.4 % (0.0-2.0) Sodium Level 143 MMOL/L (136-145) Potassium Level 4.4 MMOL/L (3.5-5.1) Chloride Level 110 MMOL/L (98-107) H Carbon Dioxide Level 27 MMOL/L (21-32) Anion Gap 6 mmol/L (5-15) Blood Urea Nitrogen 30 mg/dL (7-18) H Creatinine 0.9 MG/DL (0.55-1.30) Estimat Glomerular Filtration Rate > 60 mL/min (>60) Glucose Level 113 MG/DL (74-106) H Calcium Level 9.1 MG/DL (8.5-10.1) Current Medications Medications (Trade) Dose Ordered Sig/Chano Route PRN Reason Start Time Stop Time Status Last Admin Dose Admin Acetaminophen (Tylenol) 650 mg Q4H PRN ORAL Temp >100.5 04/15/20 13:15 05/15/20 13:14 04/17/20 09:49 Amlodipine Besylate (Norvasc) 10 mg DAILY ORAL 04/16/20 09:00 05/16/20 08:59 04/22/20 08:56 Apixaban (Eliquis) 5 mg BID ORAL 04/27/20 09:00 07/26/20 08:59 Apixaban (Eliquis) 10 mg BID ORAL 04/20/20 12:00 04/26/20 18:01 04/22/20 08:56 Aspirin (ASA) 81 mg DAILY ORAL 04/16/20 09:00 05/31/20 08:59 04/22/20 08:56 Atorvastatin Calcium (Lipitor) 10 mg BEDTIME ORAL 04/15/20 21:00 07/14/20 20:59 04/21/20 21:05 Dexamethasone (Decadron) 6 mg DAILY ORAL 04/16/20 09:00 04/24/20 12:00 04/22/20 08:56 Dextrose 1,000 ml @ 50 mls/hr Q20H IV 04/18/20 12:15 05/18/20 12:14 04/22/20 04:59 Famotidine (Pepcid) 20 mg DAILY ORAL 04/16/20 09:00 07/15/20 08:59 04/22/20 08:56 Labetalol HCl (Normodyne) 200 mg Q8HR ORAL 04/15/20 14:00 05/15/20 13:59 04/21/20 21:05 Magnesium Oxide (Mag-Ox 400mg) 400 mg DAILY ORAL 04/16/20 09:00 05/16/20 08:59 04/22/20 08:56 Mirtazapine (Remeron) 30 mg BEDTIME ORAL 04/15/20 21:00 07/14/20 20:59 04/21/20 21:05 Multivitamins Therapeutic (Therapeutic Multivitamin) 1 ea DAILY ORAL 04/16/20 09:00 05/16/20 08:59 04/22/20 08:56 Raudel Cassidy MD Apr 22, 2020 11:22
--- NOTE | 2020-04-22 11:35 | NUR ---
CASE MANAGEMENT:REVIEW SI;COVID PNEUMONIA. COPD. 99.0 82 20 150/93 94% 2L NC H/H- 9.6/30.2 BUN+ 30 GLU+ 113 IS;D5 IV @ 50 ML/HR MAG-OX NG QD PEPCID NG QD ASA NG QD DECADRON NG QD MED SURG STATUS DCP;FROM [facility]; ASPIRATION PRECAUTIONS NG TUBE FEEDINGS
[2020-04-22 12:00] VITALS: BP 128/79
--- NOTE | 2020-04-22 13:33 | Pulmonology Progress Note ---
Subjective ROS Limited/Unobtainable: Yes Interval Events: none major reported per nursing Constitutional: Reports: no symptoms HEENT: Repors: no symptoms Respiratory: Reports: no symptoms Cardiovascular: Reports: no symptoms Gastrointestinal/Abdominal: Reports: no symptoms Allergies: Coded Allergies: No Known Allergies (Unverified , 04/15/20) All Systems: reviewed and negative except above Objective Last 24 Hour Vital Signs Date Time Temp Pulse Resp B/P (MAP) Pulse Ox O2 Delivery O2 Flow Rate FiO2 04/22/20 12:00 98.1 82 20 128/79 (95) 99 04/22/20 09:00 Nasal Cannula 2.0 04/22/20 08:56 74 143/93 04/22/20 08:00 98.2 74 19 143/93 (110) 94 04/22/20 05:02 69 143/82 04/22/20 04:00 98.5 69 20 143/82 (102) 94 04/22/20 00:00 99.0 82 20 150/93 (112) 94 04/21/20 21:05 75 128/89 04/21/20 21:00 Nasal Cannula 2.0 04/21/20 20:00 98.9 75 20 128/89 (102) 94 04/21/20 16:00 98.1 81 20 117/77 (90) 97 Intake and Output 04/21/20 04/22/20 19:00 07:00 Intake Total 880 ml 950 ml Output Total 650 ml 800 ml Balance 230 ml 150 ml Intake Free Water 500 ml 400 ml Tube Feeding 380 ml 550 ml Output Urine Total 650 ml 800 ml # Voids 1 # Bowel Movements 1 1 HEENT: atraumatic Respiratory: decreased breath sounds, crackles/rales Cardiovascular: normal rate, regular rhythm Abdomen: soft, non tender Laboratory Tests 04/22/20 06:38: White Blood Count 10.5, Red Blood Count 3.69L, Hemoglobin 9.6L, Hematocrit 30.2L , Mean Corpuscular Volume 82, Mean Corpuscular Hemoglobin 26.1L, Mean Corpuscular Hemoglobin Concent 31.9L, Red Cell Distribution Width 15.1H, Platelet Count 312, Mean Platelet Volume 8.2, Neutrophils (%) (Auto) 79.2H, Lymphocytes (%) (Auto) 13.5L, Monocytes (%) (Auto) 6.6, Eosinophils (%) (Auto) 0.3, Basophils (%) (Auto) 0.4, Sodium Level 143, Potassium Level 4.4, Chloride Level 110H, Carbon Dioxide Level 27, Anion Gap 6, Blood Urea Nitrogen 30H, Creatinine 0.9, Estimat Glomerular Filtration Rate > 60, Glucose Level 113H, Calcium Level 9.1 Current Medications Medications (Trade) Dose Ordered Sig/Chano Route PRN Reason Start Time Stop Time Status Last Admin Dose Admin Acetaminophen (Tylenol) 650 mg Q4H PRN ORAL Temp >100.5 04/15/20 13:15 05/15/20 13:14 04/17/20 09:49 Amlodipine Besylate (Norvasc) 10 mg DAILY ORAL 04/16/20 09:00 05/16/20 08:59 04/22/20 08:56 Apixaban (Eliquis) 5 mg BID ORAL 04/27/20 09:00 07/26/20 08:59 Apixaban (Eliquis) 10 mg BID ORAL 04/20/20 12:00 04/26/20 18:01 04/22/20 08:56 Aspirin (ASA) 81 mg DAILY ORAL 04/16/20 09:00 05/31/20 08:59 04/22/20 08:56 Atorvastatin Calcium (Lipitor) 10 mg BEDTIME ORAL 04/15/20 21:00 07/14/20 20:59 04/21/20 21:05 Dexamethasone (Decadron) 6 mg DAILY ORAL 04/16/20 09:00 04/24/20 12:00 04/22/20 08:56 Dextrose 1,000 ml @ 50 mls/hr Q20H IV 04/18/20 12:15 05/18/20 12:14 04/22/20 04:59 Famotidine (Pepcid) 20 mg DAILY ORAL 04/16/20 09:00 07/15/20 08:59 04/22/20 08:56 Labetalol HCl (Normodyne) 200 mg Q8HR ORAL 04/15/20 14:00 05/15/20 13:59 04/21/20 21:05 Magnesium Oxide (Mag-Ox 400mg) 400 mg DAILY ORAL 04/16/20 09:00 05/16/20 08:59 04/22/20 08:56 Mirtazapine (Remeron) 30 mg BEDTIME ORAL 04/15/20 21:00 07/14/20 20:59 04/21/20 21:05 Multivitamins Therapeutic (Therapeutic Multivitamin) 1 ea DAILY ORAL 04/16/20 09:00 05/16/20 08:59 04/22/20 08:56 Assessment/Plan Assessment/Plan 1. COVID-19 pneumonia -On dexamethasone - now off azithromycin, ceftriaxone and IV Vanco 2. COPD, oxygen dependent 3. Malnourished -Per primary MD 4. Leukocytosis, likely secondary to #1 5. Renal failure - Recommend IVF 6. Hyperglycemia, - monitor BG - of note, he is on Decadron 7. Increased inflammatory markers - DVT prophylaxis -Agree with heparin 8. Hypoxia; improved - currently saturating at 97% on 2 L nasal cannula - Continue providing supplemental oxygen - Pt is reported to be chronically oxygen dependent due to history of COPD 9. Gram neg dot UTI - s/p IV Vanco - on ceftriaxone failed ST eval; PEG being considered R LE DVT - Now on Eliquis dc pending placement The care for this patient was discussed with my supervising physician. Time spent for this case was approximately 31 minutes. Bennie Goodrich Apr 22, 2020 13:33
[2020-04-22 16:00] VITALS: BP 100/61
--- NOTE | 2020-04-22 16:05 | General Progress Note ---
Subjective Allergies: Coded Allergies: No Known Allergies (Unverified , 04/15/20) Subjective non verabal, combative tolerating ngt feeding opens his eyes on touch stimuli, agitated frequentely dvt in arm Objective Last 24 Hour Vital Signs Date Time Temp Pulse Resp B/P (MAP) Pulse Ox O2 Delivery O2 Flow Rate FiO2 04/22/20 14:18 82 128/79 04/22/20 12:00 98.1 82 20 128/79 (95) 99 04/22/20 09:00 Nasal Cannula 2.0 04/22/20 08:56 74 143/93 04/22/20 08:00 98.2 74 19 143/93 (110) 94 04/22/20 05:02 69 143/82 04/22/20 04:00 98.5 69 20 143/82 (102) 94 04/22/20 00:00 99.0 82 20 150/93 (112) 94 04/21/20 21:05 75 128/89 04/21/20 21:00 Nasal Cannula 2.0 04/21/20 20:00 98.9 75 20 128/89 (102) 94 Intake and Output 04/21/20 04/22/20 19:00 07:00 Intake Total 880 ml 950 ml Output Total 650 ml 800 ml Balance 230 ml 150 ml Intake Free Water 500 ml 400 ml Tube Feeding 380 ml 550 ml Output Urine Total 650 ml 800 ml # Voids 1 # Bowel Movements 1 1 Laboratory Tests 04/22/20 06:38: White Blood Count 10.5, Red Blood Count 3.69L, Hemoglobin 9.6L, Hematocrit 30.2L , Mean Corpuscular Volume 82, Mean Corpuscular Hemoglobin 26.1L, Mean Corpuscular Hemoglobin Concent 31.9L, Red Cell Distribution Width 15.1H, Platelet Count 312, Mean Platelet Volume 8.2, Neutrophils (%) (Auto) 79.2H, Lymphocytes (%) (Auto) 13.5L, Monocytes (%) (Auto) 6.6, Eosinophils (%) (Auto) 0.3, Basophils (%) (Auto) 0.4, Sodium Level 143, Potassium Level 4.4, Chloride Level 110H, Carbon Dioxide Level 27, Anion Gap 6, Blood Urea Nitrogen 30H, Creatinine 0.9, Estimat Glomerular Filtration Rate > 60, Glucose Level 113H, Calcium Level 9.1 Height (Feet): 6 Height (Inches): 7.00 Weight (Pounds): 150 Neck: non-tender, supple Cardiovascular: regular rhythm Respiratory/Chest: lungs clear Abdomen: non tender, soft Extremities: non-tender Assessment/Plan Assessment/Plan: sepsis covid pna rpt cxr fpr evaluation of pna uti ac renal failure failure to thrive protein malnutrition arf hypernatremia increased ng feeding and water flush peg placement ,dr gómez for gi rpt labs nephro consult cont ivf add vancomycin iv id consult med surg st eval on monday abg dw charge nurse and nephrology Dedrick Buitrago MD Apr 22, 2020 16:05
--- NOTE | 2020-04-22 16:06 | NUR ---
NURSE NOTES: Dr. Buitrago ordered 1. ST Eval tomorrow 2. Chest x-ray tomorrow morning 3. d/c IV fluid. Noted and carried out.
[2020-04-22] MEDS ORDERED: Varibar Nectar 240ml MC PRN (17:15)
[2020-04-22] MEDS ORDERED: Varibar Pudding 230ml MC PRN (17:15)
[2020-04-22] MEDS ORDERED: Varibar Honey 250ml MC PRN (17:15)
[2020-04-22] MEDS ORDERED: Varibar Thin Liquid powder 148gm MC PRN (17:15)
--- NOTE | 2020-04-22 19:25 | NUR ---
NURSE HAND-OFF: Important Events on Shift: No new event Patient Status: stable Diet: Jevity 1.2 @ 50ml/hr Pending Orders: [facility] Pending Results/Labs:n/a Pending MD notification:n/a Latest Vital Signs: Temperature 97.5 , Pulse 78 , B/P 100 /61 , Respiratory Rate 20 , O2 SAT 98 , Room Air, O2 Flow Rate 2.0 . Vital Sign Comment: stable Latest [place] Fall Score: 70 Fall Risk: High Risk Safety Measures: Call light Within Reach, Bed Alarm Zone 1, Side Rails Side Rails x3, Bed position Low and Locked. Fall Precautions: Yellow Socks Yellow Gown Patient Fall Education Report given to ROMIE eDan.
[2020-04-22 20:00] VITALS: BP 137/51
[2020-04-23] VITALS: BP 122/75
[2020-04-23 04:00] VITALS: BP 107/72
--- NOTE | 2020-04-23 07:59 | NUR ---
NURSE NOTES: Receivd report from Dianne Roe RN. Patient sleeping in semi-Leon's position, snoring, on room air, nasogastric tube in place, siderails up x3, bed in lowest position, wheels locked, call light within reach, in no apparent distress.
[2020-04-23 08:00] VITALS: BP 130/80
--- NOTE | 2020-04-23 08:15 | NUR ---
NURSE NOTES: Patient sleeping, respirations at 15 breaths per minute, bed in lowest position, wheels locked, side rails up x 2, in no apparent distress.
--- NOTE | 2020-04-23 08:33 | NUR ---
PCXR COMPLETED AT 0830HRS. NF
[2020-04-23] MEDS: Eliquis 5mg tablet ORAL SCH (09:30)
[2020-04-23] MEDS: Aspirin Baby 81mg ORAL SCH (09:30)
[2020-04-23] MEDS: Multivitamin w/Minerals tab ORAL SCH (09:31)
[2020-04-23] MEDS: Magnesium Oxide 400mg tab ORAL SCH (09:32)
--- NOTE | 2020-04-23 09:55 | Pulmonology Progress Note ---
Subjective ROS Limited/Unobtainable: Yes Interval Events: none major reported per nursing Constitutional: Reports: no symptoms HEENT: Repors: no symptoms Respiratory: Reports: no symptoms Cardiovascular: Reports: no symptoms Gastrointestinal/Abdominal: Reports: no symptoms Allergies: Coded Allergies: No Known Allergies (Unverified , 04/15/20) All Systems: reviewed and negative except above Objective Last 24 Hour Vital Signs Date Time Temp Pulse Resp B/P (MAP) Pulse Ox O2 Delivery O2 Flow Rate FiO2 04/23/20 09:28 72 130/80 04/23/20 08:00 97.3 72 20 130/80 (97) 100 04/23/20 06:00 72 107/72 04/23/20 04:00 97.2 72 20 107/72 (84) 100 04/23/20 00:00 96.8 71 20 122/75 (91) 100 04/22/20 21:14 79 137/51 04/22/20 21:00 Nasal Cannula 2.0 04/22/20 20:00 97.2 79 20 137/51 (79) 100 04/22/20 16:00 97.5 78 20 100/61 (74) 98 04/22/20 14:18 82 128/79 04/22/20 12:00 98.1 82 20 128/79 (95) 99 Intake and Output 04/22/20 04/23/20 19:00 07:00 Intake Total 950 ml Output Total 950 ml 500 ml Balance 0 ml -500 ml Intake Free Water 400 ml Tube Feeding 550 ml Output Urine Total 950 ml 500 ml # Bowel Movements 1 HEENT: atraumatic Respiratory: decreased breath sounds, crackles/rales Cardiovascular: normal rate, regular rhythm Abdomen: soft, non tender Current Medications Medications (Trade) Dose Ordered Sig/Chano Route PRN Reason Start Time Stop Time Status Last Admin Dose Admin Acetaminophen (Tylenol) 650 mg Q4H PRN ORAL Temp >100.5 04/15/20 13:15 05/15/20 13:14 04/17/20 09:49 Amlodipine Besylate (Norvasc) 10 mg DAILY ORAL 04/16/20 09:00 05/16/20 08:59 04/23/20 09:28 Apixaban (Eliquis) 5 mg BID ORAL 04/27/20 09:00 07/26/20 08:59 Apixaban (Eliquis) 10 mg BID ORAL 04/20/20 12:00 04/26/20 18:01 04/23/20 09:30 Aspirin (ASA) 81 mg DAILY ORAL 04/16/20 09:00 05/31/20 08:59 04/23/20 09:30 Atorvastatin Calcium (Lipitor) 10 mg BEDTIME ORAL 04/15/20 21:00 07/14/20 20:59 04/22/20 21:14 Barium Sulfate (Varibar Honey) 250 ml NOW PRN MC RAD 04/22/20 17:15 04/25/20 17:06 Barium Sulfate (Varibar [place]) 240 ml NOW PRN MC RAD 04/22/20 17:15 04/25/20 17:06 Barium Sulfate (Varibar Pudding) 230 ml NOW PRN MC RAD 04/22/20 17:15 04/25/20 17:06 Barium Sulfate (Varibar Thin Liquid powder) 148 gm NOW PRN MC RAD 04/22/20 17:15 04/25/20 17:06 Dexamethasone (Decadron) 6 mg DAILY ORAL 04/16/20 09:00 04/24/20 12:00 04/23/20 09:31 Famotidine (Pepcid) 20 mg DAILY ORAL 04/16/20 09:00 07/15/20 08:59 04/23/20 09:30 Labetalol HCl (Normodyne) 200 mg Q8HR ORAL 04/15/20 14:00 05/15/20 13:59 04/22/20 21:14 Magnesium Oxide (Mag-Ox 400mg) 400 mg DAILY ORAL 04/16/20 09:00 05/16/20 08:59 04/23/20 09:32 Mirtazapine (Remeron) 30 mg BEDTIME ORAL 04/15/20 21:00 07/14/20 20:59 04/22/20 21:14 Multivitamins Therapeutic (Therapeutic Multivitamin) 1 ea DAILY ORAL 04/16/20 09:00 05/16/20 08:59 04/23/20 09:31 Assessment/Plan Assessment/Plan 1. COVID-19 pneumonia -On dexamethasone - now off azithromycin, ceftriaxone and IV Vanco 2. COPD, oxygen dependent 3. Malnourished -Per primary MD 4. Leukocytosis, likely secondary to #1 5. Renal failure - Recommend IVF 6. Hyperglycemia, - monitor BG - of note, he is on Decadron 7. Increased inflammatory markers - DVT prophylaxis -Agree with heparin 8. Hypoxia; improved - currently saturating at 97% on 2 L nasal cannula - Continue providing supplemental oxygen - Pt is reported to be chronically oxygen dependent due to history of COPD 9. Gram neg dot UTI - s/p IV Vanco - on ceftriaxone failed ST eval; PEG being considered R LE DVT - Now on Eliquis dc pending placement The care for this patient was discussed with my supervising physician. Time spent for this case was approximately 31 minutes. Bennie Goodrich Apr 23, 2020 09:55
--- NOTE | 2020-04-23 10:54 | Hematology/Onc Progress Note ---
Assessment/Plan Assessment/Plan Assessment/Plan: Dvt of the lower extremity--> Positive for right lower extremity deep venous thrombosis. Patient's nurse aware bilaterally leukocytosis with sepsis covid pna uti ac renal failure failure to thrive protein malnutrition arf hypernatremia increased ng feeding and water flush rpt labs nephro consult cont ivf abx vancomycin iv id consult med surg st eval on monday duplex legs shows dvt APIXABAN started Subjective HEENT: Denies: no symptoms, eye pain, blurred vision, tearing, double vision, ear pain, ear discharge, nose pain, nose congestion, throat pain, throat swelling, mouth pain, mouth swelling, other Allergies: Coded Allergies: No Known Allergies (Unverified , 04/15/20) Subjective 04/19 nc, restraints, non verabal, tolerating ngt feeding, opens his eyes on touch stimuli 04/20 meds noted, with ngt, dw rn, labs noted, elev ddimer 04/21 awake, alert, ngt in place, labs noted, with restraints this am, on blood thinner for dvt 04/22 labs noted, nv, ngt, on eliquis 04/23 nv, sleeping, is comfortable, on eliquis, no bleeding Objective Objective Current Medications Medications (Trade) Dose Ordered Sig/Chano Route PRN Reason Start Time Stop Time Status Last Admin Dose Admin Acetaminophen (Tylenol) 650 mg Q4H PRN ORAL Temp >100.5 04/15/20 13:15 05/15/20 13:14 04/17/20 09:49 Amlodipine Besylate (Norvasc) 10 mg DAILY ORAL 04/16/20 09:00 05/16/20 08:59 04/23/20 09:28 Apixaban (Eliquis) 5 mg BID ORAL 04/27/20 09:00 07/26/20 08:59 Apixaban (Eliquis) 10 mg BID ORAL 04/20/20 12:00 04/26/20 18:01 04/23/20 09:30 Aspirin (ASA) 81 mg DAILY ORAL 04/16/20 09:00 05/31/20 08:59 04/23/20 09:30 Atorvastatin Calcium (Lipitor) 10 mg BEDTIME ORAL 04/15/20 21:00 07/14/20 20:59 04/22/20 21:14 Barium Sulfate (Varibar Honey) 250 ml NOW PRN MC RAD 04/22/20 17:15 04/25/20 17:06 Barium Sulfate (Varibar [place]) 240 ml NOW PRN MC RAD 04/22/20 17:15 04/25/20 17:06 Barium Sulfate (Varibar Pudding) 230 ml NOW PRN MC RAD 04/22/20 17:15 04/25/20 17:06 Barium Sulfate (Varibar Thin Liquid powder) 148 gm NOW PRN MC RAD 04/22/20 17:15 04/25/20 17:06 Dexamethasone (Decadron) 6 mg DAILY ORAL 04/16/20 09:00 04/24/20 12:00 04/23/20 09:31 Famotidine (Pepcid) 20 mg DAILY ORAL 04/16/20 09:00 07/15/20 08:59 04/23/20 09:30 Labetalol HCl (Normodyne) 200 mg Q8HR ORAL 04/15/20 14:00 05/15/20 13:59 04/22/20 21:14 Magnesium Oxide (Mag-Ox 400mg) 400 mg DAILY ORAL 04/16/20 09:00 05/16/20 08:59 04/23/20 09:32 Mirtazapine (Remeron) 30 mg BEDTIME ORAL 04/15/20 21:00 07/14/20 20:59 04/22/20 21:14 Multivitamins Therapeutic (Therapeutic Multivitamin) 1 ea DAILY ORAL 04/16/20 09:00 05/16/20 08:59 04/23/20 09:31 Last 24 Hour Vital Signs Date Time Temp Pulse Resp B/P (MAP) Pulse Ox O2 Delivery O2 Flow Rate FiO2 04/23/20 09:28 72 130/80 04/23/20 08:00 97.3 72 20 130/80 (97) 100 04/23/20 06:00 72 107/72 04/23/20 04:00 97.2 72 20 107/72 (84) 100 04/23/20 00:00 96.8 71 20 122/75 (91) 100 04/22/20 21:14 79 137/51 04/22/20 21:00 Nasal Cannula 2.0 04/22/20 20:00 97.2 79 20 137/51 (79) 100 04/22/20 16:00 97.5 78 20 100/61 (74) 98 04/22/20 14:18 82 128/79 04/22/20 12:00 98.1 82 20 128/79 (95) 99 04/22/20 09:00 Nasal Cannula 2.0 04/22/20 08:56 74 143/93 04/22/20 08:00 98.2 74 19 143/93 (110) 94 04/22/20 05:02 69 143/82 04/22/20 04:00 98.5 69 20 143/82 (102) 94 04/22/20 00:00 99.0 82 20 150/93 (112) 94 04/21/20 21:05 75 128/89 04/21/20 21:00 Nasal Cannula 2.0 04/21/20 20:00 98.9 75 20 128/89 (102) 94 04/21/20 16:00 98.1 81 20 117/77 (90) 97 04/21/20 13:17 86 142/72 04/21/20 12:00 97.7 86 20 142/72 (95) 97 Intake and Output 04/22/20 04/23/20 19:00 07:00 Intake Total 950 ml Output Total 950 ml 500 ml Balance 0 ml -500 ml Intake Free Water 400 ml Tube Feeding 550 ml Output Urine Total 950 ml 500 ml # Bowel Movements 1 Labs Test 04/21/20 06:05 04/22/20 06:38 White Blood Count 8.6 K/UL (4.8-10.8) 10.5 K/UL (4.8-10.8) Red Blood Count 3.82 M/UL (4.70-6.10) 3.69 M/UL (4.70-6.10) Hemoglobin 10.0 G/DL (14.2-18.0) 9.6 G/DL (14.2-18.0) Hematocrit 31.9 % (42.0-52.0) 30.2 % (42.0-52.0) Mean Corpuscular Volume 84 FL (80-99) 82 FL (80-99) Mean Corpuscular Hemoglobin 26.2 PG (27.0-31.0) 26.1 PG (27.0-31.0) Mean Corpuscular Hemoglobin Concent 31.3 G/DL (32.0-36.0) 31.9 G/DL (32.0-36.0) Red Cell Distribution Width 15.4 % (11.6-14.8) 15.1 % (11.6-14.8) Platelet Count 255 K/UL (150-450) 312 K/UL (150-450) Mean Platelet Volume 7.8 FL (6.5-10.1) 8.2 FL (6.5-10.1) Neutrophils (%) (Auto) 77.3 % (45.0-75.0) 79.2 % (45.0-75.0) Lymphocytes (%) (Auto) 13.7 % (20.0-45.0) 13.5 % (20.0-45.0) Monocytes (%) (Auto) 7.8 % (1.0-10.0) 6.6 % (1.0-10.0) Eosinophils (%) (Auto) 0.5 % (0.0-3.0) 0.3 % (0.0-3.0) Basophils (%) (Auto) 0.8 % (0.0-2.0) 0.4 % (0.0-2.0) Sodium Level 143 MMOL/L (136-145) Potassium Level 4.4 MMOL/L (3.5-5.1) Chloride Level 110 MMOL/L (98-107) Carbon Dioxide Level 27 MMOL/L (21-32) Anion Gap 6 mmol/L (5-15) Blood Urea Nitrogen 30 mg/dL (7-18) Creatinine 0.9 MG/DL (0.55-1.30) Estimat Glomerular Filtration Rate > 60 mL/min (>60) Glucose Level 113 MG/DL (74-106) Calcium Level 9.1 MG/DL (8.5-10.1) Height (Feet): 6 Height (Inches): 7.00 Weight (Pounds): 150 Objective General Appearance: combative Neck: supple, ++ngt Cardiovascular: regular rhythm Respiratory/Chest: crackles/rales Abdomen: non tender, soft Extremities: non-tender Josiah Salgado MD Apr 23, 2020 10:54
--- NOTE | 2020-04-23 11:47 | Infectious Diseases Prog Note ---
Assessment/Plan Assessment/Plan A: 1. COVID-19 pneumonia 2. Acute renal failure 3. Bacteremia with CoAGNS likely contamination 4. COPD. 5, R leg DVT PLAN: 1. Go ivermectin one dose. 2. Continue dexamethasone Subjective ROS Limited/Unobtainable: Yes Constitutional: Denies: fever Neurologic: Reports: confusion, other - on restraint Allergies: Coded Allergies: No Known Allergies (Unverified , 04/15/20) Objective Last 24 Hour Vital Signs Date Time Temp Pulse Resp B/P (MAP) Pulse Ox O2 Delivery O2 Flow Rate FiO2 04/23/20 09:28 72 130/80 04/23/20 08:00 97.3 72 20 130/80 (97) 100 04/23/20 06:00 72 107/72 04/23/20 04:00 97.2 72 20 107/72 (84) 100 04/23/20 00:00 96.8 71 20 122/75 (91) 100 04/22/20 21:14 79 137/51 04/22/20 21:00 Nasal Cannula 2.0 04/22/20 20:00 97.2 79 20 137/51 (79) 100 04/22/20 16:00 97.5 78 20 100/61 (74) 98 04/22/20 14:18 82 128/79 04/22/20 12:00 98.1 82 20 128/79 (95) 99 Height (Feet): 6 Height (Inches): 7.00 Weight (Pounds): 150 HEENT: mucous membranes moist Respiratory/Chest: no respiratory distress, other - oxygen by nasal cannula Cardiovascular: normal rate Abdomen: soft, non tender Extremities: no edema Neurologic/Psychiatric: other - sleeping Current Medications Medications (Trade) Dose Ordered Sig/Chano Route PRN Reason Start Time Stop Time Status Last Admin Dose Admin Acetaminophen (Tylenol) 650 mg Q4H PRN ORAL Temp >100.5 04/15/20 13:15 05/15/20 13:14 04/17/20 09:49 Amlodipine Besylate (Norvasc) 10 mg DAILY ORAL 04/16/20 09:00 05/16/20 08:59 04/23/20 09:28 Apixaban (Eliquis) 5 mg BID ORAL 04/27/20 09:00 07/26/20 08:59 Apixaban (Eliquis) 10 mg BID ORAL 04/20/20 12:00 04/26/20 18:01 04/23/20 09:30 Aspirin (ASA) 81 mg DAILY ORAL 04/16/20 09:00 05/31/20 08:59 04/23/20 09:30 Atorvastatin Calcium (Lipitor) 10 mg BEDTIME ORAL 04/15/20 21:00 07/14/20 20:59 04/22/20 21:14 Barium Sulfate (Varibar Honey) 250 ml NOW PRN MC RAD 04/22/20 17:15 04/25/20 17:06 Barium Sulfate (Varibar [place]) 240 ml NOW PRN MC RAD 04/22/20 17:15 04/25/20 17:06 Barium Sulfate (Varibar Pudding) 230 ml NOW PRN MC RAD 04/22/20 17:15 04/25/20 17:06 Barium Sulfate (Varibar Thin Liquid powder) 148 gm NOW PRN MC RAD 04/22/20 17:15 04/25/20 17:06 Dexamethasone (Decadron) 6 mg DAILY ORAL 04/16/20 09:00 04/24/20 12:00 04/23/20 09:31 Famotidine (Pepcid) 20 mg DAILY ORAL 04/16/20 09:00 07/15/20 08:59 04/23/20 09:30 Labetalol HCl (Normodyne) 200 mg Q8HR ORAL 04/15/20 14:00 05/15/20 13:59 04/22/20 21:14 Magnesium Oxide (Mag-Ox 400mg) 400 mg DAILY ORAL 04/16/20 09:00 05/16/20 08:59 04/23/20 09:32 Mirtazapine (Remeron) 30 mg BEDTIME ORAL 04/15/20 21:00 07/14/20 20:59 04/22/20 21:14 Multivitamins Therapeutic (Therapeutic Multivitamin) 1 ea DAILY ORAL 04/16/20 09:00 05/16/20 08:59 04/23/20 09:31 Hiro Love MD Apr 23, 2020 11:47
[2020-04-23 12:00] VITALS: BP 131/80
--- NOTE | 2020-04-23 12:09 | General Progress Note ---
Subjective ROS Limited/Unobtainable: No Allergies: Coded Allergies: No Known Allergies (Unverified , 04/15/20) Objective Last 24 Hour Vital Signs Date Time Temp Pulse Resp B/P (MAP) Pulse Ox O2 Delivery O2 Flow Rate FiO2 04/23/20 09:28 72 130/80 04/23/20 08:00 97.3 72 20 130/80 (97) 100 04/23/20 06:00 72 107/72 04/23/20 04:00 97.2 72 20 107/72 (84) 100 04/23/20 00:00 96.8 71 20 122/75 (91) 100 04/22/20 21:14 79 137/51 04/22/20 21:00 Nasal Cannula 2.0 04/22/20 20:00 97.2 79 20 137/51 (79) 100 04/22/20 16:00 97.5 78 20 100/61 (74) 98 04/22/20 14:18 82 128/79 Intake and Output 04/22/20 04/23/20 19:00 07:00 Intake Total 950 ml Output Total 950 ml 500 ml Balance 0 ml -500 ml Intake Free Water 400 ml Tube Feeding 550 ml Output Urine Total 950 ml 500 ml # Bowel Movements 1 Height (Feet): 6 Height (Inches): 7.00 Weight (Pounds): 150 General Appearance: lethargic EENT: normal ENT inspection Neck: supple Cardiovascular: normal rate Respiratory/Chest: decreased breath sounds Abdomen: normal bowel sounds, non tender, soft Extremities: non-tender Assessment/Plan Problem List: (1) COVID-19 virus detected ICD Codes: U07.1 - COVID-19 SNOMED: 7135217860633526 (2) Right lower lobe pneumonia ICD Codes: J18.9 - Pneumonia, unspecified organism SNOMED: 802367317 Qualifiers: Qualified Codes: J18.9 - Pneumonia, unspecified organism (3) Elevated d-dimer ICD Codes: R79.89 - Other specified abnormal findings of blood chemistry SNOMED: 620958773 (4) Left hemiparesis ICD Codes: G81.94 - Hemiplegia, unspecified affecting left nondominant side SNOMED: 056245761 (5) Aphasia ICD Codes: R47.01 - Aphasia SNOMED: 75661438 (6) Protein calorie malnutrition ICD Codes: E46 - Unspecified protein-calorie malnutrition SNOMED: 446950030 Qualifiers: Qualified Codes: E44.0 - Moderate protein-calorie malnutrition (7) Renal failure ICD Codes: N19 - Unspecified kidney failure SNOMED: 58569222 Qualifiers: Qualified Codes: N19 - Unspecified kidney failure (8) Hypernatremia ICD Codes: E87.0 - Hyperosmolality and hypernatremia SNOMED: 041688965 Assessment/Plan: NGTF needs peg plan for tomorrow Rich Aguilar MD Apr 23, 2020 12:09
--- NOTE | 2020-04-23 13:15 | Diagnostic Imaging Report ---
Procedure: XRAY Chest 1v Reason for study: Reason For Exam: COUGH Comparison films: 04/15/2020. FINDINGS: There is an NG tube in good position. Vascularity is normal. Improving right basilar infiltrates noted with mild residual. Cardiac and mediastinal silhouette are within normal limits. CP angles are sharp. Aorta is tortuous. IMPRESSION: Improving right basilar infiltrate.
--- NOTE | 2020-04-23 14:00 | NUR ---
PARKING LOT ATTENDANT NOTE LAUREL received the POA document via fax. LAUREL requested emergency contact to be updated. LAUREL placed the copy in the chart. Addendum: 04/23/20 at 1405 by MATT BARRAGAN General POA document*
[2020-04-23 16:00] VITALS: BP 141/99
--- NOTE | 2020-04-23 17:02 | General Progress Note ---
Subjective Allergies: Coded Allergies: No Known Allergies (Unverified , 04/15/20) Subjective non verabal, combative tolerating ngt feeding opens his eyes on touch stimuli, agitated frequentely dvt in arm Objective Last 24 Hour Vital Signs Date Time Temp Pulse Resp B/P (MAP) Pulse Ox O2 Delivery O2 Flow Rate FiO2 04/23/20 16:00 97.5 64 18 141/99 (113) 99 04/23/20 14:57 71 131/80 04/23/20 12:00 97.5 71 16 131/80 (97) 100 04/23/20 09:28 72 130/80 04/23/20 09:00 Nasal Cannula 2.0 04/23/20 08:00 97.3 72 20 130/80 (97) 100 04/23/20 06:00 72 107/72 04/23/20 04:00 97.2 72 20 107/72 (84) 100 04/23/20 00:00 96.8 71 20 122/75 (91) 100 04/22/20 21:14 79 137/51 04/22/20 21:00 Nasal Cannula 2.0 04/22/20 20:00 97.2 79 20 137/51 (79) 100 Intake and Output 04/22/20 04/23/20 19:00 07:00 Intake Total 950 ml Output Total 950 ml 500 ml Balance 0 ml -500 ml Intake Free Water 400 ml Tube Feeding 550 ml Output Urine Total 950 ml 500 ml # Bowel Movements 1 Height (Feet): 6 Height (Inches): 7.00 Weight (Pounds): 150 General Appearance: lethargic Neck: supple Cardiovascular: regular rhythm Respiratory/Chest: crackles/rales Abdomen: non tender, soft Extremities: non-tender Assessment/Plan Assessment/Plan: sepsis covid pna rpt cxr fpr evaluation of pna uti ac renal failure failure to thrive protein malnutrition arf hypernatremia increased ng feeding and water flush awaiting for peg placement ,dr gómez for gi rpt labs nephro consult cont ivf add vancomycin iv id consult med surg st eval on monday abg dw charge nurse and nephrology Dedrick Buitrago MD Apr 23, 2020 17:02
--- NOTE | 2020-04-23 19:12 | NUR ---
NURSE HAND-OFF: Important Events on Shift: PEG placement for tomorrow, consent signed and placed in front of chart, stop Eliquis, stop nasogastric tube feeding at midnoc. Patient Status: In no apparent distress. Diet: Jevity 1.2@50cc/hour, hold if risidual>100, 100cc H2O flush Q6H. Pending Orders: N/A Pending Results/Labs:N/A Pending MD notification:N/A Latest Vital Signs: Temperature 97.5 , Pulse 64 , B/P 141 /99 , Respiratory Rate 18 , O2 SAT 99 , Room Air, O2 Flow Rate 2.0 . Vital Sign Comment: N/A Latest [place] Fall Score: 70 Fall Risk: High Risk Safety Measures: Call light Within Reach, Bed Alarm Zone 1, Side Rails Side Rails x3, Bed position Low and Locked. Fall Precautions: Yellow Socks Yellow Gown Patient Fall Education Report given to Dianne Roe RN.
[2020-04-23 20:00] VITALS: BP 132/85
--- NOTE | 2020-04-23 20:07 | Nephrology Progress Note ---
Assessment/Plan Assessment 1. Hypernatremia. 2. Hypokalemia. 3. Acute renal failure. 4. COVID-19 infection. 5. History of CVA. 6. History of hypertension. Plan plan continue current ivf monitoring electrolyte and replace as need it monitoring renal function avoid NSAID Subjective ROS Limited/Unobtainable: Yes Objective Objective Last 24 Hour Vital Signs Date Time Temp Pulse Resp B/P (MAP) Pulse Ox O2 Delivery O2 Flow Rate FiO2 04/23/20 16:00 97.5 64 18 141/99 (113) 99 04/23/20 14:57 71 131/80 04/23/20 12:00 97.5 71 16 131/80 (97) 100 04/23/20 09:28 72 130/80 04/23/20 09:00 Nasal Cannula 2.0 04/23/20 08:00 97.3 72 20 130/80 (97) 100 04/23/20 06:00 72 107/72 04/23/20 04:00 97.2 72 20 107/72 (84) 100 04/23/20 00:00 96.8 71 20 122/75 (91) 100 04/22/20 21:14 79 137/51 04/22/20 21:00 Nasal Cannula 2.0 Intake and Output 04/22/20 04/23/20 19:00 07:00 Intake Total 950 ml 50 ml Output Total 950 ml 500 ml Balance 0 ml -450 ml Intake Free Water 400 ml Tube Feeding 550 ml 50 ml Output Urine Total 950 ml 500 ml # Bowel Movements 1 Height (Feet): 6 Height (Inches): 7.00 Weight (Pounds): 150 Objective HEAD AND NECK: No JVP. No LAD. No thyromegaly. Extraocular movement intact. Pupils are reactive to light and accommodation. LUNGS: Clear to auscultation. CARDIAC: Regular rate and rhythm. S1-S2. No murmur. No rub. ABDOMEN: Soft, nontender, and nondistended. EXTREMITIES: No edema. No clubbing. No cyanosis. Marissa Hurley MD Apr 23, 2020 20:07
[2020-04-24] VITALS (11 sets, daily range): BP systolic 114–142; BP diastolic 69–93
[2020-04-24] MEDS ORDERED: LR 1000ml ONE (03:00)
--- NOTE | 2020-04-24 07:22 | NUR ---
RD ASSESSMENT & RECOMMENDATIONS SEE CARE ACTIVITY FOR COMPLETE ASSESSMENT DAILY ESTIMATED NEEDS: Needs based on Pulmonary, wound, 64kg 25-30 kcals/kg 1558-7404 total kcals 1.25-1.5 g protein/kg 80-96 g total protein 25-30 mL/kg 1422-4148 total fluid mLs NUTRITION DIAGNOSIS: Swallowing difficulty R/T dysphagia, decreased cognitive fxn as evidenced by s/p NGT insertion, on NGT feeds, w/ pending PEG placement. (CURRENT TF: Jevity 1.2 @ 50ml/hr x 24 hrs-> now NPO) ENTERAL NUTRITION RECOMMENDATIONS: Glucerna 1.2 @60ml/hr x 24 hrs to provide 1440ml, 1728kcal, 86g prot, 1159ml free water * Rec TF change to carb controlled TF: elev BGs, h/o DM * W/ GI access, initiate Glucerna 1.2 @ 20ml/hr x 6hrs * Advance 10ml q 4-6 hrs as tolerated to goal * HOB over 30 degrees/ water flush per MD ADDITIONAL RECOMMENDATIONS: * Per SNF: HT=5'11", CH=566 lbs ("March" ) * NISS w/ TF: h/o DM, elev BGs, on Decadron -> Rec DC D5 IVF and increase H2O flushes instead for BG control * Wound Care: MVI + Vit C 250mg QD * Monitor lytes, replete as needed * POST PEG obtain calibrated bed scale wt .
--- NOTE | 2020-04-24 07:26 | Hematology/Onc Progress Note ---
Assessment/Plan Assessment/Plan Assessment/Plan: Dvt of the lower extremity--> Positive for right lower extremity deep venous thrombosis. On eliquis (hold only for procedures i.e. peg) leukocytosis with sepsis covid pna uti ac renal failure failure to thrive protein malnutrition arf hypernatremia increased ng feeding and water flush rpt labs nephro consult cont ivf abx vancomycin iv-->off id consult med surg st eval on monday APIXABAN started/on hold only for procedures Appreciate consultation and gt RN Subjective HEENT: Denies: no symptoms, eye pain, blurred vision, tearing, double vision, ear pain, ear discharge, nose pain, nose congestion, throat pain, throat swelling, mouth pain, mouth swelling, other Cardiovascular: Denies: no symptoms, chest pain, edema, irregular heart rate, lightheadedness, palpitations, syncope, other Gastrointestinal/Abdominal: Denies: no symptoms, abdomen distended, abdominal pain, black stools, tarry stools, blood in stool, constipated, diarrhea, difficulty swallowing, nausea, poor appetite, poor fluid intake, rectal bleeding, vomiting, other Genitourinary: Denies: no symptoms, burning, discharge, frequency, flank pain, hematuria, incontinence, pain, urgency, other Neurologic/Psychiatric: Denies: no symptoms, anxiety, depressed, emotional problems, headache, numbness, paresthesia, pre-existing deficit, seizure, tingling, tremors, weakness, other Endocrine: Denies: no symptoms, excessive sweating, flushing, intolerance to cold, intolerance to heat, increased hunger, increased thirst, increased urine, unexplained weight gain, unexplained weight loss, other Hematologic/Lymphatic: Denies: no symptoms, anemia, easy bleeding, easy bruising, adenopathy, other Allergies: Coded Allergies: No Known Allergies (Unverified , 04/15/20) Subjective 04/19 nc, restraints, non verabal, tolerating ngt feeding, opens his eyes on touch stimuli 04/20 meds noted, with ngt, gt rn, labs noted, elev ddimer 04/21 awake, alert, ngt in place, labs noted, with restraints this am, on blood thinner for dvt 04/22 labs noted, nv, ngt, on eliquis 04/23 nv, sleeping, is comfortable, on eliquis, no bleeding 04/24 nv, for peg today as well as noac has been held Objective Objective Current Medications Medications (Trade) Dose Ordered Sig/Chano Route PRN Reason Start Time Stop Time Status Last Admin Dose Admin Acetaminophen (Tylenol) 650 mg Q4H PRN ORAL Temp >100.5 04/15/20 13:15 05/15/20 13:14 04/17/20 09:49 Amlodipine Besylate (Norvasc) 10 mg DAILY ORAL 04/16/20 09:00 05/16/20 08:59 04/23/20 09:28 Aspirin (ASA) 81 mg DAILY ORAL 04/16/20 09:00 05/31/20 08:59 04/23/20 09:30 Atorvastatin Calcium (Lipitor) 10 mg BEDTIME ORAL 04/15/20 21:00 07/14/20 20:59 04/23/20 21:17 Barium Sulfate (Varibar Honey) 250 ml NOW PRN MC RAD 04/22/20 17:15 04/25/20 17:06 Barium Sulfate (Varibar [place]) 240 ml NOW PRN MC RAD 04/22/20 17:15 04/25/20 17:06 Barium Sulfate (Varibar Pudding) 230 ml NOW PRN MC RAD 04/22/20 17:15 04/25/20 17:06 Barium Sulfate (Varibar Thin Liquid powder) 148 gm NOW PRN MC RAD 04/22/20 17:15 04/25/20 17:06 Dexamethasone (Decadron) 6 mg DAILY ORAL 04/16/20 09:00 04/24/20 12:00 04/23/20 09:31 Famotidine (Pepcid) 20 mg DAILY ORAL 04/16/20 09:00 07/15/20 08:59 04/23/20 09:30 Labetalol HCl (Normodyne) 200 mg Q8HR ORAL 04/15/20 14:00 05/15/20 13:59 04/23/20 21:17 Magnesium Oxide (Mag-Ox 400mg) 400 mg DAILY ORAL 04/16/20 09:00 05/16/20 08:59 04/23/20 09:32 Mirtazapine (Remeron) 30 mg BEDTIME ORAL 04/15/20 21:00 07/14/20 20:59 04/23/20 21:17 Multivitamins Therapeutic (Therapeutic Multivitamin) 1 ea DAILY ORAL 04/16/20 09:00 05/16/20 08:59 04/23/20 09:31 Last 24 Hour Vital Signs Date Time Temp Pulse Resp B/P (MAP) Pulse Ox O2 Delivery O2 Flow Rate FiO2 04/24/20 06:00 74 118/81 04/24/20 04:00 96.6 74 20 118/81 (93) 100 04/24/20 00:00 96.6 74 16 136/88 (104) 99 04/23/20 21:17 79 132/85 04/23/20 21:00 Nasal Cannula 2.0 04/23/20 20:00 97.3 79 18 132/85 (101) 100 04/23/20 16:00 97.5 64 18 141/99 (113) 99 04/23/20 14:57 71 131/80 04/23/20 12:00 97.5 71 16 131/80 (97) 100 04/23/20 09:28 72 130/80 04/23/20 09:00 Nasal Cannula 2.0 04/23/20 08:00 97.3 72 20 130/80 (97) 100 04/23/20 06:00 72 107/72 04/23/20 04:00 97.2 72 20 107/72 (84) 100 04/23/20 00:00 96.8 71 20 122/75 (91) 100 04/22/20 21:14 79 137/51 04/22/20 21:00 Nasal Cannula 2.0 04/22/20 20:00 97.2 79 20 137/51 (79) 100 04/22/20 16:00 97.5 78 20 100/61 (74) 98 04/22/20 14:18 82 128/79 04/22/20 12:00 98.1 82 20 128/79 (95) 99 04/22/20 09:00 Nasal Cannula 2.0 04/22/20 08:56 74 143/93 04/22/20 08:00 98.2 74 19 143/93 (110) 94 Intake and Output 04/23/20 04/24/20 19:00 07:00 Intake Total 750 ml Balance 750 ml Intake Free Water 200 ml Tube Feeding 550 ml Labs Test 04/22/20 06:38 White Blood Count 10.5 K/UL (4.8-10.8) Red Blood Count 3.69 M/UL (4.70-6.10) Hemoglobin 9.6 G/DL (14.2-18.0) Hematocrit 30.2 % (42.0-52.0) Mean Corpuscular Volume 82 FL (80-99) Mean Corpuscular Hemoglobin 26.1 PG (27.0-31.0) Mean Corpuscular Hemoglobin Concent 31.9 G/DL (32.0-36.0) Red Cell Distribution Width 15.1 % (11.6-14.8) Platelet Count 312 K/UL (150-450) Mean Platelet Volume 8.2 FL (6.5-10.1) Neutrophils (%) (Auto) 79.2 % (45.0-75.0) Lymphocytes (%) (Auto) 13.5 % (20.0-45.0) Monocytes (%) (Auto) 6.6 % (1.0-10.0) Eosinophils (%) (Auto) 0.3 % (0.0-3.0) Basophils (%) (Auto) 0.4 % (0.0-2.0) Sodium Level 143 MMOL/L (136-145) Potassium Level 4.4 MMOL/L (3.5-5.1) Chloride Level 110 MMOL/L (98-107) Carbon Dioxide Level 27 MMOL/L (21-32) Anion Gap 6 mmol/L (5-15) Blood Urea Nitrogen 30 mg/dL (7-18) Creatinine 0.9 MG/DL (0.55-1.30) Estimat Glomerular Filtration Rate > 60 mL/min (>60) Glucose Level 113 MG/DL (74-106) Calcium Level 9.1 MG/DL (8.5-10.1) Height (Feet): 6 Height (Inches): 7.00 Weight (Pounds): 150 Objective General Appearance: combative Neck: supple, ++ngt Cardiovascular: regular rhythm Respiratory/Chest: crackles/rales Abdomen: non tender, soft Extremities: non-tender Josiah Salgado MD Apr 24, 2020 07:26
--- NOTE | 2020-04-24 07:30 | NUR ---
NURSE NOTES: Patient lying in bed awake. No signs and symptoms of pain or distress at this time. On O2 @ 2L via NC. IV dressing intact and dry. On bilateral soft wrist restrain. Awad catheter paten and draining well. Bed lowest position and side rails up. Call light within reach. Will continue to monitor.
--- NOTE | 2020-04-24 07:55 | NUR ---
NURSE HAND-OFF: Important Events on Shift: Patient is aaox1, on NC 2L, no acute distress noted. NGT clamped at midnight for PEG procedure. Bilateral restraints intact, pulses present, no redness or swelling at site. Patient Status: stable Diet: NPO Pending Orders: PEG placement, SNF placement Pending Results/Labs:N/A Pending MD notification:N/A Latest Vital Signs: Temperature 96.6 , Pulse 74 , B/P 118 /81 , Respiratory Rate 20 , O2 SAT 100 , Room Air, O2 Flow Rate 2.0 . Vital Sign Comment: stable Latest [place] Fall Score: 70 Fall Risk: High Risk Safety Measures: Call light Within Reach, Bed Alarm Zone 1, Side Rails Side Rails x3, Bed position Low and Locked. Fall Precautions: Yellow Socks Yellow Gown Patient Fall Education Report given to ROMIE Guzman
--- NOTE | 2020-04-24 08:34 | Pulmonology Progress Note ---
Subjective ROS Limited/Unobtainable: Yes Interval Events: none major reported per nursing Constitutional: Denies: fever HEENT: Repors: no symptoms Respiratory: Reports: no symptoms Cardiovascular: Reports: no symptoms Gastrointestinal/Abdominal: Reports: no symptoms Allergies: Coded Allergies: No Known Allergies (Unverified , 04/15/20) All Systems: reviewed and negative except above Objective Last 24 Hour Vital Signs Date Time Temp Pulse Resp B/P (MAP) Pulse Ox O2 Delivery O2 Flow Rate FiO2 04/24/20 06:00 74 118/81 04/24/20 04:00 96.6 74 20 118/81 (93) 100 04/24/20 00:00 96.6 74 16 136/88 (104) 99 04/23/20 21:17 79 132/85 04/23/20 21:00 Nasal Cannula 2.0 04/23/20 20:00 97.3 79 18 132/85 (101) 100 04/23/20 16:00 97.5 64 18 141/99 (113) 99 04/23/20 14:57 71 131/80 04/23/20 12:00 97.5 71 16 131/80 (97) 100 04/23/20 09:28 72 130/80 04/23/20 09:00 Nasal Cannula 2.0 Intake and Output 04/23/20 04/24/20 19:00 07:00 Intake Total 750 ml Output Total 300 ml Balance 750 ml -300 ml Intake Free Water 200 ml Tube Feeding 550 ml Output Urine Total 300 ml HEENT: atraumatic Respiratory: decreased breath sounds, crackles/rales Cardiovascular: normal rate, regular rhythm Abdomen: soft, non tender Current Medications Medications (Trade) Dose Ordered Sig/Chano Route PRN Reason Start Time Stop Time Status Last Admin Dose Admin Acetaminophen (Tylenol) 650 mg Q4H PRN ORAL Temp >100.5 04/15/20 13:15 05/15/20 13:14 04/17/20 09:49 Amlodipine Besylate (Norvasc) 10 mg DAILY ORAL 04/16/20 09:00 05/16/20 08:59 04/23/20 09:28 Aspirin (ASA) 81 mg DAILY ORAL 04/16/20 09:00 05/31/20 08:59 04/23/20 09:30 Atorvastatin Calcium (Lipitor) 10 mg BEDTIME ORAL 04/15/20 21:00 07/14/20 20:59 04/23/20 21:17 Barium Sulfate (Varibar Honey) 250 ml NOW PRN MC RAD 04/22/20 17:15 04/25/20 17:06 Barium Sulfate (Varibar [place]) 240 ml NOW PRN MC RAD 04/22/20 17:15 04/25/20 17:06 Barium Sulfate (Varibar Pudding) 230 ml NOW PRN MC RAD 04/22/20 17:15 04/25/20 17:06 Barium Sulfate (Varibar Thin Liquid powder) 148 gm NOW PRN MC RAD 04/22/20 17:15 04/25/20 17:06 Cefoxitin Sodium 1 gm/Dextrose 55 ml @ 110 mls/hr Q6HR IVPB 04/24/20 12:00 04/24/20 13:00 Dexamethasone (Decadron) 6 mg DAILY ORAL 04/16/20 09:00 04/24/20 12:00 04/23/20 09:31 Famotidine (Pepcid) 20 mg DAILY ORAL 04/16/20 09:00 07/15/20 08:59 04/23/20 09:30 Labetalol HCl (Normodyne) 200 mg Q8HR ORAL 04/15/20 14:00 05/15/20 13:59 04/23/20 21:17 Magnesium Oxide (Mag-Ox 400mg) 400 mg DAILY ORAL 04/16/20 09:00 05/16/20 08:59 04/23/20 09:32 Mirtazapine (Remeron) 30 mg BEDTIME ORAL 04/15/20 21:00 07/14/20 20:59 04/23/20 21:17 Multivitamins Therapeutic (Therapeutic Multivitamin) 1 ea DAILY ORAL 04/16/20 09:00 05/16/20 08:59 04/23/20 09:31 Assessment/Plan Assessment/Plan 1. COVID-19 pneumonia -On dexamethasone - now off azithromycin, ceftriaxone and IV Vanco - CXR 04/23 improving 2. COPD, oxygen dependent 3. Malnourished -Per primary MD 4. Leukocytosis, likely secondary to #1 5. Renal failure - Recommend IVF 6. Hyperglycemia, - monitor BG - of note, he is on Decadron 7. Increased inflammatory markers - DVT prophylaxis -Agree with heparin 8. Hypoxia; improved - currently saturating at 97% on 2 L nasal cannula - Continue providing supplemental oxygen - Pt is reported to be chronically oxygen dependent due to history of COPD 9. Gram neg dot UTI - s/p IV Vanco - on ceftriaxone failed ST eval; PEG scheduled for today R LE DVT - Now on Eliquis dc pending placement The care for this patient was discussed with my supervising physician. Time spent for this case was approximately 31 minutes. Bennie Goodrich Apr 24, 2020 08:34
[2020-04-24] MEDS: Aspirin Baby 81mg ORAL SCH (09:53)
[2020-04-24] MEDS: Multivitamin w/Minerals tab ORAL SCH (09:54)
[2020-04-24] MEDS: Magnesium Oxide 400mg tab ORAL SCH (09:54)
--- NOTE | 2020-04-24 11:10 | General Progress Note ---
Subjective Allergies: Coded Allergies: No Known Allergies (Unverified , 04/15/20) Subjective non verabal, combative tolerating ngt feeding opens his eyes on touch stimuli, agitated frequentely dvt in arm Objective Last 24 Hour Vital Signs Date Time Temp Pulse Resp B/P (MAP) Pulse Ox O2 Delivery O2 Flow Rate FiO2 04/24/20 09:54 71 134/86 04/24/20 09:00 Nasal Cannula 2.0 04/24/20 08:00 96.4 71 19 134/86 (102) 100 04/24/20 06:00 74 118/81 04/24/20 04:00 96.6 74 20 118/81 (93) 100 04/24/20 00:00 96.6 74 16 136/88 (104) 99 04/23/20 21:17 79 132/85 04/23/20 21:00 Nasal Cannula 2.0 04/23/20 20:00 97.3 79 18 132/85 (101) 100 04/23/20 16:00 97.5 64 18 141/99 (113) 99 04/23/20 14:57 71 131/80 04/23/20 12:00 97.5 71 16 131/80 (97) 100 Intake and Output 04/23/20 04/24/20 19:00 07:00 Intake Total 750 ml Output Total 300 ml Balance 750 ml -300 ml Intake Free Water 200 ml Tube Feeding 550 ml Output Urine Total 300 ml Height (Feet): 6 Height (Inches): 7.00 Weight (Pounds): 150 General Appearance: lethargic Neck: supple Cardiovascular: regular rhythm Respiratory/Chest: normal breath sounds Abdomen: non tender, soft Extremities: non-tender Assessment/Plan Assessment/Plan: sepsis covid pna rpt cxr fpr evaluation of pna uti ac renal failure failure to thrive protein malnutrition arf hypernatremia increased ng feeding and water flush awaiting for peg placement ,dr gómez for gi rpt labs nephro consult cont ivf add vancomycin iv id consult med surg st eval on monday abg dw charge nurse and nephrology Dedrick Buitrago MD Apr 24, 2020 11:10
--- NOTE | 2020-04-24 11:37 | Infectious Diseases Prog Note ---
Assessment/Plan Assessment/Plan antibiotics : none A 1. covid 19 pneumonia on 2 liters O2 with 100 % saturation s/p ivermectin 2. gram negative UTI s/p rx 3. + blood cultures with coag neg staph likely contaminated 4. COPD 5. renal failure improving P 1. complete dexamethasone day 10 2. d/c isolation 3. on cefoxitin 4. GT planned Subjective ROS Limited/Unobtainable: Yes Allergies: Coded Allergies: No Known Allergies (Unverified , 04/15/20) Objective Last 24 Hour Vital Signs Date Time Temp Pulse Resp B/P (MAP) Pulse Ox O2 Delivery O2 Flow Rate FiO2 04/24/20 09:54 71 134/86 04/24/20 09:00 Nasal Cannula 2.0 04/24/20 08:00 96.4 71 19 134/86 (102) 100 04/24/20 06:00 74 118/81 04/24/20 04:00 96.6 74 20 118/81 (93) 100 04/24/20 00:00 96.6 74 16 136/88 (104) 99 04/23/20 21:17 79 132/85 04/23/20 21:00 Nasal Cannula 2.0 04/23/20 20:00 97.3 79 18 132/85 (101) 100 04/23/20 16:00 97.5 64 18 141/99 (113) 99 04/23/20 14:57 71 131/80 04/23/20 12:00 97.5 71 16 131/80 (97) 100 Height (Feet): 6 Height (Inches): 7.00 Weight (Pounds): 150 Current Medications Medications (Trade) Dose Ordered Sig/Chano Route PRN Reason Start Time Stop Time Status Last Admin Dose Admin Acetaminophen (Tylenol) 650 mg Q4H PRN ORAL Temp >100.5 04/15/20 13:15 05/15/20 13:14 04/17/20 09:49 Amlodipine Besylate (Norvasc) 10 mg DAILY ORAL 04/16/20 09:00 05/16/20 08:59 04/24/20 09:54 Aspirin (ASA) 81 mg DAILY ORAL 04/16/20 09:00 05/31/20 08:59 04/24/20 09:53 Atorvastatin Calcium (Lipitor) 10 mg BEDTIME ORAL 04/15/20 21:00 07/14/20 20:59 04/23/20 21:17 Barium Sulfate (Varibar Honey) 250 ml NOW PRN MC RAD 04/22/20 17:15 04/25/20 17:06 Barium Sulfate (Varibar [place]) 240 ml NOW PRN MC RAD 04/22/20 17:15 04/25/20 17:06 Barium Sulfate (Varibar Pudding) 230 ml NOW PRN MC RAD 04/22/20 17:15 04/25/20 17:06 Barium Sulfate (Varibar Thin Liquid powder) 148 gm NOW PRN MC RAD 04/22/20 17:15 04/25/20 17:06 Cefoxitin Sodium 1 gm/Dextrose 55 ml @ 110 mls/hr Q6HR IVPB 04/24/20 12:00 04/24/20 13:00 Dexamethasone (Decadron) 6 mg DAILY ORAL 04/16/20 09:00 04/24/20 12:00 04/24/20 09:54 Famotidine (Pepcid) 20 mg DAILY ORAL 04/16/20 09:00 07/15/20 08:59 04/24/20 09:54 Labetalol HCl (Normodyne) 200 mg Q8HR ORAL 04/15/20 14:00 05/15/20 13:59 04/23/20 21:17 Magnesium Oxide (Mag-Ox 400mg) 400 mg DAILY ORAL 04/16/20 09:00 05/16/20 08:59 04/24/20 09:54 Mirtazapine (Remeron) 30 mg BEDTIME ORAL 04/15/20 21:00 07/14/20 20:59 04/23/20 21:17 Multivitamins Therapeutic (Therapeutic Multivitamin) 1 ea DAILY ORAL 04/16/20 09:00 05/16/20 08:59 04/24/20 09:54 Raudel Cassidy MD Apr 24, 2020 11:36
--- NOTE | 2020-04-24 11:52 | NUR ---
Ivory CarverMail Technician SI: COVID PNA, COPD,DVT RLE T 96.4, HR 71, RR 19, BP 134/86, O2 sat 100% O2 2L NC HGB 9.6/HCT 30.2 BUN 30H, cxray Improving rt basilar infiltrates IS: Mefoxin IV Q 6h Mag Oxide PO QD Pepcid PO QD ASA PO QD Norvasc PO QD Decadron PO QD Plan: EGD and PEG placement Med-Surg Status
[2020-04-24] MEDS ORDERED: cefOXitin Sod 1 GM in D5W 55 ML IVPB SCH (12:00)
--- NOTE | 2020-04-24 12:18 | Pre-Procedure Note/Attestation ---
Pre-Procedure Note/Attestation Complete Prior to Procedure Planned Procedure: not applicable Procedure Narrative: egd/peg Indications for Procedure Pre-Operative Diagnosis: dysphagia Attestation I attest that I discussed the nature of the procedure; its benefits; risks and complications; and alternatives (and the risks and benefits of such alternatives), prior to the procedure, with the patient (or the patient's legal medical detail representative). I attest that, if there was a reasonable possibility of needing a blood transfu alistair, the patient (or the patient's legal medical detail representative) was given the [facility] standardized written summary, pursuant to the Syed Shawn Blood Safety Act ([place] Health and Safety Code # 1645, as amended). I attest that I re-evaluated the patient just prior to the surgery and that there has been no change in the patient's H&P, except as documented below: Rich Aguilar MD Apr 24, 2020 12:18
--- NOTE | 2020-04-24 12:19 | General Progress Note ---
Subjective ROS Limited/Unobtainable: No Allergies: Coded Allergies: No Known Allergies (Unverified , 04/15/20) Objective Last 24 Hour Vital Signs Date Time Temp Pulse Resp B/P (MAP) Pulse Ox O2 Delivery O2 Flow Rate FiO2 04/24/20 09:54 71 134/86 04/24/20 09:00 Nasal Cannula 2.0 04/24/20 08:00 96.4 71 19 134/86 (102) 100 04/24/20 06:00 74 118/81 04/24/20 04:00 96.6 74 20 118/81 (93) 100 04/24/20 00:00 96.6 74 16 136/88 (104) 99 04/23/20 21:17 79 132/85 04/23/20 21:00 Nasal Cannula 2.0 04/23/20 20:00 97.3 79 18 132/85 (101) 100 04/23/20 16:00 97.5 64 18 141/99 (113) 99 04/23/20 14:57 71 131/80 Intake and Output 04/23/20 04/24/20 19:00 07:00 Intake Total 750 ml Output Total 300 ml Balance 750 ml -300 ml Intake Free Water 200 ml Tube Feeding 550 ml Output Urine Total 300 ml Height (Feet): 6 Height (Inches): 7.00 Weight (Pounds): 150 General Appearance: no apparent distress EENT: normal ENT inspection Neck: supple Cardiovascular: normal rate Respiratory/Chest: decreased breath sounds Abdomen: normal bowel sounds, non tender, soft Extremities: non-tender Assessment/Plan Problem List: (1) COVID-19 virus detected ICD Codes: U07.1 - COVID-19 SNOMED: 7601912070297477 (2) Right lower lobe pneumonia ICD Codes: J18.9 - Pneumonia, unspecified organism SNOMED: 395028743 Qualifiers: Qualified Codes: J18.9 - Pneumonia, unspecified organism (3) Elevated d-dimer ICD Codes: R79.89 - Other specified abnormal findings of blood chemistry SNOMED: 796047854 (4) Left hemiparesis ICD Codes: G81.94 - Hemiplegia, unspecified affecting left nondominant side SNOMED: 225043408 (5) Aphasia ICD Codes: R47.01 - Aphasia SNOMED: 79286674 (6) Protein calorie malnutrition ICD Codes: E46 - Unspecified protein-calorie malnutrition SNOMED: 366808687 Qualifiers: Qualified Codes: E44.0 - Moderate protein-calorie malnutrition (7) Renal failure ICD Codes: N19 - Unspecified kidney failure SNOMED: 15797777 Qualifiers: Qualified Codes: N19 - Unspecified kidney failure (8) Hypernatremia ICD Codes: E87.0 - Hyperosmolality and hypernatremia SNOMED: 408379927 Assessment/Plan: NGTF needs peg plan for today Rich Aguilar MD Apr 24, 2020 12:19
[2020-04-24] MEDS ORDERED: fentaNYL 100 mcg/2 mL IV ONE (12:24)
--- NOTE | 2020-04-24 13:00 | NUR ---
NURSE NOTES: PEG placement done. Per : start tube feeding 6 hrs later. Order noted and carried out.
--- NOTE | 2020-04-24 13:07 | Anethesia Preoperative Eval ---
Anesthesia Pre-op PMH/ROS General Date of Evaluation: Apr 24, 2020 Time of Evaluation: 12:15 Anesthesiologist: Burton ASA Score: ASA 4 Mallampati Score Class I : Soft palate, uvula, fauces, pillars visible Class II: Soft palate, uvula, fauces visible Class III: Soft palate, base of uvula visible Class IV: Only hard plate visible Mallampati Classification: Class III Surgeon: Lauren Diagnosis: Dysphagia Surgical Procedure: EGD PEG Anesthesia History: none Social History: smoking - h/o Family History: no anesthesia problems Allergies: Coded Allergies: No Known Allergies (Unverified , 04/15/20) Medications: see eMAR Patient NPO?: Yes Past Medical History Cardiovascular: Denies: HTN, CAD, SD, valve dz, arrhythmia, other Pulmonary: Denies: asthma, COPD, CLARIBEL, other Gastrointestinal/Genitourinary: Reports: GERD; Denies: CRI, ESRD, other Neurologic/Psychiatric: Reports: dementia, CVA Endocrine: Denies: DM, hypothyroidism, steroids, other HEENT: Denies: cataract (L), cataract (R), glaucoma, MECHOOPDA (L), MECHOOPDA (R), other Hematology/Immune: Denies: anemia, DVT, bleeding disorder, other Musculoskeletal/Integumentary: Denies: OA, RA, DJD, DDD, edema, other Other: other - malnourished PMH Narrative: as above PSxH Narrative: See H&P Anesthesia Pre-op Phys. Exam Physician Exam Last Vital Signs Date Time Temp Pulse Resp B/P (MAP) Pulse Ox O2 Delivery O2 Flow Rate FiO2 04/24/20 12:00 96.4 68 19 137/81 (99) 100 04/24/20 09:00 Nasal Cannula 2.0 Constitutional: NAD Neurologic: other - unable to obtaine Cardiovascular: RRR Respiratory: CTA Gastrointestinal: S/NT/ND Airway Exam Mallampati Score: Class III MO: limited Neck: stiff ROM: limited Teeth: missing Dentures: no upper, no lower Anesthesia Pre-op A/P Labs see chart Risk Assessment & Plan Assessment: ASA 4 Plan: MAc Status Change Before Surgery: No Yoan Manrique MD Apr 24, 2020 13:07
--- NOTE | 2020-04-24 13:08 | Endoscopy Procedure Note ---
Endoscopy Procedure Note General Indication for Procedure: dysphgaia Procedures Performed: EGD, PEG Operative Findings/Diagnosis: same Specimen: none Pt Tolerated Procedure Well: Yes Estimated Blood Loss: none Anesthesia Anesthesiologist: jairo Anesthesia: MAC Inserted Devices Implant(s) used?: No GI Core Measures 50 yrs or older w/o bx or poly: Not Applicable 10yrs. F/U recommended: Not Applicable Rich Aguilar MD Apr 24, 2020 13:08
--- NOTE | 2020-04-24 13:09 | Immediate Post-Op Evaluation ---
Immediate Post-Op Evalulation Immediate Post-Op Evalulation Procedure: Egd with PEG tube placement Date of Evaluation: Apr 24, 2020 Time of Evaluation: 13:08 IV Fluids: 200 Blood Products: none Estimated Blood Loss: min Urinary Output: none Blood Pressure Systolic: 128 Blood Pressure Diastolic: 56 Pulse Rate: 86 Respiratory Rate: 22 O2 Sat by Pulse Oximetry: 98 Temperature (Fahrenheit): 97.5 Pain Score (1-10): 1 Nausea: No Vomiting: No Complications none Patient Status: reacts, patent, none Hydration Status: adequate Yoan Manrique MD Apr 24, 2020 13:09
--- NOTE | 2020-04-24 15:59 | Procedure Note ---
DATE OF PROCEDURE: 04/24/2020 SURGEON: Rich Aguilar MD. REFERRING PHYSICIAN: Dedrick Buitrago MD. PROCEDURE: Upper endoscopy with PEG placement. ANESTHESIA: Per DrFernanda . INSTRUMENT: Olympus adult flexible upper endoscope. INDICATION: Dysphagia. REASON FOR PROCEDURE: The procedure, risks, benefits, and possible consequences, including hemorrhage, aspiration, perforation and infection, and alternative treatments, were explained to the patient/legal guardian by Dr. Rich Aguilar and the patient/legal guardian understood and accepted these risks. PROCEDURE IN DETAIL: After informed consent was obtained and the patient was adequately sedated, Olympus upper endoscope was advanced from mouth to the second portion of duodenum. Retroflexion was performed in the stomach. The patient had evidence of paraesophageal hernia, also evidence of gastritis. Then, under endoscopic guidance and under sterile condition, a 20-Divehi pull type of G-tube was successfully placed in the epigastric area. The distance from the tip of the tube to skin was about 2.5 cm in size. The patient tolerated the procedure very well without any complication. SUMMARY OF FINDINGS: 1. Status post successful PEG placement. 2. Gastritis. 3. Paraesophageal hernia. RECOMMENDATIONS: 1. Abdominal binder. 2. Elevate the head of the bed at all times. 3. G-tube flush. 4. G-tube care. 5. Start tube feeding later today. I want to thank Dr. Buitrago for this kind referral. Rich Aguilar M.D. DR: TRAMAINE JOB#: [id number] CC:
--- NOTE | 2020-04-24 19:30 | NUR ---
NURSE HAND-OFF: Important Events on Shift: PEG placement Patient Status: Stable Diet: NPO Pending Orders: N/A Pending Results/Labs:N/A Pending MD notification:N/A Latest Vital Signs: Temperature 96.3 , Pulse 72 , B/P 134 /88 , Respiratory Rate 19 , O2 SAT 100 , Nasal Cannula, O2 Flow Rate 2 . Vital Sign Comment: Stable Latest [place] Fall Score: 70 Fall Risk: High Risk Safety Measures: Call light Within Reach, Bed Alarm Zone 1, Side Rails Side Rails x3, Bed position Low and Locked. Fall Precautions: Yellow Socks Yellow Gown Door Sign Patient Fall Education Report given to Anna Marie GRUBBS. Patient in stable condition.
--- NOTE | 2020-04-24 19:30 | NUR ---
Nurses Notes Report given by Thomas. Pt AAOx0 Pt on nasal canula @ 2L/min. no respiratory distress noted. IV to RFA patent and intact. NPO status maintain. Peg placemetn Jevity 1.2 @ 50ml/ hr started per order. Awad patent and draining. COVID precautions maintained. Bed in lowest position call light in reach will continue to monitor for treatment and care.
--- NOTE | 2020-04-24 23:02 | Nephrology Progress Note ---
Assessment/Plan Assessment 1. Hypernatremia. 2. Hypokalemia. 3. Acute renal failure. 4. COVID-19 infection. 5. History of CVA. 6. History of hypertension. Plan plan continue current ivf monitoring electrolyte and replace as need it monitoring renal function avoid NSAID patient was seen earlier today Subjective ROS Limited/Unobtainable: Yes Objective Objective Last 24 Hour Vital Signs Date Time Temp Pulse Resp B/P (MAP) Pulse Ox O2 Delivery O2 Flow Rate FiO2 04/24/20 21:52 89 142/89 04/24/20 16:00 96.3 72 19 134/88 (103) 100 04/24/20 14:47 86 128/56 04/24/20 13:15 67 16 114/70 100 Nasal Cannula 2 04/24/20 13:10 72 16 117/75 100 Nasal Cannula 2 04/24/20 13:09 86 22 98 04/24/20 13:05 67 16 123/80 100 Nasal Cannula 2 04/24/20 13:00 69 16 126/82 100 Nasal Cannula 2 04/24/20 12:55 96.3 72 16 133/93 100 Nasal Cannula 2 04/24/20 12:00 96.4 68 19 137/81 (99) 100 04/24/20 09:54 71 134/86 04/24/20 09:00 Nasal Cannula 2.0 04/24/20 08:00 96.4 71 19 134/86 (102) 100 04/24/20 06:00 74 118/81 04/24/20 04:00 96.6 74 20 118/81 (93) 100 04/24/20 00:00 96.6 74 16 136/88 (104) 99 Intake and Output 04/23/20 04/24/20 19:00 07:00 Intake Total 750 ml Output Total 300 ml Balance 750 ml -300 ml Intake Free Water 200 ml Tube Feeding 550 ml Output Urine Total 300 ml Height (Feet): 6 Height (Inches): 7.00 Weight (Pounds): 150 Objective HEAD AND NECK: No JVP. No LAD. No thyromegaly. Extraocular movement intact. Pupils are reactive to light and accommodation. LUNGS: Clear to auscultation. CARDIAC: Regular rate and rhythm. S1-S2. No murmur. No rub. ABDOMEN: Soft, nontender, and nondistended. EXTREMITIES: No edema. No clubbing. No cyanosis. Marissa Hurley MD Apr 24, 2020 23:02
[2020-04-25] VITALS (7 sets, daily range): BP systolic 110–134; BP diastolic 67–92
--- NOTE | 2020-04-25 07:20 | NUR ---
NURSE NOTES: Report received from Sana GRUBBS, rounds made. Patient alert, awake, eyes open, non-verbal. Respirations even/unlabored on O2 2LNC. Bilateral wrists restraints in place, has very strong grasp, skin warm, pulses palpable, no swelling noted. NPO. TF Jevity 1.2 yolanda at 50 ml/hr via GT. HOB in high fowlers. FC patent, draining to gravity y/cl urine. RFA saline lock, dressing CDI. Will provide skin care/reposition. Bed in lowest position, will continue to monitor.
--- NOTE | 2020-04-25 07:44 | NUR ---
Report given to Dayami
[2020-04-25 08:00] LABS: HEMOGLOBIN 10.2 G/DL (14.2-18.0); MEAN CORPUSCULAR VOLUME 82 FL (80-99); PLATELET COUNT 404 K/UL (150-450); RED CELL DISTRIBUTION WIDTH 14.6 % (11.6-14.8); WHITE BLOOD COUNT 17.5 K/UL (4.8-10.8)
--- NOTE | 2020-04-25 09:02 | General Progress Note ---
Subjective Allergies: Coded Allergies: No Known Allergies (Unverified , 04/15/20) Subjective non verabal, combative tolerating gt feeding opens his eyes on touch stimuli, agitated frequentely dvt in arm Objective Last 24 Hour Vital Signs Date Time Temp Pulse Resp B/P (MAP) Pulse Ox O2 Delivery O2 Flow Rate FiO2 04/25/20 06:40 78 132/82 04/25/20 04:00 97.0 78 19 132/82 (99) 99 04/25/20 00:00 97.8 79 18 132/92 (105) 94 04/24/20 21:52 89 142/89 04/24/20 21:00 Nasal Cannula 2.0 04/24/20 20:00 97.6 88 18 142/69 (93) 88 04/24/20 16:00 96.3 72 19 134/88 (103) 100 04/24/20 14:47 86 128/56 04/24/20 13:15 67 16 114/70 100 Nasal Cannula 2 04/24/20 13:10 72 16 117/75 100 Nasal Cannula 2 04/24/20 13:09 86 22 98 04/24/20 13:05 67 16 123/80 100 Nasal Cannula 2 04/24/20 13:00 69 16 126/82 100 Nasal Cannula 2 04/24/20 12:55 96.3 72 16 133/93 100 Nasal Cannula 2 04/24/20 12:00 96.4 68 19 137/81 (99) 100 04/24/20 09:54 71 134/86 Intake and Output 04/24/20 04/25/20 19:00 07:00 Intake Total 250 ml Output Total 700 ml 500 ml Balance -700 ml -250 ml Intake Free Water 200 ml Tube Feeding 50 ml Output Urine Total 700 ml 500 ml Laboratory Tests 04/25/20 06:05: White Blood Count 17.5H, Red Blood Count 3.90L, Hemoglobin 10.2L, Hematocrit 32.0L, Mean Corpuscular Volume 82, Mean Corpuscular Hemoglobin 26.1L, Mean Corpuscular Hemoglobin Concent 31.9L, Red Cell Distribution Width 14.6, Platelet Count 404, Mean Platelet Volume 7.1, Neutrophils (%) (Auto) , Lymphocytes (%) (Auto) , Monocytes (%) (Auto) , Eosinophils (%) (Auto) , Basophils (%) (Auto) , Neutrophils % (Manual) [Pending], Lymphocytes % (Manual) [Pending], Platelet Estimate [Pending], Platelet Morphology [Pending] Height (Feet): 6 Height (Inches): 7.00 Weight (Pounds): 150 General Appearance: no apparent distress Cardiovascular: regular rhythm Respiratory/Chest: normal breath sounds Abdomen: non tender, soft Assessment/Plan Assessment/Plan: sepsis leucocytosis covid pna rpt cxr fpr evaluation of pna uti ac renal failure failure to thrive protein malnutrition arf hypernatremia increased ng feeding and water flush awaiting for peg placement ,dr gómez for gi rpt labs nephro consult cont ivf add vancomycin iv id consult med surg dw charge nurse and nephrology Dedrick Buitrago MD Apr 25, 2020 09:02
--- NOTE | 2020-04-25 09:56 | 48 Hour Post Anesthesia Eval ---
Post Anesthesia Evaluation Procedure: Egd with PEG tube placement Date of Evaluation: Apr 25, 2020 Time of Evaluation: 09:55 Blood Pressure Systolic: 128 0: 76 Pulse Rate: 68 Respiratory Rate: 22 Temperature (Fahrenheit): 97.6 O2 Sat by Pulse Oximetry: 98 Airway: patent Nausea: No Vomiting: No Pain Intensity: 1 Hydration Status: adequate Cardiopulmonary Status: stable Mental Status/LOC: patient returned to baseline Follow-up Care/Observations: n/a Post-Anesthesia Complications: none Follow-up care needed: N/A Yoan Manrique MD Apr 25, 2020 09:56
--- NOTE | 2020-04-25 09:58 | Infectious Diseases Prog Note ---
Assessment/Plan Assessment/Plan A: 1. COVID-19 pneumonia 2. Acute renal failure 3. Bacteremia with CoAGNS likely contamination 4. COPD. 5, R leg DVT 6. Gastritis 7. Paraesophageal hernia 8. Leukocytosis PLAN: 1. Go ivermectin one dose. 2. Finished dexamethasone course Subjective ROS Limited/Unobtainable: Yes Gastrointestinal/Abdominal: Reports: other - had EGD & PEG placement yesterday Neurologic: Reports: confusion, other - on restraint Allergies: Coded Allergies: No Known Allergies (Unverified , 04/15/20) Objective Last 24 Hour Vital Signs Date Time Temp Pulse Resp B/P (MAP) Pulse Ox O2 Delivery O2 Flow Rate FiO2 04/25/20 06:40 78 132/82 04/25/20 04:00 97.0 78 19 132/82 (99) 99 04/25/20 00:00 97.8 79 18 132/92 (105) 94 04/24/20 21:52 89 142/89 04/24/20 21:00 Nasal Cannula 2.0 04/24/20 20:00 97.6 88 18 142/69 (93) 88 04/24/20 16:00 96.3 72 19 134/88 (103) 100 04/24/20 14:47 86 128/56 04/24/20 13:15 67 16 114/70 100 Nasal Cannula 2 04/24/20 13:10 72 16 117/75 100 Nasal Cannula 2 04/24/20 13:09 86 22 98 04/24/20 13:05 67 16 123/80 100 Nasal Cannula 2 04/24/20 13:00 69 16 126/82 100 Nasal Cannula 2 04/24/20 12:55 96.3 72 16 133/93 100 Nasal Cannula 2 04/24/20 12:00 96.4 68 19 137/81 (99) 100 Height (Feet): 6 Height (Inches): 7.00 Weight (Pounds): 150 HEENT: mucous membranes moist Respiratory/Chest: lungs clear Cardiovascular: normal rate Abdomen: soft, non tender, other - GT Extremities: no edema Neurologic/Psychiatric: other - sleeping Laboratory Tests Test 04/25/20 06:05 White Blood Count 17.5 K/UL (4.8-10.8) H Red Blood Count 3.90 M/UL (4.70-6.10) L Hemoglobin 10.2 G/DL (14.2-18.0) L Hematocrit 32.0 % (42.0-52.0) L Mean Corpuscular Volume 82 FL (80-99) Mean Corpuscular Hemoglobin 26.1 PG (27.0-31.0) L Mean Corpuscular Hemoglobin Concent 31.9 G/DL (32.0-36.0) L Red Cell Distribution Width 14.6 % (11.6-14.8) Platelet Count 404 K/UL (150-450) Mean Platelet Volume 7.1 FL (6.5-10.1) Neutrophils (%) (Auto) % (45.0-75.0) Lymphocytes (%) (Auto) % (20.0-45.0) Monocytes (%) (Auto) % (1.0-10.0) Eosinophils (%) (Auto) % (0.0-3.0) Basophils (%) (Auto) % (0.0-2.0) Differential Total Cells Counted 100 Neutrophils % (Manual) 84 % (45-75) H Lymphocytes % (Manual) 12 % (20-45) L Monocytes % (Manual) 4 % (1-10) Eosinophils % (Manual) 0 % (0-3) Basophils % (Manual) 0 % (0-2) Band Neutrophils 0 % (0-8) Platelet Estimate Adequate Platelet Morphology Normal Hypochromasia 1+ Anisocytosis 1+ Schistocytes Occasional Current Medications Medications (Trade) Dose Ordered Sig/Chano Route PRN Reason Start Time Stop Time Status Last Admin Dose Admin Acetaminophen (Tylenol) 650 mg Q4H PRN ORAL Temp >100.5 04/15/20 13:15 05/15/20 13:14 04/17/20 09:49 Amlodipine Besylate (Norvasc) 10 mg DAILY ORAL 04/16/20 09:00 05/16/20 08:59 04/24/20 09:54 Aspirin (ASA) 81 mg DAILY ORAL 04/16/20 09:00 05/31/20 08:59 04/24/20 09:53 Atorvastatin Calcium (Lipitor) 10 mg BEDTIME ORAL 04/15/20 21:00 07/14/20 20:59 04/24/20 21:00 Barium Sulfate (Varibar Honey) 250 ml NOW PRN MC RAD 04/22/20 17:15 04/25/20 17:06 Barium Sulfate (Varibar [place]) 240 ml NOW PRN MC RAD 04/22/20 17:15 04/25/20 17:06 Barium Sulfate (Varibar Pudding) 230 ml NOW PRN MC RAD 04/22/20 17:15 04/25/20 17:06 Barium Sulfate (Varibar Thin Liquid powder) 148 gm NOW PRN MC RAD 04/22/20 17:15 04/25/20 17:06 Famotidine (Pepcid) 20 mg DAILY ORAL 04/16/20 09:00 07/15/20 08:59 04/24/20 09:54 Labetalol HCl (Normodyne) 200 mg Q8HR ORAL 04/15/20 14:00 05/15/20 13:59 04/25/20 06:40 Magnesium Oxide (Mag-Ox 400mg) 400 mg DAILY ORAL 04/16/20 09:00 05/16/20 08:59 04/24/20 09:54 Mirtazapine (Remeron) 30 mg BEDTIME ORAL 04/15/20 21:00 07/14/20 20:59 04/24/20 21:53 Multivitamins Therapeutic (Therapeutic Multivitamin) 1 ea DAILY ORAL 04/16/20 09:00 05/16/20 08:59 04/24/20 09:54 iHro Love MD Apr 25, 2020 09:58
[2020-04-25] MEDS: Aspirin Baby 81mg ORAL SCH (10:20)
[2020-04-25] MEDS: Multivitamin w/Minerals tab ORAL SCH (10:21)
[2020-04-25] MEDS: Magnesium Oxide 400mg tab ORAL SCH (10:21)
--- NOTE | 2020-04-25 10:30 | NUR ---
NURSE NOTES: GT dressing changed, abdominal binder in place. GT placement confirmed upon auscultation, residual 5 ml, flushed with 200 ml free water, Jevity 1.2 yolanda at 50 ml/hr, HOB remains elevated, no cough.
--- NOTE | 2020-04-25 10:39 | General Progress Note ---
Subjective ROS Limited/Unobtainable: No Allergies: Coded Allergies: No Known Allergies (Unverified , 04/15/20) Objective Last 24 Hour Vital Signs Date Time Temp Pulse Resp B/P (MAP) Pulse Ox O2 Delivery O2 Flow Rate FiO2 04/25/20 10:25 75 111/67 (82) 04/25/20 09:56 68 22 98 04/25/20 09:00 75 111/67 04/25/20 08:00 96.8 71 20 114/68 (83) 99 04/25/20 06:40 78 132/82 04/25/20 04:00 97.0 78 19 132/82 (99) 99 04/25/20 00:00 97.8 79 18 132/92 (105) 94 04/24/20 21:52 89 142/89 04/24/20 21:00 Nasal Cannula 2.0 04/24/20 20:00 97.6 88 18 142/69 (93) 88 04/24/20 16:00 96.3 72 19 134/88 (103) 100 04/24/20 14:47 86 128/56 04/24/20 13:15 67 16 114/70 100 Nasal Cannula 2 04/24/20 13:10 72 16 117/75 100 Nasal Cannula 2 04/24/20 13:09 86 22 98 04/24/20 13:05 67 16 123/80 100 Nasal Cannula 2 04/24/20 13:00 69 16 126/82 100 Nasal Cannula 2 04/24/20 12:55 96.3 72 16 133/93 100 Nasal Cannula 2 04/24/20 12:00 96.4 68 19 137/81 (99) 100 Intake and Output 04/24/20 04/25/20 19:00 07:00 Intake Total 250 ml Output Total 700 ml 500 ml Balance -700 ml -250 ml Intake Free Water 200 ml Tube Feeding 50 ml Output Urine Total 700 ml 500 ml Laboratory Tests 04/25/20 06:05: White Blood Count 17.5H, Red Blood Count 3.90L, Hemoglobin 10.2L, Hematocrit 32.0L, Mean Corpuscular Volume 82, Mean Corpuscular Hemoglobin 26.1L, Mean Corpuscular Hemoglobin Concent 31.9L, Red Cell Distribution Width 14.6, Platelet Count 404, Mean Platelet Volume 7.1, Neutrophils (%) (Auto) , Lymphocytes (%) (Auto) , Monocytes (%) (Auto) , Eosinophils (%) (Auto) , Basophils (%) (Auto) , Differential Total Cells Counted 100, Neutrophils % (Manual) 84H, Lymphocytes % (Manual) 12L, Monocytes % (Manual) 4, Eosinophils % (Manual) 0, Basophils % (Manual) 0, Band Neutrophils 0, Platelet Estimate Adequate, Platelet Morphology Normal, Hypochromasia 1+, Anisocytosis 1+, Schistocytes Occasional Height (Feet): 6 Height (Inches): 7.00 Weight (Pounds): 150 General Appearance: no apparent distress EENT: normal ENT inspection Neck: supple Cardiovascular: normal rate Respiratory/Chest: decreased breath sounds Abdomen: normal bowel sounds, non tender, soft Extremities: non-tender Assessment/Plan Problem List: (1) COVID-19 virus detected ICD Codes: U07.1 - COVID-19 SNOMED: 5527319747799426 (2) Right lower lobe pneumonia ICD Codes: J18.9 - Pneumonia, unspecified organism SNOMED: 034872103 Qualifiers: Qualified Codes: J18.9 - Pneumonia, unspecified organism (3) Elevated d-dimer ICD Codes: R79.89 - Other specified abnormal findings of blood chemistry SNOMED: 917518419 (4) Left hemiparesis ICD Codes: G81.94 - Hemiplegia, unspecified affecting left nondominant side SNOMED: 264985177 (5) Aphasia ICD Codes: R47.01 - Aphasia SNOMED: 70966109 (6) Protein calorie malnutrition ICD Codes: E46 - Unspecified protein-calorie malnutrition SNOMED: 061894733 Qualifiers: Qualified Codes: E44.0 - Moderate protein-calorie malnutrition (7) Renal failure ICD Codes: N19 - Unspecified kidney failure SNOMED: 63640724 Qualifiers: Qualified Codes: N19 - Unspecified kidney failure (8) Hypernatremia ICD Codes: E87.0 - Hyperosmolality and hypernatremia SNOMED: 607196951 Assessment/Plan: s/p GT placement GTF monitor for residuals will Rich Owens MD Apr 25, 2020 10:39
--- NOTE | 2020-04-25 11:32 | Pulmonology Progress Note ---
Subjective ROS Limited/Unobtainable: No Interval Events: none major reported per nursing Constitutional: Denies: fever HEENT: Repors: no symptoms Respiratory: Reports: no symptoms Cardiovascular: Reports: no symptoms Gastrointestinal/Abdominal: Reports: other - had EGD & PEG placement yesterday Allergies: Coded Allergies: No Known Allergies (Unverified , 04/15/20) All Systems: reviewed and negative except above Objective Last 24 Hour Vital Signs Date Time Temp Pulse Resp B/P (MAP) Pulse Ox O2 Delivery O2 Flow Rate FiO2 04/25/20 10:25 75 111/67 (82) 04/25/20 09:56 68 22 98 04/25/20 09:00 75 111/67 04/25/20 08:00 96.8 71 20 114/68 (83) 99 04/25/20 06:40 78 132/82 04/25/20 04:00 97.0 78 19 132/82 (99) 99 04/25/20 00:00 97.8 79 18 132/92 (105) 94 04/24/20 21:52 89 142/89 04/24/20 21:00 Nasal Cannula 2.0 04/24/20 20:00 97.6 88 18 142/69 (93) 88 04/24/20 16:00 96.3 72 19 134/88 (103) 100 04/24/20 14:47 86 128/56 04/24/20 13:15 67 16 114/70 100 Nasal Cannula 2 04/24/20 13:10 72 16 117/75 100 Nasal Cannula 2 04/24/20 13:09 86 22 98 04/24/20 13:05 67 16 123/80 100 Nasal Cannula 2 04/24/20 13:00 69 16 126/82 100 Nasal Cannula 2 04/24/20 12:55 96.3 72 16 133/93 100 Nasal Cannula 2 04/24/20 12:00 96.4 68 19 137/81 (99) 100 Intake and Output 04/24/20 04/25/20 19:00 07:00 Intake Total 250 ml Output Total 700 ml 500 ml Balance -700 ml -250 ml Intake Free Water 200 ml Tube Feeding 50 ml Output Urine Total 700 ml 500 ml HEENT: atraumatic Respiratory: decreased breath sounds, crackles/rales Cardiovascular: normal rate, regular rhythm Abdomen: soft, non tender Laboratory Tests 04/25/20 06:05: White Blood Count 17.5H, Red Blood Count 3.90L, Hemoglobin 10.2L, Hematocrit 32.0L, Mean Corpuscular Volume 82, Mean Corpuscular Hemoglobin 26.1L, Mean Corpuscular Hemoglobin Concent 31.9L, Red Cell Distribution Width 14.6, Platelet Count 404, Mean Platelet Volume 7.1, Neutrophils (%) (Auto) , Lymphocytes (%) (Auto) , Monocytes (%) (Auto) , Eosinophils (%) (Auto) , Basophils (%) (Auto) , Differential Total Cells Counted 100, Neutrophils % (Manual) 84H, Lymphocytes % (Manual) 12L, Monocytes % (Manual) 4, Eosinophils % (Manual) 0, Basophils % (Manual) 0, Band Neutrophils 0, Platelet Estimate Adequate, Platelet Morphology Normal, Hypochromasia 1+, Anisocytosis 1+, Schistocytes Occasional Current Medications Medications (Trade) Dose Ordered Sig/Chano Route PRN Reason Start Time Stop Time Status Last Admin Dose Admin Acetaminophen (Tylenol) 650 mg Q4H PRN ORAL Temp >100.5 04/15/20 13:15 05/15/20 13:14 04/17/20 09:49 Amlodipine Besylate (Norvasc) 10 mg DAILY ORAL 04/16/20 09:00 05/16/20 08:59 04/24/20 09:54 Aspirin (ASA) 81 mg DAILY ORAL 04/16/20 09:00 05/31/20 08:59 04/25/20 10:20 Atorvastatin Calcium (Lipitor) 10 mg BEDTIME ORAL 04/15/20 21:00 07/14/20 20:59 04/24/20 21:00 Barium Sulfate (Varibar Honey) 250 ml NOW PRN MC RAD 04/22/20 17:15 04/25/20 17:06 Barium Sulfate (Varibar [place]) 240 ml NOW PRN MC RAD 04/22/20 17:15 04/25/20 17:06 Barium Sulfate (Varibar Pudding) 230 ml NOW PRN MC RAD 04/22/20 17:15 04/25/20 17:06 Barium Sulfate (Varibar Thin Liquid powder) 148 gm NOW PRN MC RAD 04/22/20 17:15 04/25/20 17:06 Famotidine (Pepcid) 20 mg DAILY ORAL 04/16/20 09:00 07/15/20 08:59 04/25/20 10:21 Labetalol HCl (Normodyne) 200 mg Q8HR ORAL 04/15/20 14:00 05/15/20 13:59 04/25/20 06:40 Magnesium Oxide (Mag-Ox 400mg) 400 mg DAILY ORAL 04/16/20 09:00 05/16/20 08:59 04/25/20 10:21 Mirtazapine (Remeron) 30 mg BEDTIME ORAL 04/15/20 21:00 07/14/20 20:59 04/24/20 21:53 Multivitamins Therapeutic (Therapeutic Multivitamin) 1 ea DAILY ORAL 04/16/20 09:00 05/16/20 08:59 04/25/20 10:21 Assessment/Plan Assessment/Plan Assessment/Plan 1. COVID-19 pneumonia -On dexamethasone - now off azithromycin, ceftriaxone and IV Vanco - CXR 04/23 improving 2. COPD, oxygen dependent 3. Malnourished -Per primary MD 4. Leukocytosis, likely secondary to WBC 17.5 Defer to ID 5. Renal failure 6. Hyperglycemia, - monitor BG 7. Hypoxia; improved - currently saturating at 99% on 2 L nasal cannula - Continue providing supplemental oxygen - Pt is reported to be chronically oxygen dependent due to history of COPD 8. Gram neg dot UTI - s/p IV Vanco 9.. On PEG dc pending placement The care for this patient was discussed with my supervising physician. Pam Luke PROFESSOR OF LEGAL STUDIES Apr 25, 2020 11:32
--- NOTE | 2020-04-25 16:30 | NUR ---
NURSE NOTES: Skin care provided, complete bath, bilateral feet very dry/flaky/peeling, cleansed/skin barrier cream applied with moisturizer and optifoam to heels. Sacral optifoam changed. Repositioned. Bilateral wrists in place.
--- NOTE | 2020-04-25 17:30 | NUR ---
NURSE NOTES: Spoke with daughter, Maggie, regarding patient current status, TF, skin care, repositioning, mental status/non-verbal, FC. Daughter states she faxed POA documentation to CM on , she will follow up on Monday (since CM may not be here over weekend)
--- NOTE | 2020-04-25 19:37 | NUR ---
NURSE HAND-OFF: Important Events on Shift: non-violent restraints order renewed, sacral optifoam changed, held Norvasc and Labetalol (BP 111/67),GT dressing changed (abdominal binder in place) Patient Status: stable Diet: NPO, JEVITY 1.2 yolanda at 50 ml/hr via GT (hold for residual 100 ml, flush with 200 ml free water every 6 hours) Pending Orders: none Pending Results/Labs:none Pending MD notification:none Latest Vital Signs: Temperature 97.2 , Pulse 78 , B/P 128 /79 , Respiratory Rate 20 , O2 SAT 100 , Nasal Cannula, O2 Flow Rate 2.0 . Vital Sign Comment: none Latest [place] Fall Score: 70 Fall Risk: High Risk Safety Measures: Call light Within Reach, Bed Alarm Zone 1, Side Rails Side Rails x3, Bed position Low and Locked. Fall Precautions: Yellow Socks Yellow Gown Door Sign Patient Fall Education Report given to Jose Francisco RN.
--- NOTE | 2020-04-25 21:00 | NUR ---
NURSE NOTES: Pt is in bed, awake. Vitals stable. HOB elevated. Nasal Canula 2L. Jevity 1.2 running via g-tube at 50ml/hr. No residual, g-tube flushed.Abdominal binder in place to secure the G-tube. Pt will be repositioned frequently. Bilat soft wrist restraints in place: restraints sites are asymptomatic. Fall precaution in place. Pt will be monitored.
[2020-04-26] VITALS: BP 141/83
[2020-04-26 04:00] VITALS: BP 140/78
--- NOTE | 2020-04-26 07:10 | NUR ---
NURSE HAND-OFF: Important Events on Shift:[] Patient Status: [Stable] Diet: [Tube feeding] Pending Orders: [] Pending Results/Labs:[] Pending MD notification:[] Latest Vital Signs: Temperature 96.8 , Pulse 78 , B/P 140 /78 , Respiratory Rate 20 , O2 SAT 98 , Nasal Cannula, O2 Flow Rate 2.0 . Vital Sign Comment: [] Latest [place] Fall Score: 70 Fall Risk: High Risk Safety Measures: Call light Within Reach, Bed Alarm Zone 1, Side Rails Side Rails x3, Bed position Low and Locked. Fall Precautions: Yellow Socks Yellow Gown Door Sign Patient Fall Education Report given to [David Zavaleta RN. Informed patient is fall risk].
--- NOTE | 2020-04-26 07:40 | NUR ---
NURSE NOTES: received report from ROMIE Felton. patient in bed. opens eyes, non verbal. no respiratory distress on 2L via NC. no facial grimacing noted during care. IV on RFA saline. intact and flushed. F/C draining. yellow. GT running @50. no residual. Abd binder in place. Elevated HOB at all times. soft restraints on both wrist for prevention pulling devices. bed in the lowest position and locked. call light within reach. alarm on.
[2020-04-26 08:00] VITALS: BP 107/73
[2020-04-26 08:21] LABS: BASOPHILS % (AUTO) 0.1 % (0.0-2.0); EOSINOPHILS % (AUTO) 0.7 % (0.0-3.0); HEMATOCRIT 32.6 % (42.0-52.0); HEMOGLOBIN 10.2 G/DL (14.2-18.0); LYMPHOCYTES % (AUTO) 15.1 % (20.0-45.0); MEAN CORPUSCULAR VOLUME 83 FL (80-99); MONOCYTES % (AUTO) 6.6 % (1.0-10.0); NEUTROPHILS % (AUTO) 77.4 % (45.0-75.0); PLATELET COUNT 433 K/UL (150-450); RED BLOOD COUNT 3.94 M/UL (4.70-6.10); RED CELL DISTRIBUTION WIDTH 14.5 % (11.6-14.8); WHITE BLOOD COUNT 12.1 K/UL (4.8-10.8)
[2020-04-26] MEDS: Multivitamin w/Minerals tab ORAL SCH (09:11)
[2020-04-26] MEDS: Magnesium Oxide 400mg tab ORAL SCH (09:11)
[2020-04-26] MEDS: Aspirin Baby 81mg ORAL SCH (09:11)
--- NOTE | 2020-04-26 10:35 | General Progress Note ---
Subjective ROS Limited/Unobtainable: No Allergies: Coded Allergies: No Known Allergies (Unverified , 04/15/20) Objective Last 24 Hour Vital Signs Date Time Temp Pulse Resp B/P (MAP) Pulse Ox O2 Delivery O2 Flow Rate FiO2 04/26/20 09:00 Nasal Cannula 2.0 04/26/20 09:00 73 107/73 04/26/20 08:00 97.5 73 20 107/73 (84) 100 04/26/20 06:00 78 140/78 04/26/20 04:00 96.8 78 20 140/78 (98) 98 04/26/20 00:00 97.1 73 19 141/83 (102) 98 04/25/20 21:40 81 134/80 04/25/20 21:00 Nasal Cannula 2.0 04/25/20 20:00 96.7 81 20 134/80 (98) 99 04/25/20 16:00 97.2 78 20 128/79 (95) 100 04/25/20 14:00 75 111/67 04/25/20 12:00 97.3 76 20 110/76 (87) 100 Intake and Output 04/25/20 04/26/20 19:00 07:00 Intake Total 1000 ml 1000 ml Output Total 500 ml 800 ml Balance 500 ml 200 ml Intake Free Water 400 ml 400 ml Tube Feeding 600 ml 600 ml Output Urine Total 500 ml 800 ml Laboratory Tests 04/26/20 06:00: White Blood Count 12.1H, Red Blood Count 3.94L, Hemoglobin 10.2L, Hematocrit 32.6L, Mean Corpuscular Volume 83, Mean Corpuscular Hemoglobin 25.8L, Mean Corpuscular Hemoglobin Concent 31.2L, Red Cell Distribution Width 14.5, Platelet Count 433, Mean Platelet Volume 6.6, Neutrophils (%) (Auto) 77.4H, Lymphocytes (%) (Auto) 15.1L, Monocytes (%) (Auto) 6.6, Eosinophils (%) (Auto) 0.7, Basophils (%) (Auto) 0.1 Height (Feet): 6 Height (Inches): 7.00 Weight (Pounds): 150 General Appearance: no apparent distress EENT: normal ENT inspection Neck: supple Cardiovascular: normal peripheral pulses Respiratory/Chest: decreased breath sounds Abdomen: normal bowel sounds, non tender, soft Extremities: non-tender Assessment/Plan Problem List: (1) COVID-19 virus detected ICD Codes: U07.1 - COVID-19 SNOMED: 7653520777431228 (2) Right lower lobe pneumonia ICD Codes: J18.9 - Pneumonia, unspecified organism SNOMED: 438437023 Qualifiers: Qualified Codes: J18.9 - Pneumonia, unspecified organism (3) Elevated d-dimer ICD Codes: R79.89 - Other specified abnormal findings of blood chemistry SNOMED: 870203770 (4) Left hemiparesis ICD Codes: G81.94 - Hemiplegia, unspecified affecting left nondominant side SNOMED: 161138602 (5) Aphasia ICD Codes: R47.01 - Aphasia SNOMED: 12142388 (6) Protein calorie malnutrition ICD Codes: E46 - Unspecified protein-calorie malnutrition SNOMED: 082063074 Qualifiers: Qualified Codes: E44.0 - Moderate protein-calorie malnutrition (7) Renal failure ICD Codes: N19 - Unspecified kidney failure SNOMED: 70719784 Qualifiers: Qualified Codes: N19 - Unspecified kidney failure (8) Hypernatremia ICD Codes: E87.0 - Hyperosmolality and hypernatremia SNOMED: 157177898 Assessment/Plan: s/p GT placement GTF monitor for residuals will Rich Owens MD Apr 26, 2020 10:35
[2020-04-26 12:00] VITALS: BP 126/78
--- NOTE | 2020-04-26 12:24 | Pulmonology Progress Note ---
Subjective ROS Limited/Unobtainable: No Interval Events: none major reported per nursing Constitutional: Denies: fever HEENT: Repors: no symptoms Respiratory: Reports: no symptoms Cardiovascular: Reports: no symptoms Gastrointestinal/Abdominal: Reports: other - had EGD & PEG placement yesterday Allergies: Coded Allergies: No Known Allergies (Unverified , 04/15/20) All Systems: reviewed and negative except above Objective Last 24 Hour Vital Signs Date Time Temp Pulse Resp B/P (MAP) Pulse Ox O2 Delivery O2 Flow Rate FiO2 04/26/20 09:00 Nasal Cannula 2.0 04/26/20 09:00 73 107/73 04/26/20 08:00 97.5 73 20 107/73 (84) 100 04/26/20 06:00 78 140/78 04/26/20 04:00 96.8 78 20 140/78 (98) 98 04/26/20 00:00 97.1 73 19 141/83 (102) 98 04/25/20 21:40 81 134/80 04/25/20 21:00 Nasal Cannula 2.0 04/25/20 20:00 96.7 81 20 134/80 (98) 99 04/25/20 16:00 97.2 78 20 128/79 (95) 100 04/25/20 14:00 75 111/67 Intake and Output 04/25/20 04/26/20 19:00 07:00 Intake Total 1000 ml 1000 ml Output Total 500 ml 800 ml Balance 500 ml 200 ml Intake Free Water 400 ml 400 ml Tube Feeding 600 ml 600 ml Output Urine Total 500 ml 800 ml HEENT: atraumatic Respiratory: decreased breath sounds, crackles/rales Cardiovascular: normal rate, regular rhythm Abdomen: soft, non tender Laboratory Tests 04/26/20 06:00: White Blood Count 12.1H, Red Blood Count 3.94L, Hemoglobin 10.2L, Hematocrit 32.6L, Mean Corpuscular Volume 83, Mean Corpuscular Hemoglobin 25.8L, Mean Corpuscular Hemoglobin Concent 31.2L, Red Cell Distribution Width 14.5, Platelet Count 433, Mean Platelet Volume 6.6, Neutrophils (%) (Auto) 77.4H, Lymphocytes (%) (Auto) 15.1L, Monocytes (%) (Auto) 6.6, Eosinophils (%) (Auto) 0.7, Basophils (%) (Auto) 0.1 Current Medications Medications (Trade) Dose Ordered Sig/[place]ano Route PRN Reason Start Time Stop Time Status Last Admin Dose Admin Acetaminophen (Tylenol) 650 mg Q4H PRN ORAL Temp >100.5 04/15/20 13:15 05/15/20 13:14 04/17/20 09:49 Amlodipine Besylate (Norvasc) 10 mg DAILY ORAL 04/16/20 09:00 05/16/20 08:59 04/24/20 09:54 Aspirin (ASA) 81 mg DAILY ORAL 04/16/20 09:00 05/31/20 08:59 04/26/20 09:11 Atorvastatin Calcium (Lipitor) 10 mg BEDTIME ORAL 04/15/20 21:00 07/14/20 20:59 04/25/20 21:41 Famotidine (Pepcid) 20 mg DAILY ORAL 04/16/20 09:00 07/15/20 08:59 04/26/20 09:11 Labetalol HCl (Normodyne) 200 mg Q8HR ORAL 04/15/20 14:00 05/15/20 13:59 04/26/20 06:00 Magnesium Oxide (Mag-Ox 400mg) 400 mg DAILY ORAL 04/16/20 09:00 05/16/20 08:59 04/26/20 09:11 Mirtazapine (Remeron) 30 mg BEDTIME ORAL 04/15/20 21:00 07/14/20 20:59 04/25/20 21:41 Multivitamins Therapeutic (Therapeutic Multivitamin) 1 ea DAILY ORAL 04/16/20 09:00 05/16/20 08:59 04/26/20 09:11 Assessment/Plan Assessment/Plan Assessment/Plan 1. COVID-19 pneumonia -On dexamethasone - now off azithromycin, ceftriaxone and IV Vanco - CXR 04/23 improving right basilar infiltrate. 2. COPD, oxygen dependent 3. Malnourished -Per primary MD 4. Leukocytosis, WBC 12.1 Improved 5. Renal failure 6. Hyperglycemia, - monitor BG 7. Hypoxia; improved - currently saturating at 100% on 2 L - Continue providing supplemental oxygen - Pt is reported to be chronically oxygen dependent due to history of COPD 8. Gram neg dot UTI - s/p IV Vanco 9.. On PEG dc pending placement The care for this patient was discussed with my supervising physician. Pam Luke NP Apr 26, 2020 12:24
--- NOTE | 2020-04-26 13:10 | General Progress Note ---
Subjective Allergies: Coded Allergies: No Known Allergies (Unverified , 04/15/20) Subjective non verabal, combative tolerating gt feeding opens his eyes on touch stimuli, agitated frequentely dvt in arm Objective Last 24 Hour Vital Signs Date Time Temp Pulse Resp B/P (MAP) Pulse Ox O2 Delivery O2 Flow Rate FiO2 04/26/20 12:00 97.2 79 19 126/78 (94) 98 04/26/20 09:00 Nasal Cannula 2.0 04/26/20 09:00 73 107/73 04/26/20 08:00 97.5 73 20 107/73 (84) 100 04/26/20 06:00 78 140/78 04/26/20 04:00 96.8 78 20 140/78 (98) 98 04/26/20 00:00 97.1 73 19 141/83 (102) 98 04/25/20 21:40 81 134/80 04/25/20 21:00 Nasal Cannula 2.0 04/25/20 20:00 96.7 81 20 134/80 (98) 99 04/25/20 16:00 97.2 78 20 128/79 (95) 100 04/25/20 14:00 75 111/67 Intake and Output 04/25/20 04/26/20 19:00 07:00 Intake Total 1000 ml 1000 ml Output Total 500 ml 800 ml Balance 500 ml 200 ml Intake Free Water 400 ml 400 ml Tube Feeding 600 ml 600 ml Output Urine Total 500 ml 800 ml Laboratory Tests 04/26/20 06:00: White Blood Count 12.1H, Red Blood Count 3.94L, Hemoglobin 10.2L, Hematocrit 32.6L, Mean Corpuscular Volume 83, Mean Corpuscular Hemoglobin 25.8L, Mean Corpuscular Hemoglobin Concent 31.2L, Red Cell Distribution Width 14.5, Platelet Count 433, Mean Platelet Volume 6.6, Neutrophils (%) (Auto) 77.4H, Lymphocytes (%) (Auto) 15.1L, Monocytes (%) (Auto) 6.6, Eosinophils (%) (Auto) 0.7, Basophils (%) (Auto) 0.1 Height (Feet): 6 Height (Inches): 7.00 Weight (Pounds): 150 General Appearance: confused Neck: non-tender Cardiovascular: regular rhythm Respiratory/Chest: crackles/rales Abdomen: non tender, soft Assessment/Plan Assessment/Plan: sepsis leucocytosis covid pna rpt cxr fpr evaluation of pna uti ac renal failure failure to thrive protein malnutrition arf hypernatremia increased ng feeding and water flush awaiting for peg placement ,dr gómez for gi rpt labs nephro consult cont ivf add vancomycin iv id consult med surg dw charge nurse and nephrology Dedrick Buitrago MD Apr 26, 2020 13:10
[2020-04-26] MEDS: Piperacillin/Tazobactam 3.375 GM in NS 110 ML IVPB SCH ×2 (13:34→22:16)
[2020-04-26 16:00] VITALS: BP 102/66
--- NOTE | 2020-04-26 19:27 | NUR ---
NURSE HAND-OFF: Important Events on Shift:GT feeding. wound care. restraint care Diet: Jevity1.2@50 Pending Orders: n/a Pending Results/Labs:n/a Pending MD notification:n/a Latest Vital Signs: Temperature 97.6 , Pulse 81 , B/P 102 /66 , Respiratory Rate 20 , O2 SAT 95 , Nasal Cannula, O2 Flow Rate 2.0 . Vital Sign Comment: stable Latest [place] Fall Score: 70 Fall Risk: High Risk Safety Measures: Call light Within Reach, Bed Alarm Zone 1, Side Rails Side Rails x3, Bed position Low and Locked. Fall Precautions: Yellow Socks Yellow Gown Door Sign Patient Fall Education Report given to ROMIE Gaxiola.
--- NOTE | 2020-04-26 19:31 | NUR ---
NURSE NOTES: Received patient in bed, alert/oriented x0, confused, disoriented, on 2 liters of oxygen NC, has Awad catheter 16 fr, secured, draining well. Gtube feeding is on, Jevity 1.2 at 50 cc /hr, tolerating well. IV site is clean dry and intact, call light is within reach, bed is lowered, locked, alarm is on, will continue to monitor for comfort and safety. Addendum: 04/26/20 at 1943 by JUAN COLIN RN Patient has bilateral soft wrist restraints
[2020-04-26 20:00] VITALS: BP 127/74
[2020-04-27] VITALS: BP 127/78
[2020-04-27 04:00] VITALS: BP 127/74
[2020-04-27] MEDS: Piperacillin/Tazobactam 3.375 GM in NS 110 ML IVPB SCH ×2 (04:59→13:34)
[2020-04-27 06:45] LABS: BASOPHILS % (AUTO) 0.2 % (0.0-2.0); EOSINOPHILS % (AUTO) 0.9 % (0.0-3.0); HEMATOCRIT 27.3 % (42.0-52.0); HEMOGLOBIN 8.7 G/DL (14.2-18.0); LYMPHOCYTES % (AUTO) 8.7 % (20.0-45.0); MEAN CORPUSCULAR VOLUME 82 FL (80-99); MONOCYTES % (AUTO) 7.2 % (1.0-10.0); PLATELET COUNT 383 K/UL (150-450); RED BLOOD COUNT 3.34 M/UL (4.70-6.10); RED CELL DISTRIBUTION WIDTH 14.9 % (11.6-14.8); WHITE BLOOD COUNT 14.8 K/UL (4.8-10.8)
--- NOTE | 2020-04-27 07:17 | NUR ---
NURSE HAND-OFF: Important Events on Shift: bilateral soft wrist restraints are on, on oxygen at 2 liters/min. Patient Status:full code Diet: Jevity 1.2 at 50 cc/hr, 200 flush q 6 hrs. Pending Orders: Pending Results/Labs: Pending MD notification: Latest Vital Signs: Temperature 97.3 , Pulse 78 , B/P 119 /74 , Respiratory Rate 19 , O2 SAT 98 , Nasal Cannula, O2 Flow Rate 2.0 . Vital Sign Comment: Latest [place] Fall Score: 70 Fall Risk: High Risk Safety Measures: Call light Within Reach, Bed Alarm Zone 1, Side Rails Side Rails x3, Bed position Low and Locked. Fall Precautions: Yellow Socks Yellow Gown Door Sign Patient Fall Education Report given to Efren GRUBBS
--- NOTE | 2020-04-27 07:30 | NUR ---
NURSE NOTES: received report from Khalida GRUBBS, pt a/a/o laying in bed with no signs of distress. GT in place running Jevity 1.2 @50ml/hr. hubbard cath draining to gravity. pt has a sacral tear covered with optifoam to be change Q3days ans as needed, last dressing change was on 04/26/19. call light within reach, bed in lowest position. side rales up. I will f/u as needed. plan: SNF placement.
[2020-04-27 08:00] VITALS: BP 102/64
[2020-04-27] MEDS ORDERED: Eliquis 5mg tablet ORAL SCH (09:00)
--- NOTE | 2020-04-27 09:03 | General Progress Note ---
Subjective ROS Limited/Unobtainable: No Allergies: Coded Allergies: No Known Allergies (Unverified , 04/15/20) Objective Last 24 Hour Vital Signs Date Time Temp Pulse Resp B/P (MAP) Pulse Ox O2 Delivery O2 Flow Rate FiO2 04/27/20 08:00 98.2 91 18 102/64 (77) 100 04/27/20 05:00 78 119/74 04/27/20 04:00 97.3 90 19 127/74 (91) 98 04/27/20 00:00 97.4 82 19 127/78 (94) 99 04/26/20 22:17 78 124/74 04/26/20 21:26 Nasal Cannula 2.0 04/26/20 20:00 97.4 85 18 127/74 (91) 100 04/26/20 16:00 97.6 81 20 102/66 (78) 95 04/26/20 13:33 79 126/78 04/26/20 12:00 97.2 79 19 126/78 (94) 98 04/26/20 09:00 Nasal Cannula 2.0 04/26/20 09:00 73 107/73 Intake and Output 04/26/20 04/27/20 19:00 07:00 Intake Total 1110.0 ml 700 ml Output Total 800 ml Balance 310.0 ml 700 ml Intake Free Water 400 ml 200 ml IV Total 110.0 ml Tube Feeding 600 ml 500 ml Output Urine Total 800 ml Laboratory Tests 04/27/20 05:15: White Blood Count 14.8H, Red Blood Count 3.34L, Hemoglobin 8.7L, Hematocrit 27.3L, Mean Corpuscular Volume 82, Mean Corpuscular Hemoglobin 26.2L, Mean Corpuscular Hemoglobin Concent 32.0, Red Cell Distribution Width 14.9H, Platelet Count 383, Mean Platelet Volume 6.8, Neutrophils (%) (Auto) 83.0H, Lymphocytes (%) (Auto) 8.7L, Monocytes (%) (Auto) 7.2, Eosinophils (%) (Auto) 0.9, Basophils (%) (Auto) 0.2 Height (Feet): 6 Height (Inches): 7.00 Weight (Pounds): 150 General Appearance: no apparent distress EENT: normal ENT inspection Neck: supple Cardiovascular: normal rate Respiratory/Chest: decreased breath sounds Abdomen: normal bowel sounds, non tender, soft Extremities: non-tender Assessment/Plan Problem List: (1) COVID-19 virus detected ICD Codes: U07.1 - COVID-19 SNOMED: 0270413043117863 (2) Right lower lobe pneumonia ICD Codes: J18.9 - Pneumonia, unspecified organism SNOMED: 134742269 Qualifiers: Qualified Codes: J18.9 - Pneumonia, unspecified organism (3) Elevated d-dimer ICD Codes: R79.89 - Other specified abnormal findings of blood chemistry SNOMED: 444586620 (4) Left hemiparesis ICD Codes: G81.94 - Hemiplegia, unspecified affecting left nondominant side SNOMED: 102161201 (5) Aphasia ICD Codes: R47.01 - Aphasia SNOMED: 23106142 (6) Protein calorie malnutrition ICD Codes: E46 - Unspecified protein-calorie malnutrition SNOMED: 508345596 Qualifiers: Qualified Codes: E44.0 - Moderate protein-calorie malnutrition (7) Renal failure ICD Codes: N19 - Unspecified kidney failure SNOMED: 96767861 Qualifiers: Qualified Codes: N19 - Unspecified kidney failure (8) Hypernatremia ICD Codes: E87.0 - Hyperosmolality and hypernatremia SNOMED: 649659795 Assessment/Plan: s/p GT placement GTF monitor for residuals drop in H&H without active bleed repeat cbc in am will Rich Owens MD Apr 27, 2020 09:03
[2020-04-27] MEDS: Aspirin Baby 81mg ORAL SCH (09:11)
[2020-04-27] MEDS: Multivitamin w/Minerals tab ORAL SCH (09:12)
[2020-04-27] MEDS: Magnesium Oxide 400mg tab ORAL SCH (09:12)
--- NOTE | 2020-04-27 10:49 | NUR ---
CASE MANAGEMENT:REVIEW 04/27/20 SI: COVID PNA. COPD. DVT RLE DYSPHAGIA...S/P PEG PLACEMENT ON 04/24/20 98.2 91 18 102/64 100% ON 2L/NC WBC+14.8 H/H-8.7/27.3 IS: IV ZOSYN Q8HRS MAG OXIDE PO QD PEPCID PO QD ASA PO QD NORVASC PO QD LABETALOL PO Q8HRS REMERON PO QHS : MED/SURG STATUS 4 EAST DCP: FROM [facility]
--- NOTE | 2020-04-27 11:21 | Infectious Diseases Prog Note ---
Assessment/Plan Assessment/Plan antibiotics : none A 1. covid 19 pneumonia on 2 liters O2 with 100 % saturation s/p ivermectin s/p dexamethasone 2. gram negative UTI s/p rx 3. + blood cultures with coag neg staph likely contaminated 4. COPD 5. renal failure improving P 1. continue off antibiotics 2. d/c isolation Subjective ROS Limited/Unobtainable: Yes Allergies: Coded Allergies: No Known Allergies (Unverified , 04/15/20) Objective Last 24 Hour Vital Signs Date Time Temp Pulse Resp B/P (MAP) Pulse Ox O2 Delivery O2 Flow Rate FiO2 04/27/20 09:11 91 102/64 04/27/20 08:00 98.2 91 18 102/64 (77) 100 04/27/20 05:00 78 119/74 04/27/20 04:00 97.3 90 19 127/74 (91) 98 04/27/20 00:00 97.4 82 19 127/78 (94) 99 04/26/20 22:17 78 124/74 04/26/20 21:26 Nasal Cannula 2.0 04/26/20 20:00 97.4 85 18 127/74 (91) 100 04/26/20 16:00 97.6 81 20 102/66 (78) 95 04/26/20 13:33 79 126/78 04/26/20 12:00 97.2 79 19 126/78 (94) 98 Height (Feet): 6 Height (Inches): 7.00 Weight (Pounds): 150 Laboratory Tests Test 04/27/20 05:15 White Blood Count 14.8 K/UL (4.8-10.8) H Red Blood Count 3.34 M/UL (4.70-6.10) L Hemoglobin 8.7 G/DL (14.2-18.0) L Hematocrit 27.3 % (42.0-52.0) L Mean Corpuscular Volume 82 FL (80-99) Mean Corpuscular Hemoglobin 26.2 PG (27.0-31.0) L Mean Corpuscular Hemoglobin Concent 32.0 G/DL (32.0-36.0) Red Cell Distribution Width 14.9 % (11.6-14.8) H Platelet Count 383 K/UL (150-450) Mean Platelet Volume 6.8 FL (6.5-10.1) Neutrophils (%) (Auto) 83.0 % (45.0-75.0) H Lymphocytes (%) (Auto) 8.7 % (20.0-45.0) L Monocytes (%) (Auto) 7.2 % (1.0-10.0) Eosinophils (%) (Auto) 0.9 % (0.0-3.0) Basophils (%) (Auto) 0.2 % (0.0-2.0) Current Medications Medications (Trade) Dose Ordered Sig/Chano Route PRN Reason Start Time Stop Time Status Last Admin Dose Admin Acetaminophen (Tylenol) 650 mg Q4H PRN ORAL Temp >100.5 04/15/20 13:15 05/15/20 13:14 04/17/20 09:49 Amlodipine Besylate (Norvasc) 10 mg DAILY ORAL 04/16/20 09:00 05/16/20 08:59 04/27/20 09:11 Aspirin (ASA) 81 mg DAILY ORAL 04/16/20 09:00 05/31/20 08:59 04/27/20 09:11 Atorvastatin Calcium (Lipitor) 10 mg BEDTIME ORAL 04/15/20 21:00 07/14/20 20:59 04/26/20 20:13 Famotidine (Pepcid) 20 mg DAILY ORAL 04/16/20 09:00 07/15/20 08:59 04/27/20 09:12 Labetalol HCl (Normodyne) 200 mg Q8HR ORAL 04/15/20 14:00 05/15/20 13:59 04/27/20 05:00 Magnesium Oxide (Mag-Ox 400mg) 400 mg DAILY ORAL 04/16/20 09:00 05/16/20 08:59 04/27/20 09:12 Mirtazapine (Remeron) 30 mg BEDTIME ORAL 04/15/20 21:00 07/14/20 20:59 04/26/20 20:13 Multivitamins Therapeutic (Therapeutic Multivitamin) 1 ea DAILY ORAL 04/16/20 09:00 05/16/20 08:59 04/27/20 09:12 Piperacillin Sod/ Tazobactam Sod 3.375 gm/Sodium Chloride 110 ml @ 27.5 mls/hr EVERY 8 HOURS IVPB 1/24/21 14:00 05/01/20 13:59 04/27/20 04:59 Raudel Cassidy MD Apr 27, 2020 11:21
--- NOTE | 2020-04-27 11:27 | Hematology/Onc Progress Note ---
Assessment/Plan Assessment/Plan Assessment/Plan: Dvt of the lower extremity--> Positive for right lower extremity deep venous thrombosis. On eliquis (hold only for procedures i.e. peg) leukocytosis with sepsis covid pna uti ac renal failure failure to thrive protein malnutrition arf hypernatremia increased ng feeding and water flush rpt labs nephro consult cont ivf abx vancomycin iv-->off id consult med surg st eval on monday APIXABAN started/on hold only for procedures Appreciate consultation and gt RN Subjective HEENT: Denies: no symptoms, eye pain, blurred vision, tearing, double vision, ear pain, ear discharge, nose pain, nose congestion, throat pain, throat swelling, mouth pain, mouth swelling, other Respiratory: Denies: no symptoms, cough, shortness of breath, SOB with excertion, SOB at rest, sputum, wheezing, other Gastrointestinal/Abdominal: Denies: no symptoms, abdomen distended, abdominal pain, black stools, tarry stools, blood in stool, constipated, diarrhea, difficulty swallowing, nausea, poor appetite, poor fluid intake, rectal bleeding, vomiting, other Genitourinary: Denies: no symptoms, burning, discharge, frequency, flank pain, hematuria, incontinence, pain, urgency, other Neurologic/Psychiatric: Denies: no symptoms, anxiety, depressed, emotional problems, headache, numbness, paresthesia, pre-existing deficit, seizure, tingling, tremors, weakness, other Endocrine: Denies: no symptoms, excessive sweating, flushing, intolerance to cold, intolerance to heat, increased hunger, increased thirst, increased urine, unexplained weight gain, unexplained weight loss, other Hematologic/Lymphatic: Denies: no symptoms, anemia, easy bleeding, easy bruising, adenopathy, other Allergies: Coded Allergies: No Known Allergies (Unverified , 04/15/20) Subjective 04/19 nc, restraints, non verabal, tolerating ngt feeding, opens his eyes on touch stimuli 04/20 meds noted, with ngt, gt rn, labs noted, elev ddimer 04/21 awake, alert, ngt in place, labs noted, with restraints this am, on blood thinner for dvt 04/22 labs noted, nv, ngt, on eliquis 04/23 nv, sleeping, is comfortable, on eliquis, no bleeding 04/24 nv, for peg today as well as noac has been held 04/27 nv, no bleeding, dw rn, no major changes, no night sweats Objective Objective Current Medications Medications (Trade) Dose Ordered Sig/Chano Route PRN Reason Start Time Stop Time Status Last Admin Dose Admin Acetaminophen (Tylenol) 650 mg Q4H PRN ORAL Temp >100.5 04/15/20 13:15 05/15/20 13:14 04/17/20 09:49 Amlodipine Besylate (Norvasc) 10 mg DAILY ORAL 04/16/20 09:00 05/16/20 08:59 04/27/20 09:11 Aspirin (ASA) 81 mg DAILY ORAL 04/16/20 09:00 05/31/20 08:59 04/27/20 09:11 Atorvastatin Calcium (Lipitor) 10 mg BEDTIME ORAL 04/15/20 21:00 07/14/20 20:59 04/26/20 20:13 Famotidine (Pepcid) 20 mg DAILY ORAL 04/16/20 09:00 07/15/20 08:59 04/27/20 09:12 Labetalol HCl (Normodyne) 200 mg Q8HR ORAL 04/15/20 14:00 05/15/20 13:59 04/27/20 05:00 Magnesium Oxide (Mag-Ox 400mg) 400 mg DAILY ORAL 04/16/20 09:00 05/16/20 08:59 04/27/20 09:12 Mirtazapine (Remeron) 30 mg BEDTIME ORAL 04/15/20 21:00 07/14/20 20:59 04/26/20 20:13 Multivitamins Therapeutic (Therapeutic Multivitamin) 1 ea DAILY ORAL 04/16/20 09:00 05/16/20 08:59 04/27/20 09:12 Piperacillin Sod/ Tazobactam Sod 3.375 gm/Sodium Chloride 110 ml @ 27.5 mls/hr EVERY 8 HOURS IVPB 04/26/20 14:00 05/01/20 13:59 04/27/20 04:59 Last 24 Hour Vital Signs Date Time Temp Pulse Resp B/P (MAP) Pulse Ox O2 Delivery O2 Flow Rate FiO2 04/27/20 09:11 91 102/64 04/27/20 09:00 Nasal Cannula 2.0 04/27/20 08:00 98.2 91 18 102/64 (77) 100 04/27/20 05:00 78 119/74 04/27/20 04:00 97.3 90 19 127/74 (91) 98 04/27/20 00:00 97.4 82 19 127/78 (94) 99 04/26/20 22:17 78 124/74 04/26/20 21:26 Nasal Cannula 2.0 04/26/20 20:00 97.4 85 18 127/74 (91) 100 04/26/20 16:00 97.6 81 20 102/66 (78) 95 04/26/20 13:33 79 126/78 04/26/20 12:00 97.2 79 19 126/78 (94) 98 04/26/20 09:00 Nasal Cannula 2.0 04/26/20 09:00 73 107/73 04/26/20 08:00 97.5 73 20 107/73 (84) 100 04/26/20 06:00 78 140/78 04/26/20 04:00 96.8 78 20 140/78 (98) 98 04/26/20 00:00 97.1 73 19 141/83 (102) 98 04/25/20 21:40 81 134/80 04/25/20 21:00 Nasal Cannula 2.0 04/25/20 20:00 96.7 81 20 134/80 (98) 99 04/25/20 16:00 97.2 78 20 128/79 (95) 100 04/25/20 14:00 75 111/67 04/25/20 12:00 97.3 76 20 110/76 (87) 100 Intake and Output 04/26/20 04/27/20 19:00 07:00 Intake Total 1110.0 ml 700 ml Output Total 800 ml Balance 310.0 ml 700 ml Intake Free Water 400 ml 200 ml IV Total 110.0 ml Tube Feeding 600 ml 500 ml Output Urine Total 800 ml Labs Test 04/25/20 06:05 04/26/20 06:00 04/27/20 05:15 White Blood Count 17.5 K/UL (4.8-10.8) 12.1 K/UL (4.8-10.8) 14.8 K/UL (4.8-10.8) Red Blood Count 3.90 M/UL (4.70-6.10) 3.94 M/UL (4.70-6.10) 3.34 M/UL (4.70-6.10) Hemoglobin 10.2 G/DL (14.2-18.0) 10.2 G/DL (14.2-18.0) 8.7 G/DL (14.2-18.0) Hematocrit 32.0 % (42.0-52.0) 32.6 % (42.0-52.0) 27.3 % (42.0-52.0) Mean Corpuscular Volume 82 FL (80-99) 83 FL (80-99) 82 FL (80-99) Mean Corpuscular Hemoglobin 26.1 PG (27.0-31.0) 25.8 PG (27.0-31.0) 26.2 PG (27.0-31.0) Mean Corpuscular Hemoglobin Concent 31.9 G/DL (32.0-36.0) 31.2 G/DL (32.0-36.0) 32.0 G/DL (32.0-36.0) Red Cell Distribution Width 14.6 % (11.6-14.8) 14.5 % (11.6-14.8) 14.9 % (11.6-14.8) Platelet Count 404 K/UL (150-450) 433 K/UL (150-450) 383 K/UL (150-450) Mean Platelet Volume 7.1 FL (6.5-10.1) 6.6 FL (6.5-10.1) 6.8 FL (6.5-10.1) Neutrophils (%) (Auto) % (45.0-75.0) 77.4 % (45.0-75.0) 83.0 % (45.0-75.0) Lymphocytes (%) (Auto) % (20.0-45.0) 15.1 % (20.0-45.0) 8.7 % (20.0-45.0) Monocytes (%) (Auto) % (1.0-10.0) 6.6 % (1.0-10.0) 7.2 % (1.0-10.0) Eosinophils (%) (Auto) % (0.0-3.0) 0.7 % (0.0-3.0) 0.9 % (0.0-3.0) Basophils (%) (Auto) % (0.0-2.0) 0.1 % (0.0-2.0) 0.2 % (0.0-2.0) Differential Total Cells Counted 100 Neutrophils % (Manual) 84 % (45-75) Lymphocytes % (Manual) 12 % (20-45) Monocytes % (Manual) 4 % (1-10) Eosinophils % (Manual) 0 % (0-3) Basophils % (Manual) 0 % (0-2) Band Neutrophils 0 % (0-8) Platelet Estimate Adequate Platelet Morphology Normal Hypochromasia 1+ Anisocytosis 1+ Schistocytes Occasional Height (Feet): 6 Height (Inches): 7.00 Weight (Pounds): 150 Objective General Appearance: combative Neck: supple, ++ngt Cardiovascular: regular rhythm Respiratory/Chest: crackles/rales Abdomen: non tender, soft Extremities: non-tender Josiah Salgado MD Apr 27, 2020 11:27
[2020-04-27 12:00] VITALS: BP 109/86
--- NOTE | 2020-04-27 12:19 | Pulmonology Progress Note ---
Subjective ROS Limited/Unobtainable: Yes Interval Events: none major reported per nursing Constitutional: Denies: fever HEENT: Repors: no symptoms Respiratory: Reports: no symptoms Cardiovascular: Reports: no symptoms Gastrointestinal/Abdominal: Reports: other - s/p PEG Allergies: Coded Allergies: No Known Allergies (Unverified , 04/15/20) All Systems: reviewed and negative except above Objective Last 24 Hour Vital Signs Date Time Temp Pulse Resp B/P (MAP) Pulse Ox O2 Delivery O2 Flow Rate FiO2 04/27/20 09:11 91 102/64 04/27/20 09:00 Nasal Cannula 2.0 04/27/20 08:00 98.2 91 18 102/64 (77) 100 04/27/20 05:00 78 119/74 04/27/20 04:00 97.3 90 19 127/74 (91) 98 04/27/20 00:00 97.4 82 19 127/78 (94) 99 04/26/20 22:17 78 124/74 04/26/20 21:26 Nasal Cannula 2.0 04/26/20 20:00 97.4 85 18 127/74 (91) 100 04/26/20 16:00 97.6 81 20 102/66 (78) 95 04/26/20 13:33 79 126/78 Intake and Output 04/26/20 04/27/20 19:00 07:00 Intake Total 1110.0 ml 700 ml Output Total 800 ml Balance 310.0 ml 700 ml Intake Free Water 400 ml 200 ml IV Total 110.0 ml Tube Feeding 600 ml 500 ml Output Urine Total 800 ml HEENT: atraumatic Respiratory: decreased breath sounds, crackles/rales Cardiovascular: normal rate, regular rhythm Abdomen: soft, non tender Laboratory Tests 04/27/20 05:15: White Blood Count 14.8H, Red Blood Count 3.34L, Hemoglobin 8.7L, Hematocrit 27.3L, Mean Corpuscular Volume 82, Mean Corpuscular Hemoglobin 26.2L, Mean Corpuscular Hemoglobin Concent 32.0, Red Cell Distribution Width 14.9H, Platelet Count 383, Mean Platelet Volume 6.8, Neutrophils (%) (Auto) 83.0H, Lymphocytes (%) (Auto) 8.7L, Monocytes (%) (Auto) 7.2, Eosinophils (%) (Auto) 0.9, Basophils (%) (Auto) 0.2 Current Medications Medications (Trade) Dose Ordered Sig/Chano Route PRN Reason Start Time Stop Time Status Last Admin Dose Admin Acetaminophen (Tylenol) 650 mg Q4H PRN ORAL Temp >100.5 04/15/20 13:15 05/15/20 13:14 04/17/20 09:49 Amlodipine Besylate (Norvasc) 10 mg DAILY ORAL 04/16/20 09:00 05/16/20 08:59 04/27/20 09:11 Aspirin (ASA) 81 mg DAILY ORAL 04/16/20 09:00 05/31/20 08:59 04/27/20 09:11 Atorvastatin Calcium (Lipitor) 10 mg BEDTIME ORAL 04/15/20 21:00 07/14/20 20:59 04/26/20 20:13 Famotidine (Pepcid) 20 mg DAILY ORAL 04/16/20 09:00 07/15/20 08:59 04/27/20 09:12 Labetalol HCl (Normodyne) 200 mg Q8HR ORAL 04/15/20 14:00 05/15/20 13:59 04/27/20 05:00 Magnesium Oxide (Mag-Ox 400mg) 400 mg DAILY ORAL 04/16/20 09:00 05/16/20 08:59 04/27/20 09:12 Mirtazapine (Remeron) 30 mg BEDTIME ORAL 04/15/20 21:00 07/14/20 20:59 04/26/20 20:13 Multivitamins Therapeutic (Therapeutic Multivitamin) 1 ea DAILY ORAL 04/16/20 09:00 05/16/20 08:59 04/27/20 09:12 Piperacillin Sod/ Tazobactam Sod 3.375 gm/Sodium Chloride 110 ml @ 27.5 mls/hr EVERY 8 HOURS IVPB 04/26/20 14:00 05/01/20 13:59 04/27/20 04:59 Assessment/Plan Assessment/Plan 1. COVID-19 pneumonia - s/p dexamethasone - s/p azithromycin, ceftriaxone and IV Vanco - CXR 04/23 improving 2. COPD, oxygen dependent 3. Malnourished -Per primary MD 4. Leukocytosis, likely secondary to #1 5. Renal failure - Recommend IVF 6. Hyperglycemia, - monitor BG - of note, he is on Decadron 7. Increased inflammatory markers - DVT prophylaxis -Agree with heparin 8. Hypoxia; improved - currently saturating at 97% on 2 L nasal cannula - Continue providing supplemental oxygen - Pt is reported to be chronically oxygen dependent due to history of COPD 9. Gram neg dot UTI - s/p IV Vanco - on ceftriaxone failed ST eval; s/p PEG R LE DVT - Now on Eliquis dc pending placement Medically stable for discharge from pulmonary standpoint The care for this patient was discussed with my supervising physician. Time spent for this case was approximately 31 minutes. Bennie Goodrich Apr 27, 2020 12:19
--- NOTE | 2020-04-27 15:09 | NUR ---
*-*DISCHARGE PLANNED*-* PATIENT HAS BEEN ACCEPTED AND WILL BE DISCHARGE BACK TO: [facility] P: [phone] FOR NURSE TO NURSE REPORT ROOM# 118.[facility] TRANSPORTATION SET FOR 1630PM S/W SLY [id number]. S/W PATIENTS SISTER CATRINA FRAGA, WHO IS IN AGREEMENT WITH DISCHARGE PLAN.
[2020-04-27 16:00] VITALS: BP 99/58
--- NOTE | 2020-04-27 16:14 | NUR ---
NURSE NOTES: Called [facility] at: [phone]) report given to Sandy NAQVI. also called patients sister Maggie at [phone]., she is also aware and agreed to d/c plan. IV removed prior to d/c. I will f/u as needed.
--- NOTE | 2020-04-27 17:32 | NUR ---
NURSE NOTES: Given report ambulance crew, IV removed prior to d/c. clamped GT. pt left the floor with no signs of distress or other issues at this time. pt didn't have belongings to give.
[2020-04-28] MEDS ORDERED: Eliquis 5mg tablet ORAL SCH (09:00)
--- NOTE | 2020-04-30 12:36 | Cardiology Report ---
APPROVED REPORT EKG Measurement Heart [id number] <Conclusion> Sinus tachycardia Biatrial enlargement Septal infarct, age undetermined Abnormal ECG
--- NOTE | 2020-04-30 15:30 | Discharge Summary ---
Discharge Summary Discharge Summary _ Date of admission: 04/15/2020 Date of discharge: 04/27/[address] Buitrago History of Present Illness and Brief Hospital Course Mr. De La Rosa is a 69-year-old male with past medical history of CVA with left-sided hemiplegia, muscle wasting, major depressive disorder, and COPD, who was sent to ED from [facility] for evaluation of acute hypoxia. He was reported to be on low-flow oxygen at [facility] chronically secondary to his COPD. Patient had been evaluated by EMS at nursing facility and he was saturating at 94% on 2 L nasal cannula. However, the nursing facility insisted that the patient be transferred to the ER for further evaluation. Patient was also reported to be testing positive for COVID-19 with unknown testing date. The rapid gene assay test for COVID-19 came back positive in the ER. His chest x-ray was remarkable for lower lobe infiltrate. He received IV fluids, Tylenol, dexamethasone, azithromycin, and Rocephin in the ER and was admitted for further observation. For his COVID-19 pneumonia, he was put on respiratory isolation. Dexamethasone, azithromycin, and ceftriaxone were given to the patient. 1 dose of ivermectin was also given. His respiration remained stable on low-flow oxygen throughout his hospitalization. The respiratory isolation was lifted by the time of his discharge. Given elevated inflammatory markers, he was started on heparin. However, on a follow-up venous duplex ultrasound of lower extremities revealed right lower extremity DVT and he was started on Eliquis. The initial urinalysis showed signs of UTI and he was empirically started on IV vancomycin. His urine culture grew gram-negative dot and his antibiotic of choice was transitioned to ceftriaxone. He presented with protein malnutrition and he was started on oral protein. However, few days later he failed swallow evaluation and was placed on PEG for nutrition. Overall, his prognosis remained good during hospitalization. His respirations remained stable on low-flow oxygen and he was treated for UTI and his nutrition was optimized with G-tube feeding. He was medically stable for discharge. He was discharged on 04/27/2020 back to [facility] in stable condition. Consultants: Pulmonology Dr. Lopez Infectious disease Dr. Cassidy Nephrology Dr. Hurley Discharge Condition Improved and stable Final diagnoses Right lower extremity DVT Leukocytosis with sepsis COVID-19 pneumonia Gram-negative dot UTI Bacteremia Acute renal failure Protein malnutrition Hypernatremia History of COPD Elevated D-dimer Left hemiparesis Aphasia Hypoxia I have been assigned to dictate discharge summary for this account. Bennie Goodrich Apr 30, 2020 15:30
== END 2020-04-27 17:45 | DRG 871 ==
LOC: EDBD 03:45 → EMR 04:12 → 2E 04:21 → EDBEDREQ 05:10 → 4E 04-17 16:38
PROC: 0DH63UZ Insertion of Feeding Device into Stomach, Percutaneous Approach (ICD-10-PCS; principal; 2020-04-24 12:48)
DX: A41.89 Other specified sepsis (principal); U07.1 COVID-19; J12.82 Pneumonia due to coronavirus disease 2019; E43 Unspecified severe protein-calorie malnutrition; G93.41 Metabolic encephalopathy; E87.0 Hyperosmolality and hypernatremia; Z68.1 Body mass index [BMI] 19.9 or less, adult; N17.9 Acute kidney failure, unspecified; I69.354 Hemiplegia and hemiparesis following cerebral infarction affecting left non-dominant side; N39.0 Urinary tract infection, site not specified; I82.401 Acute embolism and thrombosis of unspecified deep veins of right lower extremity; F32.9 Major depressive disorder, single episode, unspecified; I69.320 Aphasia following cerebral infarction; E86.0 Dehydration; Z79.82 Long term (current) use of aspirin; J44.9 Chronic obstructive pulmonary disease, unspecified; R73.9 Hyperglycemia, unspecified; R13.10 Dysphagia, unspecified; K29.70 Gastritis, unspecified, without bleeding; K44.9 Diaphragmatic hernia without obstruction or gangrene; B96.89 Other specified bacterial agents as the cause of diseases classified elsewhere; R09.02 Hypoxemia
CPT/HCPCS: 36415; 71045; 74018; 80048; 80053; 80202; 81003; 82043; 82044; 82550; 82570; 82728; 82803; 83605; 83615; 83690; 83735; 83880; 84300; 84484; 85007; 85025; 85379; 85610; 85730; 86140; 87040; 87081; 87086; 87181; 89050; 93005; 93970; 94003; 94150; 96360; 96361; 96365; 96366; 96368; 96372; 96375; 99285; J7030; J8499; U0002

== ENCOUNTER 2020-04-29 12:07 | Inpatient (IN) | payer MEDICARE ==
[~2020-04-29] VITALS: Ht 177.8 cm; Wt 56.7 kg
[~2020-04-29 12:07] MED LIST: ACETAMINOPHEN325 M1 GT; AMLODIPINE BESY10 MG GT; ASPIRIN81 MG GT; ATORVASTATIN CA10 MG ORAL; FAMOTIDINE20 MG GT; HEPARIN SO5000 UNIT2 SUBQ; LABETALOL HCL200 MG GT; LISINOPRIL20 MG GT; MAGNESIUM OXID400 M1 GT; MULTIVITAMINS1 EAC8 ORAL; REMERON30 MG GT
[2020-04-29] MEDS ORDERED: Pantoprazole Inj IVP ONE (12:15)
--- NOTE | 2020-04-29 12:22 | Emergency Room Report ---
History of Present Illness General Chief Complaint: Gastrointestinal Bleed Source: Patient, EMS (Jesus Abebe MD) Present Illness HPI Patient is a 69-year-old male presents for increased rectal bleeding. Patient had onset of symptoms yesterday. Patient had diminished oxygen saturation when being transported was started on supplemental oxygen. Apparently had increased bright red blood per rectum. Patient had recently been diagnosed with coronavirus infection. Patient is currently taking subcu heparin as well as baby aspirin. History is markedly limited by patient's mental status. 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 COVID-19 Screening: Positive COVID-19 COVID-19 Testing Source: AIR CONDITIONING MECHANIC, 04/11 (Jesus Abebe MD) Patient History Past Medical History: see triage record Reviewed Nursing Documentation: PMH: Agreed; PSxH: Agreed (Jesus Abebe MD) Nursing Documentation-PMH Past Medical History: No History, Except For Hx Hypertension: Yes Hx Diabetes: Yes Hx Cerebrovascular Accident: Yes - hemiplegia, hemiparesis (Jesus Abebe MD) Review of Systems All Other Systems: negative except mentioned in HPI (Jesus Abebe MD) Physical Exam Vital Signs Date Time Temp Pulse Resp B/P (MAP) Pulse Ox O2 Delivery O2 Flow Rate FiO2 04/29/20 12:08 98.8 100 18 90/60 (70) 98 Nasal Cannula 8.0 Sp02 EP Interpretation: reviewed, normal General Appearance: normal inspection, Chronically Ill Head: atraumatic ENT: dry mucus membranes Neck: supple, no bony tend, limited range of motion Respiratory: normal inspection, normal breath sounds, no respiratory distress, no retraction, no wheezing Cardiovascular #1: regular rate, rhythm, no edema Gastrointestinal: normal inspection, normal bowel sounds, non tender, soft, no guarding, no hernia Genitourinary: no CVA tenderness Musculoskeletal: normal inspection, back normal, normal range of motion Neurologic: alert, motor weakness Psychiatric: normal inspection, judgement/insight normal, mood/affect normal (Jesus Abebe MD) Procedures Critical Care Time Critical Care Time Patient had a critical medical condition which untreated could potentially result in life or limb threatening injury. Total critical care time excluding procedures approximately 45 minutes. (Jesus Abebe MD) Medical Decision Making Diagnostic Impression: Primary Impression: Acute GI bleeding Additional Impressions: COVID-19 virus detected Left hemiparesis Anemia ER Course Patient presented for GI bleeding. Differential diagnosis include was not limited to anemia, coagulopathy, diverticulosis, ulcer disease among others. Because of complexity of patient's case laboratory tests and imaging studies were ordered. Patient noted be initially hypotensive. He was started on IV fluids. Patient given IV Protonix. Patient family members were consented for blood transfusion. Patient was noted to be full code. Patient be admitted to ICU for further monitoring and treatment of acute GI bleed. Dr. Luis Buitrago was contacted for inpatient management due to primary care physician. Dr. Aguilar was contacted for GI consult. Labs Test 04/29/20 12:20 White Blood Count 15.8 K/UL (4.8-10.8) Red Blood Count 2.14 M/UL (4.70-6.10) Hemoglobin 5.6 G/DL (14.2-18.0) Hematocrit 17.7 % (42.0-52.0) Mean Corpuscular Volume 82 FL (80-99) Mean Corpuscular Hemoglobin 26.3 PG (27.0-31.0) Mean Corpuscular Hemoglobin Concent 31.9 G/DL (32.0-36.0) Red Cell Distribution Width 14.5 % (11.6-14.8) Platelet Count 324 K/UL (150-450) Mean Platelet Volume 6.8 FL (6.5-10.1) Neutrophils (%) (Auto) % (45.0-75.0) Lymphocytes (%) (Auto) % (20.0-45.0) Monocytes (%) (Auto) % (1.0-10.0) Eosinophils (%) (Auto) % (0.0-3.0) Basophils (%) (Auto) % (0.0-2.0) Prothrombin Time 11.4 SEC (9.30-11.50) Prothromb Time International Ratio 1.0 (0.9-1.1) Activated Partial Thromboplast Time 23 SEC (23-33) D-Dimer 1.31 mg/L FEU (0.00-0.49) Lactic Acid Level 1.90 mmol/L (0.4-2.0) Troponin I 0.002 ng/mL (0.000-0.056) (Jesus Abebe MD) ER Course Please see above note. Patient received 1 unit of O- blood. Tolerated well. Patient never hypotensive and not tachycardic. Patient received second unit of type and crossed blood. Tolerated well. No evidence of active bleeding at this time however respect observation in ICU. (Johnny Ruvalcaba MD) EKG Diagnostic Results Rate: normal Rhythm: NSR ST Segments: no acute changes (Jesus Abebe MD) Rhythm Strip Diag. Results EP Interpretation: yes Rhythm: NSR, no PVC's, no ectopy (Johnny Ruvalcaba MD) Last Vital Signs Date Time Temp Pulse Resp B/P (MAP) Pulse Ox O2 Delivery O2 Flow Rate FiO2 04/29/20 12:08 98.8 100 18 90/60 (70) 98 Nasal Cannula 8.0 Status: unchanged (Jesus Abebe MD) Last Vital Signs Date Time Temp Pulse Resp B/P (MAP) Pulse Ox O2 Delivery O2 Flow Rate FiO2 04/29/20 18:54 97.5 87 12 112/60 98 Nasal Cannula 6.0 Status: improved (Johnny Ruvalcaba MD) Disposition: ADMITTED INPATIENT Condition: Critical Jesus Abebe MD Apr 29, 2020 12:21 Johnny Ruvalcaba MD Apr 29, 2020 19:16
[2020-04-29 12:49] LABS: HEMATOCRIT 17.7 % (42.0-52.0); MEAN CORPUSCULAR VOLUME 82 FL (80-99); PLATELET COUNT 324 K/UL (150-450); RED BLOOD COUNT 2.14 M/UL (4.70-6.10); RED CELL DISTRIBUTION WIDTH 14.5 % (11.6-14.8); WHITE BLOOD COUNT 15.8 K/UL (4.8-10.8)
[2020-04-29 12:56] LABS: HEMOGLOBIN 5.6 G/DL (14.2-18.0)
[2020-04-29 13:23] VITALS: BP 122/80
[2020-04-29 13:26] LABS: ALANINE AMINOTRANSFERASE 71 U/L (12-78); ALBUMIN 2.3 G/DL (3.4-5.0); ALBUMIN/GLOBULIN RATIO 0.6 (1.0-2.7); ALKALINE PHOSPHATASE 60 U/L (46-116); ASPARTATE AMINO TRANSFERASE 36 U/L (15-37); BILIRUBIN,TOTAL 0.1 MG/DL (0.2-1.0); BLOOD UREA NITROGEN 51 mg/dL (7-18); CALCIUM 9.1 MG/DL (8.5-10.1); CARBON DIOXIDE 31 MMOL/L (21-32); CHLORIDE 111 MMOL/L (98-107); CKMB < 0.5 NG/ML (0.0-3.6); CREATINE KINASE 249 U/L (26-308); CREATININE 1.1 MG/DL (0.55-1.30); FERRITIN 325 NG/ML (8-388); LACTATE DEHYDROGENASE 180 U/L (81-234); PHOSPHORUS 2.8 MG/DL (2.5-4.9); POTASSIUM 4.2 MMOL/L (3.5-5.1); SODIUM 147 MMOL/L (136-145)
--- NOTE | 2020-04-29 13:26 | NUR ---
ED Nurse Note:pt. was BIBA from SNF with rectal bleeding, VSS, pt. is lethargic on arrival , blood sen to labs, he had bloody diahrrea
--- NOTE | 2020-04-29 13:50 | NUR ---
ED Nurse Note:started blood transfusion, pt's condition is stable, blood verified by 2 RN, nose and rectal swabs are done, pt's skin is intact
[2020-04-29 13:59] VITALS: BP 125/74
[2020-04-29 14:00] LABS: ANION GAP 5 mmol/L (5-15)
--- NOTE | 2020-04-29 14:07 | Diagnostic Imaging Report ---
Indication: Cough Technique: One view of the chest Comparison: 04/23/2020 Findings: Interim nasogastric tube removal. Persistent right basilar infiltrate. Left lung and bilateral pleural spaces remain clear. Impression: Interim nasogastric tube removal. Otherwise no change since prior study
[2020-04-29 14:09] LABS: APPEARANCE,URINE CLEAR; BILIRUBIN, URINE NEGATIVE (NEGATIVE); COLOR,URINE PALE YELLOW; GLUCOSE, URINE (UA) NEGATIVE (NEGATIVE); KETONES,URINE NEGATIVE (NEGATIVE); LEUKOCYTE ESTERASE ,URINE NEGATIVE (NEGATIVE); NITRITE,URINE NEGATIVE (NEGATIVE); PH,URINE 6 (4.5-8.0); PROTEIN,URINE NEGATIVE (NEGATIVE); UROBILINOGEN,URINE NORMAL MG/DL (0.0-1.0)
[2020-04-29 14:58] VITALS: BP 100/53
--- NOTE | 2020-04-29 15:28 | General Progress Note ---
Subjective ROS Limited/Unobtainable: No Allergies: Coded Allergies: No Known Allergies (Unverified , 04/15/20) Objective Last 24 Hour Vital Signs Date Time Temp Pulse Resp B/P (MAP) Pulse Ox O2 Delivery O2 Flow Rate FiO2 04/29/20 14:58 97.5 95 17 100/53 97 Nasal Cannula 6.0 04/29/20 13:59 97.5 81 14 125/74 98 Nasal Cannula 4.0 04/29/20 13:23 88 14 Nasal Cannula 8.0 04/29/20 13:23 98.8 88 14 122/80 98 Nasal Cannula 8.0 04/29/20 12:08 98.8 100 18 90/60 (70) 98 Nasal Cannula 8.0 Laboratory Tests 04/29/20 12:20: White Blood Count 15.8H, Red Blood Count 2.14L, Hemoglobin 5.6*L, Hematocrit 17.7L, Mean Corpuscular Volume 82, Mean Corpuscular Hemoglobin 26.3L, Mean Corpuscular Hemoglobin Concent 31.9L, Red Cell Distribution Width 14.5, Platelet Count 324, Mean Platelet Volume 6.8, Neutrophils (%) (Auto) , Lymphocytes (%) (Auto) , Monocytes (%) (Auto) , Eosinophils (%) (Auto) , Basophils (%) (Auto) , Differential Total Cells Counted 100, Neutrophils % (Manual) 82H, Lymphocytes % (Manual) 12L, Monocytes % (Manual) 5, Eosinophils % (Manual) 1, Basophils % (Manual) 0, Band Neutrophils 0, Platelet Estimate Adequate, Platelet Morphology Normal, Hypochromasia 2+, Anisocytosis 1+, Schistocytes Rare, Prothrombin Time 11.4, Prothromb Time International Ratio 1.0, Activated Partial Thromboplast Time 23, D-Dimer 1.31H, Sodium Level 147H, Potassium Level 4.2, Chloride Level 111H, Carbon Dioxide Level 31, Anion Gap 5, Blood Urea Nitrogen 51H, Creatinine 1.1, Estimat Glomerular Filtration Rate > 60, Glucose Level 130H, Lactic Acid Level 1.90, Calcium Level 9.1, Phosphorus Level 2.8, Magnesium Level 2.1, Ferritin 325, Total Bilirubin 0.1L, Aspartate Amino Transf (AST/SGOT) 36, Alanine Aminotransferase (ALT/SGPT) 71, Alkaline Phosphatase 60, Lactate Dehydrogenase 180, Total Creatine Kinase 249, Creatine Kinase MB < 0.5, Creatine Kinase MB Relative Index 0.2, Troponin I 0.002, C-Reactive Protein, Quantitative 7.1H, Pro-B-Type Natriuretic Peptide 159H, Total Protein 6.4, Albumin 2.3L, Globulin 4.1, Albumin/Globulin Ratio 0.6L, Lipase 229 04/29/20 13:58: Urine Color Pale yellow, Urine Appearance Clear, Urine pH 6, Urine Specific [place] 1.010, Urine Protein Negative, Urine Glucose (UA) Negative, Urine Ketones Negative, Urine Blood Negative, Urine Nitrite Negative, Urine Bilirubin Negative, Urine Urobilinogen Normal, Urine Leukocyte Esterase Negative Height (Feet): 5 Height (Inches): 10.00 Weight (Pounds): 180 General Appearance: no apparent distress EENT: normal ENT inspection Neck: supple Cardiovascular: normal rate Respiratory/Chest: decreased breath sounds Abdomen: normal bowel sounds, non tender, soft Extremities: non-tender Assessment/Plan Problem List: (1) COVID-19 virus detected ICD Codes: U07.1 - COVID-19 SNOMED: 8744516568423813 (2) Left hemiparesis ICD Codes: G81.94 - Hemiplegia, unspecified affecting left nondominant side SNOMED: 480039904 (3) Acute GI bleeding ICD Codes: K92.2 - Gastrointestinal hemorrhage, unspecified SNOMED: 75354140 (4) Right lower lobe pneumonia ICD Codes: J18.9 - Pneumonia, unspecified organism SNOMED: 297721819 (5) Aphasia ICD Codes: R47.01 - Aphasia SNOMED: 42306250 Assessment/Plan: recent peg GIB npo ivf blood transfusion plan colonoscopy anf if needed EGD for tomorrow Rich Aguilar MD Apr 29, 2020 15:28
[2020-04-29] MEDS ORDERED: Golytely 4L ORAL SCH (16:00)
--- NOTE | 2020-04-29 16:00 | NUR ---
ED Nurse Note:started transfusing second blood unit
[2020-04-29 16:07] VITALS: BP 99/66
--- NOTE | 2020-04-29 18:46 | NUR ---
NURSE NOTES: Received Report from ED Cherelle RN,patient on blood transfusion
--- NOTE | 2020-04-29 18:53 | NUR ---
ED Nurse Note:called report to SDU, given to Mitzi GRUBBS
[2020-04-29 18:54] VITALS: BP 112/60
--- NOTE | 2020-04-29 19:00 | NUR ---
ED Nurse Note:called report to SDU, given to Mitzi GRUBBS, pt. was taken up stairs Addendum: 04/29/20 at 1917 by SAMUEL wrong pt
--- NOTE | 2020-04-29 19:20 | NUR ---
NURSE NOTES: Received patient from ER under the care of Dr. Buitrago for the admitting dx. of GI bleed. Noted NKA and Full code status. Fall, aspiration precaution, and isolation precautions observed and maintained at all times. Patient is NPO. Tolerating O2 settings well. Finishing the 2nd bag of PRBC from ER. Will continue to monitor.
[2020-04-29 20:00] VITALS: BP 106/63
--- NOTE | 2020-04-29 21:00 | NUR ---
NURSE NOTES: Patient on NC, noted without humidifier. RT placed humidifier for patient. Patient remains calm. Will continue to monitor.
[2020-04-29] MEDS ORDERED: Morphine Sulfate 4mg/ml Inj (IV USE ONLY) IVP PRN (22:00)
[2020-04-29] MEDS ORDERED: LORazepam Inj 2mg/ml 1ml IV PRN (22:00)
[2020-04-30] VITALS: BP 100/93
--- NOTE | 2020-04-30 | NUR ---
NURSE NOTES: Patient noted with diarrhea, stool collected and sent to lab. Patient in calm disposition.
[2020-04-30] MEDS ORDERED: Golytely 4L ORAL SCH (03:00)
--- NOTE | 2020-04-30 03:00 | NUR ---
NURSE NOTES: Patient started on go-lytely for procedure in afternoon. Will continue to monitor.
[2020-04-30 04:00] VITALS: BP 113/70
[2020-04-30 06:05] LABS: BASOPHILS % (AUTO) 0.9 % (0.0-2.0); EOSINOPHILS % (AUTO) 0.8 % (0.0-3.0); HEMATOCRIT 23.8 % (42.0-52.0); HEMOGLOBIN 8.1 G/DL (14.2-18.0); LYMPHOCYTES % (AUTO) 15.5 % (20.0-45.0); MEAN CORPUSCULAR VOLUME 85 FL (80-99); MONOCYTES % (AUTO) 8.1 % (1.0-10.0); NEUTROPHILS % (AUTO) 74.8 % (45.0-75.0); PLATELET COUNT 216 K/UL (150-450); RED BLOOD COUNT 2.81 M/UL (4.70-6.10); RED CELL DISTRIBUTION WIDTH 13.4 % (11.6-14.8); WHITE BLOOD COUNT 14.3 K/UL (4.8-10.8)
[2020-04-30 06:53] LABS: ANION GAP 10 mmol/L (5-15); BLOOD UREA NITROGEN 53 mg/dL (7-18); CALCIUM 8.8 MG/DL (8.5-10.1); CARBON DIOXIDE 26 MMOL/L (21-32); CHLORIDE 115 MMOL/L (98-107); POTASSIUM 3.7 MMOL/L (3.5-5.1); SODIUM 150 MMOL/L (136-145)
--- NOTE | 2020-04-30 07:15 | NUR ---
NURSE HAND-OFF REPORT: Important Events on Shift:Admitted to Unit Patient Status: Stable Diet: NPO Pending Orders: Pending Results/Labs: Pending MD notification: Latest Vital Signs: Temperature 97.8 , Pulse 79 , B/P 113 /70 , Respiratory Rate 20 , O2 SAT 94 , Nasal Cannula, O2 Flow Rate 6.0 . Vital Sign Comment: WNL EKG Rhythm: Sinus Tachycardia Rhythm change?: N MD Notified?: - MD Response: Latest [place] Fall Score: 70 Fall Risk: High Risk Safety Measures: Call light Within Reach, Bed Alarm Zone 1, Side Rails Side Rails x3, Bed position Low and Locked. Fall Precautions: Yellow Socks Yellow Gown Report given to ROMIE Casanova.
--- NOTE | 2020-04-30 07:20 | NUR ---
NURSE NOTES: Received patient in bed, opens eyes but does not track. O2 via NC at 6LPM with humidifier in place, no acute distress. Gtube intact, infusing golytely. IV lines intact and patent. For consent for EGD and colonoscopy today. HOB elevated. Bed locked in low position. Call light within reach. Will continue plan of care.
--- NOTE | 2020-04-30 07:42 | NUR ---
NURSE NOTES: Still for consent for EGD and colonoscopy. RN contacted family but did not apple picker, left message, awaiting callback.
[2020-04-30 08:00] VITALS: BP 109/80
[2020-04-30] MEDS: Pantoprazole Inj IVP SCH (08:55)
[2020-04-30] MEDS: Magnesium Oxide 400mg tab ORAL SCH (09:00)
[2020-04-30] MEDS: Multivitamins W/Minerals 15 ML UDC ORAL SCH (09:00)
[2020-04-30] MEDS: Lisinopril 20mg tab ORAL SCH (09:00)
--- NOTE | 2020-04-30 10:36 | NUR ---
RD ASSESSMENT & RECOMMENDATIONS SEE CARE ACTIVITY FOR COMPLETE ASSESSMENT DAILY ESTIMATED NEEDS: Needs based on Pulmonary, suspected wt loss, underweight 60kg 30-35 kcals/kg 3934-5084 total kcals 1-1.5 g protein/kg 60-90 g total protein 25-30 mL/kg 6902-6672 total fluid mLs NUTRITION DIAGNOSIS: * Swallowing difficulty R/T dysphagia as evidenced by PEG dep. * Increased kcal/prot needs R/T suspected wt loss and underweight status as evidenced by suspected significant wt loss of 9lbs/6.4% in 1 mo, pt @ 77% IBW w/ low BMI per guidelines. CURRENT TF:NPO ENTERAL NUTRITION RECOMMENDATIONS: Glucerna 1.2 @ 65ml/hr x 24 hrs to provide 1560ml, 1872kcal, 94g prot, 1256ml free water * As medically appropriate, initiate carb controlled TF formula given h/o DM * Initiate Glucerna 1.2 @ 20ml/hr x 6hrs * Advance 10ml q 4-6 hrs as tolerated to goal * HOB over 30 degrees/ water flush per MD ADDITIONAL RECOMMENDATIONS: * calibrated bedscale wt * Monitor BGs w/ TF initiation, need for hypoglycemics: h/o DM * Monitor lytes, replete as needed * Rec WC eval: pt w/ nonblanchable sacral wound last adm none noted at this time. . .
--- NOTE | 2020-04-30 10:37 | NUR ---
CASE MANAGEMENT:REVIEW 69 YR OLD MALE BIBA FROM [facility] CC: BLOOD STOOL PMH: COVID (+) SI: ACUTE GIB. COVID POSITIVE 98.7 100 18 90/60 98% ON 8L/NC WBC+15.8 H/H-5.6/17.7 IS: 1L NS BOLUS IV PROTONIX IV LASIX TRANSFUSE 2 UNITS PRBC'S CXR NOVEL COVID : TO STEP DOWN UNIT DCP: FROM SNF PLAN: COLONOSCOPY
--- NOTE | 2020-04-30 10:49 | NUR ---
NURSE NOTES: GI lab called informing RN that Dr Aguilar is cancelling EGD and colonoscopy today, to be done tomorrow. To keep patient NPO post midnight.
--- NOTE | 2020-04-30 11:38 | General Progress Note ---
Subjective ROS Limited/Unobtainable: No Allergies: Coded Allergies: No Known Allergies (Unverified , 04/15/20) Objective Last 24 Hour Vital Signs Date Time Temp Pulse Resp B/P (MAP) Pulse Ox O2 Delivery O2 Flow Rate FiO2 04/30/20 08:00 6.0 04/30/20 08:00 Nasal Cannula 6.0 04/30/20 08:00 97.7 88 18 109/80 (90) 99 04/30/20 07:46 76 04/30/20 04:00 79 04/30/20 04:00 6.0 04/30/20 04:00 97.8 84 20 113/70 (84) 94 04/30/20 04:00 Nasal Cannula 6.0 04/30/20 00:00 6.0 04/30/20 00:00 Nasal Cannula 6.0 04/30/20 00:00 98.1 95 19 100/93 (95) 93 04/29/20 20:47 Nasal Cannula 6.0 04/29/20 20:09 101 04/29/20 20:00 97.9 88 20 106/63 (77) 99 04/29/20 19:00 97.5 87 12 112/60 98 Nasal Cannula 6.0 04/29/20 18:54 97.5 87 12 112/60 98 Nasal Cannula 6.0 04/29/20 16:07 97.5 91 17 99/66 98 Nasal Cannula 6.0 04/29/20 14:58 97.5 95 17 100/53 97 Nasal Cannula 6.0 04/29/20 13:59 97.5 81 14 125/74 98 Nasal Cannula 4.0 04/29/20 13:23 88 14 Nasal Cannula 8.0 04/29/20 13:23 98.8 88 14 122/80 98 Nasal Cannula 8.0 04/29/20 12:08 98.8 100 18 90/60 (70) 98 Nasal Cannula 8.0 Intake and Output 04/29/20 04/30/20 19:00 07:00 Intake Total 2500 ml Output Total 100 ml 800 ml Balance -100 ml 1700 ml Intake Other 2500 ml Output Urine Total 100 ml 800 ml # Bowel Movements 2 7 Laboratory Tests 04/29/20 12:20: White Blood Count 15.8H, Red Blood Count 2.14L, Hemoglobin 5.6*L, Hematocrit 17.7L, Mean Corpuscular Volume 82, Mean Corpuscular Hemoglobin 26.3L, Mean Corpuscular Hemoglobin Concent 31.9L, Red Cell Distribution Width 14.5, Platelet Count 324, Mean Platelet Volume 6.8, Neutrophils (%) (Auto) , Lymphocytes (%) (Auto) , Monocytes (%) (Auto) , Eosinophils (%) (Auto) , Basophils (%) (Auto) , Differential Total Cells Counted 100, Neutrophils % (Manual) 82H, Lymphocytes % (Manual) 12L, Monocytes % (Manual) 5, Eosinophils % (Manual) 1, Basophils % (Manual) 0, Band Neutrophils 0, Platelet Estimate Adequate, Platelet Morphology Normal, Hypochromasia 2+, Anisocytosis 1+, Schistocytes Rare, Prothrombin Time 11.4, Prothromb Time International Ratio 1.0, Activated Partial Thromboplast Time 23, D-Dimer 1.31H, Sodium Level 147H, Potassium Level 4.2, Chloride Level 111H, Carbon Dioxide Level 31, Anion Gap 5, Blood Urea Nitrogen 51H, Creatinine 1.1, Estimat Glomerular Filtration Rate > 60, Glucose Level 130H, Lactic Acid Level 1.90, Calcium Level 9.1, Phosphorus Level 2.8, Magnesium Level 2.1, Ferritin 325, Total Bilirubin 0.1L, Aspartate Amino Transf (AST/SGOT) 36, Alanine Aminotransferase (ALT/SGPT) 71, Alkaline Phosphatase 60, Lactate Dehydrogenase 180, Total Creatine Kinase 249, Creatine Kinase MB < 0.5, Creatine Kinase MB Relative Index 0.2, Troponin I 0.002, C-Reactive Protein, Quantitative 7.1H, Pro-B-Type Natriuretic Peptide 159H, Total Protein 6.4, Albumin 2.3L, Globulin 4.1, Albumin/Globulin Ratio 0.6L, Lipase 229 04/29/20 13:58: Urine Color Pale yellow, Urine Appearance Clear, Urine pH 6, Urine Specific [place] 1.010, Urine Protein Negative, Urine Glucose (UA) Negative, Urine Ketones Negative, Urine Blood Negative, Urine Nitrite Negative, Urine Bilirubin Negative, Urine Urobilinogen Normal, Urine Leukocyte Esterase Negative 04/30/20 01:40: Stool Occult Blood Negative 04/30/20 05:03: White Blood Count 14.3H, Red Blood Count 2.81L, Hemoglobin 8.1#L, Hematocrit 23.8#L, Mean Corpuscular Volume 85, Mean Corpuscular Hemoglobin 28.8, Mean Corpuscular Hemoglobin Concent 34.0, Red Cell Distribution Width 13.4, Platelet Count 216, Mean Platelet Volume 6.9, Neutrophils (%) (Auto) 74.8, Lymphocytes (%) (Auto) 15.5L, Monocytes (%) (Auto) 8.1, Eosinophils (%) (Auto) 0.8, Basophils (%) (Auto) 0.9, Sodium Level 150H, Potassium Level 3.7, Chloride Level 115H, Carbon Dioxide Level 26, Anion Gap 10, Blood Urea Nitrogen 53H, Creatinine 1.0, Estimat Glomerular Filtration Rate > 60, Glucose Level 85, Calcium Level 8.8 Height (Feet): 5 Height (Inches): 10.00 Weight (Pounds): 125 General Appearance: lethargic EENT: normal ENT inspection Neck: supple Cardiovascular: normal rate Respiratory/Chest: decreased breath sounds Abdomen: normal bowel sounds, non tender, soft Extremities: non-tender Assessment/Plan Problem List: (1) COVID-19 virus detected ICD Codes: U07.1 - COVID-19 SNOMED: 5696599507983024 (2) Left hemiparesis ICD Codes: G81.94 - Hemiplegia, unspecified affecting left nondominant side SNOMED: 117896871 (3) Acute GI bleeding ICD Codes: K92.2 - Gastrointestinal hemorrhage, unspecified SNOMED: 05564459 (4) Right lower lobe pneumonia ICD Codes: J18.9 - Pneumonia, unspecified organism SNOMED: 179993155 (5) Aphasia ICD Codes: R47.01 - Aphasia SNOMED: 96029195 Assessment/Plan: recent peg GIB npo ivf blood transfusion plan colonoscopy , reschedule for tomorrow given not clean Rich Aguilar MD Apr 30, 2020 11:38
[2020-04-30 11:39] VITALS: BP 129/71
[2020-04-30] MEDS ORDERED: Magnesium Citrate Liq Btl GT ONE (12:30)
--- NOTE | 2020-04-30 14:09 | NUR ---
NURSE NOTES: Spoke to Dr Aguilar this morning, aware that patient's BM is not clear. Dr Aguilar with orders for Mg Citrate via Gtube, noted and carried out. Patient's BM now slightly thinner in consistency than this am, cranberry-colored. Patient hitting nurses during patient care, also being verbally aggressive, saying "Mother fucker" at the nurses during incontinence care.
--- NOTE | 2020-04-30 14:40 | NUR ---
NURSE NOTES: Patient's EGD colonoscopy rescheduled for tomorrow.
[2020-04-30 16:00] VITALS: BP 108/66
--- NOTE | 2020-04-30 16:43 | Diagnostic Imaging Report ---
EXAM: ULTRASOUND Venous Duplex Scan Sanjay Leg CLINICAL HISTORY: Leg pain and edema. COMPARISON: None TECHNIQUE: Doppler examination include grayscale images obtained with and without compression, and color and spectral doppler analysis. FINDINGS: Doppler examination shows normal spontaneity, phasicity, compressibility in the left lower extremity. There is no thrombus identified by grayscale. Normal color and spectral flow is identified. There is no evidence of valvular incompetency or insufficiency. In the right lower extremity, there is some peripheral wall thickening noted involving the common femoral, superficial femoral and popliteal veins which may be sequela of old DVT. No luminal filling defect seen presently and there is color and spectral flow demonstrated. IMPRESSION: NO EVIDENCE OF ACUTE DVT. POSSIBLE SEQUELA OF OLD DVT RIGHT LOWER EXTREMITY.
--- NOTE | 2020-04-30 16:59 | General Progress Note ---
Subjective Allergies: Coded Allergies: No Known Allergies (Unverified , 04/15/20) Subjective non verabal bed bound actively rectal bleding Objective Last 24 Hour Vital Signs Date Time Temp Pulse Resp B/P (MAP) Pulse Ox O2 Delivery O2 Flow Rate FiO2 04/30/20 16:00 71 04/30/20 12:06 74 129/71 04/30/20 11:47 72 04/30/20 11:43 6.0 04/30/20 11:41 Nasal Cannula 6.0 04/30/20 11:39 97.5 74 18 129/71 (90) 100 04/30/20 08:00 6.0 04/30/20 08:00 Nasal Cannula 6.0 04/30/20 08:00 97.7 88 18 109/80 (90) 99 04/30/20 07:46 76 04/30/20 04:00 79 04/30/20 04:00 6.0 04/30/20 04:00 97.8 84 20 113/70 (84) 94 04/30/20 04:00 Nasal Cannula 6.0 04/30/20 00:00 6.0 04/30/20 00:00 Nasal Cannula 6.0 04/30/20 00:00 98.1 95 19 100/93 (95) 93 04/29/20 20:47 Nasal Cannula 6.0 04/29/20 20:09 101 04/29/20 20:00 97.9 88 20 106/63 (77) 99 04/29/20 19:00 97.5 87 12 112/60 98 Nasal Cannula 6.0 04/29/20 18:54 97.5 87 12 112/60 98 Nasal Cannula 6.0 Intake and Output 04/29/20 04/30/20 19:00 07:00 Intake Total 2500 ml Output Total 100 ml 800 ml Balance -100 ml 1700 ml Intake Other 2500 ml Output Urine Total 100 ml 800 ml # Bowel Movements 2 7 Laboratory Tests 04/30/20 01:40: Stool Occult Blood Negative 04/30/20 05:03: White Blood Count 14.3H, Red Blood Count 2.81L, Hemoglobin 8.1#L, Hematocrit 23.8#L, Mean Corpuscular Volume 85, Mean Corpuscular Hemoglobin 28.8, Mean Corpuscular Hemoglobin Concent 34.0, Red Cell Distribution Width 13.4, Platelet Count 216, Mean Platelet Volume 6.9, Neutrophils (%) (Auto) 74.8, Lymphocytes (%) (Auto) 15.5L, Monocytes (%) (Auto) 8.1, Eosinophils (%) (Auto) 0.8, Basophils (%) (Auto) 0.9, Sodium Level 150H, Potassium Level 3.7, Chloride Level 115H, Carbon Dioxide Level 26, Anion Gap 10, Blood Urea Nitrogen 53H, Creatinine 1.0, Estimat Glomerular Filtration Rate > 60, Glucose Level 85, Calcium Level 8.8 Height (Feet): 5 Height (Inches): 10.00 Weight (Pounds): 125 General Appearance: lethargic Neck: supple Cardiovascular: regular rhythm Respiratory/Chest: normal breath sounds Abdomen: soft, no mass Extremities: non-tender Assessment/Plan Assessment/Plan: lgi bleeding anemia covid 19 pna dm ac renal failure transfuse 1 u prbc gi oscar tomorrow npo, ivf Dedrick Buitrago MD Apr 30, 2020 16:59
--- NOTE | 2020-04-30 18:43 | NUR ---
NURSE HAND-OFF REPORT: Important Events on Shift: EGD and colonoscopy rescheduled for tomorrow. BM cranberry colored, thin consistency. For BT 1 unit PRBC once available. Patient Status: awake, able to curse at nurses, noted to be hitting and grabbing nurses during incontinence care Diet: npo post midnight Pending Orders: EGD and colonoscopy Pending Results/Labs: Pending MD notification:[] Latest Vital Signs: Temperature 97.5 , Pulse 72 , B/P 108 /66 , Respiratory Rate 18 , O2 SAT 98 , Nasal Cannula, O2 Flow Rate 6.0 . Vital Sign Comment: [] EKG Rhythm: Sinus Rhythm Rhythm change?: N MD Notified?: - MD Response: Latest [place] Fall Score: 70 Fall Risk: High Risk Safety Measures: Call light Within Reach, Bed Alarm Zone 1, Side Rails Side Rails x3, Bed position Low and Locked. Fall Precautions: Yellow Socks Yellow Gown Addendum: 04/30/20 at 1941 by Jocelyne Bartlett RN NURSE NOTES: Report given to Princess GRUBBS Addendum: 04/30/20 at 1942 by Jocelyne Bartlett RN NURSE NOTES: Spoke to Dr Aguilar to clarify IVF, said to continue present IVF.
--- NOTE | 2020-04-30 19:25 | NUR ---
NURSE NOTES: Per Am Nurse Jocelyne, Contacted Dr. Aguilar and made him aware that pt has NA- 150 and Continue IVF as ordered, no need to switch to Dextrose inspite of NPO MN.
--- NOTE | 2020-04-30 19:25 | NUR ---
NURSE NOTES: Received report from Jocelyne RN. Pt is seen lying in bed in semi- linton's position. pt is alert x 1 to name, pt mumbles and garbles. Pt is attached to NC at 6L with humidifier , o2 sat -96%. pt on NPO post MN, with RAC g 18 running 1/2 NS at 75nml/ hr, per Lauren Valles no need to change the IVF to dextrose. Sodium is 150- Dr. Sawyer and Lauren aware per ROMIE Casanova. With Awad draining yellow urine intact and patent. For PRBC per Dr. sawyer, will go to lab to warp picker blood. BP- 99/64, no fever noted. No respiratory distress. Pt denies pain. Bed in lowest position, call light within reach. Continue to plan of care.
[2020-04-30 20:00] VITALS: BP 99/54
[2020-04-30] MEDS: Atorvastatin 20mg tab ORAL SCH (21:00)
--- NOTE | 2020-04-30 21:00 | NUR ---
NURSE NOTES: Transfusion form noted and co signed by Ashly Miller.Started Blood transfusion, pre- transfusion VS noted. BP :99/64, Temp- 96.6. Will continue to monitor.
--- NOTE | 2020-04-30 21:15 | NUR ---
NURSE NOTES: VS noted, BP: 94/64, o2 sat- 100%, temp- 96.6. No transfusion reaction noted.
[2020-04-30] MEDS ORDERED: 1/2 NS 1000ml IV ONE (22:38)
--- NOTE | 2020-04-30 23:07 | NUR ---
NURSE NOTES: Per Dr. Easton he will write a progress notes, that we are unable to contact family.
--- NOTE | 2020-04-30 23:29 | NUR ---
NURSE NOTES: Transfusion ended. NO post transfusion reaction.
[2020-05-01] VITALS (12 sets, daily range): BP systolic 70–136; BP diastolic 39–89
--- NOTE | 2020-05-01 02:57 | NUR ---
NURSE NOTES: Cleaned pt, noted dark tarry stool smear. Sponge bath given. Bed in lowest position, call light within reach. Continue to plan care. O2 sat- 100%.
--- NOTE | 2020-05-01 04:00 | NUR ---
NURSE NOTES: Pt is sleeping, tolerating NC at 6L - o2 sat- 100%.
--- NOTE | 2020-05-01 06:06 | NUR ---
NURSE NOTES: Noted cold clammy and pt having tremors. Checked BS- 57mg/dl. Informed >Dr sawyer right away, orders given and carried out. D50 given as ordered.
[2020-05-01] MEDS: D5 1/2NS 1,000 ML IV SCH ×2 (06:09→20:53)
--- NOTE | 2020-05-01 06:11 | NUR ---
NURSE NOTES: Dr. Buitrago aware of positive gram cocci in cluster, NNO at this , No ID consult at this time.
--- NOTE | 2020-05-01 06:21 | NUR ---
NURSE NOTES: Rechecked BS - 104mg/dl .pt is awake and combative.
--- NOTE | 2020-05-01 07:00 | NUR ---
NURSE HAND-OFF REPORT: Important Events on Shift: s/p PRBC x 1, blood glucose- 57- D50 given. (+) blood culture gram (+) cocci in cluster- Dr. silverio espinosa, FOr EGD with consent Patient Status: Guarded Diet: NPO Pending Orders: None Pending Results/Labs: None Pending MD notification: None Latest Vital Signs: Temperature 97.2 , Pulse 62 , B/P 129 /79 , Respiratory Rate 20 , O2 SAT 100 , Nasal Cannula, O2 Flow Rate 6.0 . Vital Sign Comment: WNL EKG Rhythm: Sinus Rhythm Rhythm change?: N MD Notified?: - MD Response: Latest Segovia Fall Score: 70 Fall Risk: High Risk Safety Measures: Call light Within Reach, Bed Alarm Zone 1, Side Rails Side Rails x3, Bed position Low and Locked. Fall Precautions: Yellow Socks Yellow Gown Report given to [ROMIE Duque].
[2020-05-01 07:03] LABS: HEMATOCRIT 23.7 % (42.0-52.0); HEMOGLOBIN 7.9 G/DL (14.2-18.0); MEAN CORPUSCULAR VOLUME 86 FL (80-99); PLATELET COUNT 187 K/UL (150-450); RED BLOOD COUNT 2.74 M/UL (4.70-6.10); RED CELL DISTRIBUTION WIDTH 14.1 % (11.6-14.8); WHITE BLOOD COUNT 9.8 K/UL (4.8-10.8)
[2020-05-01 07:25] LABS: ANION GAP 9 mmol/L (5-15); BLOOD UREA NITROGEN 37 mg/dL (7-18); CALCIUM 8.4 MG/DL (8.5-10.1); CARBON DIOXIDE 25 MMOL/L (21-32); CHLORIDE 116 MMOL/L (98-107); POTASSIUM 3.5 MMOL/L (3.5-5.1); SODIUM 150 MMOL/L (136-145)
--- NOTE | 2020-05-01 08:10 | NUR ---
NURSE NOTES: Received report from Princess GRUBBS. Pt is AOx1, pt is on NC @ 2L with O2 sat 100%. Pt is NPO except meds for procedure scheduled at 1400 today. Pt has RAC g 18 running D51/2 NS at 75ml/ hr. Sodium is 150- Dr. Buitrago and Lauren aware. Awad is noted and draining yellow urine intact and patent. Bed in lowest position, call light within reach. Continue to plan of care.
[2020-05-01] MEDS: Magnesium Oxide 400mg tab ORAL SCH (09:38)
[2020-05-01] MEDS: Lisinopril 20mg tab ORAL SCH (09:38)
[2020-05-01] MEDS: Multivitamins W/Minerals 15 ML UDC ORAL SCH (09:39)
[2020-05-01] MEDS: Pantoprazole Inj IVP SCH (09:39)
--- NOTE | 2020-05-01 10:00 | NUR ---
NURSE NOTES: wound care noted and assessed
--- NOTE | 2020-05-01 10:01 | NUR ---
CASE MANAGEMENT:REVIEW 05/01/20 SI: LGIB. COVID(+) 97.0 88 18 133/80 100% ON 6L/NC H/H-7.9/23.7 NA+150 BUN+37 IS: IVF@75/HR LABETALOL PO TID PEPCID PO QD NORVASC PO QD LISINOPRIL PO QD : STEP DOWN UNIT DCP: FROM [facility] PLAN: EGD/COLONOSCOPY TODAY
--- NOTE | 2020-05-01 11:15 | Pre-Procedure Note/Attestation ---
Pre-Procedure Note/Attestation Complete Prior to Procedure Planned Procedure: not applicable Procedure Narrative: esophagogastroduodenoscopy and colonoscopy Indications for Procedure Pre-Operative Diagnosis: GIB Attestation I attest that I discussed the nature of the procedure; its benefits; risks and complications; and alternatives (and the risks and benefits of such alternatives), prior to the procedure, with the patient (or the patient's legal cash applications representative). I attest that, if there was a reasonable possibility of needing a blood transfusion, the patient (or the patient's legal cash applications representative) was given the [facility] standardized written summary, pursuant to the [place] Blood Safety Act ([place] Health and Safety Code # 1645, as amended). I attest that I re-evaluated the patient just prior to the surgery and that there has been no change in the patient's H&P, except as documented below: Rich Aguilar MD May 01, 2020 11:15
[2020-05-01] MEDS ORDERED: Lidocaine 1% Plain 30 ml INJ ONE (11:49)
--- NOTE | 2020-05-01 12:24 | Anethesia Preoperative Eval ---
Anesthesia Pre-op PMH/ROS General Date of Evaluation: May 01, 2020 Time of Evaluation: 12:47 Anesthesiologist: Samina ASA Score: ASA 4 Mallampati Score Class I : Soft palate, uvula, fauces, pillars visible Class II: Soft palate, uvula, fauces visible Class III: Soft palate, base of uvula visible Class IV: Only hard plate visible Mallampati Classification: Class III Surgeon: Lauren Diagnosis: ABD Pain Surgical Procedure: EGD/Colonoscopy Anesthesia History: none Family History: no anesthesia problems Allergies: Coded Allergies: No Known Allergies (Unverified , 04/15/20) Medications: see eMAR Patient NPO?: Yes Past Medical History Cardiovascular: Reports: HTN Pulmonary: Reports: other - Pneumonia Gastrointestinal/Genitourinary: Reports: GERD Neurologic/Psychiatric: Reports: dementia Endocrine: Reports: DM Hematology/Immune: Reports: anemia Anesthesia Pre-op Phys. Exam Physician Exam Last Vital Signs Date Time Temp Pulse Resp B/P (MAP) Pulse Ox O2 Delivery O2 Flow Rate FiO2 05/01/20 12:00 Nasal Cannula 2.0 05/01/20 09:38 88 133/80 05/01/20 08:00 97.0 18 100 Constitutional: NAD Neurologic: CN 2-12 intact Cardiovascular: RRR Respiratory: CTA Gastrointestinal: S/NT/ND Airway Exam Mallampati Score: Class III MO: limited ROM: limited Teeth: missing, intact Anesthesia Pre-op A/P Labs Hematology Test 05/01/20 05:43 White Blood Count 9.8 K/UL (4.8-10.8) Red Blood Count 2.74 M/UL (4.70-6.10) L Hemoglobin 7.9 G/DL (14.2-18.0) L Hematocrit 23.7 % (42.0-52.0) L Mean Corpuscular Volume 86 FL (80-99) Mean Corpuscular Hemoglobin 28.9 PG (27.0-31.0) Mean Corpuscular Hemoglobin Concent 33.5 G/DL (32.0-36.0) Red Cell Distribution Width 14.1 % (11.6-14.8) Platelet Count 187 K/UL (150-450) Mean Platelet Volume 6.8 FL (6.5-10.1) Neutrophils (%) (Auto) % (45.0-75.0) Lymphocytes (%) (Auto) % (20.0-45.0) Monocytes (%) (Auto) % (1.0-10.0) Eosinophils (%) (Auto) % (0.0-3.0) Basophils (%) (Auto) % (0.0-2.0) Differential Total Cells Counted 100 Neutrophils % (Manual) 69 % (45-75) Lymphocytes % (Manual) 28 % (20-45) Monocytes % (Manual) 2 % (1-10) Eosinophils % (Manual) 1 % (0-3) Basophils % (Manual) 0 % (0-2) Band Neutrophils 0 % (0-8) Platelet Estimate Adequate Platelet Morphology Normal Hypochromasia 1+ Anisocytosis 1+ Coagulation Test 05/01/20 05:43 Prothrombin Time 11.1 SEC (9.30-11.50) Prothromb Time International Ratio 1.0 (0.9-1.1) Activated Partial Thromboplast Time 27 SEC (23-33) Chemistry Test 05/01/20 05:43 Sodium Level 150 MMOL/L (136-145) H Potassium Level 3.5 MMOL/L (3.5-5.1) Chloride Level 116 MMOL/L (98-107) H Carbon Dioxide Level 25 MMOL/L (21-32) Anion Gap 9 mmol/L (5-15) Blood Urea Nitrogen 37 mg/dL (7-18) H Creatinine 1.0 MG/DL (0.55-1.30) Estimat Glomerular Filtration Rate > 60 mL/min (>60) Glucose Level 74 MG/DL (74-106) Calcium Level 8.4 MG/DL (8.5-10.1) L Risk Assessment & Plan Assessment: ASA 4 Plan: TIVA Status Change Before Surgery: Vin Vera MD May 01, 2020 12:24
--- NOTE | 2020-05-01 12:24 | Immediate Post-Op Evaluation ---
Immediate Post-Op Evalulation Immediate Post-Op Evalulation Procedure: EGD/Colonoscopy Date of Evaluation: May 01, 2020 Time of Evaluation: 13:47 IV Fluids: 100 NS Blood Products: 0 Estimated Blood Loss: 1 Urinary Output: 0 Blood Pressure Systolic: 91 Blood Pressure Diastolic: 62 Pulse Rate: 61 Respiratory Rate: 16 O2 Sat by Pulse Oximetry: 100 Temperature (Fahrenheit): 97.5 Pain Score (1-10): 2 Nausea: No Vomiting: No Complications 0 Patient Status: awake, reacts, patent, none Hydration Status: adequate Vni Haas MD May 01, 2020 12:24
--- NOTE | 2020-05-01 12:25 | 48 Hour Post Anesthesia Eval ---
Post Anesthesia Evaluation Procedure: EGD/Colonoscopy Date of Evaluation: May 01, 2020 Time of Evaluation: 15:54 Blood Pressure Systolic: 127 0: 87 Pulse Rate: 64 Respiratory Rate: 18 Temperature (Fahrenheit): 97.6 O2 Sat by Pulse Oximetry: 100 Airway: patent Nausea: No Vomiting: No Pain Intensity: 1 Hydration Status: adequate Cardiopulmonary Status: Stable Mental Status/LOC: patient returned to baseline Follow-up Care/Observations: 0 Post-Anesthesia Complications: 0 Follow-up care needed: N/A Vin Haas MD May 01, 2020 12:25
[2020-05-01] MEDS ORDERED: LORazepam Inj 2mg/ml 1ml IV PRN (12:30)
[2020-05-01] MEDS ORDERED: Atropine Sulfate 0.4mg/ml inj IVP PRN (12:30)
[2020-05-01] MEDS ORDERED: Hydromorphone 0.5mg/0.5ml inj IVP PRN (12:30)
[2020-05-01] MEDS ORDERED: oxyCODONE HCL/Acetaminophen 5/325mg ORAL PRN (12:30)
[2020-05-01] MEDS ORDERED: Midazolam 2mg/2ml Inj IVP PRN (12:30)
[2020-05-01] MEDS ORDERED: HYDROcodone/Acetamin 5/325 tab ORAL PRN (12:30)
[2020-05-01] MEDS ORDERED: Labetalol 5mg/ml 20ml vial IV PRN (12:30)
[2020-05-01] MEDS ORDERED: DiphenhydrAMINE 50mg/ml Inj IVP PRN (12:30)
[2020-05-01] MEDS ORDERED: Meperidine 25mg/1ml Inj (FOR RIGORS ONLY) IV PRN (12:30)
[2020-05-01] MEDS ORDERED: Ketorolac 30mg Inj IV PRN ×2 (12:30)
[2020-05-01] MEDS ORDERED: Metoclopramide 10mg/2ml Inj IVP PRN (12:30)
[2020-05-01] MEDS ORDERED: LR 1000ml 1,000 ML IVLG SCH (12:30)
[2020-05-01] MEDS ORDERED: HYDROcodone/Acetamin 7.5/325 tab ORAL PRN (12:30)
[2020-05-01] MEDS ORDERED: fentaNYL 100 mcg/2 mL IV PRN (12:30)
--- NOTE | 2020-05-01 12:48 | NUR ---
NURSE HAND-OFF: Important Events on Shift: GI procedure sched Patient Status: stable Diet: npo, has GT Pending Orders: Pending Results/Labs: Pending MD notification Latest Vital Signs: Temperature 97.0 , Pulse 68 , B/P 133 /80 , Respiratory Rate 18 , O2 SAT 100 , Nasal Cannula, O2 Flow Rate 2.0 . Vital Sign Comment: Latest Segovia Fall Score: 70 Fall Risk: High Risk Safety Measures: Call light Within Reach, Bed Alarm Zone 1, Side Rails Side Rails x3, Bed position Low and Locked. Fall Precautions: Yellow Socks Yellow Gown Report given to Luis Angel GRUBBS.
[2020-05-01] MEDS ORDERED: NS 500ML IVPB ONE (12:51)
[2020-05-01] MEDS ORDERED: LR 1000ml ONE (13:00)
--- NOTE | 2020-05-01 13:32 | Consultation ---
Consult Note Consult Note DATE OF CONSULTATION: 05/01/2020 CONSULTING PHYSICIAN: David Lopez MD. ATTENDING PHYSICIAN: Dr. Buitrago REASON FOR CONSULTATION: Oxygen dependent COPD, recent COVID-19 infection HISTORY OF PRESENT ILLNESS: This is a 69-year-old male with history of COPD, CVA with left-sided hemiplegia, muscle wasting, and major depressive disorder, was sent in from [facility] for evaluation of increased rectal bleeding x1 day. Patient was reported to be hypoxic during transport and was placed on supplemental oxygen. Patient was reported to have increased bright red blood per rectum. Of note, he was recently admitted to [facility] for COVID- 19 pneumonia, UTI. Patient was treated with antibiotics and was sent back to [facility]. Patient was reported to be on continuous low-flow oxygen at the [facility]. Patient's hemoglobin was noted to be at 5.6 on arrival and was immediately transfused. His hemoglobin is more stable now. His D-dimer was elevated on arrival. The venous duplex ultrasound of lower extremities was negative for acute DVT. Patient was admitted to the hospital for further management of GI bleeding. Patient tested negative for COVID-19 via PCR on 04/29/2020. PAST MEDICAL HISTORY: COPD, CVA with left-sided hemiplegia and, muscle wasting, major depressive disorder MEDICATIONS: Acetaminophen, amlodipine, aspirin, famotidine, heparin, labetalol, lisinopril, magnesium, mirtazapine ALLERGIES: No known allergies FAMILY HISTORY: Unknown PERSONAL/SOCIAL HISTORY: Resident of [facility] REVIEW OF SYSTEMS: Negative except mentioned in HPI PHYSICAL EXAMINATION: VITAL SIGNS: Blood pressure 133/80, heart rate 88, respiratory rate 18, weight 57, height 177 cm General: Patient appears NAD in bed, with normal work of breathing on 2 L nasal cannula HEENT: Head exam reveals that the head is normocephalic, atraumatic without deformity or unusual swelling. Pupils are PERRLA. CHEST AND LUNGS: Reveals clear, normal, symmetrical breath sounds with no adventitious sounds. CARDIOVASCULAR: Reveals normal S1, S2 without murmurs, rubs, or clicks. ABDOMEN: Soft with no tenderness or organomegaly. RECTAL: Deferred. MUSCULOSKELETAL: There is no tenderness to palpation. Range of motion is normal. NEUROLOGICAL: nonfocal LABORATORY DATA: Laboratory testing shows WBC 9.8, hemoglobin 7.9, hematocrit 23.7. Chemistries show sodium 150, chloride 116, BUN 37, calcium 8.4, CRP 7.1, BNP 159, albumin 2.3 Stool occult blood was negative Urinalysis was negative D-dimer 1.31 Assessment/Plan 1. Elevated inflammatory markers -Venous duplex ultrasound of lower extremity was negative for DVT. - We will order SCD 2. Hypoxia on arrival, likely secondary to #3 3. Oxygen dependent COPD -Patient is currently saturating at 98% on 2 L nasal cannula -Monitor for hypoxia and provide supplemental oxygen as needed 4. Lower GI bleeding -EGD 05/01 result pending - GI following - s/p transfusion 5. Anemia, likely secondary to #4 6. YENNY rectum -Contact precaution -C. difficile negative The care for this patient was discussed with my supervising physician. Time spent for this case was approximately 31 minutes. Bennie Goodrich May 01, 2020 13:32
--- NOTE | 2020-05-01 15:09 | NUR ---
NURSE NOTES: Wound pictures taken and uploaded.
--- NOTE | 2020-05-01 16:22 | General Progress Note ---
Subjective Allergies: Coded Allergies: No Known Allergies (Unverified , 04/15/20) Subjective non verabal bed bound actively rectal bleding Objective Last 24 Hour Vital Signs Date Time Temp Pulse Resp B/P (MAP) Pulse Ox O2 Delivery O2 Flow Rate FiO2 05/01/20 14:00 97.6 62 17 96/56 (69) 100 05/01/20 14:00 97.3 63 21 101/64 100 Nasal Cannula 3 05/01/20 13:50 62 20 96/58 100 Nasal Cannula 3 05/01/20 13:40 64 18 91/56 100 Simple Mask 6 05/01/20 13:35 62 18 76/45 100 Simple Mask 6 05/01/20 13:32 64 18 100 05/01/20 13:31 61 16 100 05/01/20 13:30 60 22 71/45 100 Simple Mask 6 05/01/20 13:28 97.6 62 20 70/39 100 Simple Mask 6 05/01/20 12:00 97.0 89 18 130/86 (101) 100 05/01/20 12:00 Nasal Cannula 2.0 05/01/20 12:00 68 05/01/20 12:00 2.0 05/01/20 09:38 88 133/80 05/01/20 09:38 88 133/80 05/01/20 09:38 133/80 05/01/20 08:00 Nasal Cannula 2.0 05/01/20 08:00 97.0 88 18 133/80 (97) 100 05/01/20 08:00 2.0 05/01/20 07:50 63 05/01/20 04:00 62 05/01/20 04:00 6.0 05/01/20 04:00 Nasal Cannula 6.0 05/01/20 04:00 97.2 72 20 129/79 (96) 100 05/01/20 00:00 6.0 05/01/20 00:00 65 05/01/20 00:00 96.0 84 18 136/89 (105) 100 05/01/20 00:00 Nasal Cannula 6.0 04/30/20 20:00 Nasal Cannula 6.0 04/30/20 20:00 66 04/30/20 20:00 96.6 71 18 99/54 (69) 100 1/28/21 20:00 6.0 04/30/20 17:51 72 108/66 Intake and Output 04/30/20 05/01/20 19:00 07:00 Intake Total 75 ml 750 ml Output Total 1200 ml 300 ml Balance -1125 ml 450 ml Intake IV Total 75 ml 750 ml Output Urine Total 1200 ml 300 ml # Bowel Movements 8 Laboratory Tests 05/01/20 05:43: White Blood Count 9.8, Red Blood Count 2.74L, Hemoglobin 7.9L, Hematocrit 23.7L, Mean Corpuscular Volume 86, Mean Corpuscular Hemoglobin 28.9, Mean Corpuscular Hemoglobin Concent 33.5, Red Cell Distribution Width 14.1, Platelet Count 187, Mean Platelet Volume 6.8, Neutrophils (%) (Auto) , Lymphocytes (%) (Auto) , Monocytes (%) (Auto) , Eosinophils (%) (Auto) , Basophils (%) (Auto) , Differential Total Cells Counted 100, Neutrophils % (Manual) 69, Lymphocytes % (Manual) 28, Monocytes % (Manual) 2, Eosinophils % (Manual) 1, Basophils % (Manual) 0, Band Neutrophils 0, Platelet Estimate Adequate, Platelet Morphology Normal, Hypochromasia 1+, Anisocytosis 1+, Prothrombin Time 11.1, Prothromb Time International Ratio 1.0, Activated Partial Thromboplast Time 27, Sodium Level 150H, Potassium Level 3.5, Chloride Level 116H, Carbon Dioxide Level 25, Anion Gap 9, Blood Urea Nitrogen 37H, Creatinine 1.0, Estimat Glomerular Filtration Rate > 60, Glucose Level 74, Calcium Level 8.4L Height (Feet): 5 Height (Inches): 10.00 Weight (Pounds): 125 General Appearance: lethargic Neck: supple Cardiovascular: regular rhythm Respiratory/Chest: normal breath sounds Abdomen: non tender, soft Extremities: non-tender Assessment/Plan Assessment/Plan: lgi bleeding anemia covid 19 pna dm ac renal failure transfuse 1 u prbc gi oscar tomorrow npo, ivf neha Dedrick Pain[employer] MD May 01, 2020 16:22
--- NOTE | 2020-05-01 17:03 | NUR ---
NURSE NOTES:WOUND CARE NOTES:Skin Assessment completed by Wound Nurses. Scattered areas of hyperpigmentation noted to R and L Gluteal cheeks. No evidence of skin breakdown noted. Pt's R heel boggy with non-blanching erythema(L)8cm x (W)6cm. Medial aspect of L heel is boggy with non-blanching erythema. NO other skin concerns noted. Tx.Plan: Apply Moisture Barrier Paste to Sacrum. Cover with Optifoam drsg. Change every 3 days and prn. Apply Cavilon Skin Barrier to both heels. Cover each heel with Optifoam drsgs. Change every 7 days and prn. Reposition at least every 2hours or as tolerated. Off-load heels with Pillows.
--- NOTE | 2020-05-01 19:43 | NUR ---
NURSE HAND-OFF REPORT: Important Events on Shift:[transfer from SDU, PRBC x1 unit] Patient Status: [FULL CODE] Diet: [NPO] Pending Orders: [transfer to M/S] Pending Results/Labs:[] Pending MD notification:[] Latest Vital Signs: Temperature 96.9 , Pulse 74 , B/P 108 /67 , Respiratory Rate 21 , O2 SAT 98 , Nasal Cannula, O2 Flow Rate 2.0 . Vital Sign Comment: [] EKG Rhythm: Sinus Rhythm Rhythm change?: N MD Notified?: - MD Response: Latest Segovia Fall Score: 70 Fall Risk: High Risk Safety Measures: Call light Within Reach, Bed Alarm Zone 1, Side Rails Side Rails x3, Bed position Low and Locked. Fall Precautions: Yellow Socks Yellow Gown Report given to [Zion GRUBBS].
--- NOTE | 2020-05-01 20:00 | NUR ---
NURSE NOTES: Received patient report from ROMIE Plasencia. Patient is AO x0 non verbal. Patient shows no signs of distress or pain at the time. Patient is on 2L nasal canula and shows no signs of respiratory distress. IV is intact and running D5 1/2 NS @75 cc/hr. Patient was also finishing blood transfusion. No adverse reaction noted. Bed is in the lowest position, call light is within reach, side rails up x3. Will continue to monitor.
[2020-05-01] MEDS: Atorvastatin 20mg tab ORAL SCH (20:53)
--- NOTE | 2020-05-01 21:30 | NUR ---
NURSE HAND-OFF REPORT: Important Events on Shift:[Finished 2nd PRBC patient shows no signs of adverse reaction] Patient Status: [full code] Diet: [NPO] Pending Orders: [] Pending Results/Labs:[] Pending MD notification:[] Latest Vital Signs: Temperature 97.7 , Pulse 77 , B/P 122 /73 , Respiratory Rate 17 , O2 SAT 98 , Nasal Cannula, O2 Flow Rate 2.0 . Vital Sign Comment: [] EKG Rhythm: Sinus Rhythm Rhythm change?: N MD Notified?: - MD Response: Latest Segovia Fall Score: 70 Fall Risk: High Risk Safety Measures: Call light Within Reach, Bed Alarm Zone 1, Side Rails Side Rails x3, Bed position Low and Locked. Fall Precautions: Yellow Socks Yellow Gown Report given to [ANNY Cerda].
--- NOTE | 2020-05-01 22:10 | NUR ---
NURSE NOTES: PATIENT TRANSFERRED FROM 216 VIA BED TO ROOM 419 BED 1. PATIENT AWAKE, OPEN EYES SPONTANEOUSLY, ALL NEEDS ANTICIPATED AND MET BY NURSING STAFF. UNABLE TO RESPOND ADEQUATELY TO SIMPLE QUESTIONS, WHEN ASKED WHAT IS YOUR NAME, PATIENT RESPONDED WITH "YEAH, YEAH". NO SIGNS AND SYMPTOMS OF ACUTE CARDIO RESPIRATORY DISTRESS/SHORTNESS OF BREATH, SP02 96% ON 2L 02 VIA NASAL CANULA, NO PERIPHERAL EDEMA NOTED. IV INTACT TO RIGHT FOREARM/GAUGE 22, TOLERATING IV FLUIDS, NO REDNESS/SWELLING NOTED TO SITE. S/P EGD, TOLERATED WELL, NO ILL EFFECTS NOTED/ULCERS. ABDOMEN SOFT/NON DISTENDED/HYPOACTIVE BOWEL SOUNDS, NO REPORT OF N/V/D. JACOBO CATHETER INTACT/PATENT, DRAINING YELLOW URINE VIA GRAVITY, NO SIGNS OF HEMATURIA. RESOLVING SACRAL STAGE 2, PICTURE TAKEN AND UPLOADED TO CHART. REPOSITIONED FOR COMFORT/PRESSURE RELIEF, TOLERATED WELL. SIDE RAILS UP X3/BED IN LOWEST POSITION FOR SAFETY, FREQUENT ROUNDING FOR SAFETY/NEEDS. CONTINUE WITH CURRENT PLAN OF CARE. NAD.
[2020-05-02] VITALS: BP 142/76
[2020-05-02 04:00] VITALS: BP 129/71
--- NOTE | 2020-05-02 07:49 | NUR ---
NURSE HAND-OFF: Important Events on Shift:[UNEVENTFUL NIGHT, RESTED WELL-S/P EGD 05/01] Patient Status: [STABLE, AFEBRILE] Diet: [NPO] Pending Orders: [N/A] Pending Results/Labs:[N/A] Pending MD notification:[] Latest Vital Signs: Temperature 97.9 , Pulse 86 , B/P 129 /71 , Respiratory Rate 17 , O2 SAT 100 , Nasal Cannula, O2 Flow Rate 2.0 . Vital Sign Comment: [STABLE, AFEBRILE] Latest Segovia Fall Score: 70 Fall Risk: High Risk Safety Measures: Call light Within Reach, Bed Alarm Zone 1, Side Rails Side Rails x3, Bed position Low and Locked. Fall Precautions: Yellow Socks Yellow Gown Report given to [ROMIE LEYVA].
[2020-05-02 08:00] VITALS: BP_SYST 128; BP_SYST 170; BP_DIAS 64; BP_DIAS 97
--- NOTE | 2020-05-02 08:23 | NUR ---
NURSE NOTES: Patient awake, alert x1, confused, forget-full; on Nasal cannula, no sing of distress and shortness of breath; no sing of chest pain; bed alarm on; call light within reach; will keep monitoring.
[2020-05-02] MEDS: Magnesium Oxide 400mg tab ORAL SCH (09:21)
[2020-05-02] MEDS: Multivitamins W/Minerals 15 ML UDC ORAL SCH (09:22)
[2020-05-02] MEDS: Pantoprazole Inj IVP SCH (09:22)
[2020-05-02] MEDS: D5 1/2NS 1,000 ML IV SCH ×2 (09:22→22:26)
[2020-05-02] MEDS: Lisinopril 20mg tab ORAL SCH (09:31)
--- NOTE | 2020-05-02 10:54 | Pulmonology Progress Note ---
Subjective ROS Limited/Unobtainable: No Interval Events: s/p transfusion, EGD HEENT: Repors: no symptoms Respiratory: Reports: no symptoms Cardiovascular: Reports: no symptoms Gastrointestinal/Abdominal: Reports: no symptoms Genitourinary: Reports: no symptoms Allergies: Coded Allergies: No Known Allergies (Unverified , 04/15/20) Objective Last 24 Hour Vital Signs Date Time Temp Pulse Resp B/P (MAP) Pulse Ox O2 Delivery O2 Flow Rate FiO2 05/02/20 09:31 170/97 05/02/20 09:22 84 170/97 05/02/20 09:21 84 170/97 05/02/20 09:00 Nasal Cannula 2.0 05/02/20 08:00 2.0 05/02/20 08:00 98.2 87 18 128/64 (85) 95 05/02/20 04:11 2.0 05/02/20 04:00 97.9 86 17 129/71 (90) 100 05/02/20 00:00 98.0 77 18 142/76 (98) 100 05/01/20 21:00 Nasal Cannula 2.0 05/01/20 20:00 97.7 77 17 122/73 (89) 98 05/01/20 20:00 2.0 05/01/20 17:42 74 108/67 05/01/20 16:00 2.0 05/01/20 16:00 71 05/01/20 16:00 96.9 61 21 127/61 (83) 98 05/01/20 14:00 97.6 62 17 96/56 (69) 100 05/01/20 14:00 97.3 63 21 101/64 100 Nasal Cannula 3 05/01/20 13:50 62 20 96/58 100 Nasal Cannula 3 05/01/20 13:40 64 18 91/56 100 Simple Mask 6 05/01/20 13:35 62 18 76/45 100 Simple Mask 6 05/01/20 13:32 64 18 100 05/01/20 13:31 61 16 100 05/01/20 13:30 60 22 71/45 100 Simple Mask 6 05/01/20 13:28 97.6 62 20 70/39 100 Simple Mask 6 05/01/20 12:00 97.0 89 18 130/86 (101) 100 05/01/20 12:00 Nasal Cannula 2.0 05/01/20 12:00 68 05/01/20 12:00 2.0 Intake and Output 05/01/20 05/02/20 19:00 07:00 Intake Total 675 ml 600 ml Output Total 650 ml 900 ml Balance 25 ml -300 ml Intake IV Total 675 ml 600 ml Output Urine Total 650 ml 900 ml # Voids 1 HEENT: atraumatic Respiratory: decreased breath sounds Cardiovascular: normal rate Abdomen: soft, non tender Microbiology Date/Time Source Procedure Growth Status 04/30/20 01:40 Stool Clostridium difficile Toxin Assay - Final Complete 04/29/20 14:00 Rectum - Final NO CARBAPENEM-RESISTANT ENTEROBACTERI... Complete 04/29/20 14:00 Rectum VRE Culture - Final Enterococcus Faecalis - Vre Complete 04/29/20 14:00 Nasal Nares MRSA Culture - Final NO METHICILLIN RESISTANT STAPH AUREUS... Complete 04/29/20 12:40 Nasopharynx Coronavirus COVID-19 PCR ([facility]) - Final Complete 04/29/20 12:40 Blood Blood Culture - Preliminary Staphylococcus Sp Coag Neg Resulted 04/29/20 12:20 Blood Blood Culture - Preliminary Staphylococcus Sp Coag Neg Resulted Current Medications Medications (Trade) Dose Ordered Sig/Chano Route PRN Reason Start Time Stop Time Status Last Admin Dose Admin Acetaminophen (Tylenol) 650 mg Q6H PRN ORAL Temp >100.5 04/29/20 22:00 05/29/20 21:59 Amlodipine Besylate (Norvasc) 10 mg DAILY ORAL 04/30/20 09:00 05/30/20 08:59 05/02/20 09:22 Atorvastatin Calcium (Lipitor) 10 mg BEDTIME ORAL 04/30/20 21:00 07/29/20 20:59 05/01/20 20:53 Dextrose (Dextrose 50%) 25 ml Q30M PRN IV Hypoglycemia 05/01/20 05:45 07/30/20 05:44 Dextrose (Dextrose 50%) 50 ml Q30M PRN IV Hypoglycemia 05/01/20 05:45 07/30/20 05:44 05/01/20 06:01 Dextrose/Sodium Chloride 1,000 ml @ 75 mls/hr [id number] IV 05/01/20 07:00 05/31/20 06:59 05/02/20 09:22 Famotidine (Pepcid) 20 mg DAILY ORAL 04/30/20 09:00 07/29/20 08:59 05/02/20 09:21 Labetalol HCl (Normodyne) 200 mg THREE TIMES A DAY ORAL 04/30/20 09:00 05/30/20 08:59 05/02/20 09:21 Lisinopril (PriniviL) 20 mg DAILY ORAL 04/30/20 09:00 05/30/20 08:59 05/02/20 09:31 Lorazepam (Ativan 2mg/ml 1ml) 0.5 mg EVERY 6 HOURS PRN IV For Anxiety 04/29/20 22:00 05/06/20 21:59 Magnesium Oxide (Mag-Ox 400mg) 400 mg DAILY ORAL 04/30/20 09:00 05/30/20 08:59 05/02/20 09:21 Mirtazapine (Remeron) 30 mg BEDTIME ORAL 04/30/20 21:00 07/29/20 20:59 05/01/20 20:53 Morphine Sulfate (Morphine Sulfate) 0.5 mg EVERY 6 HOURS PRN IVP For Pain 04/29/20 22:00 05/06/20 21:59 Multivitamins (Multivitamins W/ Minerals 15ml Liquid) 15 ml DAILY ORAL 04/30/20 09:00 05/30/20 08:59 05/02/20 09:22 Ondansetron HCl (Zofran) 4 mg Q6H PRN IVP Nausea & Vomiting 04/29/20 22:00 05/29/20 21:59 Pantoprazole (Protonix) 40 mg DAILY IVP 04/30/20 09:00 05/30/20 08:59 05/02/20 09:22 Assessment/Plan Assessment/Plan 1. Elevated inflammatory markers -Venous duplex ultrasound of lower extremity was negative for DVT. - We will order SCD 2. Hypoxia on arrival, likely secondary to #3 3. Oxygen dependent COPD -Patient is currently saturating at 98% on 2 L nasal cannula -Monitor for hypoxia and provide supplemental oxygen as needed 4. Lower GI bleeding -EGD 05/01 ulcers - scheduled for colonoscopy on Monday - GI following - s/p transfusion - stool OB neg 04/30 5. Anemia, likely secondary to #4 - s/p transfusion 6. YENNY rectum -Contact precaution -C. difficile negative The care for this patient was discussed with my supervising physician. Time spent for this case was approximately 31 minutes. Bennie Goodrich May 02, 2020 10:54
--- NOTE | 2020-05-02 11:33 | General Progress Note ---
Subjective Allergies: Coded Allergies: No Known Allergies (Unverified , 04/15/20) Subjective non verabal bed bound opens his eyes obn verbal stimuli Objective Last 24 Hour Vital Signs Date Time Temp Pulse Resp B/P (MAP) Pulse Ox O2 Delivery O2 Flow Rate FiO2 05/02/20 09:31 170/97 05/02/20 09:22 84 170/97 05/02/20 09:21 84 170/97 05/02/20 09:00 Nasal Cannula 2.0 05/02/20 08:00 2.0 05/02/20 08:00 98.2 87 18 128/64 (85) 95 05/02/20 04:11 2.0 05/02/20 04:00 97.9 86 17 129/71 (90) 100 05/02/20 00:00 98.0 77 18 142/76 (98) 100 05/01/20 21:00 Nasal Cannula 2.0 05/01/20 20:00 97.7 77 17 122/73 (89) 98 05/01/20 20:00 2.0 05/01/20 17:42 74 108/67 05/01/20 16:00 2.0 05/01/20 16:00 71 05/01/20 16:00 96.9 61 21 127/61 (83) 98 05/01/20 14:00 97.6 62 17 96/56 (69) 100 05/01/20 14:00 97.3 63 21 101/64 100 Nasal Cannula 3 05/01/20 13:50 62 20 96/58 100 Nasal Cannula 3 05/01/20 13:40 64 18 91/56 100 Simple Mask 6 05/01/20 13:35 62 18 76/45 100 Simple Mask 6 05/01/20 13:32 64 18 100 05/01/20 13:31 61 16 100 05/01/20 13:30 60 22 71/45 100 Simple Mask 6 05/01/20 13:28 97.6 62 20 70/39 100 Simple Mask 6 05/01/20 12:00 97.0 89 18 130/86 (101) 100 05/01/20 12:00 Nasal Cannula 2.0 05/01/20 12:00 68 05/01/20 12:00 2.0 Intake and Output 05/01/20 05/02/20 19:00 07:00 Intake Total 675 ml 1354 ml Output Total 650 ml 900 ml Balance 25 ml 454 ml Intake IV Total 675 ml 1354 ml Output Urine Total 650 ml 900 ml # Voids 1 Height (Feet): 5 Height (Inches): 10.00 Weight (Pounds): 125 Neck: supple Cardiovascular: regular rhythm Respiratory/Chest: lungs clear Abdomen: non tender, soft, no organomegaly, no mass Extremities: non-tender Assessment/Plan Assessment/Plan: lgi bleeding anemia covid 19 pna dm ac renal failure transfuse 1 u prbc gi oscar tomorrow npo, ivf neha Dedrick Painting MD May 02, 2020 11:33
[2020-05-02 12:00] VITALS: BP 168/84
--- NOTE | 2020-05-02 15:00 | NUR ---
[employer] C[employer] Technical Officer: Wound care provided; picture taken and uploaded on patient's file;
[2020-05-02 16:00] VITALS: BP 123/75
--- NOTE | 2020-05-02 19:29 | NUR ---
NURSE HAND-OFF: Important Events on Shift:Fall percusion, aspiration percusion; hydration, blood sugar monitor; wound care; perineal care, Foly care; Patient Status: Diet: Pending Orders: Pending Results/Labs: Pending MD notification: Latest Vital Signs: Temperature 97.8 , Pulse 71 , B/P 123 /75 , Respiratory Rate 20 , O2 SAT 97 , Nasal Cannula, O2 Flow Rate 2.0 . Vital Sign Comment: Latest [place] Fall Score: 70 Fall Risk: High Risk Safety Measures: Call light Within Reach, Bed Alarm Zone 1, Side Rails Side Rails x3, Bed position Low and Locked. Fall Precautions: Yellow Socks Yellow Gown Report given to .
--- NOTE | 2020-05-02 19:49 | NUR ---
NURSE NOTES: received report from marlena de souza. patient on bed, asleep. on nasal cannula, no sob. NPO .iv access on the right forearm and right ac,running ivf as ordered. with hubbard catheter draining well. per ap, " patient has gt tube in placed. no feeding". reiterated to call and ask for assistance to prevent fall or injury. bed locked and in lowest position. bed alarm on. call light and light button within easy reach. will continue plan of care.
[2020-05-02 20:00] VITALS: BP 111/68
[2020-05-02] MEDS: Atorvastatin 20mg tab ORAL SCH (20:18)
--- NOTE | 2020-05-02 21:42 | General Progress Note ---
Subjective Allergies: Coded Allergies: No Known Allergies (Unverified , 04/15/20) Subjective above noted confused Objective Last 24 Hour Vital Signs Date Time Temp Pulse Resp B/P (MAP) Pulse Ox O2 Delivery O2 Flow Rate FiO2 05/02/20 20:00 97.7 85 20 111/68 (82) 99 05/02/20 20:00 2.0 05/02/20 19:31 97 Nasal Cannula 2.0 28 05/02/20 17:29 71 123/75 05/02/20 16:00 97.8 71 20 123/75 (91) 97 05/02/20 16:00 2.0 05/02/20 12:06 89 168/84 05/02/20 12:00 98.5 89 20 168/84 (112) 95 05/02/20 12:00 2.0 05/02/20 09:31 170/97 05/02/20 09:22 84 170/97 05/02/20 09:21 84 170/97 05/02/20 09:00 Nasal Cannula 2.0 05/02/20 08:00 2.0 05/02/20 08:00 98.2 84 20 170/97 (121) 95 05/02/20 04:11 2.0 05/02/20 04:00 97.9 86 17 129/71 (90) 100 05/02/20 00:00 98.0 77 18 142/76 (98) 100 Intake and Output 05/01/20 05/02/20 19:00 07:00 Intake Total 675 ml 1354 ml Output Total 650 ml 900 ml Balance 25 ml 454 ml Intake IV Total 675 ml 1354 ml Output Urine Total 650 ml 900 ml # Voids 1 Height (Feet): 5 Height (Inches): 10.00 Weight (Pounds): 125 Objective Elderly man NCAT supple CTA RR abd soft ND, (+) GT no edema OBS, b/l hand tremor Assessment/Plan Assessment/Plan: Assessment - GI Bleed - OBS - dysphagia, s/p GT - anemia Recommendations - follow CBC - Elevate HOB - GT care - TF Sara Lyons MD May 02, 2020 21:42
--- NOTE | 2020-05-02 23:06 | NUR ---
NURSE NOTES: received orders from dr. rob to start on tube feeding. Order noted and carried out. charge nurse made aware. started on TB as ordered
[2020-05-03] VITALS: BP 119/64
[2020-05-03 04:00] VITALS: BP 122/65
--- NOTE | 2020-05-03 06:32 | NUR ---
NURSE HAND-OFF: Important Events on Shift:started on glucerna 1.2 @ 50 mls.hr. with order of flush of h20 of 100 Q6; tolerating well, 5-10 ml of residual throughout the shift. Patient Status: stable Diet: tube feedind Pending Orders: Pending Results/Labs: Pending MD notification: Latest Vital Signs: Temperature 97.9 , Pulse 88 , B/P 122 /65 , Respiratory Rate 20 , O2 SAT 100 , Nasal Cannula, O2 Flow Rate 2.0 . Vital Sign Comment: Latest [place] Fall Score: 70 Fall Risk: High Risk Safety Measures: Call light Within Reach, Bed Alarm Zone 1, Side Rails Side Rails x3, Bed position Low and Locked. Fall Precautions: Yellow Socks Yellow Gown Addendum: 05/03/20 at 0725 by Sadie Baer RN endorsement given to esther hatch
--- NOTE | 2020-05-03 07:40 | NUR ---
NURSE NOTES: received report from ROMIE Billy. patient on bed, eyes closed. on O2 2l via nasal cannula. responsive to tactile stimuli. no sob noted. On tube feeding, tolerating well with no gastric residual noted. PIV access patent and intact. ivf infusing well. hubbard catheter draining well. kept bed in the lowest position. siderails are upx3. bed locked and bed alarm on. call light and light button within easy reach. will continue plan of care.
--- NOTE | 2020-05-03 07:44 | NUR ---
RD ASSESSMENT & RECOMMENDATIONS SEE CARE ACTIVITY FOR COMPLETE ASSESSMENT DAILY ESTIMATED NEEDS: Needs based on Pulmonary, suspected wt loss, underweight 60kg 30-35 kcals/kg 5441-4043 total kcals 1-1.5 g protein/kg 60-90 g total protein 25-30 mL/kg 8098-8926 total fluid mLs NUTRITION DIAGNOSIS: * Swallowing difficulty R/T dysphagia as evidenced by PEG dep. * Increased kcal/prot needs R/T suspected wt loss and underweight status as evidenced by suspected significant wt loss of 9lbs/6.4% in 1 mo, pt @ 77% IBW w/ low BMI per guidelines. (CURRENT TF: Glucerna 1.2 @50ml/hr x24 hrs) ENTERAL NUTRITION RECOMMENDATIONS: Glucerna 1.2 @ 65ml/hr x 24 hrs to provide 1560ml, 1872kcal, 94g prot, 1256ml free water * Glucerna 1.2 running @50ml/hr * Rec to advance 15ml as tolerated to goal of 65ml/hr to better meet est kcal needs. * HOB over 30 degrees/ water flush per MD ADDITIONAL RECOMMENDATIONS: * calibrated bedscale wt * Monitor BGs w/ TF initiation, need for hypoglycemics: h/o DM * Monitor lytes, replete as needed * Rec WC eval: No evidence of skin breakdown * Increase TF to goal of 65ml/hr to better meet est kcal needs . .
[2020-05-03 08:14] VITALS: BP 105/69
[2020-05-03] MEDS: Multivitamins W/Minerals 15 ML UDC ORAL SCH (08:17)
[2020-05-03] MEDS: Magnesium Oxide 400mg tab ORAL SCH (08:17)
[2020-05-03] MEDS: Lisinopril 20mg tab ORAL SCH (08:18)
[2020-05-03] MEDS: Pantoprazole Inj IVP SCH (08:43)
--- NOTE | 2020-05-03 09:33 | General Progress Note ---
Subjective Allergies: Coded Allergies: No Known Allergies (Unverified , 04/15/20) Subjective doibng better non verabal bed bound opens his eyes obn verbal stimuli Objective Last 24 Hour Vital Signs Date Time Temp Pulse Resp B/P (MAP) Pulse Ox O2 Delivery O2 Flow Rate FiO2 05/03/20 08:18 82 105/69 05/03/20 08:18 82 105/69 05/03/20 08:18 105/69 05/03/20 08:14 97.3 82 20 105/69 (81) 96 05/03/20 08:00 2.0 05/03/20 04:00 97.9 88 20 122/65 (84) 100 05/03/20 04:00 2.0 05/03/20 00:00 98.1 87 20 119/64 (82) 99 05/02/20 21:00 Nasal Cannula 2.0 05/02/20 20:00 97.7 85 20 111/68 (82) 99 05/02/20 20:00 2.0 05/02/20 19:31 97 Nasal Cannula 2.0 28 05/02/20 17:29 71 123/75 05/02/20 16:00 97.8 71 20 123/75 (91) 97 05/02/20 16:00 2.0 05/02/20 12:06 89 168/84 05/02/20 12:00 98.5 89 20 168/84 (112) 95 05/02/20 12:00 2.0 Intake and Output 05/02/20 05/03/20 19:00 07:00 Intake Total 675 ml 1125 ml Output Total 600 ml 700 ml Balance 75 ml 425 ml Intake Free Water 700 ml IV Total 675 ml 75 ml Tube Feeding 350 ml Output Urine Total 600 ml 700 ml Height (Feet): 5 Height (Inches): 10.00 Weight (Pounds): 125 General Appearance: no apparent distress Neck: supple Cardiovascular: regular rhythm Respiratory/Chest: lungs clear Abdomen: non tender, soft Extremities: non-tender Assessment/Plan Assessment/Plan: lgi bleeding anemia covid 19 pna dm ac renal failure vre rectum add vancomycin transfuse 1 u prbc gi oscar tomorrow npo, ivf neha Dedrick Painting MD May 03, 2020 09:33
[2020-05-03] MEDS ORDERED: Vancomycin 1.25gm/250ml Premix IVPB ONE (11:00)
--- NOTE | 2020-05-03 11:46 | Pulmonology Progress Note ---
Subjective ROS Limited/Unobtainable: No Interval Events: s/p transfusion, EGD HEENT: Repors: no symptoms Respiratory: Reports: no symptoms Cardiovascular: Reports: no symptoms Gastrointestinal/Abdominal: Reports: no symptoms Genitourinary: Reports: no symptoms Allergies: Coded Allergies: No Known Allergies (Unverified , 04/15/20) Objective Last 24 Hour Vital Signs Date Time Temp Pulse Resp B/P (MAP) Pulse Ox O2 Delivery O2 Flow Rate FiO2 05/03/20 09:00 Nasal Cannula 2.0 05/03/20 08:18 82 105/69 05/03/20 08:18 82 105/69 05/03/20 08:18 105/69 05/03/20 08:14 97.3 82 20 105/69 (81) 96 05/03/20 08:00 2.0 05/03/20 04:00 97.9 88 20 122/65 (84) 100 05/03/20 04:00 2.0 05/03/20 00:00 98.1 87 20 119/64 (82) 99 05/02/20 21:00 Nasal Cannula 2.0 05/02/20 20:00 97.7 85 20 111/68 (82) 99 05/02/20 20:00 2.0 05/02/20 19:31 97 Nasal Cannula 2.0 28 05/02/20 17:29 71 123/75 05/02/20 16:00 97.8 71 20 123/75 (91) 97 05/02/20 16:00 2.0 05/02/20 12:06 89 168/84 05/02/20 12:00 98.5 89 20 168/84 (112) 95 05/02/20 12:00 2.0 Intake and Output 05/02/20 05/03/20 19:00 07:00 Intake Total 675 ml 1125 ml Output Total 600 ml 700 ml Balance 75 ml 425 ml Intake Free Water 700 ml IV Total 675 ml 75 ml Tube Feeding 350 ml Output Urine Total 600 ml 700 ml HEENT: atraumatic Respiratory: decreased breath sounds Cardiovascular: normal rate Abdomen: soft, non tender Current Medications Medications (Trade) Dose Ordered Sig/Chano Route PRN Reason Start Time Stop Time Status Last Admin Dose Admin Acetaminophen (Tylenol) 650 mg Q6H PRN ORAL Temp >100.5 04/29/20 22:00 05/29/20 21:59 Amlodipine Besylate (Norvasc) 10 mg DAILY ORAL 04/30/20 09:00 05/30/20 08:59 05/02/20 09:22 Atorvastatin Calcium (Lipitor) 10 mg BEDTIME ORAL 04/30/20 21:00 07/29/20 20:59 05/02/20 20:18 Dextrose (Dextrose 50%) 25 ml Q30M PRN IV Hypoglycemia 05/01/20 05:45 07/30/20 05:44 Dextrose (Dextrose 50%) 50 ml Q30M PRN IV Hypoglycemia 05/01/20 05:45 07/30/20 05:44 05/01/20 06:01 Dextrose/Sodium Chloride 1,000 ml @ 75 mls/hr [id number] IV 05/01/20 07:00 05/31/20 06:59 05/02/20 22:26 Famotidine (Pepcid) 20 mg DAILY ORAL 04/30/20 09:00 07/29/20 08:59 05/03/20 08:17 Labetalol HCl (Normodyne) 200 mg THREE TIMES A DAY ORAL 04/30/20 09:00 05/30/20 08:59 05/02/20 17:29 Lisinopril (PriniviL) 20 mg DAILY ORAL 04/30/20 09:00 05/30/20 08:59 05/02/20 09:31 Lorazepam (Ativan 2mg/ml 1ml) 0.5 mg EVERY 6 HOURS PRN IV For Anxiety 04/29/20 22:00 05/06/20 21:59 Magnesium Oxide (Mag-Ox 400mg) 400 mg DAILY ORAL 04/30/20 09:00 05/30/20 08:59 05/03/20 08:17 Mirtazapine (Remeron) 30 mg BEDTIME ORAL 04/30/20 21:00 07/29/20 20:59 05/02/20 20:17 Morphine Sulfate (Morphine Sulfate) 0.5 mg EVERY 6 HOURS PRN IVP For Pain 04/29/20 22:00 05/06/20 21:59 Multivitamins (Multivitamins W/ Minerals 15ml Liquid) 15 ml DAILY ORAL 04/30/20 09:00 05/30/20 08:59 05/03/20 08:17 Ondansetron HCl (Zofran) 4 mg Q6H PRN IVP Nausea & Vomiting 04/29/20 22:00 05/29/20 21:59 Pantoprazole (Protonix) 40 mg DAILY IVP 04/30/20 09:00 05/30/20 08:59 05/03/20 08:43 Vancomycin HCl 250 ml @ 166.667 mls/hr ONCE ONCE IVPB 05/03/20 11:00 05/03/20 12:29 05/03/20 11:41 Vancomycin HCl (Vanco pharmacy to dose) 1 ea DAILY PRN MISC Per rx protocol 05/03/20 09:45 06/02/20 09:44 Vancomycin HCl 1 gm/Dextrose 275 ml @ 183.708 mls/hr Q12H IVPB 05/03/20 23:00 05/08/20 22:59 Assessment/Plan Assessment/Plan 1. Elevated inflammatory markers -Venous duplex ultrasound of lower extremity was negative for DVT. - We will order SCD 2. Hypoxia on arrival, likely secondary to #3 3. Oxygen dependent COPD -Patient is currently saturating at 98% on 2 L nasal cannula -Monitor for hypoxia and provide supplemental oxygen as needed 4. Lower GI bleeding -EGD 05/01 ulcers -> on PPI - scheduled for colonoscopy on Monday - GI following - s/p transfusion - stool OB neg 04/30 5. Anemia, likely secondary to #4 - s/p transfusion 6. VRE rectum -Contact precaution -C. difficile negative - on Vanco per PMD The care for this patient was discussed with my supervising physician. Time spent for this case was approximately 31 minutes. Bennie Goodrich May 03, 2020 11:46
[2020-05-03 12:00] VITALS: BP 139/82
[2020-05-03] MEDS: D5 1/2NS 1,000 ML IV SCH (12:29)
[2020-05-03 16:04] VITALS: BP 120/74
--- NOTE | 2020-05-03 18:28 | General Progress Note ---
Subjective Allergies: Coded Allergies: No Known Allergies (Unverified , 04/15/20) Subjective above noted confused on tube feeding Na still elevated Objective Last 24 Hour Vital Signs Date Time Temp Pulse Resp B/P (MAP) Pulse Ox O2 Delivery O2 Flow Rate FiO2 05/03/20 17:21 76 120/74 05/03/20 16:05 2.0 05/03/20 16:04 97.8 76 14 120/74 (89) 97 05/03/20 12:29 77 139/82 05/03/20 12:00 2.0 05/03/20 12:00 98.5 77 16 139/82 (101) 95 05/03/20 09:00 Nasal Cannula 2.0 05/03/20 08:18 82 105/69 05/03/20 08:18 82 105/69 05/03/20 08:18 105/69 05/03/20 08:14 97.3 82 20 105/69 (81) 96 05/03/20 08:00 2.0 05/03/20 04:00 97.9 88 20 122/65 (84) 100 05/03/20 04:00 2.0 05/03/20 00:00 98.1 87 20 119/64 (82) 99 05/02/20 21:00 Nasal Cannula 2.0 05/02/20 20:00 97.7 85 20 111/68 (82) 99 05/02/20 20:00 2.0 05/02/20 19:31 97 Nasal Cannula 2.0 28 Intake and Output 05/02/20 05/03/20 19:00 07:00 Intake Total 675 ml 1175 ml Output Total 600 ml 700 ml Balance 75 ml 475 ml Intake Free Water 700 ml IV Total 675 ml 75 ml Tube Feeding 400 ml Output Urine Total 600 ml 700 ml Height (Feet): 5 Height (Inches): 10.00 Weight (Pounds): 125 Objective Elderly man NCAT supple CTA RR abd soft ND, (+) GT no edema OBS, b/l hand tremor Assessment/Plan Assessment/Plan: Assessment - GI Bleed - OBS - dysphagia, s/p GT - anemia - free water deficit Recommendations - follow CBC - Elevate HOB - increase GT water flushes - GT care - TF Sara Lyons MD May 03, 2020 18:28
--- NOTE | 2020-05-03 19:41 | NUR ---
NURSE HAND-OFF: Important Events on Shift:[aspiration precaution; repositioned] Patient Status: [stable] Diet: [glucerna 1.2 @ 50cc/hr] Pending Orders: [] Pending Results/Labs:[] Pending MD notification:[] Latest Vital Signs: Temperature 97.8 , Pulse 76 , B/P 120 /74 , Respiratory Rate 14 , O2 SAT 97 , Nasal Cannula, O2 Flow Rate 2.0 . Vital Sign Comment: [] Latest [place] Fall Score: 70 Fall Risk: High Risk Safety Measures: Call light Within Reach, Bed Alarm Zone 2, Side Rails Side Rails x3, Bed position Low and Locked. Fall Precautions: Yellow Socks Yellow Gown Report given to [joaquin].
[2020-05-03 20:00] VITALS: BP 113/75
--- NOTE | 2020-05-03 20:07 | NUR ---
NURSES NOTE: Rounds completed. Pt in bed, non verbal, no outward s/s of distress noted. Breathing is even on 2 L nasal canula. Gtube in place, to be flushed Q6H. IV site in place, infusing IVF without incident. Pt to be turned Q2h Due to stage II sacral ulcer.All due medications to be administered. Pt will continue to be monitored. Addendum: 05/03/20 at 2013 by Genevieve Lamb RN Ritesh in place draining to gravity.
[2020-05-03] MEDS ORDERED: NS 275ml ONE (20:27)
[2020-05-03] MEDS: Atorvastatin 20mg tab ORAL SCH (22:03)
[2020-05-03] MEDS: Vancomycin 1gm/D5W 275ml IVPB SCH ×2 (22:04)
[2020-05-04] VITALS: BP 108/75
[2020-05-04] MEDS: D5 1/2NS 1,000 ML IV SCH ×3 (01:40→23:10)
--- NOTE | 2020-05-04 01:44 | Procedure Note ---
DATE OF PROCEDURE: 05/01/2020 SURGEON: Rich Aguilar MD PROCEDURE: Upper endoscopy with biopsy and colonoscopy. ANESTHESIA: Per Dr. Rapp. INSTRUMENT: Olympus adult flexible upper endoscope and colonoscope. INDICATION: GI bleeding. REASON FOR PROCEDURE: The procedure, risks, benefits, and possible consequences, including hemorrhage, aspiration, perforation and infection, and alternative treatments, were explained to the patient/legal guardian by Dr. Rich Aguilar and the patient/legal guardian understood and accepted these risks. DESCRIPTION OF PROCEDURE: After informed consent was obtained and patient was adequately sedated, Olympus upper endoscope was advanced from mouth into the second portion of the duodenum and retroflexion was performed in the stomach. G-tube was in the right place. No evidence of any bleeding around the G-tube. Then, patient was turned to left side and colonoscopy started. First rectal exam was performed, which was positive for internal hemorrhoids. Then the scope was advanced from rectum to the cecum documented by appendix orifice, ileocecal valve, right upper quadrant palpation. Quality of prep overall was good. There was some pool of blood in the cecum and ascending colon, possibly from diverticular bleed in the right colon. Multiple attempts to the terminal ileum failed. We could not find the active bleeder at this time. Scope was slowly removed. There was some also pool of blood in the left colon, but no obvious diverticula in that area. Retroflexion was performed in the rectum, which showed evidence of internal hemorrhoids. SUMMARY OF FINDINGS: 1. Gastritis, status post biopsy. 2. G-tube in the right place without any bleeding from the G-tube site. 3. Internal hemorrhoids. 4. Right-sided diverticulosis, possibly source of diverticular bleed. 5. Other possibility would be bleeding from the small intestine. RECOMMENDATIONS: Follow laboratories. Transfuse as needed. If patient rebleeds, options would be to order the tagged RBC scan to locate the bleeding. I want to thank, Dr. Buitrago, for this kind referral. Rich Aguilar M.D. DR: CORY JOB#: [id number] CC: Luis Buitrago M.D.; Fax#: [phone]
[2020-05-04 04:00] VITALS: BP 110/77
--- NOTE | 2020-05-04 07:29 | History and Physical Report ---
DATE OF ADMISSION: 04/29/2020 HISTORY OF PRESENT ILLNESS: The patient is a 69-year-old male who came to the emergency room for having recurrent lower GI bleed for the last 2 days. The patient was hypotensive, called 911, and the patient was not transported at that time due to the patient's blood pressure was fine. The patient is lethargic, nonverbal, sent this morning again due to bleeding, was found to have severe hypernatremia, acute renal failure, and lower GI bleed. The patient is nonverbal, bedbound, lethargic. PAST MEDICAL HISTORY: Significant for COVID-19 positive, depression, hypertension. MEDICATIONS: He was taking Norvasc, aspirin, Lipitor, labetalol, lisinopril, milk of magnesia. ALLERGIES: NKA. FAMILY HISTORY: Noncontributory. SOCIAL HISTORY: Lives at assisted. PHYSICAL EXAMINATION: GENERAL: This is an elderly male, lethargic, hypotensive. VITAL SIGNS: Blood pressure is 99/66, pulse 91, respirations 17, temperature 97.5. HEENT: Eyes are closed. NECK: Supple. CHEST: Bilaterally decreased breath sounds. CARDIOVASCULAR: Regular rhythm. Tachycardia. ABDOMEN: Soft. Positive bowel sounds. Nontender. EXTREMITIES: No edema. GENITOURINARY: Deferred. LABORATORY DATA: White counts are 16,000, hemoglobin 5.6, hematocrit 17, platelets 324. Chemistry panel, sodium 147, potassium 4.2, BUN 51, creatinine 1.1, glucose 130. Troponins are negative and C-reactive protein 7.1. BNP 159. Urine is negative. IMAGING: Chest x-ray, no change since prior study. ASSESSMENT: 1. Lower GI bleed. 2. Severe anemia. 3. Dehydration. 4. Severe malnutrition. 5. Dysphagia. 6. COVID-19. PLAN: Presently, we are going to admit in ICU. Consider GI consult, IV fluids, type and cross. We will add PPI. Consider GI consult. Luis Buitrago M.D. DR: GREGORY JOB#: [id number] CC:
--- NOTE | 2020-05-04 07:57 | NUR ---
NURSE HAND-OFF: Important Events on Shift:[N/A] Patient Status: [STABLE] Diet: [GLUCERNA 1.2 50CC/HR] Pending Orders: [N/A] Pending Results/Labs:[N/A] Pending MD notification:[N/A] Latest Vital Signs: Temperature 99.1 , Pulse 97 , B/P 110 /77 , Respiratory Rate 20 , O2 SAT 94 , Nasal Cannula, O2 Flow Rate 2.0 . Vital Sign Comment: [WNL] Latest [place] Fall Score: 70 Fall Risk: High Risk Safety Measures: Call light Within Reach, Bed Alarm Zone 2, Side Rails Side Rails x3, Bed position Low and Locked. Fall Precautions: Yellow Socks Yellow Gown Report given to [ROMIE SAMUEL].
[2020-05-04 08:00] VITALS: BP 159/77
--- NOTE | 2020-05-04 08:00 | NUR ---
NURSE NOTES: Received report from ROMIE Sen. Rounding done with outgoing nurse. Pt is a/o x1, confused. No SOB noted with NC 2L/min. Glucerna 1.2 is running @ 50ml/hr via GT. D51/2NS is running @ 75ml/hr via Rt FA. Bed in lowest position, call light within reach. Will continue to monitor.
--- NOTE | 2020-05-04 08:30 | NUR ---
NURSE NOTES: YOLIE Goodrich ordered CBC, BMP stat. Will put it in.
[2020-05-04] MEDS: Multivitamins W/Minerals 15 ML UDC ORAL SCH (08:51)
[2020-05-04] MEDS: Pantoprazole Inj IVP SCH (08:51)
[2020-05-04] MEDS: Lisinopril 20mg tab ORAL SCH (08:53)
[2020-05-04] MEDS: Magnesium Oxide 400mg tab ORAL SCH (08:53)
--- NOTE | 2020-05-04 09:37 | Pulmonology Progress Note ---
Subjective ROS Limited/Unobtainable: No Interval Events: s/p transfusion, EGD, [place] Constitutional: Reports: fever, other - Wglw=[id number] HEENT: Repors: no symptoms Respiratory: Reports: no symptoms Cardiovascular: Reports: no symptoms Gastrointestinal/Abdominal: Reports: no symptoms Genitourinary: Reports: no symptoms Allergies: Coded Allergies: No Known Allergies (Unverified , 04/15/20) Objective Last 24 Hour Vital Signs Date Time Temp Pulse Resp B/P (MAP) Pulse Ox O2 Delivery O2 Flow Rate FiO2 05/04/20 08:53 106 159/77 05/04/20 08:53 106 159/77 05/04/20 08:53 159/77 05/04/20 04:00 2.0 05/04/20 04:00 99.1 97 20 110/77 (88) 94 05/04/20 00:00 2.0 05/04/20 00:00 98.5 95 22 108/75 (86) 94 05/03/20 21:00 2.0 28 05/03/20 21:00 Nasal Cannula 2.0 05/03/20 20:00 97.8 93 20 113/75 (88) 95 05/03/20 17:21 76 120/74 05/03/20 16:05 2.0 05/03/20 16:04 97.8 76 14 120/74 (89) 97 05/03/20 12:29 77 139/82 05/03/20 12:00 2.0 05/03/20 12:00 98.5 77 16 139/82 (101) 95 Intake and Output 05/03/20 05/04/20 19:00 07:00 Intake Total 1710.000 ml 200 ml Output Total 1300 ml Balance 1710.000 ml -1100 ml Intake Free Water 310 ml 150 ml IV Total 850.000 ml Tube Feeding 550 ml 50 ml Output Urine Total 1300 ml HEENT: atraumatic Respiratory: decreased breath sounds Cardiovascular: normal rate, tachycardia Abdomen: soft, non tender Laboratory Tests 05/04/20 09:30: White Blood Count [Pending], Red Blood Count [Pending], Hemoglobin [Pending], Hematocrit [Pending], Mean Corpuscular Volume [Pending], Mean Corpuscular Hemoglobin [Pending], Mean Corpuscular Hemoglobin Concent [Pending], Red Cell Distribution Width [Pending], Platelet Count [Pending], Mean Platelet Volume [Pending], Neutrophils (%) (Auto) [Pending], Lymphocytes (%) (Auto) [Pending], Monocytes (%) (Auto) [Pending], Eosinophils (%) (Auto) [Pending], Basophils (%) (Auto) [Pending], Sodium Level [Pending], Potassium Level [Pending], Chloride Level [Pending], Carbon Dioxide Level [Pending], Blood Urea Nitrogen [Pending], Creatinine [Pending], Estimat Glomerular Filtration Rate [Pending], Glucose Level [Pending], Calcium Level [Pending] Current Medications Medications (Trade) Dose Ordered Sig/Chano Route PRN Reason Start Time Stop Time Status Last Admin Dose Admin Acetaminophen (Tylenol) 650 mg Q6H PRN ORAL Temp >100.5 04/29/20 22:00 05/29/20 21:59 05/04/20 08:52 Amlodipine Besylate (Norvasc) 10 mg DAILY ORAL 04/30/20 09:00 05/30/20 08:59 05/04/20 08:53 Atorvastatin Calcium (Lipitor) 10 mg BEDTIME ORAL 04/30/20 21:00 07/29/20 20:59 05/03/20 22:03 Dextrose (Dextrose 50%) 25 ml Q30M PRN IV Hypoglycemia 05/01/20 05:45 07/30/20 05:44 Dextrose (Dextrose 50%) 50 ml Q30M PRN IV Hypoglycemia 05/01/20 05:45 07/30/20 05:44 05/01/20 06:01 Dextrose/Sodium Chloride 1,000 ml @ 75 mls/hr [id number] IV 05/01/20 07:00 05/31/20 06:59 05/04/20 01:40 Famotidine (Pepcid) 20 mg DAILY ORAL 04/30/20 09:00 07/29/20 08:59 05/04/20 08:52 Labetalol HCl (Normodyne) 200 mg THREE TIMES A DAY ORAL 04/30/20 09:00 05/30/20 08:59 05/04/20 08:53 Lisinopril (PriniviL) 20 mg DAILY ORAL 04/30/20 09:00 05/30/20 08:59 05/04/20 08:53 Lorazepam (Ativan 2mg/ml 1ml) 0.5 mg EVERY 6 HOURS PRN IV For Anxiety 04/29/20 22:00 05/06/20 21:59 Magnesium Oxide (Mag-Ox 400mg) 400 mg DAILY ORAL 04/30/20 09:00 05/30/20 08:59 05/04/20 08:53 Mirtazapine (Remeron) 30 mg BEDTIME ORAL 04/30/20 21:00 07/29/20 20:59 05/03/20 22:03 Morphine Sulfate (Morphine Sulfate) 0.5 mg EVERY 6 HOURS PRN IVP For Pain 04/29/20 22:00 05/06/20 21:59 Multivitamins (Multivitamins W/ Minerals 15ml Liquid) 15 ml DAILY ORAL 04/30/20 09:00 05/30/20 08:59 05/04/20 08:51 Ondansetron HCl (Zofran) 4 mg Q6H PRN IVP Nausea & Vomiting 04/29/20 22:00 05/29/20 21:59 Pantoprazole (Protonix) 40 mg DAILY IVP 04/30/20 09:00 05/30/20 08:59 05/04/20 08:51 [facility] 1 ea DAILY PRN MISC Per rx protocol 05/03/20 09:45 06/02/20 09:44 Vancomycin HCl 1 gm/Dextrose 275 ml @ 183.708 mls/hr Q12H IVPB 05/03/20 23:00 05/08/20 22:59 05/03/20 22:04 Assessment/Plan Assessment/Plan 1. Elevated inflammatory markers -Venous duplex ultrasound of lower extremity was negative for DVT. - We will order SCD 2. Hypoxia on arrival, likely secondary to #3 3. Oxygen dependent COPD -Patient is currently saturating at 98% on 2 L nasal cannula -Monitor for hypoxia and provide supplemental oxygen as needed 4. Lower GI bleeding -EGD 05/01 ulcers -> on PPI - GI following - s/p transfusion - stool OB neg 04/30 5. Anemia, likely secondary to #4 - s/p transfusion 6. VRE rectum -Contact precaution -C. difficile negative - on Vanco per PMD Fever, tachycardia, hypertension - No labs for two days - Ordered stat CBC, BMP, D-dimer Medically stable from pulmonary standpoint The care for this patient was discussed with my supervising physician. Time spent for this case was approximately 31 minutes. Bennie Goodrich May 04, 2020 09:37
[2020-05-04 09:39] LABS: HEMATOCRIT 23.5 % (42.0-52.0); MEAN CORPUSCULAR VOLUME 86 FL (80-99); PLATELET COUNT 212 K/UL (150-450); RED BLOOD COUNT 2.75 M/UL (4.70-6.10); RED CELL DISTRIBUTION WIDTH 14.3 % (11.6-14.8); WHITE BLOOD COUNT 19.5 K/UL (4.8-10.8)
[2020-05-04 09:55] LABS: ANION GAP 8 mmol/L (5-15); BLOOD UREA NITROGEN 13 mg/dL (7-18); CALCIUM 7.8 MG/DL (8.5-10.1); CARBON DIOXIDE 26 MMOL/L (21-32); CHLORIDE 107 MMOL/L (98-107); POTASSIUM 2.9 MMOL/L (3.5-5.1); SODIUM 141 MMOL/L (136-145)
--- NOTE | 2020-05-04 10:58 | NUR ---
NURSE NOTES: Potassium was 2.[address] Buitrago was notified. ordered KCl 40meq IVPB and BMP tomorrow.
[2020-05-04] MEDS: Vancomycin 1gm/D5W 275ml IVPB SCH ×2 (11:02)
[2020-05-04 12:00] VITALS: BP 166/68
--- NOTE | 2020-05-04 12:14 | General Progress Note ---
Subjective ROS Limited/Unobtainable: No Allergies: Coded Allergies: No Known Allergies (Unverified , 04/15/20) Objective Last 24 Hour Vital Signs Date Time Temp Pulse Resp B/P (MAP) Pulse Ox O2 Delivery O2 Flow Rate FiO2 05/04/20 10:43 2.0 05/04/20 10:40 98.0 05/04/20 08:53 106 159/77 05/04/20 08:53 106 159/77 05/04/20 08:53 159/77 05/04/20 08:00 101.1 106 22 159/77 (104) 96 05/04/20 04:00 2.0 05/04/20 04:00 99.1 97 20 110/77 (88) 94 05/04/20 00:00 2.0 05/04/20 00:00 98.5 95 22 108/75 (86) 94 05/03/20 21:00 2.0 28 05/03/20 21:00 Nasal Cannula 2.0 05/03/20 20:00 97.8 93 20 113/75 (88) 95 05/03/20 17:21 76 120/74 05/03/20 16:05 2.0 05/03/20 16:04 97.8 76 14 120/74 (89) 97 05/03/20 12:29 77 139/82 Intake and Output 05/03/20 05/04/20 19:00 07:00 Intake Total 1710.000 ml 200 ml Output Total 1300 ml Balance 1710.000 ml -1100 ml Intake Free Water 310 ml 150 ml IV Total 850.000 ml Tube Feeding 550 ml 50 ml Output Urine Total 1300 ml Laboratory Tests 05/04/20 09:30: White Blood Count 19.5H, Red Blood Count 2.75L, Hemoglobin 8.0L, Hematocrit 23.5L, Mean Corpuscular Volume 86, Mean Corpuscular Hemoglobin 29.0, Mean Corpuscular Hemoglobin Concent 33.8, Red Cell Distribution Width 14.3, Platelet Count 212, Mean Platelet Volume 6.2L, Neutrophils (%) (Auto) , Lymphocytes (%) (Auto) , Monocytes (%) (Auto) , Eosinophils (%) (Auto) , Basophils (%) (Auto) , Differential Total Cells Counted 100, Neutrophils % (Manual) 92H, Lymphocytes % (Manual) 4L, Monocytes % (Manual) 3, Eosinophils % (Manual) 1, Basophils % (Manual) 0, Band Neutrophils 0, Platelet Estimate Adequate, Platelet Morphology Normal, Hypochromasia 1+, Anisocytosis 1+, Sodium Level 141, Potassium Level 2.9L, Chloride Level 107, Carbon Dioxide Level 26, Anion Gap 8, Blood Urea Nitrogen 13, Creatinine 1.0, Estimat Glomerular Filtration Rate > 60, Glucose Level 152H, Calcium Level 7.8L Height (Feet): 5 Height (Inches): 10.00 Weight (Pounds): 125 General Appearance: no apparent distress EENT: normal ENT inspection Neck: supple Cardiovascular: normal rate Respiratory/Chest: decreased breath sounds Abdomen: normal bowel sounds, non tender, soft Extremities: non-tender Assessment/Plan Problem List: (1) COVID-19 virus detected ICD Codes: U07.1 - COVID-19 SNOMED: 9896553390374872 (2) Left hemiparesis ICD Codes: G81.94 - Hemiplegia, unspecified affecting left nondominant side SNOMED: 169743647 (3) Acute GI bleeding ICD Codes: K92.2 - Gastrointestinal hemorrhage, unspecified SNOMED: 06715517 (4) Right lower lobe pneumonia ICD Codes: J18.9 - Pneumonia, unspecified organism SNOMED: 359986433 (5) Aphasia ICD Codes: R47.01 - Aphasia SNOMED: 52404114 Assessment/Plan: Assessment/Plan Assessment/Plan: Assessment - GI Bleed - OBS - dysphagia, s/p GT - anemia - free water deficit Recommendations - follow CBC - Elevate HOB - increase GT water flushes - GT care - TF -s/p EGD and colonoscopy Rich Aguilar MD May 04, 2020 12:14
--- NOTE | 2020-05-04 15:57 | NUR ---
CASE MANAGEMENT:REVIEW 05/04/20 SI: LGIB.COVID(+) S/P EGD/COLONOSCOPY(+) GASTRITIS, INTERNAL HEMORRHOIDS,DIVERTICULOSIS 101.1 106 22 159/77 96% ON 2L/NC WBC+19.5 H/H-8.0/23.5 K-2.9 IS: IV VANCOMYCIN Q12 IVF@75/HR LIPITOR GT QHS REMERON GT QHS LABETALOL GT TID PEPCID GT QD NORVASC GT QD LISINOPRIL GT QD IV PROTONIX QD : STEP DOWN UNIT DCP: FROM [facility] PLAN: MONITOR FOR ADDITIONAL BLEEDING ~ S/P 4 UNITS PRBC'S
[2020-05-04 16:00] VITALS: BP 116/68
--- NOTE | 2020-05-04 16:29 | General Progress Note ---
Subjective Allergies: Coded Allergies: No Known Allergies (Unverified , 04/15/20) Subjective doibng better non verabal bed bound opens his eyes obn verbal stimuli Objective Last 24 Hour Vital Signs Date Time Temp Pulse Resp B/P (MAP) Pulse Ox O2 Delivery O2 Flow Rate FiO2 05/04/20 16:00 2.0 05/04/20 12:35 99 166/68 05/04/20 12:00 98.6 99 20 166/68 (100) 98 05/04/20 12:00 2.0 05/04/20 10:43 2.0 05/04/20 10:40 98.0 05/04/20 09:00 Nasal Cannula 2.0 05/04/20 08:53 106 159/77 05/04/20 08:53 106 159/77 05/04/20 08:53 159/77 05/04/20 08:00 101.1 106 22 159/77 (104) 96 05/04/20 04:00 2.0 05/04/20 04:00 99.1 97 20 110/77 (88) 94 05/04/20 00:00 2.0 05/04/20 00:00 98.5 95 22 108/75 (86) 94 05/03/20 21:00 2.0 28 05/03/20 21:00 Nasal Cannula 2.0 05/03/20 20:00 97.8 93 20 113/75 (88) 95 05/03/20 17:21 76 120/74 Intake and Output 05/03/20 05/04/20 19:00 07:00 Intake Total 1710.000 ml 200 ml Output Total 1300 ml Balance 1710.000 ml -1100 ml Intake Free Water 310 ml 150 ml IV Total 850.000 ml Tube Feeding 550 ml 50 ml Output Urine Total 1300 ml Laboratory Tests 05/04/20 09:30: White Blood Count 19.5H, Red Blood Count 2.75L, Hemoglobin 8.0L, Hematocrit 23.5L, Mean Corpuscular Volume 86, Mean Corpuscular Hemoglobin 29.0, Mean Corpuscular Hemoglobin Concent 33.8, Red Cell Distribution Width 14.3, Platelet Count 212, Mean Platelet Volume 6.2L, Neutrophils (%) (Auto) , Lymphocytes (%) (Auto) , Monocytes (%) (Auto) , Eosinophils (%) (Auto) , Basophils (%) (Auto) , Differential Total Cells Counted 100, Neutrophils % (Manual) 92H, Lymphocytes % (Manual) 4L, Monocytes % (Manual) 3, Eosinophils % (Manual) 1, Basophils % (Manual) 0, Band Neutrophils 0, Platelet Estimate Adequate, Platelet Morphology Normal, Hypochromasia 1+, Anisocytosis 1+, Sodium Level 141, Potassium Level 2.9L, Chloride Level 107, Carbon Dioxide Level 26, Anion Gap 8, Blood Urea Nitrogen 13, Creatinine 1.0, Estimat Glomerular Filtration Rate > 60, Glucose Level 152H, Calcium Level 7.8L Height (Feet): 5 Height (Inches): 10.00 Weight (Pounds): 125 General Appearance: alert Neck: supple Cardiovascular: regular rhythm Respiratory/Chest: crackles/rales Abdomen: non tender, soft Extremities: non-tender Assessment/Plan Assessment/Plan: lgi bleeding anemia covid 19 pna dm ac renal failure vre rectum add vancomycin transfuse 1 u prbc gi oscar tomorrow npo, ivf neha Dedrick Nuñez cm, MD May 04, 2020 16:29
--- NOTE | 2020-05-04 19:21 | NUR ---
NURSE HAND-OFF: Important Events on Shift: No new event Patient Status: stable Diet: Glucerna 1.2 @ 50ml/hr Pending Orders: n/a Pending Results/Labs:n/a Pending MD notification:n/a Latest Vital Signs: Temperature 99.4 , Pulse 94 , B/P 116 /68 , Respiratory Rate 20 , O2 SAT 98 , Nasal Cannula, O2 Flow Rate 2.0 . Vital Sign Comment: stable Latest [place] Fall Score: 70 Fall Risk: High Risk Safety Measures: Call light Within Reach, Bed Alarm Zone 2, Side Rails Side Rails x3, Bed position Low and Locked. Fall Precautions: Yellow Socks Yellow Gown Report given to ROMIE Abraham.
--- NOTE | 2020-05-04 19:27 | NUR ---
NURSE NOTES: Patient asleep in bed, on nasal cannula 2LPM Oxygen, with Gtube feeding Glucerna 1.2 @ 50cc/hr. With IV access on right forearm g.22. Call light in reach. Bed in lowest, lock engaged and alarm on. Will continue to monitor.
[2020-05-04 20:00] VITALS: BP 125/70
[2020-05-04] MEDS: Atorvastatin 20mg tab ORAL SCH (20:38)
[2020-05-04] MEDS: Vancomycin 1 GM in NS 275 ML IVPB SCH (23:05)
[2020-05-05] VITALS: BP 124/80
[2020-05-05 04:00] VITALS: BP 129/86
--- NOTE | 2020-05-05 06:59 | Endoscopy Procedure Note ---
Endoscopy Procedure Note General Indication for Procedure: gib Procedures Performed: EGD, colonoscopy Operative Findings/Diagnosis: gastritis, diverticulosis Specimen: yes Pt Tolerated Procedure Well: Yes Estimated Blood Loss: none Anesthesia Anesthesiologist: purvi Anesthesia: MAC Inserted Devices Implant(s) used?: No GI Core Measures 50 yrs or older w/o bx or poly: Not Applicable 10yrs. F/U recommended: Not Applicable Rich Aguilar MD May 05, 2020 06:59
--- NOTE | 2020-05-05 07:35 | NUR ---
NURSE NOTES: Received report from Herlinda GRUBBS. Patient is in bed, nonverbal, combative when touched, bedbound, no acute distress. IVF running per order. On 2 L NC, no Sob noted. Awad patent draining yellow urine. G tube patent, site asymptomatic, no residual, running at 50 ml per order.
--- NOTE | 2020-05-05 07:44 | General Progress Note ---
Subjective ROS Limited/Unobtainable: No HEENT: Reports: no symptoms Allergies: Coded Allergies: No Known Allergies (Unverified , 04/15/20) Objective Last 24 Hour Vital Signs Date Time Temp Pulse Resp B/P (MAP) Pulse Ox O2 Delivery O2 Flow Rate FiO2 05/05/20 04:00 2.0 05/05/20 04:00 97.2 95 18 129/86 (100) 97 05/05/20 00:00 98.1 97 20 124/80 (95) 97 05/05/20 00:00 2.0 05/04/20 21:00 Nasal Cannula 2.0 05/04/20 20:00 97.6 89 19 125/70 (88) 96 05/04/20 20:00 2.0 05/04/20 17:24 94 116/68 05/04/20 16:00 99.4 94 20 116/68 (84) 98 05/04/20 16:00 2.0 05/04/20 12:35 99 166/68 05/04/20 12:00 98.6 99 20 166/68 (100) 98 05/04/20 12:00 2.0 05/04/20 10:43 2.0 05/04/20 10:40 98.0 05/04/20 10:40 98.0 05/04/20 09:00 Nasal Cannula 2.0 05/04/20 08:53 106 159/77 05/04/20 08:53 106 159/77 05/04/20 08:53 159/77 05/04/20 08:00 101.1 106 22 159/77 (104) 96 Intake and Output 05/04/20 05/05/20 19:00 07:00 Intake Total 1375 ml 850 ml Output Total 1400 ml 1200 ml Balance -25 ml -350 ml Intake Free Water 300 ml 300 ml IV Total 475 ml Tube Feeding 600 ml 550 ml Output Urine Total 1400 ml 1200 ml Laboratory Tests 05/04/20 09:30: White Blood Count 19.5H, Red Blood Count 2.75L, Hemoglobin 8.0L, Hematocrit 23.5L, Mean Corpuscular Volume 86, Mean Corpuscular Hemoglobin 29.0, Mean Corpuscular Hemoglobin Concent 33.8, Red Cell Distribution Width 14.3, Platelet Count 212, Mean Platelet Volume 6.2L, Neutrophils (%) (Auto) , Lymphocytes (%) (Auto) , Monocytes (%) (Auto) , Eosinophils (%) (Auto) , Basophils (%) (Auto) , Differential Total Cells Counted 100, Neutrophils % (Manual) 92H, Lymphocytes % (Manual) 4L, Monocytes % (Manual) 3, Eosinophils % (Manual) 1, Basophils % (Manual) 0, Band Neutrophils 0, Platelet Estimate Adequate, Platelet Morphology Normal, Hypochromasia 1+, Anisocytosis 1+, Sodium Level 141, Potassium Level 2.9L, Chloride Level 107, Carbon Dioxide Level 26, Anion Gap 8, Blood Urea Nitrogen 13, Creatinine 1.0, Estimat Glomerular Filtration Rate > 60, Glucose Level 152H, Calcium Level 7.8L Height (Feet): 5 Height (Inches): 10.00 Weight (Pounds): 125 General Appearance: no apparent distress EENT: normal ENT inspection Neck: supple Cardiovascular: normal rate Respiratory/Chest: decreased breath sounds Abdomen: normal bowel sounds, non tender, soft Extremities: non-tender Assessment/Plan Problem List: (1) COVID-19 virus detected ICD Codes: U07.1 - COVID-19 SNOMED: 3344060526010489 (2) Left hemiparesis ICD Codes: G81.94 - Hemiplegia, unspecified affecting left nondominant side SNOMED: 691057728 (3) Acute GI bleeding ICD Codes: K92.2 - Gastrointestinal hemorrhage, unspecified SNOMED: 28071660 (4) Right lower lobe pneumonia ICD Codes: J18.9 - Pneumonia, unspecified organism SNOMED: 380064369 (5) Aphasia ICD Codes: R47.01 - Aphasia SNOMED: 32918849 Assessment/Plan: Assessment/Plan Assessment/Plan: Assessment - GI Bleed - OBS - dysphagia, s/p GT - anemia - free water deficit Recommendations - follow CBC - Elevate HOB - increase GT water flushes - GT care - TF -s/p EGD and colonoscopy Rich Aguilar MD May 05, 2020 07:44
[2020-05-05 08:00] VITALS: BP 106/68
--- NOTE | 2020-05-05 08:03 | NUR ---
NURSE HAND-OFF: Important Events on Shift: hygiene, feeding Patient Status: Diet: tube feeding Pending Orders: Pending Results/Labs: Pending MD notification: Latest Vital Signs: Temperature 97.2 , Pulse 95 , B/P 129 /86 , Respiratory Rate 18 , O2 SAT 97 , Nasal Cannula, O2 Flow Rate 2.0 . Vital Sign Comment: Latest [place] Fall Score: 70 Fall Risk: High Risk Safety Measures: Call light Within Reach, Bed Alarm Zone 2, Side Rails Side Rails x3, Bed position Low and Locked. Fall Precautions: Yellow Socks Yellow Gown Report given to ROMIE Akins.
[2020-05-05] MEDS ORDERED: Enoxaparin 40mg Inj SUBQ SCH (09:00)
[2020-05-05] MEDS: Lisinopril 20mg tab ORAL SCH (09:00)
[2020-05-05] MEDS: Magnesium Oxide 400mg tab ORAL SCH (10:05)
[2020-05-05] MEDS: Pantoprazole Inj IVP SCH (10:05)
[2020-05-05] MEDS: Multivitamins W/Minerals 15 ML UDC ORAL SCH (10:05)
--- NOTE | 2020-05-05 10:45 | General Progress Note ---
Subjective Allergies: Coded Allergies: No Known Allergies (Unverified , 04/15/20) Subjective doibng better non verabal bed bound opens his eyes obn verbal stimuli Objective Last 24 Hour Vital Signs Date Time Temp Pulse Resp B/P (MAP) Pulse Ox O2 Delivery O2 Flow Rate FiO2 05/05/20 09:00 89 106/68 05/05/20 09:00 89 106/68 05/05/20 09:00 106/68 05/05/20 04:00 2.0 05/05/20 04:00 97.2 95 18 129/86 (100) 97 05/05/20 00:00 98.1 97 20 124/80 (95) 97 05/05/20 00:00 2.0 05/04/20 21:00 Nasal Cannula 2.0 05/04/20 20:00 97.6 89 19 125/70 (88) 96 05/04/20 20:00 2.0 05/04/20 17:24 94 116/68 05/04/20 16:00 99.4 94 20 116/68 (84) 98 05/04/20 16:00 2.0 05/04/20 12:35 99 166/68 05/04/20 12:00 98.6 99 20 166/68 (100) 98 05/04/20 12:00 2.0 Intake and Output 05/04/20 05/05/20 19:00 07:00 Intake Total 1375 ml 850 ml Output Total 1400 ml 1200 ml Balance -25 ml -350 ml Intake Free Water 300 ml 300 ml IV Total 475 ml Tube Feeding 600 ml 550 ml Output Urine Total 1400 ml 1200 ml Height (Feet): 5 Height (Inches): 10.00 Weight (Pounds): 125 General Appearance: alert Neck: supple Cardiovascular: regular rhythm Respiratory/Chest: normal breath sounds Abdomen: non tender, soft Assessment/Plan Assessment/Plan: lgi bleeding resolved anemia covid 19 pna dm ac renal failure vre rectum add vancomycin transfuse 1 u prbc gi oscar tomorrow npo, ivf neha eval dw cm Dedrick Buitrago MD May 05, 2020 10:45
[2020-05-05 11:13] LABS: HEMATOCRIT 21.8 % (42.0-52.0); HEMOGLOBIN 7.3 G/DL (14.2-18.0); MEAN CORPUSCULAR VOLUME 86 FL (80-99); PLATELET COUNT 218 K/UL (150-450); RED BLOOD COUNT 2.52 M/UL (4.70-6.10); RED CELL DISTRIBUTION WIDTH 15.3 % (11.6-14.8); WHITE BLOOD COUNT 13.6 K/UL (4.8-10.8)
[2020-05-05 11:19] LABS: CALCIUM 8.2 MG/DL (8.5-10.1); CARBON DIOXIDE 26 MMOL/L (21-32); CREATININE 0.9 MG/DL (0.55-1.30)
[2020-05-05] MEDS: Vancomycin 1 GM in NS 275 ML IVPB SCH ×2 (11:25→22:07)
[2020-05-05 11:57] LABS: BLOOD UREA NITROGEN 12 mg/dL (7-18); CHLORIDE 110 MMOL/L (98-107); POTASSIUM 3.3 MMOL/L (3.5-5.1); SODIUM 143 MMOL/L (136-145)
--- NOTE | 2020-05-05 11:57 | Pulmonology Progress Note ---
Subjective ROS Limited/Unobtainable: No Interval Events: s/p transfusion, EGD, [place] Constitutional: Reports: fever, other - resolved HEENT: Repors: no symptoms Respiratory: Reports: no symptoms Cardiovascular: Reports: no symptoms Gastrointestinal/Abdominal: Reports: no symptoms Genitourinary: Reports: no symptoms Allergies: Coded Allergies: No Known Allergies (Unverified , 04/15/20) Objective Last 24 Hour Vital Signs Date Time Temp Pulse Resp B/P (MAP) Pulse Ox O2 Delivery O2 Flow Rate FiO2 05/05/20 09:00 89 106/68 05/05/20 09:00 89 106/68 05/05/20 09:00 106/68 05/05/20 08:00 98.1 99 16 106/68 (81) 99 05/05/20 04:00 2.0 05/05/20 04:00 97.2 95 18 129/86 (100) 97 05/05/20 00:00 98.1 97 20 124/80 (95) 97 05/05/20 00:00 2.0 05/04/20 21:00 Nasal Cannula 2.0 05/04/20 20:00 97.6 89 19 125/70 (88) 96 05/04/20 20:00 2.0 05/04/20 17:24 94 116/68 05/04/20 16:00 99.4 94 20 116/68 (84) 98 05/04/20 16:00 2.0 05/04/20 12:35 99 166/68 05/04/20 12:00 98.6 99 20 166/68 (100) 98 05/04/20 12:00 2.0 Intake and Output 05/04/20 05/05/20 19:00 07:00 Intake Total 1375 ml 850 ml Output Total 1400 ml 1200 ml Balance -25 ml -350 ml Intake Free Water 300 ml 300 ml IV Total 475 ml Tube Feeding 600 ml 550 ml Output Urine Total 1400 ml 1200 ml HEENT: atraumatic Respiratory: decreased breath sounds Cardiovascular: normal rate, regular rhythm Abdomen: soft, non tender Laboratory Tests 05/05/20 10:15: White Blood Count 13.6H, Red Blood Count 2.52L, Hemoglobin 7.3L, Hematocrit 21.8L, Mean Corpuscular Volume 86, Mean Corpuscular Hemoglobin 29.0, Mean Corpuscular Hemoglobin Concent 33.6, Red Cell Distribution Width 15.3H, Platelet Count 218, Mean Platelet Volume 6.0L, Neutrophils (%) (Auto) , Lymphocytes (%) (Auto) , Monocytes (%) (Auto) , Eosinophils (%) (Auto) , Basophils (%) (Auto) , Differential Total Cells Counted 100, Neutrophils % (Manual) 83H, Lymphocytes % (Manual) 10L, Monocytes % (Manual) 4, Eosinophils % (Manual) 3, Basophils % (Manual) 0, Band Neutrophils 0, Platelet Estimate Adequate, Platelet Morphology Normal, Hypochromasia 1+, Anisocytosis 1+, D-Dimer 1.92H, Sodium Level [Pending], Potassium Level [Pending], Chloride Level [Pending], Carbon Dioxide Level 26, Blood Urea Nitrogen [Pending], Creatinine 0.9, Estimat Glomerular Filtration Rate > 60, Glucose Level 121H, Calcium Level 8.2L, Vancomycin Level Trough 19.2H Current Medications Medications (Trade) Dose Ordered Sig/[place]ano Route PRN Reason Start Time Stop Time Status Last Admin Dose Admin Acetaminophen (Tylenol) 650 mg Q6H PRN ORAL Temp >100.5 04/29/20 22:00 05/29/20 21:59 05/04/20 08:52 Amlodipine Besylate (Norvasc) 10 mg DAILY ORAL 04/30/20 09:00 05/30/20 08:59 05/04/20 08:53 Atorvastatin Calcium (Lipitor) 10 mg BEDTIME ORAL 04/30/20 21:00 07/29/20 20:59 05/04/20 20:38 Dextrose (Dextrose 50%) 25 ml Q30M PRN IV Hypoglycemia 05/01/20 05:45 07/30/20 05:44 Dextrose (Dextrose 50%) 50 ml Q30M PRN IV Hypoglycemia 05/01/20 05:45 07/30/20 05:44 05/01/20 06:01 Dextrose/Sodium Chloride 1,000 ml @ 75 mls/hr [id number] IV 05/01/20 07:00 05/31/20 06:59 05/04/20 23:10 Famotidine (Pepcid) 20 mg DAILY ORAL 04/30/20 09:00 07/29/20 08:59 05/05/20 10:05 Labetalol HCl (Normodyne) 200 mg THREE TIMES A DAY ORAL 04/30/20 09:00 05/30/20 08:59 05/04/20 17:24 Lisinopril (PriniviL) 20 mg DAILY ORAL 04/30/20 09:00 05/30/20 08:59 05/04/20 08:53 Lorazepam (Ativan 2mg/ml 1ml) 0.5 mg EVERY 6 HOURS PRN IV For Anxiety 04/29/20 22:00 05/06/20 21:59 Magnesium Oxide (Mag-Ox 400mg) 400 mg DAILY ORAL 04/30/20 09:00 05/30/20 08:59 05/05/20 10:05 Mirtazapine (Remeron) 30 mg BEDTIME ORAL 04/30/20 21:00 07/29/20 20:59 05/04/20 20:38 Morphine Sulfate (Morphine Sulfate) 0.5 mg EVERY 6 HOURS PRN IVP For Pain 04/29/20 22:00 05/06/20 21:59 Multivitamins (Multivitamins W/ Minerals 15ml Liquid) 15 ml DAILY ORAL 04/30/20 09:00 05/30/20 08:59 05/05/20 10:05 Ondansetron HCl (Zofran) 4 mg Q6H PRN IVP Nausea & Vomiting 04/29/20 22:00 05/29/20 21:59 Pantoprazole (Protonix) 40 mg DAILY IVP 04/30/20 09:00 05/30/20 08:59 05/05/20 10:05 Vancomycin HCl ([facility] pharmacy to dose) 1 ea DAILY PRN MISC Per rx protocol 05/03/20 09:45 06/02/20 09:44 Vancomycin HCl 1 gm/Sodium Chloride 275 ml @ 183.708 mls/hr Q12H IVPB 05/04/20 23:00 05/08/20 23:59 05/05/20 11:25 Assessment/Plan Assessment/Plan 1. Elevated inflammatory markers -Venous duplex ultrasound of lower extremity was negative for DVT. - We will order SCD 2. Hypoxia on arrival, likely secondary to #3 3. Oxygen dependent COPD -Patient is currently saturating at 98% on 2 L nasal cannula -Monitor for hypoxia and provide supplemental oxygen as needed 4. Lower GI bleeding -EGD 05/01 ulcers -> on PPI - Colonoscopy -> internal hemorrhoids, diverticulosis - GI following - s/p transfusion - stool OB neg 04/30 5. Anemia, likely secondary to #4 - s/p transfusion 6. VRE rectum -Contact precaution -C. difficile negative - on Vanco per PMD Fever, tachycardia, hypertension - D-dimer slightly elevated Medically stable from pulmonary standpoint The care for this patient was discussed with my supervising physician. Time spent for this case was approximately 31 minutes. Bennie Goodrich May 05, 2020 11:57
[2020-05-05 12:00] VITALS: BP 127/82
--- NOTE | 2020-05-05 12:37 | NUR ---
NURSE NOTES: Hemoglobin 7.3, Dr. Buitrago notified, ordered repeat labs. If less than 8 transfuse 1 unit PRBC.
--- NOTE | 2020-05-05 12:54 | NUR ---
RD ASSESSMENT & RECOMMENDATIONS SEE CARE ACTIVITY FOR COMPLETE ASSESSMENT DAILY ESTIMATED NEEDS: Needs based on Pulmonary, suspected wt loss, underweight 60kg 30-35 kcals/kg 5135-0102 total kcals 1-1.5 g protein/kg 60-90 g total protein 25-30 mL/kg 7219-2992 total fluid mLs NUTRITION DIAGNOSIS: * Swallowing difficulty R/T dysphagia as evidenced by PEG dep. * Increased kcal/prot needs R/T suspected wt loss and underweight status as evidenced by suspected significant wt loss of 9lbs/6.4% in 1 mo, pt @ 77% IBW w/ low BMI per guidelines. CURRENT TF: Glucerna 1.2 @50ml/hr x24 hrs ENTERAL NUTRITION RECOMMENDATIONS: Glucerna 1.2 @ 65ml/hr x 24 hrs to provide 1560ml, 1872kcal, 94g prot, 1256ml free water * Glucerna 1.2 running @50ml/hr * Rec to advance 15ml as tolerated to goal of 65ml/hr to better meet est kcal needs. * HOB over 30 degrees/ water flush per MD ADDITIONAL RECOMMENDATIONS: * calibrated bedscale wt * Monitor BGs w/ TF, need for hypoglycemics: h/o DM Rec to DC D5 IVF for improved BG control: Na now wnl * Rec WC eval-> done, no evidence of skin breakdown * Monitor lytes, replete as needed (low K) . .
[2020-05-05 13:15] LABS: BASOPHILS % (AUTO) 0.3 % (0.0-2.0); EOSINOPHILS % (AUTO) 5.9 % (0.0-3.0); HEMATOCRIT 24.9 % (42.0-52.0); HEMOGLOBIN 8.1 G/DL (14.2-18.0); LYMPHOCYTES % (AUTO) 9.5 % (20.0-45.0); MEAN CORPUSCULAR VOLUME 88 FL (80-99); MONOCYTES % (AUTO) 7.5 % (1.0-10.0); NEUTROPHILS % (AUTO) 76.9 % (45.0-75.0); PLATELET COUNT 235 K/UL (150-450); RED BLOOD COUNT 2.83 M/UL (4.70-6.10); RED CELL DISTRIBUTION WIDTH 15.5 % (11.6-14.8)
--- NOTE | 2020-05-05 15:28 | NUR ---
CASE MANAGEMENT:REVIEW 05/05/20 SI: LGIB. ANEMIA..S/P 4UNITS PRBC'S. COVID(+) 99.5 92 21 127/82 97% ON 2L/NC WBC+15.0 H/H-8.1/24.9 K-3.3 IS: IV VANCOMYCIN Q12 IVF@75/HR LIPITOR GT QHS REMERON GT QHS LABETALOL GT TID PEPCID GT QD NORVASC GT QD LISINOPRIL GT QD IV PROTONIX QD : STEP DOWN UNIT DCP: FROM [facility] PLAN: MONITOR FOR ADDITIONAL BLEEDING ~ S/P 4 UNITS PRBC'S
[2020-05-05 16:00] VITALS: BP 128/84
[2020-05-05] MEDS: D5 1/2NS 1,000 ML IV SCH (17:59)
--- NOTE | 2020-05-05 19:20 | NUR ---
NURSE HAND-OFF: Important Events on Shift:[Hgb low, Buitrago aware, monitoring ] Patient Status: [stable] Diet: [NPO, TF Glucerna 1.2 @50 cont] Pending Orders: [] Pending Results/Labs:[] Pending MD notification:[] Latest Vital Signs: Temperature 98.7 , Pulse 74 , B/P 106 /66 , Respiratory Rate 19 , O2 SAT 99 , Nasal Cannula, O2 Flow Rate 2.0 . Vital Sign Comment: [] Latest [place] Fall Score: 70 Fall Risk: High Risk Safety Measures: Call light Within Reach, Bed Alarm Zone 2, Side Rails Side Rails x3, Bed position Low and Locked. Fall Precautions: Yellow Socks Yellow Gown Report given to [Herlinda GRUBBS]. Addendum: 05/05/20 at 1948 by Mable Ferreira RN G tube flushed q6, no residual x3
[2020-05-05 20:00] VITALS: BP 113/73
[2020-05-05] MEDS: Atorvastatin 20mg tab ORAL SCH (20:10)
[2020-05-06] VITALS (7 sets, daily range): BP systolic 112–147; BP diastolic 65–90
[2020-05-06] MEDS: D5 1/2NS 1,000 ML IV SCH ×2 (06:02→20:20)
--- NOTE | 2020-05-06 07:44 | NUR ---
NURSE HAND-OFF: Important Events on Shift: hygiene, turning positions, feeding Patient Status: Diet: tube feeding Pending Orders: Pending Results/Labs: Pending MD notification: Latest Vital Signs: Temperature 98.0 , Pulse 91 , B/P 138 /81 , Respiratory Rate 18 , O2 SAT 96 , Nasal Cannula, O2 Flow Rate 2.0 . Vital Sign Comment: Latest [place] Fall Score: 70 Fall Risk: High Risk Safety Measures: Call light Within Reach, Bed Alarm Zone 2, Side Rails Side Rails x3, Bed position Low and Locked. Fall Precautions: Yellow Socks Yellow Gown Report given to ROMIE Garrido.
--- NOTE | 2020-05-06 07:45 | NUR ---
NURSE NOTES: Patient received from ROMIE Abraham. Patient awake in bed, alert and oriented x 1, non verbal, no SOB, bed in lowest position with breaks engaged and alarm on, no s/sx of pain per assessment, IV line and FC present, on nasal cannula 2 L/min, GT in place tolerating feeding, will continue to monitor and proceed with plan of care, call light within reach.
--- NOTE | 2020-05-06 09:00 | NUR ---
NURSE NOTES: Received report from ROMIE Garrido. Pt in bed, asleep, non verbal, on NC 2L, no acute distress noted. Will administer scheduled med as ordered. Bed in low position, locked and alarmed. Will continue to monitor.
[2020-05-06] MEDS: Multivitamins W/Minerals 15 ML UDC ORAL SCH (09:26)
[2020-05-06] MEDS: Pantoprazole Inj IVP SCH (09:26)
[2020-05-06] MEDS: Lisinopril 20mg tab ORAL SCH (09:26)
[2020-05-06] MEDS: Magnesium Oxide 400mg tab ORAL SCH (09:26)
--- NOTE | 2020-05-06 10:51 | General Progress Note ---
Subjective ROS Limited/Unobtainable: No Allergies: Coded Allergies: No Known Allergies (Unverified , 04/15/20) Objective Last 24 Hour Vital Signs Date Time Temp Pulse Resp B/P (MAP) Pulse Ox O2 Delivery O2 Flow Rate FiO2 05/06/20 09:26 90 147/90 05/06/20 09:26 147/90 05/06/20 09:25 90 147/90 05/06/20 09:00 Nasal Cannula 2.0 05/06/20 08:00 2.0 05/06/20 08:00 98.2 90 18 147/90 (109) 98 05/06/20 04:00 2.0 05/06/20 04:00 98.0 91 18 138/81 (100) 96 05/06/20 00:00 98.0 90 18 128/79 (95) 97 05/05/20 21:00 Nasal Cannula 2.0 05/05/20 20:00 2.0 05/05/20 20:00 98.2 87 17 113/73 (86) 96 05/05/20 18:00 74 106/66 05/05/20 16:00 2.0 05/05/20 16:00 98.7 80 19 128/84 (99) 99 05/05/20 12:57 92 127/82 05/05/20 12:00 2.0 05/05/20 12:00 99.5 92 21 127/82 (97) 97 Intake and Output 05/05/20 05/06/20 19:00 07:00 Intake Total 50 ml 850 ml Output Total 900 ml 1400 ml Balance -850 ml -550 ml Intake Free Water 300 ml Tube Feeding 50 ml 550 ml Output Urine Total 900 ml 1400 ml # Voids 3 Laboratory Tests 05/05/20 13:00: White Blood Count 15.0H, Red Blood Count 2.83L, Hemoglobin 8.1L, Hematocrit 24.9L, Mean Corpuscular Volume 88, Mean Corpuscular Hemoglobin 28.7, Mean Corpuscular Hemoglobin Concent 32.7, Red Cell Distribution Width 15.5H, Platelet Count 235, Mean Platelet Volume 6.1L, Neutrophils (%) (Auto) 76.9H, Lymphocytes (%) (Auto) 9.5L, Monocytes (%) (Auto) 7.5, Eosinophils (%) (Auto) 5.9H, Basophils (%) (Auto) 0.3 Height (Feet): 5 Height (Inches): 10.00 Weight (Pounds): 125 General Appearance: no apparent distress EENT: normal ENT inspection Neck: supple Cardiovascular: normal rate Respiratory/Chest: decreased breath sounds Abdomen: normal bowel sounds, non tender, soft Extremities: non-tender Assessment/Plan Problem List: (1) COVID-19 virus detected ICD Codes: U07.1 - COVID-19 SNOMED: 1252235508866070 (2) Left hemiparesis ICD Codes: G81.94 - Hemiplegia, unspecified affecting left nondominant side SNOMED: 232567398 (3) Acute GI bleeding ICD Codes: K92.2 - Gastrointestinal hemorrhage, unspecified SNOMED: 47646810 (4) Right lower lobe pneumonia ICD Codes: J18.9 - Pneumonia, unspecified organism SNOMED: 736020457 (5) Aphasia ICD Codes: R47.01 - Aphasia SNOMED: 43139465 Assessment/Plan: Assessment/Plan Assessment/Plan: Assessment - GI Bleed - OBS - dysphagia, s/p GT - anemia - free water deficit Recommendations - follow CBC - Elevate HOB - GT water flushes - GT care - TF -s/p EGD and colonoscopy Rich Aguilar MD May 06, 2020 10:51
[2020-05-06] MEDS: Vancomycin 1 GM in NS 275 ML IVPB SCH ×2 (11:00→22:57)
--- NOTE | 2020-05-06 15:17 | Pulmonology Progress Note ---
Subjective ROS Limited/Unobtainable: No Interval Events: s/p transfusion, EGD, [place] Constitutional: Reports: fever, other - resolved HEENT: Repors: no symptoms Respiratory: Reports: no symptoms Cardiovascular: Reports: no symptoms Gastrointestinal/Abdominal: Reports: no symptoms Genitourinary: Reports: no symptoms Allergies: Coded Allergies: No Known Allergies (Unverified , 04/15/20) Objective Last 24 Hour Vital Signs Date Time Temp Pulse Resp B/P (MAP) Pulse Ox O2 Delivery O2 Flow Rate FiO2 05/06/20 13:00 94 138/86 05/06/20 12:00 97.8 94 18 138/86 (103) 98 05/06/20 12:00 2.0 05/06/20 09:26 90 147/90 05/06/20 09:26 147/90 05/06/20 09:25 90 147/90 05/06/20 09:00 Nasal Cannula 2.0 05/06/20 08:00 2.0 05/06/20 08:00 98.2 90 18 147/90 (109) 98 05/06/20 04:00 2.0 05/06/20 04:00 98.0 91 18 138/81 (100) 96 05/06/20 00:00 98.0 90 18 128/79 (95) 97 05/05/20 21:00 Nasal Cannula 2.0 05/05/20 20:00 2.0 05/05/20 20:00 98.2 87 17 113/73 (86) 96 05/05/20 18:00 74 106/66 05/05/20 16:00 2.0 05/05/20 16:00 98.7 80 19 128/84 (99) 99 Intake and Output 05/05/20 05/06/20 19:00 07:00 Intake Total 50 ml 850 ml Output Total 900 ml 1400 ml Balance -850 ml -550 ml Intake Free Water 300 ml Tube Feeding 50 ml 550 ml Output Urine Total 900 ml 1400 ml # Voids 3 HEENT: atraumatic Respiratory: decreased breath sounds Cardiovascular: normal rate, regular rhythm Abdomen: soft, non tender Current Medications Medications (Trade) Dose Ordered Sig/Chano Route PRN Reason Start Time Stop Time Status Last Admin Dose Admin Acetaminophen (Tylenol) 650 mg Q6H PRN ORAL Temp >100.5 04/29/20 22:00 05/29/20 21:59 05/04/20 08:52 Amlodipine Besylate (Norvasc) 10 mg DAILY ORAL 04/30/20 09:00 05/30/20 08:59 05/06/20 09:26 Atorvastatin Calcium (Lipitor) 10 mg BEDTIME ORAL 04/30/20 21:00 07/29/20 20:59 05/05/20 20:10 Dextrose (Dextrose 50%) 25 ml Q30M PRN IV Hypoglycemia 05/01/20 05:45 07/30/20 05:44 Dextrose (Dextrose 50%) 50 ml Q30M PRN IV Hypoglycemia 05/01/20 05:45 07/30/20 05:44 05/01/20 06:01 Dextrose/Sodium Chloride 1,000 ml @ 75 mls/hr [id number] IV 05/01/20 07:00 05/31/20 06:59 05/05/20 17:59 Famotidine (Pepcid) 20 mg DAILY ORAL 04/30/20 09:00 07/29/20 08:59 05/06/20 09:26 Labetalol HCl (Normodyne) 200 mg THREE TIMES A DAY ORAL 04/30/20 09:00 05/30/20 08:59 05/06/20 13:00 Lisinopril (PriniviL) 20 mg DAILY ORAL 04/30/20 09:00 05/30/20 08:59 05/06/20 09:26 Lorazepam (Ativan 2mg/ml 1ml) 0.5 mg EVERY 6 HOURS PRN IV For Anxiety 04/29/20 22:00 05/06/20 21:59 Magnesium Oxide (Mag-Ox 400mg) 400 mg DAILY ORAL 04/30/20 09:00 05/30/20 08:59 05/06/20 09:26 Mirtazapine (Remeron) 30 mg BEDTIME ORAL 04/30/20 21:00 07/29/20 20:59 05/05/20 20:10 Morphine Sulfate (Morphine Sulfate) 0.5 mg EVERY 6 HOURS PRN IVP For Pain 04/29/20 22:00 05/06/20 21:59 Multivitamins (Multivitamins W/ Minerals 15ml Liquid) 15 ml DAILY ORAL 04/30/20 09:00 05/30/20 08:59 2/3/21 09:26 Ondansetron HCl (Zofran) 4 mg Q6H PRN IVP Nausea & Vomiting 04/29/20 22:00 05/29/20 21:59 Pantoprazole (Protonix) 40 mg DAILY IVP 04/30/20 09:00 05/30/20 08:59 05/06/20 09:26 Vancomycin HCl (Vanco pharmacy to dose) 1 ea DAILY PRN MISC Per rx protocol 05/03/20 09:45 06/02/20 09:44 Vancomycin HCl 1 gm/Sodium Chloride 275 ml @ 183.708 mls/hr Q12H IVPB 05/04/20 23:00 05/08/20 23:59 05/06/20 11:00 Assessment/Plan Assessment/Plan 1. Elevated inflammatory markers -Venous duplex ultrasound of lower extremity was negative for DVT. - We will order SCD 2. Hypoxia on arrival, likely secondary to #3 3. Oxygen dependent COPD -Patient is currently saturating at 98% on 2 L nasal cannula -Monitor for hypoxia and provide supplemental oxygen as needed 4. Lower GI bleeding -EGD 05/01 ulcers -> on PPI - Colonoscopy -> internal hemorrhoids, diverticulosis - GI following - s/p transfusion - stool OB neg 04/30 5. Anemia, likely secondary to #4 - s/p transfusion 6. VRE rectum -Contact precaution -C. difficile negative - on Vanco per PMD Fever, tachycardia, hypertension - D-dimer slightly elevated Medically stable from pulmonary standpoint The care for this patient was discussed with my supervising physician. Time spent for this case was approximately 31 minutes. Bennie Goodrich May 06, 2020 15:17
--- NOTE | 2020-05-06 15:31 | General Progress Note ---
Subjective Allergies: Coded Allergies: No Known Allergies (Unverified , 04/15/20) Subjective doibng better non verabal bed bound opens his eyes obn verbal stimuli Objective Last 24 Hour Vital Signs Date Time Temp Pulse Resp B/P (MAP) Pulse Ox O2 Delivery O2 Flow Rate FiO2 05/06/20 13:00 94 138/86 05/06/20 12:00 97.8 94 18 138/86 (103) 98 05/06/20 12:00 2.0 05/06/20 09:26 90 147/90 05/06/20 09:26 147/90 05/06/20 09:25 90 147/90 05/06/20 09:00 Nasal Cannula 2.0 05/06/20 08:00 2.0 05/06/20 08:00 98.2 90 18 147/90 (109) 98 05/06/20 04:00 2.0 05/06/20 04:00 98.0 91 18 138/81 (100) 96 05/06/20 00:00 98.0 90 18 128/79 (95) 97 05/05/20 21:00 Nasal Cannula 2.0 05/05/20 20:00 2.0 05/05/20 20:00 98.2 87 17 113/73 (86) 96 05/05/20 18:00 74 106/66 05/05/20 16:00 2.0 05/05/20 16:00 98.7 80 19 128/84 (99) 99 Intake and Output 05/05/20 05/06/20 19:00 07:00 Intake Total 50 ml 850 ml Output Total 900 ml 1400 ml Balance -850 ml -550 ml Intake Free Water 300 ml Tube Feeding 50 ml 550 ml Output Urine Total 900 ml 1400 ml # Voids 3 Height (Feet): 5 Height (Inches): 10.00 Weight (Pounds): 125 Neck: supple Cardiovascular: regular rhythm Respiratory/Chest: crackles/rales Abdomen: non tender, soft Extremities: non-tender Assessment/Plan Assessment/Plan: lgi bleeding resolved anemia covid 19 pna dm ac renal failure vre rectum add vancomycin transfuse 1 u prbc gi oscar tomorrow npo, ivf nhea eval dw Dedrick Courtney MD May 06, 2020 15:31
--- NOTE | 2020-05-06 19:31 | NUR ---
NURSE HAND-OFF: Important Events on Shift:[Clear D/C pulmonary standpoint] Patient Status: [stable] Diet: [GT feeding] Pending Orders: [] Pending Results/Labs:[] Pending MD notification:[] Latest Vital Signs: Temperature 98.2 , Pulse 76 , B/P 112 /65 , Respiratory Rate 18 , O2 SAT 99 , Nasal Cannula, O2 Flow Rate 2.0 . Vital Sign Comment: [stable] Latest [place] Fall Score: 70 Fall Risk: High Risk Safety Measures: Call light Within Reach, Bed Alarm Zone 2, Side Rails Side Rails x3, Bed position Low and Locked. Fall Precautions: Yellow Socks Yellow Gown Report given to [ROMIE Winkler].
--- NOTE | 2020-05-06 19:54 | NUR ---
NURSE NOTES: patient in bed, awake, unable to make needs known. Kept clean and comfortable. Bed in low and locked position. provided safe environment. Iv site noted, iv fluid is infusing. GTube noted, feeding is infusing as ordered. Noted with sacral dressing intact. Frequent visual checks. Will continue plan of care. Call light is at bedside.
[2020-05-06] MEDS: Atorvastatin 20mg tab ORAL SCH (20:26)
[2020-05-07 04:00] VITALS: BP 148/86
[2020-05-07] MEDS: D5 1/2NS 1,000 ML IV SCH ×3 (06:01→18:26)
--- NOTE | 2020-05-07 07:19 | NUR ---
NURSE HAND-OFF: Important Events on Shift:WNL Patient Status: WNL Diet: Glucerna 1.2 Pending Orders: Pending Results/Labs: Pending MD notification: Latest Vital Signs: Temperature 98.9 , Pulse 83 , B/P 148 /86 , Respiratory Rate 20 , O2 SAT 98 , Nasal Cannula, O2 Flow Rate 2.0 . Vital Sign Comment: WNL Latest [place] Fall Score: 70 Fall Risk: High Risk Safety Measures: Call light Within Reach, Bed Alarm Zone 2, Side Rails Side Rails x3, Bed position Low and Locked. Fall Precautions: Yellow Socks Yellow Gown Report given to Hailee Stock.
--- NOTE | 2020-05-07 07:26 | NUR ---
NURSE NOTES: Report received from Peterson GRUBBS, rounds made. Patient alert, calm. Respirations even/unlabored on O2 2LNC. HOB elevated. NPO. TF Glucerna 1.2 yolanda at 50 ml/hr to GT, dressing CDI, will check for residual and flush with free water as ordered. IV D5 1/2 NS at 75 ml/hr to LW, site asymptomatic. Bilateral SCDs on. Will provide skin precautions. FC, in place, patent, y/clear, anchor to left thigh. Call light in reach, bed in lowest position, will continue to monitor.
[2020-05-07 08:00] VITALS: BP 139/81
[2020-05-07 09:50] LABS: HEMATOCRIT 24.5 % (42.0-52.0); HEMOGLOBIN 7.9 G/DL (14.2-18.0); MEAN CORPUSCULAR VOLUME 89 FL (80-99); PLATELET COUNT 304 K/UL (150-450); RED BLOOD COUNT 2.76 M/UL (4.70-6.10); RED CELL DISTRIBUTION WIDTH 14.9 % (11.6-14.8); WHITE BLOOD COUNT 7.6 K/UL (4.8-10.8)
[2020-05-07 09:53] LABS: BASOPHILS % (AUTO) 0.6 % (0.0-2.0); EOSINOPHILS % (AUTO) 9.8 % (0.0-3.0); LYMPHOCYTES % (AUTO) 13.1 % (20.0-45.0); MONOCYTES % (AUTO) 6.7 % (1.0-10.0); NEUTROPHILS % (AUTO) 69.8 % (45.0-75.0)
[2020-05-07] MEDS: Multivitamins W/Minerals 15 ML UDC ORAL SCH (10:03)
[2020-05-07] MEDS: Lisinopril 20mg tab ORAL SCH (10:04)
[2020-05-07] MEDS: Magnesium Oxide 400mg tab ORAL SCH (10:05)
[2020-05-07] MEDS: Pantoprazole Inj IVP SCH (10:05)
[2020-05-07] MEDS: Vancomycin 1 GM in NS 275 ML IVPB SCH ×2 (10:14→22:01)
[2020-05-07 10:37] LABS: ALANINE AMINOTRANSFERASE 97 U/L (12-78); ALBUMIN 1.8 G/DL (3.4-5.0); ALBUMIN/GLOBULIN RATIO 0.5 (1.0-2.7); ALKALINE PHOSPHATASE 70 U/L (46-116); ANION GAP 7 mmol/L (5-15); ASPARTATE AMINO TRANSFERASE 67 U/L (15-37); BILIRUBIN,TOTAL 0.2 MG/DL (0.2-1.0); BLOOD UREA NITROGEN 10 mg/dL (7-18); CALCIUM 8.5 MG/DL (8.5-10.1); CARBON DIOXIDE 28 MMOL/L (21-32); CHLORIDE 108 MMOL/L (98-107); CREATININE 0.7 MG/DL (0.55-1.30); POTASSIUM 3.1 MMOL/L (3.5-5.1); SODIUM 143 MMOL/L (136-145)
--- NOTE | 2020-05-07 11:03 | Pulmonology Progress Note ---
Subjective ROS Limited/Unobtainable: No Interval Events: s/p transfusion, EGD, [place] Constitutional: Reports: fever, other - resolved HEENT: Repors: no symptoms Respiratory: Reports: no symptoms Cardiovascular: Reports: no symptoms Gastrointestinal/Abdominal: Reports: no symptoms Genitourinary: Reports: no symptoms Allergies: Coded Allergies: No Known Allergies (Unverified , 04/15/20) Objective Last 24 Hour Vital Signs Date Time Temp Pulse Resp B/P (MAP) Pulse Ox O2 Delivery O2 Flow Rate FiO2 05/07/20 10:05 87 139/81 05/07/20 10:04 87 139/81 05/07/20 10:04 139/81 05/07/20 04:00 98.9 83 20 148/86 (106) 98 05/06/20 23:51 98.8 82 20 142/84 (103) 97 05/06/20 21:00 Nasal Cannula 2.0 05/06/20 20:00 98.9 81 18 126/76 (93) 98 05/06/20 18:02 76 112/65 05/06/20 16:00 2.0 05/06/20 16:00 98.2 76 18 112/65 (81) 99 05/06/20 13:00 94 138/86 05/06/20 12:00 97.8 94 18 138/86 (103) 98 05/06/20 12:00 2.0 Intake and Output 05/06/20 05/07/20 19:00 07:00 Intake Total 75 ml 1875.000 ml Output Total 1000 ml 2600 ml Balance -925 ml -725.000 ml Intake Free Water 450 ml IV Total 75 ml 875.000 ml Tube Feeding 550 ml Output Urine Total 1000 ml 2600 ml # Voids 1 # Bowel Movements 2 HEENT: atraumatic Respiratory: decreased breath sounds Cardiovascular: normal rate, regular rhythm Abdomen: soft, non tender Laboratory Tests 05/07/20 08:55: White Blood Count 7.6, Red Blood Count 2.76L, Hemoglobin 7.9L, Hematocrit 24.5L, Mean Corpuscular Volume 89, Mean Corpuscular Hemoglobin 28.5, Mean Corpuscular Hemoglobin Concent 32.2, Red Cell Distribution Width 14.9H, Platelet Count 304, Mean Platelet Volume 5.6L, Neutrophils (%) (Auto) 69.8, Lymphocytes (%) (Auto) 13.1L, Monocytes (%) (Auto) 6.7, Eosinophils (%) (Auto) 9.8H, Basophils (%) (Auto) 0.6, Sodium Level 143, Potassium Level 3.1L, Chloride Level 108H, Carbon Dioxide Level 28, Anion Gap 7, Blood Urea Nitrogen 10, Creatinine 0.7, Estimat Glomerular Filtration Rate > 60, Glucose Level 130H, Calcium Level 8.5, Total Bilirubin 0.2, Aspartate Amino Transf (AST/SGOT) 67H, Alanine Aminotransferase (ALT/SGPT) 97H, Alkaline Phosphatase 70, Total Protein 5.6L, Albumin 1.8L, Globulin 3.8, Albumin/Globulin Ratio 0.5L Current Medications Medications (Trade) Dose Ordered Sig/Chano Route PRN Reason Start Time Stop Time Status Last Admin Dose Admin Acetaminophen (Tylenol) 650 mg Q6H PRN ORAL Temp >100.5 04/29/20 22:00 05/29/20 21:59 05/04/20 08:52 Amlodipine Besylate (Norvasc) 10 mg DAILY ORAL 04/30/20 09:00 05/30/20 08:59 05/07/20 10:05 Atorvastatin Calcium (Lipitor) 10 mg BEDTIME ORAL 04/30/20 21:00 07/29/20 20:59 05/06/20 20:26 Dextrose (Dextrose 50%) 25 ml Q30M PRN IV Hypoglycemia 05/01/20 05:45 07/30/20 05:44 Dextrose (Dextrose 50%) 50 ml Q30M PRN IV Hypoglycemia 05/01/20 05:45 07/30/20 05:44 05/01/20 06:01 Dextrose/Sodium Chloride 1,000 ml @ 75 mls/hr [id number] IV 05/01/20 07:00 05/31/20 06:59 05/07/20 06:01 Famotidine (Pepcid) 20 mg DAILY ORAL 04/30/20 09:00 07/29/20 08:59 05/07/20 10:04 Labetalol HCl (Normodyne) 200 mg THREE TIMES A DAY ORAL 04/30/20 09:00 05/30/20 08:59 05/07/20 10:04 Lisinopril (PriniviL) 20 mg DAILY ORAL 04/30/20 09:00 05/30/20 08:59 05/07/20 10:04 Magnesium Oxide (Mag-Ox 400mg) 400 mg DAILY ORAL 04/30/20 09:00 05/30/20 08:59 05/07/20 10:05 Mirtazapine (Remeron) 30 mg BEDTIME ORAL 04/30/20 21:00 07/29/20 20:59 05/06/20 20:26 Multivitamins (Multivitamins W/ Minerals 15ml Liquid) 15 ml DAILY ORAL 04/30/20 09:00 05/30/20 08:59 05/07/20 10:03 Ondansetron HCl (Zofran) 4 mg Q6H PRN IVP Nausea & Vomiting 04/29/20 22:00 05/29/20 21:59 Pantoprazole (Protonix) 40 mg DAILY IVP 04/30/20 09:00 05/30/20 08:59 05/07/20 10:05 Vancomycin HCl (Vanco pharmacy to dose) 1 ea DAILY PRN MISC Per rx protocol 05/03/20 09:45 06/02/20 09:44 Vancomycin HCl 1 gm/Sodium Chloride 275 ml @ 183.708 mls/hr Q12H IVPB 05/04/20 23:00 05/08/20 23:59 05/07/20 10:14 Assessment/Plan Assessment/Plan 1. Elevated inflammatory markers -Venous duplex ultrasound of lower extremity was negative for DVT. - We will order SCD 2. Hypoxia on arrival, likely secondary to #3 3. Oxygen dependent COPD -Patient is currently saturating at 98% on 2 L nasal cannula -Monitor for hypoxia and provide supplemental oxygen as needed 4. Lower GI bleeding -EGD 05/01 ulcers -> on PPI - Colonoscopy -> internal hemorrhoids, diverticulosis - GI following - s/p transfusion - stool OB neg 04/30 5. Anemia, likely secondary to #4 - s/p transfusion 6. VRE rectum -Contact precaution -C. difficile negative - on Vanco per PMD Fever, tachycardia, hypertension - D-dimer slightly elevated Medically stable from pulmonary standpoint The care for this patient was discussed with my supervising physician. Time spent for this case was approximately 31 minutes. Bennie Goodrich May 07, 2020 11:03
[2020-05-07] MEDS ORDERED: NS 275ml ONE ×2 (11:11→11:13)
[2020-05-07] MEDS ORDERED: 1/2 NS 1000ml IV ONE (11:13)
[2020-05-07 12:00] VITALS: BP 132/78
--- NOTE | 2020-05-07 14:19 | NUR ---
NURSE NOTES: Dr. Buitrago notified of K3.1 and HH 7.9/24.5, orders for KCL 20 meq via GTx1. Will follow as ordered.
--- NOTE | 2020-05-07 14:28 | General Progress Note ---
Subjective ROS Limited/Unobtainable: No Allergies: Coded Allergies: No Known Allergies (Unverified , 04/15/20) Objective Last 24 Hour Vital Signs Date Time Temp Pulse Resp B/P (MAP) Pulse Ox O2 Delivery O2 Flow Rate FiO2 05/07/20 13:50 82 132/78 05/07/20 10:05 87 139/81 05/07/20 10:04 87 139/81 05/07/20 10:04 139/81 05/07/20 04:00 98.9 83 20 148/86 (106) 98 05/06/20 23:51 98.8 82 20 142/84 (103) 97 05/06/20 21:00 Nasal Cannula 2.0 05/06/20 20:00 98.9 81 18 126/76 (93) 98 05/06/20 18:02 76 112/65 05/06/20 16:00 2.0 05/06/20 16:00 98.2 76 18 112/65 (81) 99 Intake and Output 05/06/20 05/07/20 19:00 07:00 Intake Total 75 ml 1875.000 ml Output Total 1000 ml 2600 ml Balance -925 ml -725.000 ml Intake Free Water 450 ml IV Total 75 ml 875.000 ml Tube Feeding 550 ml Output Urine Total 1000 ml 2600 ml # Voids 1 # Bowel Movements 2 Laboratory Tests 05/07/20 08:55: White Blood Count 7.6, Red Blood Count 2.76L, Hemoglobin 7.9L, Hematocrit 24.5L, Mean Corpuscular Volume 89, Mean Corpuscular Hemoglobin 28.5, Mean Corpuscular Hemoglobin Concent 32.2, Red Cell Distribution Width 14.9H, Platelet Count 304, Mean Platelet Volume 5.6L, Neutrophils (%) (Auto) 69.8, Lymphocytes (%) (Auto) 13.1L, Monocytes (%) (Auto) 6.7, Eosinophils (%) (Auto) 9.8H, Basophils (%) (Au to) 0.6, Sodium Level 143, Potassium Level 3.1L, Chloride Level 108H, Carbon Dioxide Level 28, Anion Gap 7, Blood Urea Nitrogen 10, Creatinine 0.7, Estimat Glomerular Filtration Rate > 60, Glucose Level 130H, Calcium Level 8.5, Total Bilirubin 0.2, Aspartate Amino Transf (AST/SGOT) 67H, Alanine Aminotransferase (ALT/SGPT) 97H, Alkaline Phosphatase 70, Total Protein 5.6L, Albumin 1.8L, Globulin 3.8, Albumin/Globulin Ratio 0.5L Height (Feet): 5 Height (Inches): 10.00 Weight (Pounds): 125 General Appearance: no apparent distress EENT: normal ENT inspection Neck: supple Cardiovascular: normal rate Respiratory/Chest: decreased breath sounds Abdomen: normal bowel sounds, non tender, soft Extremities: non-tender Assessment/Plan Problem List: (1) COVID-19 virus detected ICD Codes: U07.1 - COVID-19 SNOMED: 7425922474917611 (2) Left hemiparesis ICD Codes: G81.94 - Hemiplegia, unspecified affecting left nondominant side SNOMED: 603330811 (3) Acute GI bleeding ICD Codes: K92.2 - Gastrointestinal hemorrhage, unspecified SNOMED: 95538467 (4) Right lower lobe pneumonia ICD Codes: J18.9 - Pneumonia, unspecified organism SNOMED: 089481470 (5) Aphasia ICD Codes: R47.01 - Aphasia SNOMED: 96955673 Assessment/Plan: Assessment/Plan Assessment/Plan: Assessment - GI Bleed - OBS - dysphagia, s/p GT - anemia - free water deficit Recommendations - follow CBC - Elevate HOB - GT water flushes - GT care - TF -s/p EGD and colonoscopy Rich Aguilar MD May 07, 2020 14:28
[2020-05-07 16:00] VITALS: BP 95/58
--- NOTE | 2020-05-07 16:57 | General Progress Note ---
Subjective Allergies: Coded Allergies: No Known Allergies (Unverified , 04/15/20) Subjective doibng better non verabal bed bound opens his eyes obn verbal stimuli Objective Last 24 Hour Vital Signs Date Time Temp Pulse Resp B/P (MAP) Pulse Ox O2 Delivery O2 Flow Rate FiO2 05/07/20 13:50 82 132/78 05/07/20 10:05 87 139/81 05/07/20 10:04 87 139/81 05/07/20 10:04 139/81 05/07/20 04:00 98.9 83 20 148/86 (106) 98 05/06/20 23:51 98.8 82 20 142/84 (103) 97 05/06/20 21:00 Nasal Cannula 2.0 05/06/20 20:00 98.9 81 18 126/76 (93) 98 05/06/20 18:02 76 112/65 Intake and Output 05/06/20 05/07/20 19:00 07:00 Intake Total 75 ml 1875.000 ml Output Total 1000 ml 2600 ml Balance -925 ml -725.000 ml Intake Free Water 450 ml IV Total 75 ml 875.000 ml Tube Feeding 550 ml Output Urine Total 1000 ml 2600 ml # Voids 1 # Bowel Movements 2 Laboratory Tests 05/07/20 08:55: White Blood Count 7.6, Red Blood Count 2.76L, Hemoglobin 7.9L, Hematocrit 24.5L, Mean Corpuscular Volume 89, Mean Corpuscular Hemoglobin 28.5, Mean Corpuscular Hemoglobin Concent 32.2, Red Cell Distribution Width 14.9H, Platelet Count 304, Mean Platelet Volume 5.6L, Neutrophils (%) (Auto) 69.8, Lymphocytes (%) (Auto) 13.1L, Monocytes (%) (Auto) 6.7, Eosinophils (%) (Auto) 9.8H, Basophils (%) (Auto) 0.6, Sodium Level 143, Potassium Level 3.1L, Chloride Level 108H, Carbon Dioxide Level 28, Anion Gap 7, Blood Urea Nitrogen 10, Creatinine 0.7, Estimat Glomerular Filtration Rate > 60, Glucose Level 130H, Calcium Level 8.5, Total Bilirubin 0.2, Aspartate Amino Transf (AST/SGOT) 67H, Alanine Aminotransferase (ALT/SGPT) 97H, Alkaline Phosphatase 70, Total Protein 5.6L, Albumin 1.8L, Globulin 3.8, Albumin/Globulin Ratio 0.5L Height (Feet): 5 Height (Inches): 10.00 Weight (Pounds): 125 Neck: normal inspection Cardiovascular: normal rate Respiratory/Chest: lungs clear Abdomen: non tender, soft Extremities: non-tender Assessment/Plan Assessment/Plan: lgi bleeding resolved anemia covid 19 pna dm ac renal failure vre rectum add vancomycin transfuse 1 u prbc gi oscar tomorrow npo, ivf dc [facility] to [facility] tomorrow cm Dedrick Buitrago MD May 07, 2020 16:57
[2020-05-07 18:15] VITALS: BP 98/60
--- NOTE | 2020-05-07 19:13 | NUR ---
NURSE HAND-OFF: Important Events on Shift:K3.1 (replaced with KCL 20 meq via GTx1), HH 7.9/24.5 (Dr. Buitrago notified, no further orders), Labetalol 1800 dose held (BP 98/60) Patient Status: stable Diet: NPO, TF Glucerna 1.2 yolanda at 50 ml/hr, flush 100 ml free water every 6hours Pending Orders: none Pending Results/Labs:none Pending MD notification:none Latest Vital Signs: Temperature 98.0 , Pulse 77 , B/P 98 /60 , Respiratory Rate 18 , O2 SAT 98 , Nasal Cannula, O2 Flow Rate 2.0 . Vital Sign Comment: monitor BP Latest [place] Fall Score: 70 Fall Risk: High Risk Safety Measures: Call light Within Reach, Bed Alarm Zone 2, Side Rails Side Rails x3, Bed position Low and Locked. Fall Precautions: Yellow Socks Yellow Gown Report given to Marcellus GRUBBS.
--- NOTE | 2020-05-07 19:20 | NUR ---
NURSE NOTES: received pt and report from ROMIE Stock. pt alert and oriented x 1 bedbound. hubbard catheter patent and draining. iv site clean dry and intact and running fluids as ordered. . optifoam dressing clean dry and intact on sacral DTI. aware of low Hgb, no orderes given per day shift nurse. 20Meq Kdur given for potassium level/ plan of care discussed. will follow up.
[2020-05-07 20:00] VITALS: BP 122/72
[2020-05-07] MEDS: Atorvastatin 20mg tab ORAL SCH (20:34)
[2020-05-08] VITALS: BP 115/72
--- NOTE | 2020-05-08 01:20 | NUR ---
NURSE NOTES: Vitals stable, no acute distress observed. Minimal gastric residual noted.
[2020-05-08 04:00] VITALS: BP 116/75
--- NOTE | 2020-05-08 04:20 | NUR ---
NURSE NOTES: pt vital signs stable at this time. no s/s of distress and no s/s of pain. new bottle glucerna 1.2 hung at 50cc/hr as ordered. pt had bowel movement which was not formed, very liquid like stool which contained blood. sacral dressings soiled. complete bed and linien change done along with gown change, pt cleaned, optifoam dressings changed, now clean dry and intact. Addendum: 05/08/20 at 0644 by Marcellus De La Garza RN no labs ordered for patient this am, will endorse to day shift nurse to follow up.
--- NOTE | 2020-05-08 06:58 | NUR ---
NURSE HAND-OFF: Important Events on Shift:bowel movement, liquid stool with blood, will endorse day shift nurse to follow up on labs Patient Status: stable Diet: tube feed Pending Orders: RAMSES Pending Results/Labs:NA Pending notification:NA Latest Vital Signs: Temperature 98.8 , Pulse 83 , B/P 116 /75 , Respiratory Rate 17 , O2 SAT 96 , Nasal Cannula, O2 Flow Rate 2.0 . Vital Sign Comment: stable through the shift Latest [place] Fall Score: 70 Fall Risk: High Risk Safety Measures: Call light Within Reach, Bed Alarm Zone 2, Side Rails Side Rails x3, Bed position Low and Locked. Fall Precautions: Yellow Socks Yellow Gown Addendum: 05/08/20 at 0716 by Marcellus De La Garza RN report given to ROMIE Stock
--- NOTE | 2020-05-08 07:20 | NUR ---
RD ASSESSMENT & RECOMMENDATIONS SEE CARE ACTIVITY FOR COMPLETE ASSESSMENT DAILY ESTIMATED NEEDS: Needs based on Pulmonary, suspected wt loss, underweight 60kg 30-35 kcals/kg 8451-8777 total kcals 1-1.5 g protein/kg 60-90 g total protein 25-30 mL/kg 7915-6461 total fluid mLs NUTRITION DIAGNOSIS: * Swallowing difficulty R/T dysphagia as evidenced by PEG dep. * Increased kcal/prot needs R/T suspected wt loss and underweight status as evidenced by suspected significant wt loss of 9lbs/6.4% in 1 mo, pt @ 77% IBW w/ low BMI per guidelines. CURRENT TF: Glucerna 1.2 @50ml/hr x24 hrs ENTERAL NUTRITION RECOMMENDATIONS: Glucerna 1.2 @ 65ml/hr x 24 hrs to provide 1560ml, 1872kcal, 94g prot, 1256ml free water * Glucerna 1.2 running @50ml/hr * Rec to advance 15ml as tolerated to goal of 65ml/hr to better meet est kcal needs. * HOB over 30 degrees/ water flush per MD ADDITIONAL RECOMMENDATIONS: * calibrated bedscale wt * Monitor BGs w/ TF, need for hypoglycemics: h/o DM Rec to DC D5 IVF for improved BG control: Na now wnl, elev BGs * Rec WC eval-> done, no evidence of skin breakdown * Monitor lytes, replete as needed (low K) . .
--- NOTE | 2020-05-08 07:23 | NUR ---
NURSE NOTES: Report received from Marcellus RN, rounds made. Patient alert, calm, non-verbal. Respirations even/unlabored on O2 2LNC. HOB elevated. NPO. TF Glucerna 1.2 yolanda at 50 ml/hr to GT, dressing CDI, will check for residual and flush with free water as ordered. IV D5 1/2 NS at 75 ml/hr to LW, site asymptomatic. Bilateral SCDs on. Will provide skin precautions. FC, in place, patent, y/clear, anchor to left thigh. Call light in reach, bed in lowest position, will continue to monitor.
[2020-05-08 08:00] VITALS: BP 114/76
[2020-05-08] MEDS: Lisinopril 20mg tab ORAL SCH (09:00)
[2020-05-08] MEDS: Multivitamins W/Minerals 15 ML UDC ORAL SCH (10:35)
[2020-05-08] MEDS: Pantoprazole Inj IVP SCH (10:35)
[2020-05-08] MEDS: Magnesium Oxide 400mg tab ORAL SCH (10:35)
[2020-05-08] MEDS: D5 1/2NS 1,000 ML IV SCH (10:38)
[2020-05-08] MEDS: Vancomycin 1 GM in NS 275 ML IVPB SCH (10:38)
--- NOTE | 2020-05-08 11:26 | NUR ---
CASE MANAGEMENT:REVIEW 05/08/20 SI: LGIB. ANEMIA..S/P 4UNITS PRBC'S. COVID(+) BACTEREMIA 99.0 82 19 114/76 96% ON 2L/NC IS: IV VANCOMYCIN Q12 IVF@75/HR LIPITOR GT QHS REMERON GT QHS LABETALOL GT TID PEPCID GT QD NORVASC GT QD LISINOPRIL GT QD IV PROTONIX QD : STEP DOWN UNIT DCP: FROM [facility] PLAN: MONITOR FOR ADDITIONAL BLEEDING ~ S/P 4 UNITS PRBC'S
--- NOTE | 2020-05-08 11:44 | General Progress Note ---
Subjective Allergies: Coded Allergies: No Known Allergies (Unverified , 04/15/20) Subjective doibng better non verabal bed bound opens his eyes obn verbal stimuli Objective Last 24 Hour Vital Signs Date Time Temp Pulse Resp B/P (MAP) Pulse Ox O2 Delivery O2 Flow Rate FiO2 05/08/20 09:00 82 114/76 05/08/20 09:00 82 114/76 05/08/20 09:00 114/76 05/08/20 08:00 99.0 82 19 114/76 (89) 96 05/08/20 04:00 98.8 83 17 116/75 (89) 96 05/08/20 00:00 98.4 84 17 115/72 (86) 96 05/07/20 21:00 Nasal Cannula 2.0 05/07/20 20:00 98.7 81 20 122/72 (89) 97 05/07/20 18:15 77 98/60 (73) 05/07/20 18:00 77 98/60 05/07/20 16:00 98.0 76 18 95/58 (70) 98 05/07/20 13:50 82 132/78 05/07/20 12:00 98.2 82 18 132/78 (96) 98 l Intake and Output 05/07/20 05/08/20 19:00 07:00 Intake Total 1470 ml 825 ml Output Total 800 ml 1800 ml Balance 670 ml -975 ml Intake Free Water 320 ml IV Total 600 ml 825 ml Tube Feeding 550 ml Output Urine Total 800 ml 800 ml Stool Total 1000 ml # Bowel Movements 1 Height (Feet): 5 Height (Inches): 10.00 Weight (Pounds): 125 General Appearance: alert EENT: PERRL/EOMI Neck: supple Cardiovascular: regular rhythm Respiratory/Chest: normal breath sounds Abdomen: non tender, soft Extremities: non-tender Assessment/Plan Assessment/Plan: lgi bleeding resolved anemia covid 19 pna dm ac renal failure vre rectum add vancomycin transfuse 1 u prbc gi oscar tomorrow npo, ivf dc to [facility] today with gt feeding and floley cath dw cm Dedrick Buitrago MD May 08, 2020 11:44
[2020-05-08 12:00] VITALS: BP 119/70
--- NOTE | 2020-05-08 13:50 | General Progress Note ---
Subjective ROS Limited/Unobtainable: No Allergies: Coded Allergies: No Known Allergies (Unverified , 04/15/20) Objective Last 24 Hour Vital Signs Date Time Temp Pulse Resp B/P (MAP) Pulse Ox O2 Delivery O2 Flow Rate FiO2 05/08/20 12:00 98.2 85 20 119/70 (86) 98 05/08/20 09:00 82 114/76 05/08/20 09:00 82 114/76 05/08/20 09:00 114/76 05/08/20 08:00 99.0 82 19 114/76 (89) 96 05/08/20 04:00 98.8 83 17 116/75 (89) 96 05/08/20 00:00 98.4 84 17 115/72 (86) 96 05/07/20 21:00 Nasal Cannula 2.0 05/07/20 20:00 98.7 81 20 122/72 (89) 97 05/07/20 18:15 77 98/60 (73) 05/07/20 18:00 77 98/60 05/07/20 16:00 98.0 76 18 95/58 (70) 98 05/07/20 13:50 82 132/78 Intake and Output 05/07/20 05/08/20 19:00 07:00 Intake Total 1470 ml 825 ml Output Total 800 ml 1800 ml Balance 670 ml -975 ml Intake Free Water 320 ml IV Total 600 ml 825 ml Tube Feeding 550 ml Output Urine Total 800 ml 800 ml Stool Total 1000 ml # Bowel Movements 1 Height (Feet): 5 Height (Inches): 10.00 Weight (Pounds): 125 General Appearance: no apparent distress EENT: normal ENT inspection Neck: supple Cardiovascular: normal rate Respiratory/Chest: decreased breath sounds Abdomen: normal bowel sounds, non tender, soft Extremities: non-tender Assessment/Plan Problem List: (1) COVID-19 virus detected ICD Codes: U07.1 - COVID-19 SNOMED: 7203179594705234 (2) Left hemiparesis ICD Codes: G81.94 - Hemiplegia, unspecified affecting left nondominant side SNOMED: 785467540 (3) Acute GI bleeding ICD Codes: K92.2 - Gastrointestinal hemorrhage, unspecified SNOMED: 26823156 (4) Right lower lobe pneumonia ICD Codes: J18.9 - Pneumonia, unspecified organism SNOMED: 573430639 (5) Aphasia ICD Codes: R47.01 - Aphasia SNOMED: 00165368 Assessment/Plan: Assessment/Plan Assessment/Plan: Assessment - GI Bleed - OBS - dysphagia, s/p GT - anemia - free water deficit Recommendations - follow CBC - Elevate HOB - GT water flushes - GT care - TF -s/p EGD and colonoscopy Rich Aguilar MD May 08, 2020 13:50
--- NOTE | 2020-05-08 14:05 | NUR ---
NURSE NOTES: Reconciled home medications with Dr. Buitrago, orders to continue upon discharge.
--- NOTE | 2020-05-08 14:10 | NUR ---
*-*DISCHARGE PLANNED*-* PATIENT HAS BEEN ACCEPTED AND WILL BE DISCHARGED BACK TO: [facility] P: [phone] FOR NURSE TO NURSE REPORT ROOM# 110.[facility] SET FOR 3:45PM PLACED A CALL TO PATIENTS SISTER CATRINA LUND, NO ANSWER LEFT VOICE MESSAGE IN REGARDS.
[2020-05-08 14:15] VITALS: BP 125/73
--- NOTE | 2020-05-08 14:35 | NUR ---
*-*DISCHARGE PLANNED*-* PATIENT HAS BEEN ACCEPTED AND WILL BE DISCHARGED BACK TO: [facility] P: [phone] FOR NURSE TO NURSE REPORT ROOM# 110.[facility] SET FOR 3:45PM PLACED A CALL TO PATIENTS SISTER CATRINA LUND, NO ANSWER LEFT VOICE MESSAGE IN REGARDS TO DISCHARGE PLAN.
--- NOTE | 2020-05-08 15:37 | Pulmonology Progress Note ---
Subjective ROS Limited/Unobtainable: No Interval Events: s/p transfusion, EGD, [place] Constitutional: Reports: fever, other - resolved HEENT: Repors: no symptoms Respiratory: Reports: no symptoms Cardiovascular: Reports: no symptoms Gastrointestinal/Abdominal: Reports: no symptoms Genitourinary: Reports: no symptoms Allergies: Coded Allergies: No Known Allergies (Unverified , 04/15/20) Objective Last 24 Hour Vital Signs Date Time Temp Pulse Resp B/P (MAP) Pulse Ox O2 Delivery O2 Flow Rate FiO2 05/08/20 14:28 83 125/73 05/08/20 14:15 83 125/73 (90) 05/08/20 12:00 98.2 85 20 119/70 (86) 98 05/08/20 09:00 82 114/76 05/08/20 09:00 82 114/76 05/08/20 09:00 114/76 05/08/20 09:00 Nasal Cannula 2.0 05/08/20 08:00 99.0 82 19 114/76 (89) 96 05/08/20 04:00 98.8 83 17 116/75 (89) 96 05/08/20 00:00 98.4 84 17 115/72 (86) 96 05/07/20 21:00 Nasal Cannula 2.0 05/07/20 20:00 98.7 81 20 122/72 (89) 97 05/07/20 18:15 77 98/60 (73) 05/07/20 18:00 77 98/60 05/07/20 16:00 98.0 76 18 95/58 (70) 98 Intake and Output 05/07/20 05/08/20 19:00 07:00 Intake Total 1470 ml 875 ml Output Total 800 ml 1800 ml Balance 670 ml -925 ml Intake Free Water 320 ml IV Total 600 ml 825 ml Tube Feeding 550 ml 50 ml Output Urine Total 800 ml 800 ml Stool Total 1000 ml # Bowel Movements 1 HEENT: atraumatic Respiratory: decreased breath sounds Cardiovascular: normal rate, regular rhythm Abdomen: soft, non tender Current Medications Medications (Trade) Dose Ordered Sig/Chano Route PRN Reason Start Time Stop Time Status Last Admin Dose Admin Acetaminophen (Tylenol) 650 mg Q6H PRN ORAL Temp >100.5 04/29/20 22:00 05/29/20 21:59 05/04/20 08:52 Amlodipine Besylate (Norvasc) 10 mg DAILY ORAL 04/30/20 09:00 05/30/20 08:59 05/07/20 10:05 Atorvastatin Calcium (Lipitor) 10 mg BEDTIME ORAL 04/30/20 21:00 07/29/20 20:59 05/07/20 20:34 Dextrose (Dextrose 50%) 25 ml Q30M PRN IV Hypoglycemia 05/01/20 05:45 07/30/20 05:44 Dextrose (Dextrose 50%) 50 ml Q30M PRN IV Hypoglycemia 05/01/20 05:45 07/30/20 05:44 05/01/20 06:01 Dextrose/Sodium Chloride 1,000 ml @ 75 mls/hr [id number] IV 05/01/20 07:00 05/31/20 06:59 05/08/20 10:38 Famotidine (Pepcid) 20 mg DAILY ORAL 04/30/20 09:00 07/29/20 08:59 05/08/20 10:35 Labetalol HCl (Normodyne) 200 mg THREE TIMES A DAY ORAL 04/30/20 09:00 05/30/20 08:59 05/08/20 14:28 Lisinopril (PriniviL) 20 mg DAILY ORAL 04/30/20 09:00 05/30/20 08:59 05/07/20 10:04 Magnesium Oxide (Mag-Ox 400mg) 400 mg DAILY ORAL 04/30/20 09:00 05/30/20 08:59 05/08/20 10:35 Mirtazapine (Remeron) 30 mg BEDTIME ORAL 04/30/20 21:00 07/29/20 20:59 05/07/20 20:34 Multivitamins (Multivitamins W/ Minerals 15ml Liquid) 15 ml DAILY ORAL 04/30/20 09:00 05/30/20 08:59 05/08/20 10:35 Ondansetron HCl (Zofran) 4 mg Q6H PRN IVP Nausea & Vomiting 04/29/20 22:00 05/29/20 21:59 Pantoprazole (Protonix) 40 mg DAILY IVP 04/30/20 09:00 05/30/20 08:59 05/08/20 10:35 Vancomycin HCl (Vanco pharmacy to dose) 1 ea DAILY PRN MISC Per rx protocol 05/03/20 09:45 05/08/20 23:59 Vancomycin HCl 1 gm/Sodium Chloride 275 ml @ 183.708 mls/hr Q12H IVPB 05/04/20 23:00 05/13/20 22:59 05/08/20 10:38 Assessment/Plan Assessment/Plan 1. Elevated inflammatory markers -Venous duplex ultrasound of lower extremity was negative for DVT. - We will order SCD 2. Hypoxia on arrival, likely secondary to #3 3. Oxygen dependent COPD -Patient is currently saturating at 98% on 2 L nasal cannula -Monitor for hypoxia and provide supplemental oxygen as needed 4. Lower GI bleeding -EGD 05/01 ulcers -> on PPI - Colonoscopy -> internal hemorrhoids, diverticulosis - GI following - s/p transfusion - stool OB neg 04/30 5. Anemia, likely secondary to #4 - s/p transfusion 6. VRE rectum -Contact precaution -C. difficile negative - on Vanco per PMD Fever, tachycardia, hypertension - D-dimer slightly elevated Medically stable from pulmonary standpoint Noted the plan for discharge The care for this patient was discussed with my supervising physician. Time spent for this case was approximately 31 minutes. Bennie Goodrich May 08, 2020 15:37
--- NOTE | 2020-05-08 15:53 | NUR ---
NURSE NOTES: Report called to Gloria GRUBBS at [facility] (asked to leave LW saline lock in place). Called patient's sister Maggie, updated her on plans to transfer patient back to [facility] today, she will call the facility to follow up on his arrival.
[2020-05-08 16:00] VITALS: BP 105/63
--- NOTE | 2020-05-08 16:50 | NUR ---
NURSE NOTES: Report given to [facility]. LW saline lock, flushed, patent, clamped, remained in place. TF, off, no residual, flushed 100 ml free water, clamped GT, wrapped in towel. FC remains in place, anchor to left thigh, y/cl emptied at this time. Optifoam to sacral (cleansed, discharge skin picture taken/uploaded) and right hip changed, skin remains intact, bilateral heels optifoam, skin intact. ID bracelet removed. Patient remains on O2 2 LNC. HOB remains elevated. No belongings with patient.
[2020-05-08] MEDS ORDERED: D5 1/2NS 1000ml IV ONE (17:41)
--- NOTE | 2020-05-12 12:13 | Discharge Summary ---
Discharge Summary Discharge Summary _ Date of admission: 04/29/2020 Date of discharge: 05/08/[address] Buitrago History of Present Illness and Brief Hospital Course Mr. Rj Davis is a 69-year-old male with past medical history of COVID-19, CVA with left-sided hemiplegia, muscle wasting, and major depressive disorder, who was sent to ED from SNF for evaluation of increased rectal bleeding x1 day. Patient was hypoxic during transport and was placed on supplemental oxygen. Of note, he was recently admitted to [facility] for COVID-19 pneumonia, and UTI. Patient was treated with antibiotics and was sent back to [facility]. Patient tested negative for COVID-19 via PCR on 04/29/2020. Patient was reported to be on continuous low flow oxygen at [facility] given his history of COPD. Patient's hemoglobin level was low and was immediately transfused. The venous duplex ultrasound of lower extremities was negative for acute DVT despite elevated D-dimer. Patient was admitted to the hospital for further management of GI bleeding. Stool occult blood was negative. Patient underwent endoscopy and colonoscopy which revealed gastritis, diverticulosis, and internal hemorrhoids. Pathology report of the biopsied tissue revealed mild to moderate chronic gastritis without evidence of intestinal metaplasia, dysplasia, malignancy or Helicobacter. Patient was started on PPI. Throughout his hospitalization, he was transfused and was worked up for anemia. Patient's H&H remained stable after transfusion. Patient was found to have gastritis and was treated accordingly. Patient was medically stable for discharge and was discharged back to his facility on 05/08/2020. Consultants: Pulmonology Dr. Lopez Gastroenterology Dr. Aguilar Discharge Condition Improved and stable Discharge Diet Tube feeding Final diagnoses Left hemiparesis Acute GI bleeding Right lower lobe pneumonia Aphasia COVID-19 pneumonia VRE rectum Hypoxia Anemia Diverticulosis Internal hemorrhoids I have been assigned to dictate discharge summary for this account. Bennie Goodrich May 12, 2020 12:13
--- NOTE | 2020-05-13 02:16 | Cardiology Report ---
APPROVED REPORT EKG Measurement Heart [id number] [id number] <Conclusion> Sinus rhythm with short LA Nonspecific T wave abnormality Prolonged QT Abnormal ECG
== END 2020-05-08 16:52 | DRG 377 ==
LOC: EDBD 12:07 → EMR 13:04 → ICU 13:18 → 2W 13:18 → UNDOADMIN 13:18 → EDBEDREQ 14:39 → 2E 05-01 12:15 → 4E 05-01 22:20
PROC: 30233N1 Transfusion of Nonautologous Red Blood Cells into Peripheral Vein, Percutaneous Approach (ICD-10-PCS; 2020-04-29)
PROC: 0DJD8ZZ Inspection of Lower Intestinal Tract, Via Natural or Artificial Opening Endoscopic (ICD-10-PCS; principal; 2020-05-01 12:58)
PROC: 0DB78ZX Excision of Stomach, Pylorus, Via Natural or Artificial Opening Endoscopic, Diagnostic (ICD-10-PCS; principal; 2020-05-01 12:58)
DX: K57.31 Diverticulosis of large intestine without perforation or abscess with bleeding (principal); E43 Unspecified severe protein-calorie malnutrition; J18.9 Pneumonia, unspecified organism; I69.354 Hemiplegia and hemiparesis following cerebral infarction affecting left non-dominant side; Z43.1 Encounter for attention to gastrostomy; E87.0 Hyperosmolality and hypernatremia; N17.9 Acute kidney failure, unspecified; Z68.1 Body mass index [BMI] 19.9 or less, adult; I10 Essential (primary) hypertension; R13.10 Dysphagia, unspecified; Z79.82 Long term (current) use of aspirin; F32.9 Major depressive disorder, single episode, unspecified; R09.02 Hypoxemia; D50.0 Iron deficiency anemia secondary to blood loss (chronic); K64.8 Other hemorrhoids; K29.70 Gastritis, unspecified, without bleeding; Z86.16 Personal history of COVID-19
CPT/HCPCS: 36415; 71045; 80048; 80053; 80202; 81003; 82270; 82550; 82553; 82728; 82962; 83605; 83615; 83690; 83735; 83880; 84100; 84484; 85007; 85025; 85379; 85610; 85730; 86140; 86850; 86900; 86901; 86920; 87040; 87081; 87181; 87324; 93005; 93970; 94003; 94150; 96361; 96374; 96375; 99285; J7030; J8499